=== PATIENT | male | born 1950 | race Caucasian/White ===

== ENCOUNTER 2016-07-29 15:10 | Outpatient (RCR) | payer OTHER ==
[~2016-07-29 15:10] MED LIST: AMITRIPTYLINE H10 MG ORAL; BRIMONIDINE TART5 ML BOTH EYES; COLACE100 MG ORAL; COUMADIN3 MG ORAL; DILANTIN100 MG ORAL; HEPARIN SO5000 UNIT2 SUBQ; LATANOPROST2.5 ML BOTH EYES; NORCO 5-325 TA1 EACH ORAL; PRIMIDONE250 MG ORAL; PRIMIDONE50 MG PO; TAMSULOSIN HCL0.4 MG ORAL; TOLTERODINE TART1 MG PO; TRUSOPT10 ML BOTH EYES
== END 2016-08-26 | disposition home or self-care (01) ==
LOC: PTY 15:10
DX: R26.89 Other abnormalities of gait and mobility (principal); M54.5 Low back pain; Z91.81 History of falling; G40.909 Epilepsy, unspecified, not intractable, without status epilepticus
CPT/HCPCS: 97110; G0283

== ENCOUNTER 2016-08-28 15:11 | Outpatient (RCR) | payer OTHER | END 2016-09-23 | disposition home or self-care (01) | LOC: PTY 15:11 | DX: M54.5 Low back pain (principal) | CPT/HCPCS: 97110; G0283 ==

== ENCOUNTER 2016-10-03 15:07 | Outpatient (RCR) | payer OTHER | END 2016-10-24 | disposition home or self-care (01) | LOC: PTY 15:07 | DX: M54.5 Low back pain (principal) | CPT/HCPCS: 97110; G0283 ==

== ENCOUNTER → 2016-11-03 | Day surgery (SDC) | payer OTHER ==
[~2016-11-03] VITALS: Ht 177.8 cm; Wt 89.8 kg
[2016-11-03] VITALS (9 sets, daily range): BP systolic 134–149; BP diastolic 70–94
[~2016-11-03] MED LIST changes: +Akten 3.5% 1ml Btl ONE; +BSS 15ml BTL ONE; +BSS 500ml btl ONE; +Carbachol 0.01% Op Soln 1.5ml vial ONE; +Ciprofloxacin Opth Soln ONE; +Cyclopentolate 1% Opth Sol ONE; +Dexamethasone 4mg/ml vial ONE; +Diclofenac Sod 0.1% Op Soln ONE; +EPINEPHrine 1mg/1ml Amp ONE; +LR 1000ml ONE; +Lidocaine 1% MPF 10mg/ml 5ml ONE; +Lidocaine 4% Amp ONE; +Midazolam 2mg/2ml Inj ONE; +NS Irrig 1000ml ONE; +Phenylephrine 10% Opth Soln 5ml ONE; +Povidone-Iodine 5% opth solution ONE; +Pred Forte 1% Opth Susp 1ml ONE; +Sodium Hyaluronate 10 mg/ml 0.85ml ONE; +Sodium Hyaluronate 14 mg/ml 0.85ml ONE; +Sterile Water Irrig 1000ml IRRIG ONE; +Tetracaine 0.5% Opth Soln ONE; +Vancomycin Intravitreal Inj RIGHT EYE ONE; +fentaNYL 100 mcg/2 mL IV ONE
[2016-11-03] MEDS: Ciprofloxacin Opth Soln RIGHT EYE SCH ×4 (07:08→07:36)
[2016-11-03] MEDS: Diclofenac Sod 0.1% Op Soln RIGHT EYE SCH ×4 (07:08→07:35)
[2016-11-03] MEDS: Cyclopentolate 1% Opth Sol RIGHT EYE SCH ×4 (07:09→07:36)
[2016-11-03] MEDS: Phenylephrine 10% Opth Soln 5ml RIGHT EYE SCH ×4 (07:09→07:36)
[2016-11-03] MEDS: Akten 3.5% 1ml Btl RIGHT EYE SCH ×4 (07:09→07:36)
--- NOTE | 2016-11-03 08:15 | Anethesia Preoperative Eval ---
Anesthesia Pre-op PMH/ROS General Date of Evaluation: Nov 03, 2016 Time of Evaluation: 07:40 Anesthesiologist: paradise ASA Score: ASA 2 Mallampati Score Class I : Soft palate, uvula, fauces, pillars visible Class II: Soft palate, uvula, fauces visible Class III: Soft palate, base of uvula visible Class IV: Only hard plate visible Mallampati Classification: Class III Surgeon: nolberto Diagnosis: cataract Surgical Procedure: cataract extraction with IOL Anesthesia History: none Family History: no anesthesia problems Allergies: Coded Allergies: SHELLFISH DERIVED (Unverified Allergy, Intermediate, ITCHING/HIVES, ) IODINE (Unverified Allergy, Unknown, 02/17/14) Uncoded Allergies: SPINACH (Allergy, Intermediate, SEVERE ITCHING/HIVES, 02/17/14) Medications: see eMAR Past Medical History Cardiovascular: Reports: HTN Pulmonary: Reports: other - hx PE Gastrointestinal/Genitourinary: Denies: CRI, ESRD, GERD, other Neurologic/Psychiatric: Reports: depression/anxiety Endocrine: Denies: DM, hypothyroidism, other, steroids HEENT: Reports: cataract (R) Hematology/Immune: Reports: other - PE from hip surgery Musculoskeletal/Integumentary: Denies: DDD, DJD, OA, RA, edema, other PSxH Narrative: hip surgery in 2013 Anesthesia Pre-op Phys. Exam Physician Exam Last Vital Signs Date Time Temp Pulse Resp B/P Pulse Ox O2 Delivery O2 Flow Rate FiO2 11/03/16 07:15 97.0 75 18 136/85 95 Room Air Constitutional: NAD Neurologic: CN 2-12 intact Cardiovascular: RRR Respiratory: CTA Gastrointestinal: S/NT/ND Airway Exam Mallampati Classification 3 MO: full Neck: thick ROM: full Dentures: no lower, no upper Anesthesia Pre-op A/P Studies Pre-op Studies: EKG Risk Assessment & Plan Assessment: denies sob, chest, able to lie flat Plan: mac Status Change Before Surgery: No Pre-Antibiotics Drug: none MIGUEL WATST CRNA Nov 03, 2016 08:15
--- NOTE | 2016-11-03 08:43 | Immediate Post-Op Evaluation ---
Immediate Post-Op Evalulation Immediate Post-Op Evalulation Procedure: cataract extraction with IOL Date of Evaluation: Nov 03, 2016 Time of Evaluation: 08:40 IV Fluids: 300 Blood Pressure Systolic: 149 Blood Pressure Diastolic: 94 Pulse Rate: 76 Respiratory Rate: 14 O2 Sat by Pulse Oximetry: 97 Temperature (Fahrenheit): 97.9 Nausea: No Vomiting: No Patient Status: awake Hydration Status: adequate Drug: none DIONICIORILLIONMIGUEL CRNA Nov 03, 2016 08:43
--- NOTE | 2016-11-03 08:43 | Pre-Procedure Note/Attestation ---
Pre-Procedure Note/Attestation Complete Prior to Procedure Planned Procedure: right Procedure Narrative: Cataract with intraocular lens, right eye Indications for Procedure Pre-Operative Diagnosis: Cataract, right eye Attestation I attest that I discussed the nature of the procedure; its benefits; risks and complications; and alternatives (and the risks and benefits of such alternatives ), prior to the procedure, with the patient (or the patient's legal sales representative groceries). I attest that, if there was a reasonable possibility of needing a blood transfusion, the patient (or the patient's legal sales representative groceries) was given the [facility] standardized written summary, pursuant to the [place] Blood Safety Act ([place] Health and Safety Code # 1645, as amended). I attest that I re-evaluated the patient just prior to the surgery and that there has been no change in the patient's H&P, except as documented below: TIMBO COBB Nov 03, 2016 08:43
--- NOTE | 2016-11-03 08:54 | Operative Note - PDOC ---
Opthamology Op Report Surgical Report PREPROCEDURE DIAGNOSIS: Visually significant cataract, right eye POSTPROCEDURE DIAGNOSIS: Visually significant cataract, right eye PROCEDURE: Phacoemulsification with Intra-ocular lens placement, right eye, complex. SURGEON: Timbo Cobb MD ANESTHESIA: MAC, local anesthesia IMPLANT(S): JUSTA IOL: ZCBOO, Power 18 diopters DRAINS: None SPECIMEN: None ESTIMATED BLOOD LOSS: None BLOOD PRODUCTS ADMINISTERED: None COMPLICATIONS: NoneDate of Discussion: 11/03/16 A [id number] discussion with the [] regarding the patient's advanced care planning took place during this hospitalization on the above date. The discussion included the explanation and discussion of advance directives and associated forms/documents, as well as the patient's current code status. We also discussed at length the patient's medical conditions (both acute and chronic), general prognosis, treatment options, and goals of care. The following summarizes the discussion: Advance Care Planning/Goals of Care: - Will attempt to fill out an AD and/or POLST with the patient prior to discharge, if not already completed - Continue current evaluation and management of any acute and chronic medical issues - Will continue to support the patient/family - Will continue to discuss both short- and long-term goals of care DPOA-HC/Surrogate Decision Maker: None currently appointed [] Code Status: Full Code AD Forms/Documents Completed: Deferred A total of 31 minutes was spent on this discussion, including counseling, answering questions, and completing, if any, pertinent advanced care planning forms/documents. FINDINGS: Opacified lens INDICATIONS FOR PROCEDURE: This patient has a Visually significant cataract, who presented with blurred vision and difficulty reading and driving. Risks, benefits and alternatives to cataract surgery were explained to the patient, who agreed to proceed with the procedure. Informed consent was obtained and signed by the patient. DESCRIPTION OF PROCEDURE: The patient was seen by me along with anesthesia team in the pre op area and the surgical site was marked and confirmed. Anesthetic drops along with dilating drops was instilled in surgical eye in the pre op. The patient was then brought back to the operating beka placed in supine position. The eye was prepped with Betadine 5% and draped in sterile manner for the ophthalmic surgery. An eyelid speculum was was placed to keep the eyelid open. Paracentesis wound was made superiorly though clear cornea near the limbus using 1.2mm side-port blade. Preservative free Lidocaine 1% was injected into the anterior chamber through the paracentesis wound. The anterior chamber was inflated with viscoelastic. A keratome blade was used to make a bi-planar, shelved, clear corneal incision, starting at temporal limbus and then tunneling through clear cornea to enter the anterior chamber. Due to Flomax medication, a 7 mm Malyugin ring was positioned to maintain the pupil adequately dilated. A circular curvilinear continue capsulorrhexis was initiated by cystotome and continued with capsulorhexis forceps. The capsular flap then was removed. Hydrodissection and hydrodelineation was performed using BSS until the lens was freely rotatable. The lens nucleus was then removed using the phacoemulsification handpiece. The residual cortex was removed with the irrigation/aspiration handpieces. The posterior capsule was polished. The capsular bag and anterior chamber were inflated with viscoelastic, and the IOL was inserted into the capsular bag. The Malyugin ring was removed. Using irrigation/Aspiration handpiece on the aspiration mode, [place] was removed from the anterior and posterior chamber. The wound was adjusted and made water tight without sutures. The intraocular pressure was adjusted to normal. The speculum was removed. Vigamox and prednisolone acetate drops were placed on the eye. A clear shield were placed over the operative eye. All sponge and needle counts were correct. The patient was transferred to the recovery room in stable condition having tolerated the procedure well. TIMBO COBB Nov 03, 2016 08:54
--- NOTE | 2016-11-03 09:03 | 48 Hour Post Anesthesia Eval ---
Post Anesthesia Evaluation Procedure: cataract extraction with IOL Date of Evaluation: Nov 03, 2016 Time of Evaluation: 09:03 Blood Pressure Systolic: 136 0: 74 Pulse Rate: 75 Respiratory Rate: 14 O2 Sat by Pulse Oximetry: 96 Airway: patent Nausea: No Vomiting: No Hydration Status: adequate Mental Status/LOC: patient returned to baseline Follow-up care needed: N/A MIGUEL WATTS CRNA Nov 03, 2016 09:03
== END | disposition home or self-care (01) ==
LOC: SUR 06:32
DX: H26.9 Unspecified cataract (principal); I10 Essential (primary) hypertension; R32 Unspecified urinary incontinence; G43.909 Migraine, unspecified, not intractable, without status migrainosus; F32.9 Major depressive disorder, single episode, unspecified; F41.9 Anxiety disorder, unspecified; Z86.711 Personal history of pulmonary embolism; Z79.01 Long term (current) use of anticoagulants; Z91.041 Radiographic dye allergy status; Z91.013 Allergy to seafood; Z91.018 Allergy to other foods
CPT/HCPCS: 66982; J0171; J1100; J2250; J3010; J3370; J7120; V2632; 94003; 94150

== ENCOUNTER 2016-12-25 15:58 | Outpatient (RCR) | payer OTHER ==
[~2016-12-25 15:58] MED LIST changes: -Akten 3.5% 1ml Btl ONE; -BSS 15ml BTL ONE; -BSS 500ml btl ONE; -Carbachol 0.01% Op Soln 1.5ml vial ONE; -Ciprofloxacin Opth Soln ONE; -Cyclopentolate 1% Opth Sol ONE; -Dexamethasone 4mg/ml vial ONE; -Diclofenac Sod 0.1% Op Soln ONE; -EPINEPHrine 1mg/1ml Amp ONE; -LR 1000ml ONE; -Lidocaine 1% MPF 10mg/ml 5ml ONE; -Lidocaine 4% Amp ONE; -Midazolam 2mg/2ml Inj ONE; -NS Irrig 1000ml ONE; -Phenylephrine 10% Opth Soln 5ml ONE; -Povidone-Iodine 5% opth solution ONE; -Pred Forte 1% Opth Susp 1ml ONE; -Sodium Hyaluronate 10 mg/ml 0.85ml ONE; -Sodium Hyaluronate 14 mg/ml 0.85ml ONE; -Sterile Water Irrig 1000ml IRRIG ONE; -Tetracaine 0.5% Opth Soln ONE; -Vancomycin Intravitreal Inj RIGHT EYE ONE; -fentaNYL 100 mcg/2 mL IV ONE
== END 2017-01-23 | disposition home or self-care (01) ==
LOC: PTY 15:58
DX: M54.5 Low back pain (principal)
CPT/HCPCS: 97110; 97116; G0283

== ENCOUNTER 2017-02-26 06:05 | Inpatient (IN) | payer OTHER ==
[~2017-02-26] VITALS: Ht 177.8 cm; Wt 92.5 kg
[~2017-02-26 06:05] MED LIST changes: +ACETAMINOPHEN325 M1 ORAL; +LANSOPRAZOLE30 MG ORAL; +WARFARIN SODIU7.5 MG ORAL
[2017-02-26] MEDS ORDERED: DILANTIN100 MG ORAL (06:18)
[2017-02-26] MEDS ORDERED: Tetanus/Diptheria/Pertussis Vaccine 0.5ml Syr IM ONE (06:45)
--- NOTE | 2017-02-26 06:45 | Emergency Room Report ---
History of Present Illness General Chief Complaint: Head, Face, Neck Trauma Source: Patient Present Illness HPI The patient 66-year-old male who presented after a fall. Patient stated that he had increased pain to his head as well as to his right wrist and low back. Patient had unclear loss of consciousness. He had prior history of Coumadin use. Is followed by Dr. Patel. Patient states he has no recent tetanus vaccine last 10 years. The patient stated that he did not recall hitting the floor. Allergies: Coded Allergies: SHELLFISH DERIVED (Unverified Allergy, Intermediate, ITCHING/HIVES, ) IODINE (Unverified Allergy, Unknown, 02/17/14) Uncoded Allergies: SPINACH (Allergy, Intermediate, SEVERE ITCHING/HIVES, 02/17/14) Patient History Reviewed Nursing Documentation: PMH: Agreed, PSxH: Agreed Nursing Documentation-PMH Hx Cardiac Problems: Yes - cardiopulmonary emboli-2013, hepatitis B Hx COPD: Yes Hx Cancer: Yes - BASAL CELL CARCINOMA SKIN Hx Gastrointestinal Problems: Yes Hx Neurological Problems: Yes - cataract surgery right eye October 2016 Hx Seizures: Yes - 30 YEARS AGO Hx Epilepsy: Yes - Well controlled with medications - last seizure 35 yrs ago Hx Syncope: Yes - THIS AM Hx Headaches: Yes - MIGRAINES Hx Numbness: Yes - TIPS OF THE TOES Review of Systems All Other Systems: negative except mentioned in HPI Physical Exam Vital Signs Date Time Temp Pulse Resp B/P Pulse Ox O2 Delivery O2 Flow Rate FiO2 02/26/17 06:08 97.5 96 19 132/80 93 Room Air Sp02 EP Interpretation: reviewed, normal General Appearance: normal inspection, well appearing, no apparent distress, alert, GCS 15 Head: atraumatic ENT: normal ENT inspection, hearing grossly normal, normal voice Neck: normal inspection, full range of motion, supple, no bony tend Respiratory: normal inspection, lungs clear, normal breath sounds, no respiratory distress, no retraction, no wheezing Cardiovascular #1: regular rate, rhythm, no edema Gastrointestinal: normal inspection, normal bowel sounds, non tender, soft, no guarding, no hernia Genitourinary: no CVA tenderness Musculoskeletal: normal inspection, back normal, normal range of motion Neurologic: normal inspection, alert, responsive, speech normal Psychiatric: normal inspection, judgement/insight normal, mood/affect normal Skin: normal inspection, normal color, no rash Medical Decision Making Diagnostic Impression: Primary Impression: Laceration of head Additional Impressions: Lumbar back pain History of Coumadin therapy Syncopal episodes ER Course Patient presented for fall. Differential diagnosis included was not limited to neck fracture, CVA, close head injury, syncopal episode, basilar ischemia. Because of complexity of patient's case laboratory testing and imaging studies were ordered.The patient's history consistent with possible syncopal episode versus seizure. Patient endorsed Dr Rodriguez. Labs Test 02/26/17 07:10 02/26/17 08:00 02/27/17 05:40 Troponin I < 0.30 ng/mL (<=0.30) Phenytoin (Dilantin) Level 9.2 ug/mL (10-20) Urine Color Pale yellow Urine Appearance Clear Urine pH 7 (4.5-8.0) Urine Specific [place] 1.010 (1.005-1.035) Urine Protein Negative (NEGATIVE) Urine Glucose (UA) Negative (NEGATIVE) Urine Ketones Negative (NEGATIVE) Urine Occult Blood Negative (NEGATIVE) Urine Nitrite Negative (NEGATIVE) Urine Bilirubin Negative (NEGATIVE) Urine Urobilinogen Normal MG/DL (0.0-1.0) Urine Leukocyte Esterase Negative (NEGATIVE) Urine RBC 0-2 /HPF (0 - 0) Urine WBC 0-2 /HPF (0 - 0) Urine Squamous Epithelial Cells Occasional /LPF Urine Bacteria Occasional /HPF (NONE) White Blood Count 5.3 K/UL (4.8-10.8) Red Blood Count 4.18 M/UL (4.70-6.10) Hemoglobin 13.6 G/DL (14.2-18.0) Hematocrit 40.4 % (42.0-52.0) Mean Corpuscular Volume 97 FL (80-99) Mean Corpuscular Hemoglobin 32.6 PG (27.0-31.0) Mean Corpuscular Hemoglobin Concent 33.7 G/DL (32.0-36.0) Red Cell Distribution Width 12.5 % (11.6-14.8) Platelet Count 213 K/UL (150-450) Mean Platelet Volume 7.7 FL (6.5-10.1) Neutrophils (%) (Auto) 62.8 % (45.0-75.0) Lymphocytes (%) (Auto) 21.8 % (20.0-45.0) Monocytes (%) (Auto) 13.3 % (1.0-10.0) Eosinophils (%) (Auto) 1.1 % (0.0-3.0) Basophils (%) (Auto) 1.0 % (0.0-2.0) Prothrombin Time 36.8 SEC (9.30-11.50) Prothromb Time International Ratio 3.5 (0.9-1.1) Activated Partial Thromboplast Time 52 SEC (23-33) Sodium Level 141 mEQ/L (135-145) Potassium Level 3.6 mEQ/L (3.4-4.9) Chloride Level 103 mEQ/L (98-107) Carbon Dioxide Level 24 mEQ/L (20-30) Anion Gap 14 (5-15) Blood Urea Nitrogen 14 mg/dL (7-23) Creatinine 0.7 mg/dL (0.7-1.2) Estimat Glomerular Filtration Rate > 60 mL/min (>60) Glucose Level 107 mg/dL (74-106) Calcium Level 9.4 mg/dL (8.6-10.2) Total Bilirubin 0.3 mg/dL (0.0-1.2) Aspartate Amino Transf (AST/SGOT) 21 U/L (5-40) Alanine Aminotransferase (ALT/SGPT) 16 U/L (3-41) Alkaline Phosphatase 143 U/L (40-129) Total Protein 6.9 g/dL (6.6-8.7) Albumin 4.0 g/dL (3.5-5.2) Globulin 2.9 g/dL Albumin/Globulin Ratio 1.3 (1.0-2.7) Triglycerides Level 114 mg/dL (< 150) Cholesterol Level 195 mg/dL (< 200) LDL Cholesterol 58 mg/dL (60-99) HDL Cholesterol 114 mg/dL (> 60) Cholesterol/HDL Ratio 1.7 (3.3-4.4) Thyroid Stimulating Hormone (TSH) 1.010 uIU/mL (0.300-4.500) EKG Diagnostic Results Rate: normal Rhythm: NSR ST Segments: no acute changes Rhythm Strip Diag. Results EP Interpretation: yes Rhythm: NSR, no PVC's, no ectopy Last Vital Signs Date Time Temp Pulse Resp B/P Pulse Ox O2 Delivery O2 Flow Rate FiO2 02/26/17 06:08 97.5 96 19 132/80 93 Room Air Status: unchanged Disposition: ADMITTED INPATIENT Condition: Serious Albaro Trivedi Feb 26, 2017 06:45
[2017-02-26 06:55] VITALS: BP 148/83
[2017-02-26 07:21] LABS: BASOPHILS % (AUTO) 0.9 % (0.0-2.0); EOSINOPHILS % (AUTO) 0.6 % (0.0-3.0); MEAN CORPUSCULAR HEMOGLOBIN 32.6 PG (27.0-31.0); MEAN CORPUSCULAR HGB CONC 33.4 G/DL (32.0-36.0); MEAN CORPUSCULAR VOLUME 98 FL (80-99); MONOCYTES % (AUTO) 8.2 % (1.0-10.0); NEUTROPHILS % (AUTO) 78.3 % (45.0-75.0); PLATELET COUNT 197 K/UL (150-450); RED BLOOD COUNT 4.21 M/UL (4.70-6.10); RED CELL DISTRIBUTION WIDTH 12.6 % (11.6-14.8); WHITE BLOOD COUNT 6.5 K/UL (4.8-10.8)
[2017-02-26 07:33] LABS: TROPONIN I < 0.30 ng/mL (<=0.30)
[2017-02-26 07:34] LABS: ALANINE AMINOTRANSFERASE 18 U/L (3-41); ALBUMIN/GLOBULIN RATIO 1.3 (1.0-2.7); ANION GAP 13 (5-15); ASPARTATE AMINO TRANSFERASE 22 U/L (5-40); CALCIUM 9.4 mg/dL (8.6-10.2); CARBON DIOXIDE 26 mEQ/L (20-30); CHLORIDE 102 mEQ/L (98-107); CREATININE 0.9 mg/dL (0.7-1.2); GLOMERULAR FILTRATION RATE > 60 mL/min (>60); HEMOLYSIS 6; POTASSIUM 3.7 mEQ/L (3.4-4.9); SODIUM 141 mEQ/L (135-145)
[2017-02-26 07:53] LABS: INR 2.9 (0.9-1.1); PROTHROMBIN TIME 30.6 SEC (9.30-11.50)
[2017-02-26 08:36] VITALS: BP 143/87
[2017-02-26 08:45] LABS: APPEARANCE,URINE CLEAR; KETONES,URINE NEGATIVE (NEGATIVE); LEUKOCYTE ESTERASE ,URINE NEGATIVE (NEGATIVE); NITRITE,URINE NEGATIVE (NEGATIVE); PH,URINE 7 (4.5-8.0); PROTEIN,URINE NEGATIVE (NEGATIVE); UROBILINOGEN,URINE NORMAL MG/DL (0.0-1.0)
[2017-02-26 09:00] LABS: BACTERIA,URINE OCCASIONAL /HPF; RBC,URINE 0-2 /HPF (0 - 0); SQUAMOUS EPITHELIAL CELL,UR OCCASIONAL /LPF (NONE/OCC); WBC,URINE 0-2 /HPF (0 - 0)
--- NOTE | 2017-02-26 09:14 | Diagnostic Imaging Report ---
Indication: Back pain Technique: Continuous helical transaxial imaging of the lumbar spine was obtained from the lung bases to the pubic symphysis. No IV contrast was administered. Coronal 2-D reformats were also obtained. Study obtained in a Siemens sensation [address] Total Dose length Product (DLP): [address] Dose Index Volume (CTDIvol): 0.25, 18.53 mGy Comparison: None Findings: There is no evidence of an acute fracture or malalignment. There is generalized osteopenia. Marginal endplate spurs are demonstrated throughout the lumbar and visualized lower thoracic spine mild in degree. There is some narrowing of the L3-4 disc. Hypertrophy of the lumbar facets noted mild in degree. There is no soft tissue swelling. Aorta is moderately calcified. Impression: No acute injury identified. Spondylosis and osteopenia as described above. Atherosclerotic disease Dr. cavazos has communicated the preliminary results to the Emergency Department. There are no significant discrepancies. The CT scanner at [facility] is accredited by the [employer] and the scans are performed using dose optimization techniques as appropriate to a performed exam including Automatic Exposure control.
--- NOTE | 2017-02-26 09:19 | Diagnostic Imaging Report ---
Indication: Headache Technique: Contiguous 5 mm thick transaxial imaging of the head obtained in a Siemens Sensation [address] scanner. Soft tissue and bone windows generated. Total Dose length Product (DLP): [address] Dose Index Volume (CTDIvol): 70.38 mGy Comparison: none Findings: There is mild prominence of the ventricles, basal cisterns, and cerebral sulci consistent with atrophy. Mild, nonspecific, white matter hypoattenuation is noted throughout the brain consistent with chronic small vessel disease. There is no midline shift, edema, acute hemorrhage, mass effect, or abnormal extra-axial fluid collections. Bones and extra osseous soft tissues are unremarkable. Impression: No acute intracranial bleed, mass effect or edema. Mild atrophy of the brain. Nonspecific white matter hypoattenuation probably due to chronic small vessel disease. The CT scanner at is accredited by the [employer] and the scans are performed using dose optimization techniques as appropriate to a performed exam including Automatic Exposure control.
--- NOTE | 2017-02-26 09:56 | Diagnostic Imaging Report ---
Indication: Pain Findings: 3 views of the right wrist were obtained. No acute fractures, malalignment, erosions or periostitis are identified. Small cystic focus noted on the ulnar side of the distal radioulnar joint. Small cystic focus involving the distal pole of the scaphoid also noted. These are probably degenerative in nature. Bone mineralization is within normal limits. Soft tissues are unremarkable. Impression: No acute injury. Some degenerative changes as described above
[2017-02-26 10:08] VITALS: BP 138/94
[2017-02-26] MEDS ORDERED: Morphine Sulfate 2mg/ml Inj IVP PRN (12:15)
[2017-02-26] MEDS ORDERED: DuoNeb 0.5-3(2.5)mg/3ml neb HHN PRN (12:15)
[2017-02-26] MEDS ORDERED: Nitroglycerin Subl 0.4mg tab (Bottle Of 25) SL PRN (12:15)
[2017-02-26] MEDS ORDERED: Mylanta II UD 30ml ORAL PRN (12:15)
[2017-02-26] MEDS ORDERED: LORazepam Inj 2mg/ml 1ml IV PRN (12:15)
[2017-02-26] MEDS ORDERED: Phenytoin 100mg cap ORAL SCH (13:00)
[2017-02-26] MEDS ORDERED: Primidone 250mg tab ORAL SCH ×2 (14:00→16:30)
[2017-02-26 14:34] VITALS: BP 132/72
--- NOTE | 2017-02-26 14:35 | History and Physical ---
History of Present Illness General Date patient seen: Feb 26, 2017 Reason for Hospitalization: Head, Face, Neck Trauma Present Illness HPI 66-year-old male with Hx of PE, seizures who presented after a fall. Patient stated that he had increased pain to his head as well as to his right wrist and low back. The patient stated that he did not recall hitting the floor. He is admitted to telemetry for wok up of his syncopal episode Allergies: Coded Allergies: SHELLFISH DERIVED (Unverified Allergy, Intermediate, ITCHING/HIVES, ) IODINE (Unverified Allergy, Unknown, 02/17/14) Uncoded Allergies: SPINACH (Allergy, Intermediate, SEVERE ITCHING/HIVES, 02/17/14) Medication History Scheduled Acetaminophen* (Acetaminophen 325MG Tablet*), 325 MG ORAL Q4H, (Reported) Amitriptyline Hcl* (Amitriptyline Hcl*), 75 MG ORAL BEDTIME, (Reported) Lansoprazole* (Lansoprazole*), 30 MG ORAL DAILY, (Reported) Latanoprost* (Xalatan*), 1 DROP BOTH EYES BEDTIME, (Reported) Phenytoin Sodium Extended* (Dilantin*), 100 MG ORAL THREE TIMES A DAY, (Reported ) Phenytoin Sodium Extended* (Dilantin*), 100 MG ORAL THREE TIMES A DAY, (Reported ) Primidone* (Mysoline*), 250 MG ORAL THREE TIMES A DAY Tamsulosin Hcl (Tamsulosin Hcl*), 0.4 MG ORAL BEDTIME, (Reported) Tolterodine Tartrate (Tolterodine Tartrate), 4 MG PO DAILY, (Reported) Warfarin Sod* (Warfarin Sod*), 7.5 MG ORAL DAILY, (Reported) Discontinued Medications Brimonidine Tartrate* (Alphagan*), 1 DROP BOTH EYES TID, (Reported) Discontinued Reason: Pt stopped taking med Dorzolamide Hcl* (Trusopt*), 1 DROP BOTH EYES BID, (Reported) Discontinued Reason: Pt stopped taking med Patient History Healthcare decision maker Resuscitation status Advanced Directive on File Yes Past Medical/Surgical History Past Medical/Surgical History: (1) Seizures (2) Pulmonary embolism Review of Systems All Other Systems: negative except mentioned in HPI Physical Exam General Appearance: WD/WN, no apparent distress Lines, tubes and drains: peripheral, central line HEENT: normocephalic, atraumatic Neck: non-tender, normal alignment Respiratory/Chest: chest wall non-tender, lungs clear Breasts: no masses Cardiovascular/Chest: normal rate Abdomen: normal bowel sounds, non tender Genitourinary/Rectal: normal rectal exam Extremities: normal range of motion Last 24 Hour Vital Signs Date Time Temp Pulse Resp B/P Pulse Ox O2 Delivery O2 Flow Rate FiO2 02/26/17 14:34 98.1 87 21 132/72 97 Room Air 02/26/17 10:08 83 15 138/94 94 Room Air 02/26/17 08:36 97.5 81 18 143/87 91 Room Air 02/26/17 08:32 97.5 02/26/17 06:55 97.5 86 18 148/83 93 Room Air 02/26/17 06:08 97.5 96 19 132/80 93 Room Air Laboratory Tests Test 02/26/17 07:10 02/26/17 08:00 White Blood Count 6.5 K/UL (4.8-10.8) Red Blood Count 4.21 M/UL (4.70-6.10) L Hemoglobin 13.7 G/DL (14.2-18.0) L Hematocrit 41.1 % (42.0-52.0) L Mean Corpuscular Volume 98 FL (80-99) Mean Corpuscular Hemoglobin 32.6 PG (27.0-31.0) H Mean Corpuscular Hemoglobin Concent 33.4 G/DL (32.0-36.0) Red Cell Distribution Width 12.6 % (11.6-14.8) Platelet Count 197 K/UL (150-450) Mean Platelet Volume 7.0 FL (6.5-10.1) Neutrophils (%) (Auto) 78.3 % (45.0-75.0) H Lymphocytes (%) (Auto) 12.0 % (20.0-45.0) L Monocytes (%) (Auto) 8.2 % (1.0-10.0) Eosinophils (%) (Auto) 0.6 % (0.0-3.0) Basophils (%) (Auto) 0.9 % (0.0-2.0) Prothrombin Time 30.6 SEC (9.30-11.50) H Prothromb Time International Ratio 2.9 (0.9-1.1) H Activated Partial Thromboplast Time 42 SEC (23-33) H Sodium Level 141 mEQ/L (135-145) Potassium Level 3.7 mEQ/L (3.4-4.9) Chloride Level 102 mEQ/L (98-107) Carbon Dioxide Level 26 mEQ/L (20-30) Anion Gap 13 (5-15) Blood Urea Nitrogen 13 mg/dL (7-23) Creatinine 0.9 mg/dL (0.7-1.2) Estimat Glomerular Filtration Rate > 60 mL/min (>60) Glucose Level 116 mg/dL (74-106) H Calcium Level 9.4 mg/dL (8.6-10.2) Total Bilirubin 0.3 mg/dL (0.0-1.2) Aspartate Amino Transf (AST/SGOT) 22 U/L (5-40) Alanine Aminotransferase (ALT/SGPT) 18 U/L (3-41) Alkaline Phosphatase 146 U/L (40-129) H Troponin I < 0.30 ng/mL (<=0.30) Total Protein 7.0 g/dL (6.6-8.7) Albumin 4.0 g/dL (3.5-5.2) Globulin 3.0 g/dL Albumin/Globulin Ratio 1.3 (1.0-2.7) Phenytoin (Dilantin) Level 9.2 ug/mL (10-20) L Urine Color Pale yellow Urine Appearance Clear Urine pH 7 (4.5-8.0) Urine Specific [place] 1.010 (1.005-1.035) Urine Protein Negative (NEGATIVE) Urine Glucose (UA) Negative (NEGATIVE) Urine Ketones Negative (NEGATIVE) Urine Occult Blood Negative (NEGATIVE) Urine Nitrite Negative (NEGATIVE) Urine Bilirubin Negative (NEGATIVE) Urine Urobilinogen Normal MG/DL (0.0-1.0) Urine Leukocyte Esterase Negative (NEGATIVE) Urine RBC 0-2 /HPF (0 - 0) H Urine WBC 0-2 /HPF (0 - 0) Urine Squamous Epithelial Cells Occasional /LPF Urine Bacteria Occasional /HPF (NONE) Height (Feet): 5 Height (Inches): 10.00 Weight (Pounds): 204 Medications Current Medications Medications (Trade) Dose Ordered Sig/Ashley Route PRN Reason Start Time Stop Time Status Last Admin Dose Admin Acetaminophen (Tylenol) 650 mg Q4H PRN ORAL T>100.5 02/26/17 12:15 03/28/17 12:14 Al Hydroxide/Mg Hydroxide (Mylanta II) 30 ml Q6H PRN ORAL dyspepsia 02/26/17 12:15 03/28/17 12:14 Albuterol/ Ipratropium (DuoNeb 0.5-3(2.5)mg/3ml) 3 ml Q4H PRN HHN Shortness of Breath 02/26/17 12:15 03/03/17 12:14 Amitriptyline HCl (Elavil) 75 mg BEDTIME ORAL 02/26/17 21:00 03/28/17 20:59 Clonidine HCl (Catapres) 0.1 mg Q4H PRN ORAL SBP>160mmHg 02/26/17 12:15 03/28/17 12:14 Dextrose (Dextrose 50%) STAT PRN IV Hypoglycemia 02/26/17 12:15 03/28/17 12:14 Heparin Sodium (Porcine) (Heparin 5000 units/ml) 5,000 units EVERY 12 HOURS SUBQ 02/26/17 21:00 03/28/17 20:59 Latanoprost (Xalatan) 1 drop BEDTIME BOTH EYES 02/26/17 21:00 03/28/17 20:59 Lorazepam (Ativan 2mg/ml 1ml) 0.5 mg Q4H PRN IV For Anxiety 02/26/17 12:15 03/05/17 12:14 Morphine Sulfate (Morphine Sulfate) 1 mg Q4H PRN IVP For Pain 7-10 02/26/17 12:15 03/05/17 12:14 Nitroglycerin (Ntg) 0.4 mg Q5M X 3 DOSES PRN SL Prn Chest Pain 02/26/17 12:15 03/28/17 12:14 Ondansetron HCl (Zofran) 4 mg Q6H PRN IVP Nausea & Vomiting 02/26/17 12:15 03/28/17 12:14 Phenytoin (Dilantin) 100 mg THREE TIMES A DAY ORAL 02/26/17 13:00 03/28/17 12:59 Polyethylene Glycol (Miralax) 17 gm HSPRN PRN ORAL Constipation 02/26/17 21:00 03/28/17 20:59 Primidone (Mysoline) 250 mg THREE TIMES A DAY ORAL 02/26/17 14:00 03/28/17 13:59 Tamsulosin HCl (Flomax) 0.4 mg BEDTIME ORAL 02/26/17 21:00 03/28/17 20:59 Temazepam (Restoril) 15 mg HSPRN PRN ORAL Insomnia 02/26/17 21:00 03/05/17 20:59 Assessment/Plan Problem List: (1) Syncopal episodes ICD Codes: R55 - Syncope and collapse SNOMED: 359642083 (2) Laceration of head ICD Codes: S01.91XA - Laceration without foreign body of unspecified part of head, initial encounter SNOMED: 553176432 (3) History of Coumadin therapy ICD Codes: Z79.01 - skilled nursing (current) use of anticoagulants SNOMED: 465925029 (4) Seizures ICD Codes: R56.9 - Seizures SNOMED: 77430425 Assessment/Plan telemetry 2decho doppler of carotid artery cardio and neuro evaluation CRIS BAEZ Feb 26, 2017 14:35
--- NOTE | 2017-02-26 15:54 | Neurology Progress Note ---
Objective Physical Exam Last Vital Signs Date Time Temp Pulse Resp B/P Pulse Ox O2 Delivery O2 Flow Rate FiO2 02/26/17 14:50 98.1 87 21 132/72 97 Room Air Laboratory Tests Test 02/26/17 07:10 02/26/17 08:00 White Blood Count 6.5 K/UL (4.8-10.8) Red Blood Count 4.21 M/UL (4.70-6.10) L Hemoglobin 13.7 G/DL (14.2-18.0) L Hematocrit 41.1 % (42.0-52.0) L Mean Corpuscular Volume 98 FL (80-99) Mean Corpuscular Hemoglobin 32.6 PG (27.0-31.0) H Mean Corpuscular Hemoglobin Concent 33.4 G/DL (32.0-36.0) Red Cell Distribution Width 12.6 % (11.6-14.8) Platelet Count 197 K/UL (150-450) Mean Platelet Volume 7.0 FL (6.5-10.1) Neutrophils (%) (Auto) 78.3 % (45.0-75.0) H Lymphocytes (%) (Auto) 12.0 % (20.0-45.0) L Monocytes (%) (Auto) 8.2 % (1.0-10.0) Eosinophils (%) (Auto) 0.6 % (0.0-3.0) Basophils (%) (Auto) 0.9 % (0.0-2.0) Prothrombin Time 30.6 SEC (9.30-11.50) H Prothromb Time International Ratio 2.9 (0.9-1.1) H Activated Partial Thromboplast Time 42 SEC (23-33) H Sodium Level 141 mEQ/L (135-145) Potassium Level 3.7 mEQ/L (3.4-4.9) Chloride Level 102 mEQ/L (98-107) Carbon Dioxide Level 26 mEQ/L (20-30) Anion Gap 13 (5-15) Blood Urea Nitrogen 13 mg/dL (7-23) Creatinine 0.9 mg/dL (0.7-1.2) Estimat Glomerular Filtration Rate > 60 mL/min (>60) Glucose Level 116 mg/dL (74-106) H Calcium Level 9.4 mg/dL (8.6-10.2) Total Bilirubin 0.3 mg/dL (0.0-1.2) Aspartate Amino Transf (AST/SGOT) 22 U/L (5-40) Alanine Aminotransferase (ALT/SGPT) 18 U/L (3-41) Alkaline Phosphatase 146 U/L (40-129) H Troponin I < 0.30 ng/mL (<=0.30) Total Protein 7.0 g/dL (6.6-8.7) Albumin 4.0 g/dL (3.5-5.2) Globulin 3.0 g/dL Albumin/Globulin Ratio 1.3 (1.0-2.7) Phenytoin (Dilantin) Level 9.2 ug/mL (10-20) L Urine Color Pale yellow Urine Appearance Clear Urine pH 7 (4.5-8.0) Urine Specific [place] 1.010 (1.005-1.035) Urine Protein Negative (NEGATIVE) Urine Glucose (UA) Negative (NEGATIVE) Urine Ketones Negative (NEGATIVE) Urine Occult Blood Negative (NEGATIVE) Urine Nitrite Negative (NEGATIVE) Urine Bilirubin Negative (NEGATIVE) Urine Urobilinogen Normal MG/DL (0.0-1.0) Urine Leukocyte Esterase Negative (NEGATIVE) Urine RBC 0-2 /HPF (0 - 0) H Urine WBC 0-2 /HPF (0 - 0) Urine Squamous Epithelial Cells Occasional /LPF Urine Bacteria Occasional /HPF (NONE) Impression/Recommendations Problems: (1) Syncope, vasovagal (2) Seizure disorder, complex partial Status: stable Recommendations # [id number] LOU DUNCAN Feb 26, 2017 15:54
[2017-02-26 16:16] VITALS: BP 145/94
[2017-02-26] MEDS: Phenytoin 100mg cap ORAL SCH ×3 (16:53→22:00)
[2017-02-26 20:00] VITALS: BP 153/93
[2017-02-26] MEDS: Tamsulosin 0.4mg cap ORAL SCH (20:39)
[2017-02-26] MEDS: Primidone 250mg tab ORAL SCH (20:40)
[2017-02-26] MEDS ORDERED: Heparin 5000 units/ml inj SUBQ SCH (21:00)
[2017-02-26] MEDS ORDERED: Miralax 17gm pkt ORAL PRN (21:00)
--- NOTE | 2017-02-26 22:15 | Consultation ---
DATE OF CONSULTATION: 02/26/2017 NEUROLOGICAL CONSULTATION CONSULTING PHYSICIAN: Magdiel Shah M.D. REQUESTING PHYSICIAN: Mel Fuentes M.D. HISTORY OF PRESENT ILLNESS: The patient is a 66-year-old man, seen in neurological consultation to evaluate the episodes of unresponsiveness with a fall and head trauma. The patient informed me that he was getting ready for cataract surgery, which was scheduled for this morning. So for the last hours, he was not drinking water and he was unable to sleep more than one hour. He woke up around 4:30 a.m., took his walker and went to the bathroom, there while turning around, he lost consciousness and fell down. Caregiver was present and took him to the emergency room. The patient apparently had injuries to his head, right wrist, and lower back. On arrival, he was complaining of pain in the injured side. His vital signs on admission were stable. Blood pressure 132/80, heart rate of 96, and temperature of 97.5 degrees. EKG, normal sinus rhythm. No premature ventricular contractions. Imaging studies were obtained and this included CAT scan of the brain. This revealed mild diffuse atrophy, nonspecific small vessel disease, and no evidence of acute abnormalities. CT scan of the lumbar spine was obtained revealing osteopenia. No acute injury noted. Atherosclerotic disease was noted. There was evidence of multilevel degenerative joint disease. Wrist x-ray, no fracture, some degenerative changes noted. Laboratory work included mild anemia, hemoglobin 13.7 and hematocrit 31.1. There is evidence of coagulopathy with INR of 2.9 and PT of 30.6. Urinalysis was normal. Toxicology panel, phenytoin level of 9.2 Chemistry panel was unremarkable except alkaline phosphatase 146 and a glucose 116. Since admission to present, there was no further paroxysmal event detected. PAST MEDICAL HISTORY: The patient has a history of hepatitis B. There is a history of pulmonary embolism three years ago during which he had fall, fractured his left hip, and required total hip replacement. He developed abnormality of gait. Noted that, walking more than one block, he develops profound weakness in his legs. Also, he is using now walker. He has a history of migraine, history of glaucoma, and history of chronic seizure disorder, the last seizure 30 years ago. He is maintained on anticonvulsants. He has a history of basal cell carcinoma. He underwent a cataract surgery in the right eye in October of this year. MEDICATIONS: Treatment prior to admission included Tylenol, amitriptyline 75 mg at bedtime, lansoprazole, Dilantin 100 mg t.i.d., primidone 250 mg t.i.d., tamsulosin, and warfarin 7.5 mg daily. ALLERGIES: Iodine, shellfish, , and spinach. SOCIAL HISTORY: Lives at home alone, but has a caregiver, who takes care of him. No alcohol. No drug abuse. FAMILY HISTORY: Noncontributory. REVIEW OF SYMPTOMS: Aches and pains in his low back region and pain on the top of the head from the injuries. Denies chest pain or palpitations. No respiratory difficulties. Denies abdominal pain or discomfort. He has a urinary frequency, but no constipation. PHYSICAL EXAMINATION: GENERAL: A well-developed and well-nourished man, not in acute distress, lying comfortably in bed. HEENT: Head, normocephalic with a bruise. NECK: Supple. No meningeal signs. MUSCULOSKELETAL EXAMINATION: Tenderness to palpation in the lumbar paraspinal region and right wrist. Peripheral pulses 1+ symmetric. Postoperative scarring in the left hip region. MENTAL STATUS: Alert and oriented x3. Speech is fluent. Language intact. There is no aphasia. No apraxia. Cognitive function normal. CRANIAL NERVE II: Pupils both responding to light and accommodation. Extraocular movement, full range. CRANIAL NERVE V: Normal corneal responses. CRANIAL NERVE VII: No facial asymmetry. CRANIAL NERVE VIII: Slight decrease in hearing. CRANIAL NERVES IX THROUGH XII: Tongue is in midline. Symmetric palate elevation. MOTOR EXAMINATION: Revealed a normal muscle tone. Strength 5/5 in all extremities. No involuntary movement. Deep tendon reflexes 1+ symmetric with downgoing toes on both sides. SENSORY EXAM: Normal to pinprick and light touch. GAIT: Not tested, but reported able to ambulate with a walker. IMPRESSION: 1. History of syncopal episode, most likely vasovagal due to sleep deprivation and dehydration. Rule out cardiac arrhythmia. 2. Chronic seizure disorder, fair control. 3. History of pulmonary embolism, now on anticoagulation. 4. History of migraine. 5. Mild anemia. RECOMMENDATIONS: 1. Maintain proper hydration. 2. Continue with the current anticonvulsants. 3. Continue with the current treatment. 4. Cardiac workup pending. 5. The patient to be observed for any paroxysmal events. Meanwhile, continue with primidone and Dilantin. 6. From neuro point of view, the patient is cleared for eye procedure. Thank you for allowing me to see this interesting patient in neurological consultation. Magdiel Emiliano Shah DR: BELLA JOB#: [id number] CC:
[2017-02-27 04:07] VITALS: BP 142/64
[2017-02-27] MEDS: Primidone 250mg tab ORAL SCH ×3 (05:37→21:48)
[2017-02-27 06:41] LABS: EOSINOPHILS % (AUTO) 1.1 % (0.0-3.0); LYMPHOCYTES % (AUTO) 21.8 % (20.0-45.0); MEAN CORPUSCULAR HEMOGLOBIN 32.6 PG (27.0-31.0); MEAN CORPUSCULAR HGB CONC 33.7 G/DL (32.0-36.0); MEAN CORPUSCULAR VOLUME 97 FL (80-99); MEAN PLATELET VOLUME 7.7 FL (6.5-10.1); MONOCYTES % (AUTO) 13.3 % (1.0-10.0); NEUTROPHILS % (AUTO) 62.8 % (45.0-75.0); PLATELET COUNT 213 K/UL (150-450); RED BLOOD COUNT 4.18 M/UL (4.70-6.10); RED CELL DISTRIBUTION WIDTH 12.5 % (11.6-14.8); WHITE BLOOD COUNT 5.3 K/UL (4.8-10.8)
[2017-02-27 06:56] LABS: INR 3.5 (0.9-1.1); PROTHROMBIN TIME 36.8 SEC (9.30-11.50)
[2017-02-27 07:14] LABS: ALANINE AMINOTRANSFERASE 16 U/L (3-41); ALBUMIN/GLOBULIN RATIO 1.3 (1.0-2.7); ANION GAP 14 (5-15); ASPARTATE AMINO TRANSFERASE 21 U/L (5-40); CALCIUM 9.4 mg/dL (8.6-10.2); CARBON DIOXIDE 24 mEQ/L (20-30); CHLORIDE 103 mEQ/L (98-107); CHOLESTEROL 195 mg/dL (< 200); CREATININE 0.7 mg/dL (0.7-1.2); GLOMERULAR FILTRATION RATE > 60 mL/min (>60); HEMOLYSIS 6; POTASSIUM 3.6 mEQ/L (3.4-4.9); SODIUM 141 mEQ/L (135-145); TOTAL PROTEIN 6.9 g/dL (6.6-8.7)
[2017-02-27 07:16] LABS: CHOLESTEROL/HDL RATIO 1.7 (3.3-4.4); LDL CHOLESTEROL (CALC.) 58 mg/dL (60-99)
[2017-02-27 07:46] VITALS: BP 134/81
[2017-02-27] MEDS: DILANTIN 100MG ORAL SCH ×3 (09:13→18:41)
[2017-02-27 11:37] VITALS: BP 140/77
--- NOTE | 2017-02-27 12:05 | Neurology Progress Note ---
Interim History Interim History ROS Limited/Unobtainable: No Complaints: no sz Events: stable Objective Physical Exam Last Vital Signs Date Time Temp Pulse Resp B/P Pulse Ox O2 Delivery O2 Flow Rate FiO2 02/27/17 11:37 97.9 76 20 140/77 91 Room Air Laboratory Tests Test 02/27/17 05:40 White Blood Count 5.3 K/UL (4.8-10.8) Red Blood Count 4.18 M/UL (4.70-6.10) L Hemoglobin 13.6 G/DL (14.2-18.0) L Hematocrit 40.4 % (42.0-52.0) L Mean Corpuscular Volume 97 FL (80-99) Mean Corpuscular Hemoglobin 32.6 PG (27.0-31.0) H Mean Corpuscular Hemoglobin Concent 33.7 G/DL (32.0-36.0) Red Cell Distribution Width 12.5 % (11.6-14.8) Platelet Count 213 K/UL (150-450) Mean Platelet Volume 7.7 FL (6.5-10.1) Neutrophils (%) (Auto) 62.8 % (45.0-75.0) Lymphocytes (%) (Auto) 21.8 % (20.0-45.0) Monocytes (%) (Auto) 13.3 % (1.0-10.0) H Eosinophils (%) (Auto) 1.1 % (0.0-3.0) Basophils (%) (Auto) 1.0 % (0.0-2.0) Prothrombin Time 36.8 SEC (9.30-11.50) H Prothromb Time International Ratio 3.5 (0.9-1.1) H Activated Partial Thromboplast Time 52 SEC (23-33) H Sodium Level 141 mEQ/L (135-145) Potassium Level 3.6 mEQ/L (3.4-4.9) Chloride Level 103 mEQ/L (98-107) Carbon Dioxide Level 24 mEQ/L (20-30) Anion Gap 14 (5-15) Blood Urea Nitrogen 14 mg/dL (7-23) Creatinine 0.7 mg/dL (0.7-1.2) Estimat Glomerular Filtration Rate > 60 mL/min (>60) Glucose Level 107 mg/dL (74-106) H Calcium Level 9.4 mg/dL (8.6-10.2) Total Bilirubin 0.3 mg/dL (0.0-1.2) Aspartate Amino Transf (AST/SGOT) 21 U/L (5-40) Alanine Aminotransferase (ALT/SGPT) 16 U/L (3-41) Alkaline Phosphatase 143 U/L (40-129) H Total Protein 6.9 g/dL (6.6-8.7) Albumin 4.0 g/dL (3.5-5.2) Globulin 2.9 g/dL Albumin/Globulin Ratio 1.3 (1.0-2.7) Triglycerides Level 114 mg/dL (< 150) Cholesterol Level 195 mg/dL (< 200) LDL Cholesterol 58 mg/dL (60-99) L HDL Cholesterol 114 mg/dL (> 60) H Cholesterol/HDL Ratio 1.7 (3.3-4.4) L Thyroid Stimulating Hormone (TSH) 1.010 uIU/mL (0.300-4.500) General: well developed, well nourished, no acute distress Head: normocophalic, other - R frontal bruize Neurologic Exam Mental Status: awake, alert, oriented x4, normal cognition, good mathematical skills, normal recent memory, normal remote memory, preserved visuospatial function Speech: normal speech, no dysarthia Language: normal language, no aphasia Cranial Nerve II: fundus normal, visual vizcarra, no papilledema Cranial Nerves III, IV, : PERRLA, EOMI, pupils Cranial Nerve V: normal facial sensations, temporales function normal, masseters function normal, pterygoids function normal Cranial Nerve VII: no facial asymmetry, normal facial expressions Cranial Nerve VIII: normal hearing, no nystagmus Cranial Nerve IX: normal palate elevation, gag response Cranial Nerve X: no voice hoarseness Cranial Nerve XI: SCM symmetric, trapezii function normal Cranial Nerve XII: tongue midline, no tongue atrophy/fasciculations Motor System: normal muscle tone, strength 5/5, no involuntary movement, no muscle wasting Sensory: normal pinprick, normal light touch, normal position sense, normal graphesthesia Coordination: normal finger to nose bilaterally, normal heel to segundo bilaterally, negative Romberg test Deep Tendon Reflexes: 0 ankle (L), 0 ankle (R), 0 bicep (L), 0 bicep (R), 0 brachioradialis (L), 0 brachioradialis (R), 0 knee (L), 0 knee (R), 0 tricep (L) , 0 tricep (R) Reflexes: mute plantar (L), mute plantar (R) Stance: normal Gait: stable, normal regular, heel + toe gait Impression/Recommendations Problems: (1) Syncope, vasovagal (2) Seizure disorder, complex partial Status: stable Recommendations # [id number] cont with dilantin/mysolin neuro stable LOU DUNCAN Feb 27, 2017 12:05
--- NOTE | 2017-02-27 12:30 | Diagnostic Imaging Report ---
APPROVED REPORT CPT Code: 87549 Vascular Symptoms Syncope Doppler Spectral Velocity Analysis RightLeft BILATERAL: CCA/BULB - Imaging reveals irregular, minimal (5-10%) plaque in both carotid carotid arteries. The Doppler spectral flow analysis is within normal limits throughout the internal and external carotid arteries. VERTEBRALS - Imaging reveals both vertebral arteries to be patent, without evidence of stenosis or steal.
[2017-02-27 15:33] VITALS: BP 144/75
[2017-02-27] MEDS ORDERED: Warfarin Sodium 7.5mg ORAL SCH ×2 (17:00)
--- NOTE | 2017-02-27 17:54 | Pulmonology Progress Note ---
Assessment/Plan Problems: (1) Syncope, vasovagal (2) History of Coumadin therapy Assessment/Plan check echo cardio evaluation neuro appreciated Subjective ROS Limited/Unobtainable: No Constitutional: Reports: no symptoms HEENT: Repors: no symptoms Respiratory: Reports: no symptoms Allergies: Coded Allergies: SHELLFISH DERIVED (Unverified Allergy, Intermediate, ITCHING/HIVES, ) IODINE (Unverified Allergy, Unknown, 02/17/14) Uncoded Allergies: SPINACH (Allergy, Intermediate, SEVERE ITCHING/HIVES, 02/17/14) Objective Last 24 Hour Vital Signs Date Time Temp Pulse Resp B/P Pulse Ox O2 Delivery O2 Flow Rate FiO2 02/27/17 15:33 98.1 103 20 144/75 96 02/27/17 12:00 84 02/27/17 11:37 97.9 76 20 140/77 91 Room Air 02/27/17 08:00 82 02/27/17 07:56 82 18 Room Air 02/27/17 07:46 97.7 84 20 134/81 91 Room Air 02/27/17 04:07 97.1 91 19 142/64 95 Room Air 02/27/17 04:00 86 02/27/17 00:00 94 02/26/17 23:38 97.2 02/26/17 20:00 98 02/26/17 20:00 97.2 94 20 153/93 95 Room Air 02/26/17 19:55 89 20 Room Air 02/26/17 19:12 90 Intake and Output 02/26/17 02/27/17 19:00 07:00 Intake Total 120 ml Output Total 250 ml Balance -130 ml Intake Oral 120 ml Output Urine Total 250 ml # Voids 1 General Appearance: WD/WN HEENT: normocephalic Respiratory/Chest: chest wall non-tender, lungs clear Cardiovascular: normal peripheral pulses, normal rate Abdomen: normal bowel sounds Genitourinary: normal external genitalia Extremities: no cyanosis Laboratory Tests 02/27/17 05:40: White Blood Count 5.3, Red Blood Count 4.18L, Hemoglobin 13.6L, Hematocrit 40.4L , Mean Corpuscular Volume 97, Mean Corpuscular Hemoglobin 32.6H, Mean Corpuscular Hemoglobin Concent 33.7, Red Cell Distribution Width 12.5, Platelet Count 213, Mean Platelet Volume 7.7, Neutrophils (%) (Auto) 62.8, Lymphocytes (% ) (Auto) 21.8, Monocytes (%) (Auto) 13.3H, Eosinophils (%) (Auto) 1.1, Basophils (%) (Auto) 1.0, Prothrombin Time 36.8H, Prothromb Time International Ratio 3.5H, Activated Partial Thromboplast Time 52H, Sodium Level 141, Potassium Level 3.6, Chloride Level 103, Carbon Dioxide Level 24, Anion Gap 14, Blood Urea Nitrogen 14, Creatinine 0.7, Estimat Glomerular Filtration Rate > 60 , Glucose Level 107H, Calcium Level 9.4, Total Bilirubin 0.3, Aspartate Amino Transf (AST/SGOT) 21, Alanine Aminotransferase (ALT/SGPT) 16, Alkaline Phosphatase 143H, Total Protein 6.9, Albumin 4.0, Globulin 2.9, Albumin/ Globulin Ratio 1.3, Triglycerides Level 114, Cholesterol Level 195, LDL Cholesterol 58L, HDL Cholesterol 114H, Cholesterol/HDL Ratio 1.7L, Thyroid Stimulating Hormone (TSH) 1.010 Current Medications Medications (Trade) Dose Ordered Sig/Ashley Route PRN Reason Start Time Stop Time Status Last Admin Dose Admin Acetaminophen (Tylenol) 650 mg Q4H PRN ORAL T>100.5 02/26/17 12:15 03/28/17 12:14 02/27/17 09:14 Al Hydroxide/Mg Hydroxide (Mylanta II) 30 ml Q6H PRN ORAL dyspepsia 02/26/17 12:15 03/28/17 12:14 Albuterol/ Ipratropium (DuoNeb 0.5-3(2.5)mg/3ml) 3 ml Q4H PRN HHN Shortness of Breath 02/26/17 12:15 03/03/17 12:14 Amitriptyline HCl (Elavil) 75 mg BEDTIME ORAL 02/26/17 21:00 03/28/17 20:59 02/26/17 20:39 Clonidine HCl (Catapres) 0.1 mg Q4H PRN ORAL SBP>160mmHg 02/26/17 12:15 03/28/17 12:14 Dextrose (Dextrose 50%) STAT PRN IV Hypoglycemia 02/26/17 12:15 03/28/17 12:14 Latanoprost (Xalatan) 1 drop BEDTIME BOTH EYES 02/26/17 21:00 03/28/17 20:59 02/26/17 21:41 Lorazepam (Ativan 2mg/ml 1ml) 0.5 mg Q4H PRN IV For Anxiety 02/26/17 12:15 03/05/17 12:14 Morphine Sulfate (Morphine Sulfate) 1 mg Q4H PRN IVP For Pain 7-10 02/26/17 12:15 03/05/17 12:14 Nitroglycerin (Ntg) 0.4 mg Q5M X 3 DOSES PRN SL Prn Chest Pain 02/26/17 12:15 03/28/17 12:14 Ondansetron HCl (Zofran) 4 mg Q6H PRN IVP Nausea & Vomiting 02/26/17 12:15 03/28/17 12:14 Patient Own Medication (Patient's Own Med) 1 ea TID ORAL 02/27/17 09:00 03/29/17 08:59 02/27/17 13:56 Polyethylene Glycol (Miralax) 17 gm HSPRN PRN ORAL Constipation 02/26/17 21:00 03/28/17 20:59 Primidone (Mysoline) 250 mg Q8H ORAL 02/26/17 21:00 03/28/17 20:59 02/27/17 13:55 Tamsulosin HCl (Flomax) 0.4 mg BEDTIME ORAL 02/26/17 21:00 03/28/17 20:59 02/26/17 20:39 Temazepam (Restoril) 15 mg HSPRN PRN ORAL Insomnia 02/26/17 21:00 03/05/17 20:59 Warfarin Sodium (Coumadin) 7.5 mg DAILY@17 ORAL 02/27/17 17:00 03/04/17 16:59 CRIS NOVOA Feb 27, 2017 17:54
[2017-02-27 20:00] VITALS: BP 134/82
[2017-02-27] MEDS: Tamsulosin 0.4mg cap ORAL SCH (21:48)
[2017-02-28] VITALS: BP 116/65
[2017-02-28 04:00] VITALS: BP 115/65
[2017-02-28] MEDS: Primidone 250mg tab ORAL SCH ×3 (05:27→20:34)
[2017-02-28 08:00] VITALS: BP 121/75
[2017-02-28 09:13] LABS: INR 2.5 (0.9-1.1); PROTHROMBIN TIME 26.2 SEC (9.30-11.50)
[2017-02-28] MEDS: DILANTIN 100MG ORAL SCH ×3 (09:13→17:49)
[2017-02-28] MEDS: Tolterodine 2mg tab ORAL SCH ×2 (09:13→17:53)
[2017-02-28 12:00] VITALS: BP 129/83
--- NOTE | 2017-02-28 15:30 | Pulmonology Progress Note ---
Assessment/Plan Assessment/Plan ASSESSMENT s/p fall syncopal episode, likely vasovagal 2 to dehydration and sleep deprivation dehydration chronic seizure disorder hx of PE, on a/coagulation therapy Migraines PLAN OF CARE tele CT head no acute IC pathology CT L spine no acute injury R wrist X ray no acute injury Carotid Duplex minimal plaque bilateral carotid neuro follows per neuro syncope likely vasovagal in origin due to dehydration and sleep deprivation IVF Lipid panel stable seizure precautions continue Dilantin cardio eval pending troponin negative SR on tele BP stable ECHO with EF 55% and RVSO of 10 Couamdin resumed O2 HHN prn PT/OT fall precautions still migraines pain management transfer to MS floor dc plan for tomorrow case discussed and evaluated by supervising physician Subjective Allergies: Coded Allergies: SHELLFISH DERIVED (Unverified Allergy, Intermediate, ITCHING/HIVES, ) IODINE (Unverified Allergy, Unknown, 02/17/14) Uncoded Allergies: SPINACH (Allergy, Intermediate, SEVERE ITCHING/HIVES, 02/17/14) Subjective c/o headaches no chest pain, no SOB no dizziness, no blackouts no seizure activity Objective Last 24 Hour Vital Signs Date Time Temp Pulse Resp B/P Pulse Ox O2 Delivery O2 Flow Rate FiO2 02/28/17 12:00 97.5 85 18 129/83 94 Room Air 02/28/17 12:00 56 02/28/17 08:00 82 02/28/17 08:00 97.5 80 18 121/75 93 Room Air 02/28/17 07:44 76 20 Room Air 02/28/17 04:00 97.4 72 20 115/65 94 Room Air 02/28/17 03:48 85 02/28/17 00:00 97.6 76 20 116/65 93 Room Air 02/28/17 00:00 86 02/27/17 20:01 80 18 Room Air 02/27/17 20:00 97.2 84 19 134/82 90 Room Air 02/27/17 19:49 83 02/27/17 19:41 97.2 02/27/17 16:00 88 02/27/17 15:33 98.1 103 20 144/75 96 Intake and Output 02/27/17 02/28/17 19:00 07:00 Intake Total 720 ml 50 ml Output Total 650 ml 285 ml Balance 70 ml -235 ml Intake Oral 720 ml 50 ml Output Urine Total 650 ml 285 ml # Voids 3 # Bowel Movements 1 General Appearance: no acute distress HEENT: normocephalic, atraumatic, anicteric, mucous membranes moist Respiratory/Chest: lungs clear, no respiratory distress, no accessory muscle use Cardiovascular: normal peripheral pulses, normal rate, no JVD Abdomen: normal bowel sounds, soft, non tender Extremities: no edema, pedal pulses normal Neurologic/Psychiatric: abnormal gait - with walker , alert, responsive, normal mood/affect Musculoskeletal: normal muscle bulk Laboratory Tests 02/28/17 08:40: Prothrombin Time 26.2H, Prothromb Time International Ratio 2.5H Current Medications Medications (Trade) Dose Ordered Sig/Ashley Route PRN Reason Start Time Stop Time Status Last Admin Dose Admin Acetaminophen (Tylenol) 650 mg Q4H PRN ORAL Fever/Headache/Mild Pain 02/28/17 00:15 03/30/17 00:14 02/28/17 09:13 Al Hydroxide/Mg Hydroxide (Mylanta II) 30 ml Q6H PRN ORAL dyspepsia 02/26/17 12:15 03/28/17 12:14 Albuterol/ Ipratropium (DuoNeb 0.5-3(2.5)mg/3ml) 3 ml Q4H PRN HHN Shortness of Breath 02/26/17 12:15 03/03/17 12:14 Amitriptyline HCl (Elavil) 75 mg BEDTIME ORAL 02/26/17 21:00 03/28/17 20:59 02/27/17 21:48 Clonidine HCl (Catapres) 0.1 mg Q4H PRN ORAL SBP>160mmHg 02/26/17 12:15 03/28/17 12:14 Dextrose (Dextrose 50%) STAT PRN IV Hypoglycemia 02/26/17 12:15 03/28/17 12:14 Latanoprost (Xalatan) 1 drop BEDTIME BOTH EYES 02/26/17 21:00 03/28/17 20:59 02/27/17 22:33 Lorazepam (Ativan 2mg/ml 1ml) 0.5 mg Q4H PRN IV For Anxiety 02/26/17 12:15 03/05/17 12:14 Morphine Sulfate (Morphine Sulfate) 1 mg Q4H PRN IVP For Pain 7-10 02/26/17 12:15 03/05/17 12:14 Nitroglycerin (Ntg) 0.4 mg Q5M X 3 DOSES PRN SL Prn Chest Pain 02/26/17 12:15 03/28/17 12:14 Ondansetron HCl (Zofran) 4 mg Q6H PRN IVP Nausea & Vomiting 02/26/17 12:15 03/28/17 12:14 Patient Own Medication (Patient's Own Med) 1 ea TID ORAL 02/27/17 09:00 03/29/17 08:59 02/28/17 13:52 Polyethylene Glycol (Miralax) 17 gm HSPRN PRN ORAL Constipation 02/26/17 21:00 03/28/17 20:59 Primidone (Mysoline) 250 mg Q8H ORAL 02/26/17 21:00 03/28/17 20:59 02/28/17 13:52 Tamsulosin HCl (Flomax) 0.4 mg BEDTIME ORAL 02/26/17 21:00 03/28/17 20:59 02/27/17 21:48 Temazepam (Restoril) 15 mg HSPRN PRN ORAL Insomnia 02/26/17 21:00 03/05/17 20:59 Tolterodine Tartrate (Detrol) 2 mg BID ORAL 02/28/17 09:00 03/30/17 08:59 02/28/17 09:13 Warfarin Sodium (Coumadin per pharmacy) 1 ea DAILY PRN MISC Per rx protocol 02/28/17 10:15 03/30/17 10:14 Warfarin Sodium (Coumadin) 6 mg COUMADIN ORAL 02/28/17 17:00 03/05/17 16:59 [facility] ([facility])Trixie NP Feb 28, 2017 15:30
[2017-02-28 16:00] VITALS: BP 135/99
--- NOTE | 2017-02-28 16:37 | Cardiology Progress Note ---
Assessment/Plan Assessment/Plan syncope orthostatitc vital if neg ok to dc [id number] Objective Last 24 Hour Vital Signs Date Time Temp Pulse Resp B/P Pulse Ox O2 Delivery O2 Flow Rate FiO2 02/28/17 12:00 97.5 85 18 129/83 94 Room Air 02/28/17 12:00 56 02/28/17 08:00 82 02/28/17 08:00 97.5 80 18 121/75 93 Room Air 02/28/17 07:44 76 20 Room Air 02/28/17 04:00 97.4 72 20 115/65 94 Room Air 02/28/17 03:48 85 02/28/17 00:00 97.6 76 20 116/65 93 Room Air 02/28/17 00:00 86 02/27/17 20:01 80 18 Room Air 02/27/17 20:00 97.2 84 19 134/82 90 Room Air 02/27/17 19:49 83 02/27/17 19:41 97.2 Intake and Output 02/27/17 02/28/17 19:00 07:00 Intake Total 720 ml 50 ml Output Total 650 ml 285 ml Balance 70 ml -235 ml Intake Oral 720 ml 50 ml Output Urine Total 650 ml 285 ml # Voids 3 # Bowel Movements 1 Laboratory Tests Test 02/28/17 08:40 Prothrombin Time 26.2 SEC (9.30-11.50) H Prothromb Time International Ratio 2.5 (0.9-1.1) H LINDSAY JOAQUIN Feb 28, 2017 16:36
[2017-02-28] MEDS ORDERED: Warfarin Sodium 3mg ORAL SCH (17:00)
[2017-02-28] MEDS ORDERED: NS 250 ML IVPB ONE (17:15)
[2017-02-28] MEDS: Tamsulosin 0.4mg cap ORAL SCH (20:32)
[2017-02-28 20:37] VITALS: BP 125/75
--- NOTE | 2017-02-28 20:45 | Consultation ---
DATE OF CONSULTATION: 02/28/2017 CARDIOLOGY CONSULTATION CONSULTING PHYSICIAN: Justus Garcia M.D. REFERRING PHYSICIAN: Mel Fuentes M.D. REASON FOR REFERRAL: Syncope. HISTORY OF PRESENT ILLNESS: This is a 66-year-old gentleman with a history of multiple medical problems as delineated below. The patient apparently was scheduled to come into the hospital for a cataract extraction with eventual hospitalization, however, got up early in the morning and went to the bathroom and the next thing he noticed he was on the floor. His luggage attendant apparently told him that he was trying to get hold of a towel bar that was loose and he fell. He does not recall the actual fall. He has had not had any episode of syncope before. He does not have any cardiac issues or problem. He does not have any chest pain or pressure. There is no PND. He uses one or two pillows. No heart pounding or palpitations and usually when he sits up or stands, that he gets dizzy or lightheaded. He does have occasional dyspnea on exertion. PAST MEDICAL HISTORY: Negative for diabetes, high blood pressure, heart attack, or high cholesterol. He does have some lymph cancer. He has never had a stroke. He does have a history of hepatitis B. No asthma. No emphysema. No ulcers. No kidney problems. He does have a slight degree of cirrhosis that we had biopsy due to diagnosis of hepatitis C. He does have some enlarged prostate and he is taking medication for. He does have a history of pulmonary embolism on prior occasions as well after hip surgery that he had sometime ago. 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 ALLERGIES: He is allergic to iodine, shellfish, and spinach. SOCIAL HISTORY: He quit smoking three years ago. No alcoholic beverages. No drug use. REVIEW OF SYSTEMS: Gastrointestinal: He denies any nausea, vomiting, diarrhea, or constipation. Genitourinary: Negative. Pulmonary: Negative. Constitutional: Negative. Neurological: Negative. PHYSICAL EXAMINATION: GENERAL: Shows to be elderly gentleman, in no apparent respiratory distress. VITAL SIGNS: His blood pressure is anywhere between 116/65 to 144/75 and his heart rates in the 70s to 80s and oxygen saturation 93% to 94% on room air. NECK: Supple. No jugular venous distention. LUNGS: Clear to auscultation and percussion. CARDIAC: S1 is normal. S2 is normal. Regular rate and rhythm. No heaves, thrills, gallops, or rubs are noted. ABDOMEN: Soft and nontender. Positive bowel sounds. EXTREMITIES: There is no clubbing, cyanosis, or edema. NEUROLOGIC: He is awake, alert, and responsive. Moves all four extremities. LABORATORY AND DIAGNOSTIC DATA: White count of 5.3, hemoglobin 13.6, and platelet count of 213,000. Sodium is 141, potassium 3.6, chloride 103, bicarbonate 24, BUN of 14, creatinine 0.7, and glucose of 107. Alkaline phosphatase was 143. Troponin less than 0.03. Total cholesterol 195, LDL of 58, HDL of 114, and TSH of 1.01. INR was 2.5 today. Urinalysis was fairly unremarkable. Tele is negative. EKG was normal sinus rhythm, normal QRS axis, some delay in R-wave progression, otherwise fairly unremarkable. Imaging modalities, carotid duplex has shown minimal stenosis between 5 to 10% and he had a CT scan of the spine that showed no acute injury identified, spondylosis was noted. Wrist x-rays were no degenerative changes. Head CT was no acute intracranial bleed. ASSESSMENT: 1. Syncope. 2. History of pulmonary embolism previously. 3. History of hepatitis B and questionable history of cirrhosis. Dr. Fuentes, this patient was seen in cardiac consultation. It is possible that he has had a syncopal episode because of being NPO according to himself, although he states he usually drinks more water than he usually drinks when he came into the hospital. His neurological workup appears to be negative and he has had an echocardiogram, preliminary report shows ejection fraction of 55%, IVC of 2.3, PA pressures only 10. His EKG is otherwise unremarkable. He has not had any arrhythmias on telemetry so far here, but he wants his orthostatic vitals checked just to make sure that he is not orthostatic, otherwise no other workup may be necessary in light of the fact that his preliminary workup so far has been unremarkable. Dr. Fuentes, thank you for allowing me to participate in this patient care. Justus Garcia M.D. DR: LIZZIE JOB#: [id number] CC:
[2017-03-01] VITALS: BP 133/78
[2017-03-01] MEDS ORDERED: Mylanta II UD 30ml ORAL PRN (00:15)
[2017-03-01] MEDS ORDERED: Morphine Sulfate 2mg/ml Inj IVP PRN (00:15)
[2017-03-01] MEDS ORDERED: Nitroglycerin Subl 0.4mg tab (Bottle Of 25) SL PRN (00:15)
[2017-03-01] MEDS ORDERED: LORazepam Inj 2mg/ml 1ml IV PRN (00:15)
[2017-03-01] MEDS ORDERED: DuoNeb 0.5-3(2.5)mg/3ml neb HHN PRN (00:15)
[2017-03-01 04:00] VITALS: BP 138/77
[2017-03-01] MEDS: Primidone 250mg tab ORAL SCH ×3 (05:00→21:18)
[2017-03-01 08:00] VITALS: BP 138/87
[2017-03-01 08:17] LABS: INR 1.9 (0.9-1.1); PROTHROMBIN TIME 20.4 SEC (9.30-11.50)
[2017-03-01] MEDS: DILANTIN 100 MG ORAL SCH ×3 (10:25→18:18)
[2017-03-01] MEDS: Tolterodine 2mg tab ORAL SCH ×2 (10:25→18:18)
--- NOTE | 2017-03-01 11:24 | Pulmonology Progress Note ---
Assessment/Plan Assessment/Plan ASSESSMENT s/p fall syncopal episode, likely vasovagal 2 to dehydration and sleep deprivation dehydration chronic seizure disorder hx of PE, on a/coagulation therapy Migraines PLAN OF CARE MS floor CT head no acute IC pathology CT L spine no acute injury R wrist X ray no acute injury Carotid Duplex minimal plaque bilateral carotid neuro follows per neuro syncope likely vasovagal in origin due to dehydration and sleep deprivation neuro workup negative IVF Lipid panel stable seizure precautions continue Dilantin cardio eval appreciated troponin negative SR on tele BP stable ECHO with EF 55% and RVSO of 10 Coumadin resumed O2 HHN prn orthostatic VS x 1 now PT/OT fall precautions pain management dc today to [employer] [facility]escent case discussed and evaluated by supervising physician Subjective Allergies: Coded Allergies: SHELLFISH DERIVED (Unverified Allergy, Intermediate, ITCHING/HIVES, ) IODINE (Unverified Allergy, Unknown, 02/17/14) Uncoded Allergies: SPINACH (Allergy, Intermediate, SEVERE ITCHING/HIVES, 02/17/14) Subjective no chest pain, no SOB no dizziness, no blackouts no seizure activity Objective Last 24 Hour Vital Signs Date Time Temp Pulse Resp B/P Pulse Ox O2 Delivery O2 Flow Rate FiO2 03/01/17 10:00 95 93 96 03/01/17 08:00 98.1 95 18 138/87 91 Room Air 03/01/17 04:00 97.5 92 18 138/77 98 Room Air 03/01/17 00:00 98.2 90 16 133/78 90 Room Air 02/28/17 20:37 97.7 90 22 125/75 94 Room Air 02/28/17 17:05 103 02/28/17 17:00 98 02/28/17 16:55 89 02/28/17 16:00 98 02/28/17 16:00 96.4 99 22 135/99 94 Room Air 02/28/17 12:00 97.5 85 18 129/83 94 Room Air 02/28/17 12:00 89 Intake and Output 02/28/17 03/01/17 19:00 07:00 Intake Total 730 ml 300 ml Output Total 400 ml Balance 330 ml 300 ml Intake Oral 480 ml IV Total 250 ml 300 ml Output Urine Total 400 ml # Voids 2 2 Objective General Appearance: no acute distress HEENT: normocephalic, atraumatic, anicteric, mucous membranes moist Respiratory/Chest: lungs clear, no respiratory distress, no accessory muscle use Cardiovascular: normal peripheral pulses, normal rate, no JVD Abdomen: normal bowel sounds, soft, non tender Extremities: no edema, pedal pulses normal Neurologic/Psychiatric: abnormal gait with walker , alert, responsive, normal mood/affect Musculoskeletal: normal muscle bulk Laboratory Tests 03/01/17 07:29: Prothrombin Time 20.4H, Prothromb Time International Ratio 1.9H Current Medications Medications (Trade) Dose Ordered Sig/Ashley Route PRN Reason Start Time Stop Time Status Last Admin Dose Admin Acetaminophen (Tylenol) 650 mg Q4H PRN ORAL Fever/Headache/Mild Pain 03/01/17 00:15 03/31/17 00:14 03/01/17 10:35 Al Hydroxide/Mg Hydroxide (Mylanta II) 30 ml Q6H PRN ORAL dyspepsia 03/01/17 00:15 03/31/17 00:14 Albuterol/ Ipratropium (DuoNeb 0.5-3(2.5)mg/3ml) 3 ml Q4H PRN HHN Shortness of Breath 03/01/17 00:15 03/06/17 00:14 Amitriptyline HCl (Elavil) 75 mg BEDTIME ORAL 03/01/17 21:00 03/31/17 20:59 Clonidine HCl (Catapres) 0.1 mg Q4H PRN ORAL SBP>160mmHg 03/01/17 00:15 03/31/17 00:14 Dextrose (Dextrose 50%) STAT PRN IV Hypoglycemia 03/01/17 12:15 03/31/17 12:14 Latanoprost (Xalatan) 1 drop BEDTIME BOTH EYES 03/01/17 21:00 03/31/17 20:59 Lorazepam (Ativan 2mg/ml 1ml) 0.5 mg Q4H PRN IV For Anxiety 03/01/17 00:15 03/08/17 00:14 Morphine Sulfate (Morphine Sulfate) 1 mg Q4H PRN IVP For Pain 7-10 03/01/17 00:15 03/08/17 00:14 Nitroglycerin (Ntg) 0.4 mg Q5M X 3 DOSES PRN SL Prn Chest Pain 03/01/17 00:15 03/31/17 00:14 Ondansetron HCl (Zofran) 4 mg Q6H PRN IVP Nausea & Vomiting 03/01/17 00:15 03/31/17 00:14 Patient Own Medication (Patient's Own Med) 1 ea TID ORAL 03/01/17 09:00 03/31/17 08:59 03/01/17 10:25 Polyethylene Glycol (Miralax) 17 gm HSPRN PRN ORAL Constipation 03/01/17 21:00 03/31/17 20:59 Primidone (Mysoline) 250 mg Q8H ORAL 03/01/17 05:00 03/31/17 04:59 03/01/17 05:00 Tamsulosin HCl (Flomax) 0.4 mg BEDTIME ORAL 03/01/17 21:00 03/31/17 20:59 Temazepam (Restoril) 15 mg HSPRN PRN ORAL Insomnia 03/01/17 21:00 03/08/17 20:59 Tolterodine Tartrate (Detrol) 2 mg BID ORAL 03/01/17 09:00 03/31/17 08:59 03/01/17 10:25 Warfarin Sodium (Coumadin per pharmacy) 1 ea DAILY PRN MISC Per rx protocol 03/01/17 09:00 03/31/17 08:59 Warfarin Sodium/ Warfarin Sodium (Coumadin/ Coumadin) 7 mg COUMADIN ONCE ORAL 03/01/17 17:00 03/01/17 17:01 [facility] HospitalTrix[facility] Pittman NP Mar 01, 2017 11:24
[2017-03-01 12:00] VITALS: BP 131/86
[2017-03-01 16:02] VITALS: BP 141/86
--- NOTE | 2017-03-01 16:27 | Cardiology Report ---
APPROVED REPORT EKG Measurement Heart [id number] Normal sinus rhythm Cannot rule out Anterior infarct, age undetermined Abnormal ECG
--- NOTE | 2017-03-01 16:46 | Cardiology Progress Note ---
Assessment/Plan Assessment/Plan 1. Syncope. 2. History of pulmonary embolism previously. 3. History of hepatitis B and questionable history of cirrhosis. 4. orthostatic hypotesnion has become much more debiliated than yest will need toreapt orthostatic if able to stand to amek sure not need fluid after today Subjective Cardiovascular: Denies: chest pain, palpitations Respiratory: Denies: shortness of breath Gastrointestinal/Abdominal: Denies: abdominal pain Genitourinary: Denies: burning Objective Last 24 Hour Vital Signs Date Time Temp Pulse Resp B/P Pulse Ox O2 Delivery O2 Flow Rate FiO2 03/01/17 16:02 97.7 91 21 141/86 95 Room Air 03/01/17 12:00 98.3 90 20 131/86 93 Room Air 03/01/17 10:00 95 93 96 03/01/17 08:25 90 20 Room Air 03/01/17 08:00 98.1 95 18 138/87 91 Room Air 03/01/17 04:00 97.5 92 18 138/77 98 Room Air 03/01/17 00:00 98.2 90 16 133/78 90 Room Air 02/28/17 20:37 97.7 90 22 125/75 94 Room Air 02/28/17 17:05 103 02/28/17 17:00 98 02/28/17 16:55 89 General Appearance: no apparent distress, alert Cardiovascular: normal rate, regular rhythm Respiratory/Chest: lungs clear, normal breath sounds Abdomen: normal bowel sounds, non tender, soft Extremities: no swelling Intake and Output 02/28/17 03/01/17 19:00 07:00 Intake Total 730 ml 300 ml Output Total 400 ml Balance 330 ml 300 ml Intake Oral 480 ml IV Total 250 ml 300 ml Output Urine Total 400 ml # Voids 2 2 Laboratory Tests Test 03/01/17 07:29 Prothrombin Time 20.4 SEC (9.30-11.50) H Prothromb Time International Ratio 1.9 (0.9-1.1) H LINDSAY JOAQUIN Mar 01, 2017 16:46
--- NOTE | 2017-03-01 16:56 | Cardiology Progress Note ---
Assessment/Plan Assessment/Plan 1. Syncope. 2. History of pulmonary embolism previously. 3. History of hepatitis B and questionable history of cirrhosis. 4. orthostatic hypotesnion has become much more debiliated than yest will need toreapt orthostatic if able to stand to amek sure not need fluid after today Objective Last 24 Hour Vital Signs Date Time Temp Pulse Resp B/P Pulse Ox O2 Delivery O2 Flow Rate FiO2 03/01/17 16:02 97.7 91 21 141/86 95 Room Air 03/01/17 12:00 98.3 90 20 131/86 93 Room Air 03/01/17 10:00 95 93 96 03/01/17 08:25 90 20 Room Air 03/01/17 08:00 98.1 95 18 138/87 91 Room Air 03/01/17 04:00 97.5 92 18 138/77 98 Room Air 03/01/17 00:00 98.2 90 16 133/78 90 Room Air 02/28/17 20:37 97.7 90 22 125/75 94 Room Air 02/28/17 17:05 103 02/28/17 17:00 98 Intake and Output 02/28/17 03/01/17 19:00 07:00 Intake Total 730 ml 300 ml Output Total 400 ml Balance 330 ml 300 ml Intake Oral 480 ml IV Total 250 ml 300 ml Output Urine Total 400 ml # Voids 2 2 Laboratory Tests Test 03/01/17 07:29 Prothrombin Time 20.4 SEC (9.30-11.50) H Prothromb Time International Ratio 1.9 (0.9-1.1) H LINDSAY JOAQUIN Mar 01, 2017 16:56
[2017-03-01] MEDS ORDERED: Warfarin Sodium 3mg ORAL SCH (17:00)
[2017-03-01] MEDS ORDERED: Warfarin Sod 3 MG, Warfarin Sod 4 MG ORAL ONE ×2 (17:00)
[2017-03-01 20:00] VITALS: BP 156/80
[2017-03-01] MEDS ORDERED: Tamsulosin 0.4mg cap ORAL SCH (21:00)
[2017-03-01] MEDS ORDERED: Miralax 17gm pkt ORAL PRN (21:00)
[2017-03-02] VITALS: BP 150/82
[2017-03-02 04:00] VITALS: BP 146/94
[2017-03-02] MEDS: Primidone 250mg tab ORAL SCH ×2 (05:11→12:33)
[2017-03-02 07:42] LABS: INR 2.3 (0.9-1.1); PROTHROMBIN TIME 24.5 SEC (9.30-11.50)
[2017-03-02 08:15] VITALS: BP 144/86
[2017-03-02] MEDS: DILANTIN 100 MG ORAL SCH ×3 (09:08→17:47)
[2017-03-02] MEDS: Tolterodine 2mg tab ORAL SCH ×2 (09:08→17:47)
[2017-03-02 12:15] VITALS: BP 117/75
[2017-03-02 16:07] VITALS: BP_SYST 132; BP_SYST 133; BP_SYST 141; BP_DIAS 74; BP_DIAS 82; BP_DIAS 83
[2017-03-02] MEDS ORDERED: Warfarin Sod 3 MG, Warfarin Sod 4 MG ORAL SCH ×2 (17:00)
--- NOTE | 2017-03-02 19:14 | Cardiology Report ---
APPROVED REPORT EXAM: Two-dimensional and M-mode echocardiogram with Doppler and color Doppler. INDICATION Left Ventricular Function M-Mode DIMENSIONS IVSd0.8 (0.7-1.1cm)Left Atrium (MM)3.0 (1.6-4.0cm) LVDd4.8 (3.5-5.6cm)Aortic Root2.7 (2.0-3.7cm) PWd0.8 (0.7-1.1cm)Aortic Cusp Exc.1.9 (1.5-2.0cm) LVDs2.7 (2.5-4.0cm) PWs1.3 cm Normal left ventricular chamber size, systolic function and wall motion. Left ventricular ejection fraction estimated to be 55 %. No evidence of ventricular hypertrophy. Anterior Echo-free space, may be due to pericardial fat or effusion. All other cardiac chamber sizes are within normal limits. Focal aortic valve sclerosis with adequate cusp excursion. Thickened mitral valve leaflets with normal excursion. Mitral annulus and aortic root calcification. Pulmonic valve not well visualized. Normal tricuspid valve structure. IVC dilated at 2.3cm with physiologic collapse. A color flow and spectral Doppler study was performed and revealed: Mild aortic regurgitation. No mitral regurgitation. Mitral diastolic velocities suggest reduced left ventricular relaxation (Grade I). Trace tricuspid regurgitation. Tricuspid systolic velocities suggests peak right ventricular systolic pressure of 10 mmHg. No pulmonic regurgitation present.
--- NOTE | 2017-03-03 12:21 | Discharge Summary ---
Discharge Summary Hospital Course Date of Admission Feb 26, 2017 at 09:30 Date of Discharge Mar 02, 2017 at 18:39 Admitting Diagnosis head injury HPI Emil Pickett is a 66 year old male who was admitted on Feb 26, 2017 at 09:30 for Head Injury Hospital Course dc summary #[id number] Discharge Medications Continued Medications: Amitriptyline Hcl* (Amitriptyline Hcl*) 10 Mg Tablet 75 MG ORAL BEDTIME, TAB Lansoprazole* (Lansoprazole*) 30 Mg Capsule.dr 30 MG ORAL DAILY, CAP Latanoprost* (Xalatan*) 2.5 Ml Drops 1 DROP BOTH EYES BEDTIME, ML 0 Refills Phenytoin Sodium Extended* (Dilantin*) 100 Mg Capsule 100 MG ORAL THREE TIMES A DAY, #90 CAP 0 Refills Primidone* (Mysoline*) 250 Mg Tablet 250 MG ORAL THREE TIMES A DAY, #90 TAB Tamsulosin Hcl (Tamsulosin Hcl*) 0.4 Mg Cap.er.24h 0.4 MG ORAL BEDTIME, CAP Tolterodine Tartrate (Tolterodine Tartrate) 1 Mg Tablet 4 MG PO DAILY, TAB Warfarin Sod* (Warfarin Sod*) 7.5 Mg Tablet 7.5 MG ORAL DAILY, TAB Discharge Discharge Disposition Patient was discharged to Home (01) Discharge Diagnoses: Davon (Alexandre)Trixie NP Mar 03, 2017 12:21
--- NOTE | 2017-03-04 09:01 | Discharge Summary 2 SIG ---
DATE OF ADMISSION: 02/26/2017 DATE OF DISCHARGE: 03/02/2017 REASON FOR ADMISSION: This is a 66-year-old male with a history of recent pulmonary emboli, seizure disorder, COPD, reported recent fall and came to emergency room due to the increased pain in the head, right wrist, and the low back. The patient reported that he did not recall hitting the floor, he is a poor historian. He was admitted for possible syncopal episode. ADMITTING DIAGNOSES: 1. Syncopal episode. 2. Pulmonary emboli, on anticoagulation. 3. Seizure disorder. 4. Status post fall. HOSPITAL STAY: The patient is admitted to telemetry floor. Cardiology and Neurology consult were requested to rule out cardiac or neural causes of syncope. CT of the head revealed no acute intracranial pathology. CT of the lumbar spine revealed no acute injury. X-ray of the right wrist also revealed no acute injury. Carotid duplex revealed minimal plaque bilateral carotid, follows. Per Neurology, syncope likely vasovagal in origin due to dehydration and sleep deprivation as reported by the patient. Neurologic workup was negative. The patient was on seizure precaution. Continue Dilantin and Mysoline and no seizure activity while in the hospital. Lipid panel stable. The patient was on the IV fluids. Neurology cleared the patient for discharge. The patient was working with physical and occupational therapy. Fall precaution maintained. [employer] Farm[employer] seen the patient. Troponin negative. Telemetry strip revealed sinus rhythm. Blood pressure was stable. Echocardiogram revealed preserved ejection fraction of 55%, right ventricular systolic pressure of 10. Coumadin resumed. Supplemental oxygen provided as needed to keep saturation above 92%. Pulmonary toilet provided as needed. Orthostatic vital signs revealed orthostatic hypotension. More fluid given to the patient. Pain management provided. The patient was planned initially to be discharged to [facility] facility for short rehabilitation, however, was unable to arrange due to the insurance constraint. The patient was discharged home. The patient had a caregiver living in. INR therapeutic. Pain controlled. The patient stable for discharge. DISCHARGE DIAGNOSES: 1. Status post fall. 2. Syncopal episode likely vasovagal secondary to dehydration and sleep deprivation. 3. Dehydration. 4. Orthostatic hypotension related to dehydration. 5. Chronic seizure disorder, partial complex. 6. History of pulmonary emboli, on anticoagulation therapy. 7. Migraines. 8. Mild anemia. Of note, hemoglobin and hematocrit remained stable, hemoglobin 13.6 and hematocrit 40.4. Mel Fuentes M.D. I have been assigned to dictate discharge summary on this account and I was not involved in the patient's management. Trixie raymundoBrayan mendieta DR: ALBIN JOB#: [id number] CC:
== END 2017-03-02 18:39 | disposition home or self-care (01) | DRG 641 ==
LOC: EMR 07:32 → EDBEDREQ 09:01 → 2E 09:30 → EDBEDREQ 09:57 → 4E 02-28 23:31
DX: E86.0 Dehydration (principal); J44.9 Chronic obstructive pulmonary disease, unspecified; G40.209 Localization-related (focal) (partial) symptomatic epilepsy and epileptic syndromes with complex partial seizures, not intractable, without status epilepticus; D64.9 Anemia, unspecified; H40.9 Unspecified glaucoma; S01.91XA Laceration without foreign body of unspecified part of head, initial encounter; Z86.711 Personal history of pulmonary embolism; Z79.01 Long term (current) use of anticoagulants; Z85.828 Personal history of other malignant neoplasm of skin; Z72.820 Sleep deprivation; I95.1 Orthostatic hypotension; Z96.642 Presence of left artificial hip joint; H26.9 Unspecified cataract; N40.0 Benign prostatic hyperplasia without lower urinary tract symptoms; Z87.891 Personal history of nicotine dependence; W19.XXXA Unspecified fall, initial encounter; Y92.009 Unspecified place in unspecified non-institutional (private) residence as the place of occurrence of the external cause; M25.531 Pain in right wrist; M54.5 Low back pain
CPT/HCPCS: 36415; 70450; 72131; 80053; 80061; 80185; 81001; 84443; 84484; 85025; 85610; 85730; 90471; 90715; 93005; 93306; 93880; 94664

== ENCOUNTER 2017-04-06 05:34 | Day surgery (SDC) | payer OTHER ==
[~2017-04-06] VITALS: Ht 177.8 cm; Wt 92.5 kg
[2017-04-06] VITALS (9 sets, daily range): BP systolic 119–155; BP diastolic 79–91
[~2017-04-06 05:34] MED LIST changes: +Akten 3.5% 1ml Btl LEFT EYE SCH; +BSS 15ml BTL ONE; +BSS 500ml btl ONE; +Carbachol 0.01% Op Soln 1.5ml vial ONE; +Ciprofloxacin Opth Soln LEFT EYE SCH; +Ciprofloxacin Opth Soln ONE; +Cyclopentolate 1% Opth Sol LEFT EYE SCH; +Dexamethasone 4mg/ml vial ONE; +Diclofenac Sod 0.1% Op Soln LEFT EYE SCH; +Diclofenac Sod 0.1% Op Soln ONE; +DiphenhydrAMINE 50mg/ml Inj ONE; +EPINEPHrine 1mg/1ml Amp ONE; +Lidocaine 1% MPF 10mg/ml 5ml ONE; +Lidocaine 2% 20mg/ml/Epi 0.005mg/ml 20ml vial ONE; +Lidocaine 4% Amp ONE; +Maxitrol Opth Oint 3.5gm ONE; +Phenylephrine 2.5% Op Soln LEFT EYE SCH; +Povidone-Iodine 5% opth solution ONE; +Pred Forte 1% Opth Susp 1ml ONE; +Sodium Hyaluronate 14 mg/ml 0.85ml ONE
[2017-04-06] MEDS ORDERED: Ketorolac Tromethamine Opth Soln ONE (05:36)
[2017-04-06] MEDS ORDERED: Akten 3.5% 1ml Btl ONE (05:36)
[2017-04-06] MEDS ORDERED: Cyclopentolate 1% Opth Sol ONE (05:36)
[2017-04-06] MEDS ORDERED: Phenylephrine 2.5% Op Soln ONE (05:36)
[2017-04-06] MEDS ORDERED: Ciprofloxacin Opth Soln ONE (05:36)
[2017-04-06] MEDS: Phenylephrine 2.5% Op Soln LEFT EYE SCH ×4 (06:11→06:33)
[2017-04-06] MEDS: Ketorolac Tromethamine Opth Soln LEFT EYE SCH ×4 (06:11→06:33)
[2017-04-06] MEDS: Ciprofloxacin Opth Soln LEFT EYE SCH ×4 (06:11→06:34)
[2017-04-06] MEDS: Cyclopentolate 1% Opth Sol LEFT EYE SCH ×4 (06:11→06:34)
[2017-04-06] MEDS: Akten 3.5% 1ml Btl LEFT EYE SCH ×4 (06:11→06:34)
[2017-04-06] MEDS ORDERED: BSS 500ml btl ONE (06:31)
[2017-04-06] MEDS ORDERED: Lidocaine 1% MPF 10mg/ml 5ml ONE (06:32)
[2017-04-06] MEDS ORDERED: Dexamethasone 4mg/ml vial ONE (06:32)
[2017-04-06] MEDS ORDERED: Maxitrol Opth Oint 3.5gm ONE (06:32)
[2017-04-06] MEDS ORDERED: Pred Forte 1% Opth Susp 1ml ONE (06:32)
[2017-04-06] MEDS ORDERED: Bupivacaine 0.75% 30ml vial INJ ONE (06:33)
[2017-04-06] MEDS ORDERED: Sodium Hyaluronate 14 mg/ml 0.85ml ONE (06:33)
[2017-04-06] MEDS ORDERED: BSS 15ml BTL ONE (06:33)
[2017-04-06] MEDS ORDERED: EPINEPHrine 1mg/1ml Amp ONE ×2 (06:33→07:00)
[2017-04-06] MEDS ORDERED: Povidone-Iodine 5% opth solution ONE (06:33)
[2017-04-06] MEDS ORDERED: Lidocaine 2% MPF 5ml Vial INJ ONE (06:33)
[2017-04-06] MEDS ORDERED: Tetracaine 0.5% Opth Soln ONE (06:34)
[2017-04-06] MEDS ORDERED: Carbachol 0.01% Op Soln 1.5ml vial ONE (06:34)
[2017-04-06] MEDS ORDERED: Sterile Water Irrig 1000ml IRRIG ONE (07:00)
[2017-04-06] MEDS ORDERED: fentaNYL 100 mcg/2 mL IV ONE (07:00)
[2017-04-06] MEDS ORDERED: Propofol 200mg/20ml IV ONE (07:00)
[2017-04-06] MEDS ORDERED: Midazolam 2mg/2ml Inj ONE (07:00)
[2017-04-06] MEDS ORDERED: NS Irrig 1000ml ONE (07:00)
[2017-04-06] MEDS ORDERED: Lidocaine 4% Amp ONE (07:00)
[2017-04-06] MEDS ORDERED: LR 1000ml ONE (07:00)
--- NOTE | 2017-04-06 07:11 | Anethesia Preoperative Eval ---
Anesthesia Pre-op PMH/ROS General Date of Evaluation: Apr 06, 2017 Time of Evaluation: 07:08 Anesthesiologist: Demarco ASA Score: ASA 3 Mallampati Score Class I : Soft palate, uvula, fauces, pillars visible Class II: Soft palate, uvula, fauces visible Class III: Soft palate, base of uvula visible Class IV: Only hard plate visible Mallampati Classification: Class III Surgeon: Vane Diagnosis: L eye cataract Surgical Procedure: L eye cataract extraction Anesthesia History: none Family History: no anesthesia problems Allergies: Coded Allergies: SHELLFISH DERIVED (Unverified Allergy, Intermediate, ITCHING/HIVES, ) IODINE (Unverified Allergy, Unknown, 02/17/14) Uncoded Allergies: SPINACH (Allergy, Intermediate, SEVERE ITCHING/HIVES, 02/17/14) Past Medical History Cardiovascular: Reports: HTN, Denies: CAD, CA, valve dz, arrhythmia, other Pulmonary: Denies: asthma, COPD, PANDA, other Gastrointestinal/Genitourinary: Reports: GERD, Denies: CRI, ESRD, other Neurologic/Psychiatric: Reports: depression/anxiety, other - seizers, Denies: dementia, CVA, TIA Endocrine: Denies: DM, hypothyroidism, steroids, other HEENT: Reports: cataract (L), cataract (R), glaucoma, Denies: [place] (L), [place] (R), other Hematology/Immune: Reports: DVT - H/o PE on coumadin, Denies: anemia, bleeding disorder, other Musculoskeletal/Integumentary: Denies: OA, RA, DJD, DDD, edema, other PMH Narrative: as above PSxH Narrative: hip replacement, R eye cataract Anesthesia Pre-op Phys. Exam Physician Exam Last Vital Signs Date Time Temp Pulse Resp B/P (MAP) Pulse Ox O2 Delivery O2 Flow Rate FiO2 04/06/17 06:19 97.4 79 19 119/80 93 Room Air Constitutional: NAD Neurologic: CN 2-12 intact Cardiovascular: RRR, no M/R/G Respiratory: CTA Gastrointestinal: S/NT/ND Airway Exam Mallampati Score: Class III MO: limited Neck: stiff ROM: limited Teeth: missing Dentures: no upper, no lower Anesthesia Pre-op A/P Labs Chemistry Test 9/11/17 06:30 Sodium Level Pending Potassium Level Pending Chloride Level Pending Carbon Dioxide Level Pending Blood Urea Nitrogen Pending Creatinine Pending Estimat Glomerular Filtration Rate Pending Glucose Level Pending Calcium Level Pending Studies Pre-op Studies: EKG - NSR Risk Assessment & Plan Assessment: ASA 3 Plan: MAC Status Change Before Surgery: No Pre-Antibiotics Drug: none ISH ACUNA M.D. Apr 06, 2017 07:11
[2017-04-06 07:20] LABS: ANION GAP 11 (5-15); CALCIUM 9.4 mg/dL (8.6-10.2); CARBON DIOXIDE 26 mEQ/L (20-30); CHLORIDE 104 mEQ/L (98-107); CREATININE 0.8 mg/dL (0.7-1.2); GLOMERULAR FILTRATION RATE > 60 mL/min (>60); HEMOLYSIS 2; POTASSIUM 3.6 mEQ/L (3.4-4.9); SODIUM 141 mEQ/L (135-145)
--- NOTE | 2017-04-06 07:21 | Pre-Procedure Note/Attestation ---
Pre-Procedure Note/Attestation Complete Prior to Procedure Planned Procedure: left Procedure Narrative: Cataract extraction with intraocular lens implant Indications for Procedure Pre-Operative Diagnosis: Cataract Attestation I attest that I discussed the nature of the procedure; its benefits; risks and complications; and alternatives (and the risks and benefits of such alternatives ), prior to the procedure, with the patient (or the patient's legal outside industrial sales representative). I attest that, if there was a reasonable possibility of needing a blood transfusion, the patient (or the patient's legal outside industrial sales representative) was given the [facility] standardized written summary, pursuant to the Nahun Katarzyna Blood Safety Act ([place] Health and Safety Code # 1645, as amended). I attest that I re-evaluated the patient just prior to the surgery and that there has been no change in the patient's H&P, except as documented below: TIMBO COBB Apr 06, 2017 07:21
[2017-04-06] MEDS ORDERED: LR 1000ml 1,000 ML IVLG SCH (07:32)
[2017-04-06] MEDS ORDERED: DiphenhydrAMINE 50mg/ml Inj IVP PRN (07:45)
[2017-04-06] MEDS ORDERED: fentaNYL 100 mcg/2 mL IV PRN (07:45)
[2017-04-06] MEDS ORDERED: Acetylcholine Injection (OR) ONE (08:00)
--- NOTE | 2017-04-06 08:22 | Operative Note - PDOC ---
Operative Note Operative Note Date of Operation/Procedure: Apr 06, 2017 Chief Complaint: Poor vision, left eye Pre-op Diagnosis: Cataract Procedure: Cataract extraction with intraocular lens Post-op Diagnosis: Cataract Post-op Diagnosis: same as pre-op Surgeon: Vane Circulation Assistant: None Additional Surgeons: Hieu Anesthesiologist: Demarco Anesthesia: MAC Specimen: none Complications: none Condition: stable Estimated Blood Loss: none Drains: none Implant(s) used?: Yes Indications for Procedure Poor vision Description of Procedure See dictated report TIMBO COBB Apr 06, 2017 08:22
--- NOTE | 2017-04-06 08:52 | Immediate Post-Op Evaluation ---
Immediate Post-Op Evalulation Immediate Post-Op Evalulation Procedure: L eye cataract extraction wth IOL Date of Evaluation: Apr 06, 2017 Time of Evaluation: 08:22 IV Fluids: 20 Blood Products: none Estimated Blood Loss: none Urinary Output: none Blood Pressure Systolic: 148 Blood Pressure Diastolic: 74 Pulse Rate: 65 Respiratory Rate: 20 O2 Sat by Pulse Oximetry: 99 Temperature (Fahrenheit): 97.6 Pain Score (1-10): 1 Nausea: No Vomiting: No Complications none Patient Status: awake, patent, none Hydration Status: adequate ISH ACUNA M.D. Apr 06, 2017 08:52
--- NOTE | 2017-04-06 09:01 | 48 Hour Post Anesthesia Eval ---
Post Anesthesia Evaluation Procedure: L eye cataract extraction [facility] IOL Date of Evaluation: Apr 06, 2017 Time of Evaluation: 09:00 Blood Pressure Systolic: 132 0: 72 Pulse Rate: 64 Respiratory Rate: 20 Temperature (Fahrenheit): 97.6 O2 Sat by Pulse Oximetry: 98 Airway: patent Nausea: No Vomiting: No Pain Intensity: 1 Hydration Status: adequate Cardiopulmonary Status: stable Mental Status/LOC: patient returned to baseline Follow-up Care/Observations: n/a Post-Anesthesia Complications: none Follow-up care needed: ready to discharge ISH ACUNA M.D. Apr 06, 2017 09:01
--- NOTE | 2017-04-07 08:15 | Operative Note - Dictated ---
DATE OF OPERATION: 04/06/2017 SURGEON: Javier Cifuentes M.D. CHIEF MARKETING OFFICER: None. ANESTHESIA: MAC. ANESTHESIOLOGIST: Ted Pal M.D. PREOPERATIVE DIAGNOSES: 1. Combined mechanism, age-related cataract, left eye. 2. Pseudophakia, right eye. 3. Glaucoma. POSTOPERATIVE DIAGNOSES: 1. Combined mechanism, age-related cataract, left eye. 2. Pseudophakia, right eye. 3. Glaucoma. Principal Procedure: Phacoemulsification with primary implantation of posterior chamber intraocular lens, left eye, complex. Description of Procedure: The patient has been evaluated in my office for few years with history of chronic open-angle glaucoma and bilateral cataracts. His glaucoma has been controlled with topical drops. His visual acuity gradually diminished due to increasing cataract. He underwent successful cataract extraction in his right eye five months ago. He has been complaining of comparatively poor vision in the left eye. I have discussed the risks, benefits, and alternatives, informed consent was obtained to proceed with cataract extraction in the left eye. The patient was therefore brought to the [facility] outpatient surgery unit where the left pupil was dilated and an intravenous line was started. He was brought into the operating room where ocular anesthesia was obtained with topical drops supplemented with intravenous sedation. The left eye was then prepped and draped in the usual fashion per intraocular surgery. A clear corneal temporal incision was made in the anterior chamber filled with nonpreserved lidocaine and viscoelastic. The pupil did not dilate well. A 6.25 mm Malyugin ring was carefully positioned. An anterior capsulotomy was accomplished. Hydrodissection was utilized to facilitate phacoemulsification. A two-handed phacoemulsification technique was used to fracture the lens nucleus into quadrants and the segments removed in sequence. Irrigation/aspiration hand piece was then used to remove all residual lens cortex and angolan the posterior capsule. Viscoelastic was introduced. An intraocular lens from [employer], model ZCB00 with a power of 18 diopters, was folded into the lens insertion cartridge, injected into the posterior chamber of the eye and positioned within the capsular bag. The Malyugin ring was removed. The viscoelastic was removed. Miochol was irrigated to restore the pupil anatomy. Due to iris floppiness, a single 10-0 nylon suture was used to secure the wound. The knot was buried internally. Wound was tested and found to be watertight. The intraocular pressure was adjusted to normal. One drop of 10% Betadine, one drop of prednisolone acetate, and one drop of ciprofloxacin were placed on the eye. The eye was covered in an eye shield. This completed the procedure. All sponge and needle counts were correct. The patient was taken to the PAR in good condition having tolerated the procedure well. Javier Cifuentes M.D. DR: ANDREAS JOB#: [id number] CC: Sharon Patel M.D.; Fax#: [phone]
== END 2017-04-06 09:55 | disposition home or self-care (01) ==
LOC: SUR 05:34
DX: H25.812 Combined forms of age-related cataract, left eye (principal); I10 Essential (primary) hypertension; K21.9 Gastro-esophageal reflux disease without esophagitis; F32.9 Major depressive disorder, single episode, unspecified; F41.9 Anxiety disorder, unspecified; Z96.1 Presence of intraocular lens; H40.1130 Primary open-angle glaucoma, bilateral, stage unspecified; Z96.649 Presence of unspecified artificial hip joint; Z86.711 Personal history of pulmonary embolism; Z86.718 Personal history of other venous thrombosis and embolism; Z79.01 Long term (current) use of anticoagulants; Z91.041 Radiographic dye allergy status; Z91.013 Allergy to seafood; Z91.018 Allergy to other foods
CPT/HCPCS: 36415; 66982; 80048; J0171; J1100; J2250; J2704; J3010; J3370; J7120; V2632; 94003; 94150

== ENCOUNTER 2019-10-24 22:43 | Inpatient (IN) | payer MEDICARE, MEDICAID ==
[~2019-10-24] VITALS: Ht 177.8 cm; Wt 78.0 kg
[~2019-10-24 22:43] MED LIST changes: -Akten 3.5% 1ml Btl LEFT EYE SCH; -BSS 15ml BTL ONE; -BSS 500ml btl ONE; -Carbachol 0.01% Op Soln 1.5ml vial ONE; -Ciprofloxacin Opth Soln LEFT EYE SCH; -Ciprofloxacin Opth Soln ONE; -Cyclopentolate 1% Opth Sol LEFT EYE SCH; -Dexamethasone 4mg/ml vial ONE; -Diclofenac Sod 0.1% Op Soln LEFT EYE SCH; -Diclofenac Sod 0.1% Op Soln ONE; -DiphenhydrAMINE 50mg/ml Inj ONE; -EPINEPHrine 1mg/1ml Amp ONE; -Lidocaine 1% MPF 10mg/ml 5ml ONE; -Lidocaine 2% 20mg/ml/Epi 0.005mg/ml 20ml vial ONE; -Lidocaine 4% Amp ONE; -Maxitrol Opth Oint 3.5gm ONE; -Phenylephrine 2.5% Op Soln LEFT EYE SCH; -Povidone-Iodine 5% opth solution ONE; -Pred Forte 1% Opth Susp 1ml ONE; -Sodium Hyaluronate 14 mg/ml 0.85ml ONE
[2019-10-24 22:50] VITALS: BP 150/83
--- NOTE | 2019-10-24 22:50 | NUR ---
ED Nurse Note: Pt does report 5/10 aching back pain from the fall.
--- NOTE | 2019-10-24 22:50 | NUR ---
ED Nurse Note: Pt brought into ED by [facility] ambulance unit 401 for c/o fall CLINICAL PATHOLOGIST. Pt states he fell once at 2200 tonight where he couldn't get himself up and had a previous fall this afternoon as well. Pt states fall is mechanical in nature and denies losing consciousness or becoming dizzy. Pt states falls have become more frequent over the last few months and has had multiple falls over the past couple of days. Pt reports hitting his head on wood/metal object. Pt denies any n/v, fever or chills. Pt states he has had diarrhea since last night. Pt is aaox4, breathing is normal and unlabored. Pt connected to nursing home director. Safety measures in place. Will continue to monitor pt.
--- NOTE | 2019-10-24 22:54 | Emergency Room Report ---
History of Present Illness General Chief Complaint: Multiple Trauma/Fall Source: Patient Present Illness HPI This is a 69-year-old male with a history of COPD and seizure. His seizure is been well controlled on Dilantin. No seizure activity for over 30 years. He presents with chief complaint of frequent falls. This been ongoing for the last 6 months. But more frequent in the last few days. He said he fell 3 days ago hit his head. He fell twice today. Unable to get up. 1 time a trip today. The other time he got up and sat up off the bed and unable to get up for an hour. Patient denies any pain. Did have a headache couple days ago from the fall but resolved now. No focal deficit. No nausea no vomiting. He does have some diarrhea started last night. Denies any fever chills but denies any cough or shortness of breath. No recent travel. Allergies: Coded Allergies: SHELLFISH DERIVED (Unverified Allergy, Intermediate, ITCHING/HIVES, ) IODINE (Unverified Allergy, Unknown, 02/17/14) Uncoded Allergies: SPINACH (Allergy, Intermediate, SEVERE ITCHING/HIVES, 02/17/14) COVID-19 Screening Contact w/high risk pt: No Recent Travel to affected area: No Experienced COVID-19 symptoms?: No Patient History Past Medical History: COPD, seizures Past Surgical History: other - Hip surgery, left Nursing Documentation-[facility] Past Medical History: No History, Except For Hx Cardiac Problems: Yes - cardiopulmonary emboli-2013, hepatitis B Hx COPD: Yes Hx Cancer: Yes - BASAL CELL CARCINOMA SKIN Hx Gastrointestinal Problems: Yes Hx Neurological Problems: Yes Hx Seizures: Yes - 30 YEARS AGO Hx Epilepsy: Yes - Well controlled with medications - last seizure 35 yrs ago Hx Syncope: Yes - THIS AM Hx Headaches: Yes - MIGRAINES Hx Numbness: Yes - TIPS OF THE TOES Review of Systems Eye: Denies: eye pain, blurred vision ENT: Denies: ear pain, nose congestion, throat swelling Respiratory: Denies: cough, shortness of breath Cardiovascular: Denies: chest pain, palpitations Gastrointestinal: Reports: diarrhea; Denies: abdominal pain, nausea, vomiting Musculoskeletal: Denies: back pain, joint pain Skin: Denies: rash Neurological: Denies: headache, numbness Endocrine: Denies: increased thirst, increased urine Hematologic/Lymphatic: Denies: easy bruising All Other Systems: negative except mentioned in HPI Physical Exam Vital Signs Date Time Temp Pulse Resp B/P (MAP) Pulse Ox O2 Delivery O2 Flow Rate FiO2 10/24/19 22:44 98.8 88 16 150/83 (105) 92 Room Air Vitals with high blood pressure Sp02 EP Interpretation: reviewed, normal General Appearance: well appearing, no apparent distress, alert Head: normocephalic, atraumatic Eyes: bilateral eye PERRL, bilateral eye EOMI ENT: hearing grossly normal, normal pharynx Neck: full range of motion, supple, no meningismus Respiratory: chest non-tender, lungs clear, normal breath sounds Cardiovascular #1: regular rate, rhythm, no murmur Gastrointestinal: normal bowel sounds, non tender, no mass, no organomegaly, no bruit, non-distended Musculoskeletal: back normal, normal range of motion, other - Left leg appear to be shorter than right Psychiatric: mood/affect normal Medical Decision Making Diagnostic Impression: Primary Impression: Multiple injuries due to trauma Additional Impressions: Head injury, acute Qualified Codes: S09.90XA - Unspecified injury of head, initial encounter Failure to thrive in adult ER Course Patient presents with frequent falls and head injury. No evidence of any intracranial bleed or fractures. He is unable to ambulate. He lives by himself. For this reason, will admit for rehab and physical therapy. I discussed the case with Dr. Sosa who will admit. Other X-Ray Diagnostic Results Other X-Ray Diagnostic Results : X-Ray ordered: Left hip x-rays # of Views/Limited Vs Complete: 4 View Indication: Pain EP Interpretation: Yes Interpretation: no dislocation, no soft tissue swelling, no fractures, other - Previous left hip surgery Impression: No acute disease Electronically Signed by: Rah Dudley MD CT/MRI/US Diagnostic Results CT/MRI/US Diagnostic Results : Imaging Test Ordered: CT head Impression No acute process per radiologist Last Vital Signs Date Time Temp Pulse Resp B/P (MAP) Pulse Ox O2 Delivery O2 Flow Rate FiO2 10/24/19 22:44 98.8 88 16 150/83 (105) 92 Room Air Status: improved Disposition: ADMITTED INPATIENT Condition: Serious Rah Dudley MD Oct 24, 2019 22:54
[2019-10-24 23:06] LABS: BASOPHILS % (AUTO) 1.6 % (0.0-2.0); EOSINOPHILS % (AUTO) 0.1 % (0.0-3.0); HEMATOCRIT 41.3 % (42.0-52.0); HEMOGLOBIN 13.9 G/DL (14.2-18.0); LYMPHOCYTES % (AUTO) 7.8 % (20.0-45.0); MEAN CORPUSCULAR VOLUME 96 FL (80-99); MONOCYTES % (AUTO) 9.1 % (1.0-10.0); NEUTROPHILS % (AUTO) 81.4 % (45.0-75.0); PLATELET COUNT 185 K/UL (150-450); RED BLOOD COUNT 4.32 M/UL (4.70-6.10); RED CELL DISTRIBUTION WIDTH 12.9 % (11.6-14.8); WHITE BLOOD COUNT 9.3 K/UL (4.8-10.8)
--- NOTE | 2019-10-24 23:10 | NUR ---
ED Nurse Note: Pt able to stand at bedside with assistance and use urinal. Urine sent to lab.
--- NOTE | 2019-10-24 23:17 | NUR ---
ED Nurse Note: Pt taken to CT.
[2019-10-24 23:24] LABS: ANION GAP 16 mmol/L (5-15); BLOOD UREA NITROGEN 18 mg/dL (7-18); CALCIUM 10.2 MG/DL (8.5-10.1); CARBON DIOXIDE 27 MMOL/L (21-32); CHLORIDE 103 MMOL/L (98-107); CREATININE 0.9 MG/DL (0.55-1.30); POTASSIUM 4.2 MMOL/L (3.5-5.1); SODIUM 146 MMOL/L (136-145)
[2019-10-24 23:29] LABS: ALANINE AMINOTRANSFERASE 60 U/L (12-78); ALBUMIN 4.3 G/DL (3.4-5.0); ALBUMIN/GLOBULIN RATIO 1.1 (1.0-2.7); ALKALINE PHOSPHATASE 220 U/L (46-116); ASPARTATE AMINO TRANSFERASE 64 U/L (15-37); BILIRUBIN,TOTAL 0.5 MG/DL (0.2-1.0)
[2019-10-24 23:30] VITALS: BP 146/72
--- NOTE | 2019-10-24 23:34 | NUR ---
ED Nurse Note: Pt returned from CT. Pt stable, no acute distress.
[2019-10-24 23:36] LABS: APPEARANCE,URINE CLEAR; BILIRUBIN, URINE NEGATIVE (NEGATIVE); GLUCOSE, URINE (UA) NEGATIVE (NEGATIVE); KETONES,URINE NEGATIVE (NEGATIVE); LEUKOCYTE ESTERASE ,URINE NEGATIVE (NEGATIVE); NITRITE,URINE NEGATIVE (NEGATIVE); PH,URINE 6 (4.5-8.0); UROBILINOGEN,URINE NORMAL MG/DL (0.0-1.0)
[2019-10-24 23:37] LABS: CKMB 3.5 NG/ML (0.0-3.6)
[2019-10-24 23:40] LABS: COLOR,URINE YELLOW; PROTEIN,URINE NEGATIVE (NEGATIVE)
--- NOTE | 2019-10-24 23:46 | Diagnostic Imaging Report ---
Indications: History of seizures and frequent falls. Head trauma 3 days ago. Recent headache from fall Technique: Spiral acquisitions obtained through the brain. Angled axial and coronal 5 x 5 mm slices were reconstructed. Total dose length product 1149 mGycm. CTDI vol(s) 53 mGy. Dose reduction achieved using automated exposure control Comparison: 02/26/2017 Findings: There is age-related enlargement of the ventricles and extra axial CSF spaces. There is fairly extensive periventricular deep white matter low-attenuation, consistent with chronic microvascular ischemic change and progressive since the prior study.. There is encephalomalacia of the right temporal tip. This is a new finding. No acute intracranial hemorrhage or edema. No mass effect nor midline shift. 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 The CT scanner at [facility] is accredited by the [employer] and the scans are performed using protocols designed to limit radiation exposure to as low as reasonably achievable to attain images of sufficient resolution adequate for diagnostic evaluation.
--- NOTE | 2019-10-25 00:34 | NUR ---
ED Nurse Note: Report given to ANASTASIA Goode.
--- NOTE | 2019-10-25 00:50 | NUR ---
ED Nurse Note: Pt stabe for transfer to [facility] unit at this time. Pt is aaox4, vss, no acute distress noted. Pt taken to unit via gurney by tech. Pt belongings sent with pt.
[2019-10-25] MEDS ORDERED: SUMAtriptan 100mg tab ORAL PRN (02:30)
[2019-10-25 04:00] VITALS: BP 147/84
[2019-10-25] MEDS: D5 1/2NS 1,000 ML IV SCH ×3 (04:25→23:51)
[2019-10-25] MEDS: Heparin 5000 units/ml inj SUBQ SCH ×3 (05:48→21:20)
--- NOTE | 2019-10-25 06:00 | NUR ---
NURSE NOTES Received patient from ED via [email or web address]. Alert and oriented x4. Saturating 89% on room air. Spoke with Dr. Sosa and obtained admission orders. Put pt on nasal cannula @ 3LPM, saturating 94%. Oriented to room, Instructed to use call light for assistance. Call light in reach. Bed in lowest, lock engaged and alarm on. Pt has some meds in pillbox. Will send to the pharmacy. Called supervisor assembling for pt's valuables to send to lock box. Water Pumping Station Engineer was not available. Will endorse to AM. Belongings checked and listed on the paper chart.
[2019-10-25 06:37] LABS: BASOPHILS % (AUTO) 0.7 % (0.0-2.0); EOSINOPHILS % (AUTO) 0.4 % (0.0-3.0); HEMATOCRIT 39.2 % (42.0-52.0); MEAN CORPUSCULAR VOLUME 92 FL (80-99); MONOCYTES % (AUTO) 10.6 % (1.0-10.0); NEUTROPHILS % (AUTO) 76.3 % (45.0-75.0); PLATELET COUNT 188 K/UL (150-450); RED BLOOD COUNT 4.24 M/UL (4.70-6.10); RED CELL DISTRIBUTION WIDTH 12.3 % (11.6-14.8); WHITE BLOOD COUNT 7.4 K/UL (4.8-10.8)
[2019-10-25 06:40] LABS: ALANINE AMINOTRANSFERASE 49 U/L (12-78); ALBUMIN 3.6 G/DL (3.4-5.0); ALBUMIN/GLOBULIN RATIO 1.1 (1.0-2.7); ALKALINE PHOSPHATASE 185 U/L (46-116); ANION GAP 12 mmol/L (5-15); ASPARTATE AMINO TRANSFERASE 50 U/L (15-37); BILIRUBIN,TOTAL 0.5 MG/DL (0.2-1.0); BLOOD UREA NITROGEN 12 mg/dL (7-18); CALCIUM 9.5 MG/DL (8.5-10.1); CARBON DIOXIDE 28 MMOL/L (21-32); CHLORIDE 104 MMOL/L (98-107); CREATININE 0.7 MG/DL (0.55-1.30); PHOSPHORUS 2.7 MG/DL (2.5-4.9); POTASSIUM 3.6 MMOL/L (3.5-5.1); SODIUM 144 MMOL/L (136-145)
--- NOTE | 2019-10-25 07:35 | NUR ---
HAND-OFF: Report given to ANASTASIA Retana and to follow up to send valuables to safebox.
--- NOTE | 2019-10-25 07:42 | NUR ---
NURSE NOTES: Endorsed that patient is high fall risk.
--- NOTE | 2019-10-25 07:43 | NUR ---
NURSE NOTES: Received pt in bed, AAO x 4. On NC 3L/min. No c/o pain/distress. IV on RAC 20g noted, running D5 1/2 NS @ 75 ml/hr. Patient is high risk for fall due to hx of fall. Educated pt to press call light for assistance. Call light within reach. Bed in the lowest, locked, and alarm on. Side rails padded for seizure precaution. Will continue to monitor
[2019-10-25 08:00] VITALS: BP 161/92
[2019-10-25] MEDS: Phenytoin 100mg cap ORAL SCH ×2 (09:02→21:19)
--- NOTE | 2019-10-25 09:10 | NUR ---
P.T Note: P.T evaluation completed and tx initiated. Please refer to P.T evaluation for current functional status. Pt is alert, O x4, pleasant and cooperative. Pt presented pain on R lower flank and generalized weakness affecting his balance and overall mobility independence and safety. Pt currently requires MIN A X 1 for bed mobility and transfers activity especially for gait/ambulation activities due to unsteady gait. Pt is high fall risk category where require SNF for further rehab intervention VS going home with P.T follow up at [place]. Pt however is cleared for OOB activities with nursing assist and using FWW. Thank you for this referral.
--- NOTE | 2019-10-25 09:11 | NUR ---
RADIOLOGY: PCXR COMPLETED 0730 HRS. NF
--- NOTE | 2019-10-25 10:40 | NUR ---
*-* INSURANCE *-* ALL AVAILABLE CLINICALS HAVE BEEN FAXED TO: RD P: [phone] F: [phone] (FAX ALL CLINICALS)
--- NOTE | 2019-10-25 10:49 | Diagnostic Imaging Report ---
Indication: Trauma, frequent falls, unable to get up Technique: One view the pelvis, 2 views of the left hip Comparison: none Findings: Compression screw and long medullary jony are seen reducing old healed left intertrochanteric fracture. The hardware appears intact. There is no evidence of acute fracture. No dislocations. The joint spaces are preserved. Impression: Postsurgical and posttraumatic changes, as described No acute bony trauma
--- NOTE | 2019-10-25 11:32 | Diagnostic Imaging Report ---
Indication: Shortness of breath Technique: One view of the chest Comparison: 03/15/2014 Findings: Subsegmental atelectasis is seen at both lung bases. The lungs are somewhat hyperinflated, particularly the upper lobes. The lungs and pleural spaces are otherwise clear. The heart size is normal. Impression: Bilateral basilar atelectasis COPD changes No acute process otherwise
[2019-10-25 12:00] VITALS: BP 116/70
--- NOTE | 2019-10-25 12:58 | Consultation ---
History of Present Illness General Date patient seen: Oct 25, 2019 Chief Complaint: Multiple Trauma/Fall Present Illness HPI 69-year-old male with a history of COPD and seizure presented to ER with chief complaint of frequent falls for the last 6 months. He fell twice yesterday and was Unable to get up. Patient denies any pain. No focal deficit. No nausea no vomiting. He does have some diarrhea started last night. He is admitted to med/surg for further management and possible long-term placement. Allergies: Coded Allergies: SHELLFISH DERIVED (Unverified Allergy, Intermediate, ITCHING/HIVES, ) IODINE (Unverified Allergy, Unknown, 02/17/14) Uncoded Allergies: SPINACH (Allergy, Intermediate, SEVERE ITCHING/HIVES, 02/17/14) Medication History Scheduled Acetaminophen* (Acetaminophen 325MG Tablet*), 325 MG ORAL Q4H, (Reported) Amitriptyline Hcl* (Amitriptyline Hcl*), 75 MG ORAL BEDTIME, (Reported) Lansoprazole* (Lansoprazole*), 30 MG ORAL DAILY, (Reported) Latanoprost* (Xalatan*), 1 DROP BOTH EYES BEDTIME, (Reported) Phenytoin Sodium Extended* (Dilantin*), 100 MG ORAL THREE TIMES A DAY, (Reported ) Phenytoin Sodium Extended* (Dilantin*), 100 MG ORAL THREE TIMES A DAY, (Reported ) Primidone* (Mysoline*), 250 MG ORAL THREE TIMES A DAY Tamsulosin Hcl (Tamsulosin Hcl*), 0.4 MG ORAL BEDTIME, (Reported) Tolterodine Tartrate (Tolterodine Tartrate), 4 MG PO DAILY, (Reported) Warfarin Sod* (Warfarin Sod*), 7.5 MG ORAL DAILY, (Reported) Patient History Healthcare decision maker Resuscitation status Full Code Advanced Directive on File Past Medical/Surgical History Past Medical/Surgical History: (1) Seizure disorder, complex partial Review of Systems All Other Systems: negative except mentioned in HPI Physical Exam General Appearance: WD/WN, no apparent distress Lines, tubes and drains: peripheral HEENT: normocephalic, atraumatic Neck: non-tender, normal alignment Respiratory/Chest: chest wall non-tender, lungs clear, no respiratory distress Cardiovascular/Chest: normal peripheral pulses, normal rate Abdomen: normal bowel sounds, non tender Genitourinary/Rectal: normal genital exam Extremities: normal range of motion Neurologic: frit burner II-XII grossly normal Last 24 Hour Vital Signs Date Time Temp Pulse Resp B/P (MAP) Pulse Ox O2 Delivery O2 Flow Rate FiO2 10/25/19 12:00 98.5 94 17 116/70 (85) 98 10/25/19 09:02 161/92 10/25/19 08:17 Nasal Cannula 3.0 10/25/19 08:00 98.4 90 18 161/92 (115) 97 10/25/19 04:00 98.1 90 17 147/84 (105) 94 10/25/19 02:41 Nasal Cannula 3.0 10/25/19 00:50 98.8 86 23 135/73 96 Room Air 10/24/19 23:30 98.8 89 16 146/72 95 Room Air 10/24/19 22:50 88 16 Room Air 10/24/19 22:50 98.8 88 16 150/83 92 Room Air 10/24/19 22:44 98.8 88 16 150/83 (105) 92 Room Air Intake and Output 10/24/19 10/25/19 19:00 07:00 Intake Total 150 ml Balance 150 ml Intake IV Total 150 ml # Voids 3 Laboratory Tests Test 10/24/19 22:55 10/24/19 23:14 10/25/19 05:30 White Blood Count 9.3 K/UL (4.8-10.8) 7.4 K/UL (4.8-10.8) Red Blood Count 4.32 M/UL (4.70-6.10) L 4.24 M/UL (4.70-6.10) L Hemoglobin 13.9 G/DL (14.2-18.0) L 14.0 G/DL (14.2-18.0) L Hematocrit 41.3 % (42.0-52.0) L 39.2 % (42.0-52.0) L Mean Corpuscular Volume 96 FL (80-99) 92 FL (80-99) Mean Corpuscular Hemoglobin 32.3 PG (27.0-31.0) H 33.0 PG (27.0-31.0) H Mean Corpuscular Hemoglobin Concent 33.8 G/DL (32.0-36.0) 35.8 G/DL (32.0-36.0) Red Cell Distribution Width 12.9 % (11.6-14.8) 12.3 % (11.6-14.8) Platelet Count 185 K/UL (150-450) 188 K/UL (150-450) Mean Platelet Volume 7.5 FL (6.5-10.1) 6.3 FL (6.5-10.1) L Neutrophils (%) (Auto) 81.4 % (45.0-75.0) H 76.3 % (45.0-75.0) H Lymphocytes (%) (Auto) 7.8 % (20.0-45.0) L 12.0 % (20.0-45.0) L Monocytes (%) (Auto) 9.1 % (1.0-10.0) 10.6 % (1.0-10.0) H Eosinophils (%) (Auto) 0.1 % (0.0-3.0) 0.4 % (0.0-3.0) Basophils (%) (Auto) 1.6 % (0.0-2.0) 0.7 % (0.0-2.0) Sodium Level 146 MMOL/L (136-145) H 144 MMOL/L (136-145) Potassium Level 4.2 MMOL/L (3.5-5.1) 3.6 MMOL/L (3.5-5.1) Chloride Level 103 MMOL/L (98-107) 104 MMOL/L (98-107) Carbon Dioxide Level 27 MMOL/L (21-32) 28 MMOL/L (21-32) Anion Gap 16 mmol/L (5-15) H 12 mmol/L (5-15) Blood Urea Nitrogen 18 mg/dL (7-18) 12 mg/dL (7-18) Creatinine 0.9 MG/DL (0.55-1.30) 0.7 MG/DL (0.55-1.30) Estimat Glomerular Filtration Rate > 60 mL/min (>60) > 60 mL/min (>60) Glucose Level 130 MG/DL (74-106) H 123 MG/DL (74-106) H Calcium Level 10.2 MG/DL (8.5-10.1) H 9.5 MG/DL (8.5-10.1) Total Bilirubin 0.5 MG/DL (0.2-1.0) 0.5 MG/DL (0.2-1.0) Aspartate Amino Transf (AST/SGOT) 64 U/L (15-37) H 50 U/L (15-37) H Alanine Aminotransferase (ALT/SGPT) 60 U/L (12-78) 49 U/L (12-78) Alkaline Phosphatase 220 U/L (46-116) H 185 U/L (46-116) H Total Creatine Kinase 434 U/L (26-308) H Creatine Kinase MB 3.5 NG/ML (0.0-3.6) Creatine Kinase MB Relative Index 0.8 Total Protein 8.1 G/DL (6.4-8.2) 7.0 G/DL (6.4-8.2) Albumin 4.3 G/DL (3.4-5.0) 3.6 G/DL (3.4-5.0) Globulin 3.8 g/dL 3.4 g/dL Albumin/Globulin Ratio 1.1 (1.0-2.7) 1.1 (1.0-2.7) Phenytoin (Dilantin) Level 17.8 ug/mL (10-20) Urine Color Yellow Urine Appearance Clear Urine pH 6 (4.5-8.0) Urine Specific [place] 1.020 (1.005-1.035) Urine Protein Negative (NEGATIVE) Urine Glucose (UA) Negative (NEGATIVE) Urine Ketones Negative (NEGATIVE) Urine Blood Negative (NEGATIVE) Urine Nitrite Negative (NEGATIVE) Urine Bilirubin Negative (NEGATIVE) Urine Urobilinogen Normal MG/DL (0.0-1.0) Urine Leukocyte Esterase Negative (NEGATIVE) Urine RBC 0-2 /HPF (0 - 0) H Urine WBC 0 /HPF (0 - 0) Urine Squamous Epithelial Cells None /LPF (NONE/OCC) Urine Bacteria None /HPF (NONE) Phosphorus Level 2.7 MG/DL (2.5-4.9) Magnesium Level 1.9 MG/DL (1.8-2.4) Height (Feet): 5 Height (Inches): 10.00 Weight (Pounds): 160 Medications Current Medications Medications (Trade) Dose Ordered Sig/Ashley Route PRN Reason Start Time Stop Time Status Last Admin Dose Admin Acetaminophen (Tylenol) 650 mg Q4HR PRN ORAL TEMP>100.5 10/25/19 00:15 Acetaminophen (Tylenol) 650 mg Q6H PRN ORAL Mild Pain/Temp > 100.5 10/25/19 02:15 11/24/19 02:14 Amitriptyline HCl (Elavil) 25 mg BEDTIME ORAL 10/25/19 21:00 11/24/19 20:59 Clonidine HCl (Catapres Tab) 0.1 mg Q4H PRN ORAL sbp greater than 160 10/25/19 08:30 01/23/20 08:29 10/25/19 09:02 Dextrose/Sodium Chloride 1,000 ml @ 75 mls/hr [id number] IV 10/25/19 02:15 11/24/19 02:14 10/25/19 04:25 Heparin Sodium (Porcine) (Heparin 5000 units/ml) 5,000 units EVERY 8 HOURS SUBQ 10/25/19 06:00 12/09/19 05:59 10/25/19 05:48 Latanoprost (Xalatan) 1 drop BEDTIME BOTH EYES 10/25/19 21:00 11/24/19 20:59 Non-Formulary Medication (Non-Formulary Med) 1 ea BEDTIME ORAL 10/25/19 21:00 11/24/19 20:59 UNV Ondansetron HCl (Zofran) 4 mg PRN PRN IVP Nausea & Vomiting 10/25/19 00:15 Pantoprazole (Protonix) 40 mg DAILY ORAL 10/25/19 09:00 11/24/19 08:59 10/25/19 09:02 Phenytoin (Dilantin) 100 mg BEDTIME ORAL 10/25/19 21:00 11/24/19 20:59 Phenytoin (Dilantin) 200 mg DAILY ORAL 10/25/19 09:00 11/24/19 08:59 10/25/19 09:02 Primidone (Mysoline) 250 mg DAILY ORAL 10/25/19 09:00 11/24/19 08:59 10/25/19 09:02 Primidone (Mysoline) 500 mg BEDTIME ORAL 10/25/19 21:00 11/24/19 20:59 Sumatriptan Succinate (Imitrex) 100 mg DAILY PRN ORAL For Pain 10/25/19 02:30 11/24/19 02:29 Tamsulosin HCl (Flomax) 0.8 mg BEDTIME ORAL 10/25/19 21:00 11/24/19 20:59 Assessment/Plan Problem List: (1) Falls frequently ICD Codes: R29.6 - Repeated falls SNOMED: 150158483 (2) Failure to thrive in adult ICD Codes: R62.7 - Adult failure to thrive SNOMED: 394326365, 7950320 (3) Seizure disorder, complex partial ICD Codes: G40.209 - Localization-related (focal) (partial) symptomatic epilepsy and epileptic syndromes with complex partial seizures, not intractable , without status epilepticus SNOMED: 914717646 (4) ACS (acute coronary syndrome) ICD Codes: I20.0 - Unstable angina SNOMED: 693878904 Assessment/Plan: pt/ot neuro evaluation MRI of brain calorie count symptomatic treatment Mel Fuentes MD Oct 25, 2019 12:58
--- NOTE | 2019-10-25 13:05 | NUR ---
CASE MANAGEMENT: INITIAL REVIEW 69YR OLD MALE GERMAIN FROM HOME CC: MULTIPLE TRAMA/FALL; DIARRHEA; HIT HEAD 3DAYS AGO HX: COPD AND SEIZURE SI:MULTIPLE INJURIES DUE TO TRAMA . ACUTE HEAD INJURY . 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 ACUTE HEAD INJURY . FAILURE TO THRIVE 98.4 90 18 161/92 97% ON 3L NC H/H 14/39.2 BGLU 123 AST 50 ALKP 185 IS:IV D5@75ML/HR DILANTIN PO QD MYSOLINE PO QD HEPARIN SQ TID PROTONIX PO QD CLONIDINE Q4HR/PRN \: 4E MED SURG UNIT DCP:HOME WHEN STABLE PLAN: PT EVAL REHAB CONSULT CALORIE COUNT OXYGEN THERAPY - DECREASE SAT Addendum: 10/25/19 at 1331 by AGUILA ELAINE LVN INTERQUAL MET OBSERVATION
[2019-10-25 16:00] VITALS: BP_SYST 114; BP_SYST 130; BP_DIAS 72; BP_DIAS 76
--- NOTE | 2019-10-25 16:57 | History & Physical ---
History and Physical History & Physicial Dictated for Int Med-DR Sosa no. [id number]. Hayes Rothman MD Oct 25, 2019 16:57
--- NOTE | 2019-10-25 17:45 | History and Physical Report ---
DATE OF ADMISSION: 10/24/2019 CHIEF COMPLAINT: The patient is a 69-year-old male, who presents with chief complaint of fall injury. HISTORY OF PRESENT ILLNESS: The patient states that he has a history of seizure disorder. The patient states his last seizure was 30 years ago. The patient states his seizure disorder is controlled on Dilantin. The patient states he has been having increasing falls over the past week. The patient states he fell twice yesterday, October 24, 2019. The patient was reaching for something and fell over. The patient usually walks with a walker. The patient states he feels unsteady on his feet. The patient presented to [facility] emergency room. The patient is admitted with multiple falls to rule out acute cerebrovascular accident. REVIEW OF SYSTEMS: CONSTITUTIONAL: The patient denies weight loss or weight gain. The patient denies fevers or chills. HEENT: The patient denies ear or throat pain. The patient denies headache. CARDIOVASCULAR: The patient denies palpitations or chest pain. CHEST: The patient denies wheeze or shortness of breath. ABDOMEN: The patient denies nausea, vomiting, diarrhea, or constipation. GENITOURINARY: The patient denies dysuria or increased frequency of urination. NEUROMUSCULAR: The patient complains of ataxia as above. The patient denies generalized weakness. PAST MEDICAL HISTORY: Significant for: 1. Deep venous thrombosis in 2013. 2. History of pulmonary embolism in 2013. 3. Seizure disorder. 4. Benign prostatic hypertrophy. 5. Chronic obstructive pulmonary disease. PAST SURGICAL HISTORY: Significant for: 1. Cataract surgery bilaterally. 2. Left femur intertrochanteric open reduction and internal fixation in 2013. CURRENT MEDICATIONS: 1. Amitriptyline 75 mg p.o. nightly. 2. Lansoprazole 30 mg p.o. daily. 3. Xalatan one drop to both eyes nightly. 4. Dilantin 100 mg p.o. three times daily. 5. Mysoline 250 mg p.o. three times daily. 6. Tamsulosin 0.4 mg p.o. daily. 7. Tolterodine 4 mg p.o. daily. 8. Coumadin 7.5 mg p.o. daily. ALLERGIES: To contrast iodine. SOCIAL HISTORY: The patient is single and lives alone. The patient denies alcohol use. The patient admits to previous tobacco use of one pack per day, however, he quit in 2013. PHYSICAL EXAMINATION: VITAL SIGNS: Temperature 98.8, respirations 16, pulse 88, and blood pressure 150/83. GENERAL: The patient is a well-developed and well-nourished male, in no apparent distress. HEENT: Eyes, pupils are equal and responsive to light and accommodation. Extraocular movements are intact. NECK: Supple without lymphadenopathy. CHEST: Lungs are clear to auscultation bilaterally without wheeze or rales. CARDIOVASCULAR: Regular rate. S1, S2 are normal without murmurs, rubs, or gallops. ABDOMEN: Soft, nontender, and nondistended. Positive bowel sounds. No evidence of hepatosplenomegaly. Currently, no rebound or guarding noted. EXTREMITIES: Negative for clubbing, cyanosis, or edema. RECTAL/GENITAL: Refused. NEUROLOGIC: Cranial nerves II through XII are grossly intact without focal deficits. Motor strength is 5/5 bilaterally. Deep tendon reflexes are 2+ plantar. LABORATORY STUDIES: WBC 9.3, hemoglobin 13.9, hematocrit 41.3, and platelets 185,000. Sodium 146, potassium 4.2, chloride 103, CO2 27, BUN 18, and creatinine 0.9. Glucose 130. CT scan of the brain revealed probable old cerebrovascular accident in the right temporal region, otherwise no acute disease. An x-ray of the left hip failed to demonstrate acute fracture. ASSESSMENT: This is a 69-year-old male with: 1. Frequent falls. 2. Seizure disorder. 3. Benign prostatic hypertrophy. 4. Chronic obstructive pulmonary disease. TREATMENT: 1. Fall injury. This may be secondary to orthostatic hypotension versus acute cerebrovascular accident. Carotid duplex Dopplers of the brain are pending. 2. Seizure disorder. Continue Dilantin as above. 3. History of deep venous thrombosis/pulmonary embolism. Continue Coumadin as above. 4. Cerebrovascular disease. The patient denies history of stroke. Continue aspirin as above. 5. Benign prostatic hypertrophy. Continue Flomax as above. 6. Chronic obstructive pulmonary disease. A Pulmonary consultation has been obtained with Dr. Mel Fuentes. Hayes Rothman M.D. DR: MARCELO JOB#: [id number] CC:
--- NOTE | 2019-10-25 19:05 | NUR ---
HAND-OFF: Report given to ANASTASIA Youssef.
--- NOTE | 2019-10-25 19:30 | NUR ---
NURSE NOTES: Patient awake in bed, no complaints of pain at this time. Will attend to needs. Instructed to use call light for assistance. Call light in reach. Bed in lowest, lock engaged and alarm on. Will continue plan of care.
[2019-10-25 20:00] VITALS: BP 130/83
[2019-10-25] MEDS: Latanoprost 0.005% Opth 2.5ml Soln BOTH EYES SCH (21:18)
[2019-10-25] MEDS: Tamsulosin 0.4mg cap ORAL SCH (21:19)
[2019-10-26] VITALS: BP_SYST 110; BP_SYST 147; BP_DIAS 67; BP_DIAS 70
[2019-10-26 04:00] VITALS: BP 140/75
[2019-10-26] MEDS: Heparin 5000 units/ml inj SUBQ SCH ×3 (05:03→21:41)
[2019-10-26 06:56] LABS: BASOPHILS % (AUTO) 1.1 % (0.0-2.0); EOSINOPHILS % (AUTO) 0.7 % (0.0-3.0); HEMATOCRIT 41.2 % (42.0-52.0); HEMOGLOBIN 14.6 G/DL (14.2-18.0); LYMPHOCYTES % (AUTO) 16.6 % (20.0-45.0); MEAN CORPUSCULAR VOLUME 92 FL (80-99); MONOCYTES % (AUTO) 9.9 % (1.0-10.0); NEUTROPHILS % (AUTO) 71.7 % (45.0-75.0); PLATELET COUNT 198 K/UL (150-450); RED BLOOD COUNT 4.47 M/UL (4.70-6.10); RED CELL DISTRIBUTION WIDTH 12.2 % (11.6-14.8); WHITE BLOOD COUNT 6.9 K/UL (4.8-10.8)
[2019-10-26 07:29] LABS: ALANINE AMINOTRANSFERASE 44 U/L (12-78); ALBUMIN 3.3 G/DL (3.4-5.0); ALBUMIN/GLOBULIN RATIO 0.9 (1.0-2.7); ALKALINE PHOSPHATASE 186 U/L (46-116); ANION GAP 13 mmol/L (5-15); ASPARTATE AMINO TRANSFERASE 41 U/L (15-37); BILIRUBIN,TOTAL 0.5 MG/DL (0.2-1.0); BLOOD UREA NITROGEN 8 mg/dL (7-18); CALCIUM 9.3 MG/DL (8.5-10.1); CARBON DIOXIDE 27 MMOL/L (21-32); CHLORIDE 101 MMOL/L (98-107); CREATININE 0.6 MG/DL (0.55-1.30); PHOSPHORUS 2.2 MG/DL (2.5-4.9); SODIUM 141 MMOL/L (136-145)
--- NOTE | 2019-10-26 07:48 | NUR ---
HAND-OFF: Report given to ANASTASIA Dubon.
--- NOTE | 2019-10-26 07:50 | NUR ---
NURSE NOTES: Received patient in bed, awake,not in acute respiratory/cardiac distress @ this time. Patient is alert and oriented x3 but forgetful.Patient denies pain or discomfort. Patient is high risk of fall. Bed is in lowest position and locked. Call light within reach, bed alarm is on zone 2.Patient refused to wear gown @ this time. Yellow gown @ the bedside. Yellow socks on. Reminded patient to call nurses if needed. Patient know how to use call light and demonstration done. Will continue plan of care.
[2019-10-26 08:00] VITALS: BP 146/89
[2019-10-26] MEDS: Phenytoin 100mg cap ORAL SCH ×2 (08:39→21:35)
--- NOTE | 2019-10-26 10:11 | NUR ---
RD ASSESSMENT & RECOMMENDATIONS SEE CARE ACTIVITY FOR COMPLETE ASSESSMENT DAILY ESTIMATED NEEDS: Needs based on Pulmonary 79kg 25-30 kcals/kg [id number] total kcals 1-1.5 g protein/kg 79-119 g total protein 25-30 mL/kg total fluid mLs NUTRITION DIAGNOSIS: Altered nutrition related lab values r/t clinical status as evidenced by low K (3.0), low phos (2.2), elev LFT's and Creat kinase. CURRENT DIET: Regular PO DIET RECOMMENDATIONS: With consistent po intake >75%, rec Low Na diet ADDITIONAL RECOMMENDATIONS: 1) Monitor po intake, need for soft easy chew 2) F/up w/ Kcal count 3) Check lytes daily, replete as needed (low K, phos) 4) Obtain a calibrated bed scale wt
[2019-10-26 11:54] VITALS: BP 133/89
--- NOTE | 2019-10-26 12:03 | Internal Med Progress Note ---
Subjective Date of Service: Oct 26, 2019 Physician Name LornaHayes Attending Physician Jose Sosa MD Current Medications Medications (Trade) Dose Ordered Sig/Ashley Route PRN Reason Start Time Stop Time Status Last Admin Dose Admin Acetaminophen (Tylenol) 650 mg Q6H PRN ORAL Mild Pain/Temp > 100.5 10/25/19 02:15 11/24/19 02:14 10/26/19 10:31 Amitriptyline HCl (Elavil) 25 mg BEDTIME ORAL 10/25/19 21:00 11/24/19 20:59 10/25/19 21:19 Clonidine HCl (Catapres Tab) 0.1 mg Q4H PRN ORAL sbp greater than 160 10/25/19 08:30 01/23/20 08:29 10/25/19 09:02 Dextrose/Sodium Chloride 1,000 ml @ 75 mls/hr [id number] IV 10/25/19 02:15 11/24/19 02:14 10/25/19 23:51 Heparin Sodium (Porcine) (Heparin 5000 units/ml) 5,000 units EVERY 8 HOURS SUBQ 10/25/19 06:00 12/09/19 05:59 10/26/19 05:03 Latanoprost (Xalatan) 1 drop BEDTIME BOTH EYES 10/25/19 21:00 11/24/19 20:59 10/25/19 21:18 Non-Formulary Medication (Non-Formulary Med) 1 ea BEDTIME ORAL 10/25/19 21:00 11/24/19 20:59 UNV Ondansetron HCl (Zofran) 4 mg PRN PRN IVP Nausea & Vomiting 10/25/19 00:15 Pantoprazole (Protonix) 40 mg DAILY ORAL 10/25/19 09:00 11/24/19 08:59 10/26/19 08:39 Phenytoin (Dilantin) 100 mg BEDTIME ORAL 10/25/19 21:00 11/24/19 20:59 10/25/19 21:19 Phenytoin (Dilantin) 200 mg DAILY ORAL 10/25/19 09:00 11/24/19 08:59 10/26/19 08:39 Primidone (Mysoline) 250 mg DAILY ORAL 10/25/19 09:00 11/24/19 08:59 10/26/19 08:40 Primidone (Mysoline) 500 mg BEDTIME ORAL 10/25/19 21:00 11/24/19 20:59 10/25/19 21:18 Sumatriptan Succinate (Imitrex) 100 mg DAILY PRN ORAL For Pain 10/25/19 02:30 11/24/19 02:29 Tamsulosin HCl (Flomax) 0.8 mg BEDTIME ORAL 10/25/19 21:00 11/24/19 20:59 10/25/19 21:19 Allergies: Coded Allergies: SHELLFISH DERIVED (Unverified Allergy, Intermediate, ITCHING/HIVES, ) IODINE (Unverified Allergy, Unknown, 02/17/14) Uncoded Allergies: SPINACH (Allergy, Intermediate, SEVERE ITCHING/HIVES, 02/17/14) ROS Limited/Unobtainable: No Constitutional: Reports: no symptoms HEENT: Reports: no symptoms Cardiovascular: Reports: no symptoms Respiratory: Reports: no symptoms Gastrointestinal/Abdominal: Reports: no symptoms Genitourinary: Reports: no symptoms Neurologic/Psychiatric: Reports: no symptoms Subjective 69YO M with H/O seizure D/O admitted with frequent falls. Cover for Int Med-Dr Sosa Objective Last Vital Signs Date Time Temp Pulse Resp B/P (MAP) Pulse Ox O2 Delivery O2 Flow Rate FiO2 10/26/19 11:54 99.0 94 19 133/89 (104) 95 10/26/19 09:00 Nasal Cannula 3.0 Laboratory Tests Test 10/26/19 05:45 White Blood Count 6.9 K/UL (4.8-10.8) Red Blood Count 4.47 M/UL (4.70-6.10) L Hemoglobin 14.6 G/DL (14.2-18.0) Hematocrit 41.2 % (42.0-52.0) L Mean Corpuscular Volume 92 FL (80-99) Mean Corpuscular Hemoglobin 32.7 PG (27.0-31.0) H Mean Corpuscular Hemoglobin Concent 35.4 G/DL (32.0-36.0) Red Cell Distribution Width 12.2 % (11.6-14.8) Platelet Count 198 K/UL (150-450) Mean Platelet Volume 7.0 FL (6.5-10.1) Neutrophils (%) (Auto) 71.7 % (45.0-75.0) Lymphocytes (%) (Auto) 16.6 % (20.0-45.0) L Monocytes (%) (Auto) 9.9 % (1.0-10.0) Eosinophils (%) (Auto) 0.7 % (0.0-3.0) Basophils (%) (Auto) 1.1 % (0.0-2.0) Erythrocyte Sedimentation Rate 16 MM/HR (0-20) Sodium Level 141 MMOL/L (136-145) Potassium Level 3.0 MMOL/L (3.5-5.1) L Chloride Level 101 MMOL/L (98-107) Carbon Dioxide Level 27 MMOL/L (21-32) Anion Gap 13 mmol/L (5-15) Blood Urea Nitrogen 8 mg/dL (7-18) Creatinine 0.6 MG/DL (0.55-1.30) Estimat Glomerular Filtration Rate > 60 mL/min (>60) Glucose Level 113 MG/DL (74-106) H Calcium Level 9.3 MG/DL (8.5-10.1) Phosphorus Level 2.2 MG/DL (2.5-4.9) L Magnesium Level 1.9 MG/DL (1.8-2.4) Total Bilirubin 0.5 MG/DL (0.2-1.0) Aspartate Amino Transf (AST/SGOT) 41 U/L (15-37) H Alanine Aminotransferase (ALT/SGPT) 44 U/L (12-78) Alkaline Phosphatase 186 U/L (46-116) H C-Reactive Protein, Quantitative 15.9 mg/dL (0.00-0.90) H Total Protein 7.0 G/DL (6.4-8.2) Albumin 3.3 G/DL (3.4-5.0) L Globulin 3.7 g/dL Albumin/Globulin Ratio 0.9 (1.0-2.7) L Vitamin B12 Level 654 PG/ML (193-986) Intake and Output 10/25/19 10/26/19 19:00 07:00 Intake Total 600 ml 800 ml Output Total 500 ml Balance 600 ml 300 ml Intake IV Total 600 ml 800 ml Output Urine Total 500 ml # Voids 1 # Bowel Movements 3 Objective PHYSICAL EXAMINATION: GENERAL: The patient is a well-developed and well-nourished male, in no apparent distress. HEENT: Eyes, pupils are equal and responsive to light and accommodation. Extraocular movements are intact. NECK: Supple without lymphadenopathy. CHEST: Lungs are clear to auscultation bilaterally without wheeze or rales. CARDIOVASCULAR: Regular rate. S1, S2 are normal without murmurs, rubs, or gallops. ABDOMEN: Soft, nontender, and nondistended. Positive bowel sounds. No evidence of hepatosplenomegaly. Currently, no rebound or guarding noted. EXTREMITIES: Negative for clubbing, cyanosis, or edema. RECTAL/GENITAL: Refused. NEUROLOGIC: Cranial nerves II through XII are grossly intact without focal deficits. Motor strength is 5/5 bilaterally. Deep tendon reflexes are 2+ plantar. Assessment/Plan Assessment/Plan ASSESSMENT: This is a 69-year-old male with: 1. Frequent falls. 2. Seizure disorder. 3. Benign prostatic hypertrophy. 4. Chronic obstructive pulmonary disease. 5. Hypokalemia TREATMENT: 1. Fall injury. This may be secondary to orthostatic hypotension versus acute cerebrovascular accident. Carotid duplex Dopplers of the brain are pending. 2. Seizure disorder. Continue Dilantin as above. 3. History of deep venous thrombosis/pulmonary embolism. Continue Coumadin as above. 4. Cerebrovascular disease. The patient denies history of stroke. Continue aspirin as above. 5. Benign prostatic hypertrophy. Continue Flomax as above. 6. Chronic obstructive pulmonary disease. A Pulmonary consultation has been obtained with Dr. Mel Fuentes. 7. Oral potassium replacement Hayes Rothman MD Oct 26, 2019 12:03
--- NOTE | 2019-10-26 13:20 | NUR ---
CASE MANAGEMENT: REVIEW 10/26/19 HX: COPD AND SEIZURE SI:MULTIPLE INJURIES DUE TO TRAMA . ACUTE HEAD INJURY . FAILURE TO THRIVE . COPD 98.6 99 19 146/89 95% ON 3L NC K+ 2.2 PHOS 2.2 ALKP 186 CRPRO 15.9 IS:IV D5@75ML/HR DILANTIN PO QD MYSOLINE PO QD HEPARIN SQ TID PROTONIX PO QD CLONIDINE Q4HR/PRN DILANTIN PO QD FLOMAX PO QHS \: 4E MED SURG UNIT DCP:HOME WHEN STABLE PLAN: PT EVAL REHAB CONSULT CALORIE COUNT OXYGEN THERAPY - DECREASE SAT METHYLMALONIC ACID- PENDING CXR-Bilateral basilar atelectasis PULMONARY CONSULT PO K+ REPLACEMENT
--- NOTE | 2019-10-26 13:38 | Pulmonology Progress Note ---
Assessment/Plan Problems: (1) Falls frequently (2) Failure to thrive in adult (3) Seizure disorder, complex partial (4) ACS (acute coronary syndrome) Assessment/Plan no new comlaind neuro evaluation pending pt/ot neuro evaluation MRI of brain calorie count symptomatic treatment CT of head: Right temporal tip encephalomalacia, presumably an old infarct, new since prior study of 03/25/2017 Subjective ROS Limited/Unobtainable: No Interval Events: looks comfortable Allergies: Coded Allergies: SHELLFISH DERIVED (Unverified Allergy, Intermediate, ITCHING/HIVES, ) IODINE (Unverified Allergy, Unknown, 02/17/14) Uncoded Allergies: SPINACH (Allergy, Intermediate, SEVERE ITCHING/HIVES, 02/17/14) Objective Last 24 Hour Vital Signs Date Time Temp Pulse Resp B/P (MAP) Pulse Ox O2 Delivery O2 Flow Rate FiO2 10/26/19 11:54 99.0 94 19 133/89 (104) 95 10/26/19 09:00 Nasal Cannula 3.0 10/26/19 08:00 98.6 99 19 146/89 (108) 95 10/26/19 04:00 97.6 79 20 140/75 (96) 95 10/26/19 00:00 97.9 68 20 147/67 (93) 96 10/25/19 21:00 Nasal Cannula 3.0 10/25/19 20:00 97.8 82 18 130/83 (99) 97 10/25/19 16:00 98.6 90 17 114/76 (89) 98 Intake and Output 10/25/19 10/26/19 19:00 07:00 Intake Total 600 ml 800 ml Output Total 500 ml Balance 600 ml 300 ml Intake IV Total 600 ml 800 ml Output Urine Total 500 ml # Voids 1 # Bowel Movements 3 General Appearance: WD/WN HEENT: normocephalic, mucous membranes moist Respiratory/Chest: chest wall non-tender, lungs clear Cardiovascular: normal peripheral pulses, normal rate Abdomen: soft, non tender, non distended Extremities: no cyanosis Skin: no lesions Laboratory Tests 10/26/19 05:45: White Blood Count 6.9, Red Blood Count 4.47L, Hemoglobin 14.6, Hematocrit 41.2L , Mean Corpuscular Volume 92, Mean Corpuscular Hemoglobin 32.7H, Mean Corpuscular Hemoglobin Concent 35.4, Red Cell Distribution Width 12.2, Platelet Count 198, Mean Platelet Volume 7.0, Neutrophils (%) (Auto) 71.7, Lymphocytes (% ) (Auto) 16.6L, Monocytes (%) (Auto) 9.9, Eosinophils (%) (Auto) 0.7, Basophils (%) (Auto) 1.1, Erythrocyte Sedimentation Rate 16, Sodium Level 141, Potassium Level 3.0L, Chloride Level 101, Carbon Dioxide Level 27, Anion Gap 13, Blood Urea Nitrogen 8, Creatinine 0.6, Estimat Glomerular Filtration Rate > 60, Glucose Level 113H, Calcium Level 9.3, Phosphorus Level 2.2L, Magnesium Level 1.9, Total Bilirubin 0.5, Aspartate Amino Transf (AST/SGOT) 41H, Alanine Aminotransferase (ALT/SGPT) 44, Alkaline Phosphatase 186H, C-Reactive Protein, Quantitative 15.9H, Total Protein 7.0, Albumin 3.3L, Globulin 3.7, Albumin/ Globulin Ratio 0.9L, Vitamin B12 Level 654 10/26/19 12:10: Methylmalonic Acid [Pending] Current Medications Medications (Trade) Dose Ordered Sig/Ashley Route PRN Reason Start Time Stop Time Status Last Admin Dose Admin Acetaminophen (Tylenol) 650 mg Q6H PRN ORAL Mild Pain/Temp > 100.5 10/25/19 02:15 11/24/19 02:14 10/26/19 10:31 Amitriptyline HCl (Elavil) 25 mg BEDTIME ORAL 10/25/19 21:00 11/24/19 20:59 10/25/19 21:19 Clonidine HCl (Catapres Tab) 0.1 mg Q4H PRN ORAL sbp greater than 160 10/25/19 08:30 01/23/20 08:29 10/25/19 09:02 Dextrose/Sodium Chloride 1,000 ml @ 75 mls/hr [id number] IV 10/25/19 02:15 11/24/19 02:14 10/25/19 23:51 Heparin Sodium (Porcine) (Heparin 5000 units/ml) 5,000 units EVERY 8 HOURS SUBQ 10/25/19 06:00 12/09/19 05:59 10/26/19 13:31 Latanoprost (Xalatan) 1 drop BEDTIME BOTH EYES 10/25/19 21:00 11/24/19 20:59 10/25/19 21:18 Lorazepam (Ativan 2mg/ml 1ml) 0.5 mg Q4H PRN IV For Anxiety 10/26/19 13:45 11/02/19 13:44 Non-Formulary Medication (Non-Formulary Med) 1 ea BEDTIME ORAL 10/25/19 21:00 11/24/19 20:59 UNV Ondansetron HCl (Zofran) 4 mg PRN PRN IVP Nausea & Vomiting 10/25/19 00:15 Pantoprazole (Protonix) 40 mg DAILY ORAL 10/25/19 09:00 11/24/19 08:59 10/26/19 08:39 Phenytoin (Dilantin) 100 mg BEDTIME ORAL 10/25/19 21:00 11/24/19 20:59 10/25/19 21:19 Phenytoin (Dilantin) 200 mg DAILY ORAL 10/25/19 09:00 11/24/19 08:59 10/26/19 08:39 Primidone (Mysoline) 250 mg DAILY ORAL 10/25/19 09:00 11/24/19 08:59 10/26/19 08:40 Primidone (Mysoline) 500 mg BEDTIME ORAL 10/25/19 21:00 11/24/19 20:59 10/25/19 21:18 Sumatriptan Succinate (Imitrex) 100 mg DAILY PRN ORAL For Pain 10/25/19 02:30 11/24/19 02:29 Tamsulosin HCl (Flomax) 0.8 mg BEDTIME ORAL 10/25/19 21:00 11/24/19 20:59 10/25/19 21:19 Mel Fuentes MD Oct 26, 2019 13:38
[2019-10-26] MEDS ORDERED: LORazepam Inj 2mg/ml 1ml IV PRN (13:45)
[2019-10-26] MEDS: D5 1/2NS 1,000 ML IV SCH (14:06)
--- NOTE | 2019-10-26 14:30 | NUR ---
NURSE NOTES: Patient left the unit for MRI in stable condition. Patient's upper and lower dentures are @ the bedside.
--- NOTE | 2019-10-26 15:15 | NUR ---
NURSE NOTES: Patient came back from MRI dept in stable condition.
--- NOTE | 2019-10-26 15:58 | NUR ---
*-* INSURANCE *-* ALL AVAILABLE CLINICALS HAVE BEEN FAXED TO: RD P: [phone] F: [phone] (FAX ALL CLINICALS)
[2019-10-26 16:00] VITALS: BP 127/77
--- NOTE | 2019-10-26 16:00 | NUR ---
NURSE NOTES: Patient had soft bowel movementx2 and patient stated that he has been having loose bowel movement frequently @ home. RN collected stool specimen and sent it to lab for c-diff per protocol. Proper incontinent and skin care done. And patient complains of back pain with episodes of multiple falls @ home, [facility]. RN received order from Dr. Fuentes to do x-ray of L-spine.
--- NOTE | 2019-10-26 16:36 | NUR ---
NURSE NOTES: Per patient,there is no family to bring Detril la medicine, no alternative per pharmacy. RN relayed to Dr. Sosa. Dr. Sosa said to d/c. Patient is urinating well.
--- NOTE | 2019-10-26 16:49 | Diagnostic Imaging Report ---
Indication: Bilateral arm weakness, history of trauma Technique: Sagittal T1 FLAIR PROPELLER, sagittal T2 PROPELLOR, sagittal STIR, axial T2 PROPELLER, axial 3D COSMIC ASPIR images were obtained through the cervical spine Comparison: none Findings: There is a 5 mm focus of low T1, intermediate T2, and mildly bright STIR signal within the C6 vertebral body anteriorly, best appreciated on the sagittal images right equivocally evident as a bright focus with a low signal rim on the COSMIC ASPIR images. Bony alignment is normal. The intrinsic cord signal is normal. There is a very slight wedge deformity of the C7 vertebral body. The remaining vertebral body heights are preserved. There is equivocal mild narrowing of the C3-4, C4-5, C5-6 discs. The discs appear desiccated, as expected for age. At C3-4, there is mild to moderate right and moderate to severe left neural foraminal stenosis predominantly due to facet hypertrophy.. No significant disc bulge or protrusion or spinal stenosis. At C4-5, there is minimal broad-based posterior central disc protrusion, which does not significantly narrow the spinal canal. The neural foramina are preserved. At C5-6, there is moderate right, moderate to severe left neural foraminal stenosis. No significant disc bulge or protrusion or spinal stenosis At the remaining levels, no significant disc bulge or protrusion, spinal stenosis, or neural foraminal stenosis. The included extraspinal soft tissues are unremarkable. Impression: No acute bony trauma Mild multilevel degenerative changes, as detailed above. Focal signal abnormality within the C6 vertebral body, could represent a process such as a degenerative subchondral cyst or geode, but other etiologies including neoplasm possible. Consider CT to better characterize Slight anterior wedge deformity of the C7 vertebral body. Suspect developmental or on the basis of degenerative remodeling, but old mild compression fracture deformity also possible
--- NOTE | 2019-10-26 17:45 | Consultation ---
DATE OF CONSULTATION: 10/26/2019 NEUROLOGIC CONSULTATION CONSULTING PHYSICIAN: Lennox Wisdom M.D. CHIEF COMPLAINT: This is the third [facility] admission for this 69-year-old right-handed white male who is admitted for falling. Falls increased about a year ago. Last fell on 10/23/2019 where he is unsteady on his feet and fell over. I was asked to see the patient because of his falls. HISTORY OF PRESENT ILLNESS: The patient has history of polio beginning at 11-1/2 years of age, which left him with weakness of his abdominal muscles and involved his right leg. He has had a seizure disorder beginning in childhood, but his last seizure was 30 years ago. He is on Dilantin 100 mg b.i.d. and primidone 250 mg t.i.d. The patient apparently had a pulmonary embolus, fell and fractured his left hip and had surgery in 2013 and since that time, he has used a walker. The patient generally has no symptoms prior to his fall, except for perhaps unsteadiness. He has no dizzy spells. He did have diplopia in the past, but that was corrected with prisms, but he does not have it now. There are no dizzy spells. He may have muscle weakness, it is little unclear. There is occasional numbness in his feet, but generally not with the falls. He denies any lightheadedness and there is no fainting episodes at least at this visit. He has probably some mild hearing loss bilaterally. He wears bifocals for distance and near. There is no tinnitus. He denies a history of stroke. He was admitted to this hospital on 03/08/2017 for fainting episode above where he fell and hit his head and had episodes of "unresponsiveness." The patient's EKG at that time was fairly unremarkable. He had diffuse atrophy of his brain and a CT scan with some small vessel disease. He had some osteopenia of the lumbar spine on CT scan with arteriosclerosis noted. The patient was anemic on that admission. The patient saw Dr. Shah. His toes were downgoing at that time. His motor exam was normal. His pinprick and light touch were normal. His gait was not tested. He had slight decrease in hearing. This patient had a diagnoses of head injuries. The patient has a history of migraine headaches and is on amitriptyline recently. His dosage has been decreased. Now, he is on 75 mg of that. The patient has a history of glaucoma and is on Xalatan 1 drop both eyes nightly. He also takes tamsulosin 0.4 mg p.o. daily and is on Coumadin 7.5 mg p.o. daily and tolterodine 4 mg daily. The patient on admission was mildly anemic with normal platelet count, normal white counts. His Dilantin level was 17.8. His urinalysis was basically normal. The chemistries revealed mildly elevated glucose, mildly elevated AST, and elevated alkaline phosphatase of 185. The C-reactive protein was 15.9. The electrolytes were normal except for a slightly low potassium today. The patient had a left hip x-ray revealing postsurgical posttraumatic changes. He also had a CT scan of the brain revealing cerebral atrophy. Evidence of NPH and the right temporal tip encephalomalacia presumably an old infarct, which was different from his previous study of 03/25/2017. He had chronic microvascular ischemic changes, which have been progressive. I located and I felt he had a lot of cerebellar atrophy as well. He had a chest x-ray revealed bilateral basilar atelectasis and somewhat hyperinflated lungs, especially in the upper lobes. His mother did have a history of epilepsy. PAST MEDICAL HISTORY/PAST MEDICAL ILLNESSES: 1. Possible polio in the past. 2. Seizure disorder. 3. COPD and a 42-pack year history of tobacco abuse. 4. Benign prosodic hypertrophy. 5. History of pulmonary embolism. 6. Cataract surgery. 7. Migraine headaches. 8. Left hip fracture. See above. MEDICATIONS: See above. ALLERGIES: He is allegedly allergic to iodine. SURGICAL HISTORY: He had cataract surgeries bilaterally, see above and left hip surgery, see above. FAMILY HISTORY: His father of a myocardial infarction. His mother during surgery. SOCIAL HISTORY: He is and has no children. He is disabled. REVIEW OF SYSTEMS: His appetite has been decreased, especially in the past couple of days. The rest of the review of systems except for the above is noncontributory. PHYSICAL EXAMINATION: GENERAL: He is a well developed, disheveled appearing man, lying in bed, in no acute distress. VITAL SIGNS: The blood pressure is 146/89, temperature is 98.6 degrees, pulse is 99 and regular, respiration rate is 19. HEENT: Examination of his head reveals poor dentition. NECK: There is no tenderness in his neck. Carotids are +2. No bruits appreciated. LUNGS: The breath sounds are decreased bilaterally. CARDIOVASCULAR: Heart tones were hardly audible. There is no obvious murmurs, rubs, clicks, S3, or S4. ABDOMEN: Distended. Bowel sounds are decreased. There is no tenderness, masses, or organomegaly. BACK: Not tested. EXTREMITIES: There is evidence of degenerative joint disease in his fingers. NEUROLOGIC EXAMINATION: MENTAL STATUS: Judgment not tested. Affect, affect is appropriate. Memory, past memory is intact to his birthday, 1950. Immediate recall is 3/3 objects. Recent recall was 1/3 objects at 5 minutes, 2/3 with clues. Orientation, time, he knew it was 10/26/2019, thought it was Thursday. Place, he knew he was at [facility]. Person, he was oriented to person. Language function, spoken speech was fluent without paraphasias. Comprehension and repetition were intact. He could spell world backwards and forwards. CRANIAL NERVE EXAMINATION: CRANIAL NERVE II: Visual vizcarra are intact to confrontation. Fundi were not visualized. CRANIAL NERVES III, IV, AND : Extraocular motility was full with saccadic smooth pursuit. Pupils were 3 mm, round, sluggishly light reactive. CRANIAL NERVE V: Facial and corneal sensations were intact. CRANIAL NERVE VII: Facial strength was 5/5 bilaterally. CRANIAL NERVE VIII: Auditory acuity is probably slightly decreased. CRANIAL NERVES IX AND X: Not tested. CRANIAL NERVE XI: Sternocleidomastoid strength 5/5. CRANIAL NERVE XII: Tongue protrudes in the midline without fasciculations or atrophy. MUSCLE EXAMINATION: Muscle bulk is mildly decreased in the upper extremities. Bulk appears to be symmetrical in the lower extremities. Tone is normal. Strength is 5/5 in the upper extremities. Questionable left pronation. The lower extremities muscle strength is 5/5. REFLEXES: +2 biceps, brachioradialis, +1 right triceps, +2 left triceps, 0 right knee, +2-1/2 to 3 left knee with a crossed adductor response. Ankles are 0 bilaterally. Toes were upgoing bilaterally and testing for Babinski response. COORDINATION: [id number] reveals slight endpoint tremor without much dysmetria although slow on the left. [id number] testing, may have been some slight dysmetria in the lower extremities with minimal tremor. SENSORY EXAMINATION: Sensation is probably intact to perception in the toes. Pinprick was decreased in both legs up to nearly the knees, probably normal in the upper extremities though it was difficult to tell. Fine touch was normal. IMPRESSION: This patient has multiple reasons for falls. The first reason is obviously left hip, which started problems with his gait where he would need a walker. Second problem would be medications, which were tend to depress the central nervous system. The Dilantin could also cause cerebellar atrophy in some patients and he appears to have some worsened cerebral atrophy. He also has upgoing toes bilaterally and I wonder if he does not have any cervical spondylosis with cord compression. He has a decreased right triceps reflex. He also had a history of polio, although the strength in the right lower extremity is normal. The only thing he has is a depressed right knee reflex. Therefore, the patient will need an MRI scan of the cervical spine and also needs B12, methylmalonic acid level, serum copper levels if we can get them here. Cerebellar atrophy can also be caused by paraneoplastic syndrome since he has elevated smoking history. I do to want to get a CT scan of the chest. The patient does not have any changes in his mental status with his falls. Therefore, I do not think these are seizures or syncopal episodes. In fact, the patient has a new stroke, which is old in the right temporal tip, which may be embolic although he never had any symptoms. PLAN: 1. I will speak to you about this case. 2. MRI scan of the cervical spine when available. 3. B12, methylmalonic acid level. 4. CT scan of the chest. 5. Physical therapy. 6. Evaluate C-reactive protein. Lennox Wisdom MD DR: ELMER JOB#: [id number] CC: MALACHI
--- NOTE | 2019-10-26 19:41 | NUR ---
HAND-OFF: Report given to Teresa and endorsed plan of care.
--- NOTE | 2019-10-26 19:42 | NUR ---
NURSE NOTES: Patient is in bed, awake and alert x3, forgetful. No signs of distress or SOB. IV intact and patent. Bed locked and in lowest position. Bed alarm activated. Fall precautions in place. Walker at bedside. Call light within reach. Reminded patient to call for assistance if needed. Will continue plan of care.
[2019-10-26 20:00] VITALS: BP 144/82
[2019-10-26] MEDS: Latanoprost 0.005% Opth 2.5ml Soln BOTH EYES SCH (21:35)
[2019-10-26] MEDS: Tamsulosin 0.4mg cap ORAL SCH (21:35)
--- NOTE | 2019-10-26 23:45 | NUR ---
NURSE NOTES: Patient attempted to get out of bed, causing bed alarm to sound. Assisted patient to bathroom with his bedside walker. While returning patient to bed, patient started to loose his balance. RN maintained hold of the patient and guided him to the floor. Patient then insisted he lie completely down on the floor, stating he wants to "take a 10 minute nap on the floor". Reassured patient that he will be able to rest in bed and provided reorientation. COMPUTER SYSTEMS ARCHITECT arrived to assist with returning patient to his bed. Patient denies any pain. Vital signs stable. compliance attorney notified. Transferred patient to room closer to the nursing station. Bed locked and in lowest position. Call light in reach and reminded patient to use call light if he needs assistance. Bed alarm activated zone 2. Fall precautions remain in place. Will continue to monitor the patient.
[2019-10-27] VITALS: BP 146/83
[2019-10-27 04:00] VITALS: BP 143/88
[2019-10-27] MEDS: Heparin 5000 units/ml inj SUBQ SCH ×3 (05:19→21:45)
[2019-10-27 06:13] LABS: BASOPHILS % (AUTO) 1.1 % (0.0-2.0); EOSINOPHILS % (AUTO) 0.2 % (0.0-3.0); HEMATOCRIT 39.4 % (42.0-52.0); LYMPHOCYTES % (AUTO) 13.1 % (20.0-45.0); MEAN CORPUSCULAR VOLUME 92 FL (80-99); MONOCYTES % (AUTO) 12.2 % (1.0-10.0); NEUTROPHILS % (AUTO) 73.5 % (45.0-75.0); PLATELET COUNT 198 K/UL (150-450); RED BLOOD COUNT 4.29 M/UL (4.70-6.10); RED CELL DISTRIBUTION WIDTH 12.1 % (11.6-14.8); WHITE BLOOD COUNT 7.1 K/UL (4.8-10.8)
[2019-10-27 06:28] LABS: ANION GAP 9 mmol/L (5-15); BLOOD UREA NITROGEN 12 mg/dL (7-18); CALCIUM 9.5 MG/DL (8.5-10.1); CARBON DIOXIDE 29 MMOL/L (21-32); CHLORIDE 101 MMOL/L (98-107); CREATININE 0.6 MG/DL (0.55-1.30); POTASSIUM 3.1 MMOL/L (3.5-5.1); SODIUM 139 MMOL/L (136-145)
[2019-10-27] MEDS: D5 1/2NS 1,000 ML IV SCH ×2 (07:35→21:45)
--- NOTE | 2019-10-27 07:43 | NUR ---
NURSE NOTES: Patient's potassium noted to be 3.1. Dr. Fuentes notified. New orders received.
--- NOTE | 2019-10-27 07:54 | NUR ---
HAND-OFF: Report given to ANASTASIA Morales.
[2019-10-27 08:00] VITALS: BP 132/74
--- NOTE | 2019-10-27 08:05 | NUR ---
NURSE NOTES: pt is in the bed alert and awake. respiration is even and unlabored. denies any pain and discomfort. HOB elevated. no acute distress noted at this time. call light is within reach, will continue to follow plan of care.
[2019-10-27] MEDS: Phenytoin 100mg cap ORAL SCH ×2 (10:02→21:45)
--- NOTE | 2019-10-27 10:57 | NUR ---
*-* INSURANCE *-* ALL AVAILABLE CLINICALS HAVE BEEN FAXED TO: RD P: [phone] F: [phone] (FAX ALL CLINICALS)
[2019-10-27 12:00] VITALS: BP 128/76
--- NOTE | 2019-10-27 12:10 | Diagnostic Imaging Report ---
Indication: Back pain Comparison: None Findings: 3 views of the lumbar spine were obtained. The study is limited due to rotation and generalized osteopenia as well as moderate degree of bowel gas and stool obscuring lumbar anatomy. The bones are osteopenic. No obvious acute fracture is appreciated although there is mild loss of height of the lumbar vertebra. There is no obvious malalignment that may be achievable with trauma. There is a scoliosis convex to the right. IMPRESSION: No obvious acute injury. Scoliosis and generalized osteopenia noted.
--- NOTE | 2019-10-27 12:55 | NUR ---
CASE MANAGEMENT: REVIEW 10/27/19 HX: COPD AND SEIZURE SI:MULTIPLE INJURIES DUE TO TRAMA . ACUTE HEAD INJURY . FAILURE TO THRIVE . COPD 99.0 94 20 132/74 93% ON 3L NC K+ 3.1 IS:PO K-DUR X1 IV D5@75ML/HR DILANTIN PO QD MYSOLINE PO QD HEPARIN SQ TID PROTONIX PO QD CLONIDINE Q4HR/PRN DILANTIN PO QD FLOMAX PO QHS \: 4E MED SURG UNIT DCP:HOME WHEN STABLE PLAN: PT EVAL AND THERAPY LAB PENDING: PRIMIDONE PHENOBARBITAL
--- NOTE | 2019-10-27 12:57 | Pulmonology Progress Note ---
Assessment/Plan Problems: (1) Falls frequently (2) Cerebellar atrophy (3) Failure to thrive in adult (4) Seizure disorder, complex partial (5) ACS (acute coronary syndrome) Assessment/Plan no new comlaind pt/ot neuro evaluation appreciated and reviewed MRI of brain calorie count symptomatic treatment MRI of Cspine pending CT of head: Right temporal tip encephalomalacia, presumably an old infarct, new since prior study of 03/25/2017 Subjective ROS Limited/Unobtainable: No Constitutional: Reports: no symptoms HEENT: Repors: no symptoms Allergies: Coded Allergies: SHELLFISH DERIVED (Unverified Allergy, Intermediate, ITCHING/HIVES, ) IODINE (Unverified Allergy, Unknown, 02/17/14) Uncoded Allergies: SPINACH (Allergy, Intermediate, SEVERE ITCHING/HIVES, 02/17/14) Objective Last 24 Hour Vital Signs Date Time Temp Pulse Resp B/P (MAP) Pulse Ox O2 Delivery O2 Flow Rate FiO2 10/27/19 09:00 Nasal Cannula 3.0 10/27/19 08:00 99.0 94 20 132/74 (93) 93 10/27/19 04:00 98.1 95 20 143/88 (106) 94 10/27/19 00:00 98.1 99 20 146/83 (104) 94 10/26/19 21:00 Nasal Cannula 3.0 10/26/19 20:00 98.4 92 20 144/82 (102) 96 10/26/19 16:00 98.7 90 18 127/77 (94) 94 Intake and Output 10/26/19 10/27/19 19:00 07:00 Intake Total 1520 ml 240 ml Output Total 600 ml Balance 1520 ml -360 ml Intake Oral 720 ml 240 ml IV Total 800 ml Output Urine Total 600 ml # Bowel Movements 2 1 General Appearance: WD/WN Respiratory/Chest: chest wall non-tender, normal breath sounds Cardiovascular: normal peripheral pulses, regular rhythm Abdomen: normal bowel sounds, soft, non tender Genitourinary: normal external genitalia Extremities: no clubbing Skin: no rash Microbiology Date/Time Source Procedure Growth Status 10/26/19 15:30 Stool Clostridium difficile Toxin Assay - Final Complete Laboratory Tests 10/27/19 04:45: Primidone (Mysoline) Level [Pending], Phenobarbital Level [Pending] 10/27/19 04:53: White Blood Count 7.1, Red Blood Count 4.29L, Hemoglobin 14.0L, Hematocrit 39.4L , Mean Corpuscular Volume 92, Mean Corpuscular Hemoglobin 32.7H, Mean Corpuscular Hemoglobin Concent 35.6, Red Cell Distribution Width 12.1, Platelet Count 198, Mean Platelet Volume 6.9, Neutrophils (%) (Auto) 73.5, Lymphocytes (% ) (Auto) 13.1L, Monocytes (%) (Auto) 12.2H, Eosinophils (%) (Auto) 0.2, Basophils (%) (Auto) 1.1, Sodium Level 139, Potassium Level 3.1L, Chloride Level 101, Carbon Dioxide Level 29, Anion Gap 9, Blood Urea Nitrogen 12, Creatinine 0.6, Estimat Glomerular Filtration Rate > 60, Glucose Level 107H, Calcium Level 9.5 Current Medications Medications (Trade) Dose Ordered Sig/Ashley Route PRN Reason Start Time Stop Time Status Last Admin Dose Admin Acetaminophen (Tylenol) 650 mg Q6H PRN ORAL Mild Pain/Temp > 100.5 10/25/19 02:15 11/24/19 02:14 10/27/19 10:01 Amitriptyline HCl (Elavil) 25 mg BEDTIME ORAL 10/25/19 21:00 11/24/19 20:59 10/26/19 21:34 Clonidine HCl (Catapres Tab) 0.1 mg Q4H PRN ORAL sbp greater than 160 10/25/19 08:30 01/23/20 08:29 10/25/19 09:02 Dextrose/Sodium Chloride 1,000 ml @ 75 mls/hr [id number] IV 10/25/19 02:15 11/24/19 02:14 10/26/19 14:06 Heparin Sodium (Porcine) (Heparin 5000 units/ml) 5,000 units EVERY 8 HOURS SUBQ 10/25/19 06:00 12/09/19 05:59 10/27/19 05:19 Latanoprost (Xalatan) 1 drop BEDTIME BOTH EYES 10/25/19 21:00 11/24/19 20:59 10/26/19 21:35 Lorazepam (Ativan 2mg/ml 1ml) 0.5 mg Q4H PRN IV For Anxiety 10/26/19 13:45 11/02/19 13:44 Pantoprazole (Protonix) 40 mg DAILY ORAL 10/25/19 09:00 11/24/19 08:59 10/27/19 10:05 Phenytoin (Dilantin) 100 mg BEDTIME ORAL 10/25/19 21:00 11/24/19 20:59 10/26/19 21:35 Phenytoin (Dilantin) 200 mg DAILY ORAL 10/25/19 09:00 11/24/19 08:59 10/27/19 10:02 Primidone (Mysoline) 250 mg DAILY ORAL 10/25/19 09:00 11/24/19 08:59 10/27/19 10:02 Primidone (Mysoline) 500 mg BEDTIME ORAL 10/25/19 21:00 11/24/19 20:59 10/26/19 21:33 Sumatriptan Succinate (Imitrex) 100 mg DAILY PRN ORAL For Pain 10/25/19 02:30 11/24/19 02:29 Tamsulosin HCl (Flomax) 0.8 mg BEDTIME ORAL 10/25/19 21:00 11/24/19 20:59 10/26/19 21:35 Mel Fuentes MD Oct 27, 2019 12:57
[2019-10-27 16:00] VITALS: BP 135/77
--- NOTE | 2019-10-27 17:30 | Progress Note ---
DATE: 10/27/2019 SUBJECTIVE: The patient is about the same. He is a little lethargic this morning. He had his MRI of the cervical spine, which was abnormal revealing degenerative joint disease with narrowing of C3 through C6 disks. There is no significant spinal stenosis or foraminal stenosis. There is a focal signal abnormality within the C6 vertebral body, could be degenerative subchondral cyst or geode. A neoplasm was possible. Consider CT scan. There is an anterior wedge deformity at C7. The Dilantin level is 17.8 on 10/24/2019. No primidone level was obtained. The vitamin B12 level yesterday was 654. The rest of the studies are pending. PHYSICAL EXAMINATION: VITAL SIGNS: Temperature is 99 degrees, pulse is 94 and regular, blood pressure 132/74, pulse oximetry of 93 with a nasal cannula at 3 liters/minute. NEUROLOGIC EXAMINATION: MENTAL STATUS: The patient is awake. Basically alert. He knows it is 10/27/2019. Place, he knows he is at [facility]. Person, he is oriented to person. Language function, spoken speech is minimally dysarthric without paraphasias. Comprehension, repetition is intact. He can spell world backwards and forwards without difficulty. There is no right left confusion or finger agnosia. CRANIAL NERVE EXAMINATION: CRANIAL NERVES III, IV, AND : Extraocular motility is full. MUSCLE EXAMINATION: There is slight pronation of the left upper extremity. Muscle strength in the both lower extremities is normal 5/5. REFLEXES: +1.5 at the left knee, 0 at the right knee, 0 at the ankles. Toes, there is a lot of withdrawal. SENSORY EXAM: Pinprick may be normal in the lower extremities. IMPRESSION: The patient's possible Babinski responses may just be withdrawal. He does not have B12 deficiency. There is no cord compression. I am going to obtain a primidone level, which is broken down into phenobarbital. PLAN: 1. As above. 2. Physical therapy with gait training. Lennox Wisdom MD DR: ELMER JOB#: [id number] CC:
--- NOTE | 2019-10-27 17:30 | NUR ---
NURSE NOTES:WOUND CARE NOTES:Pt presented on admission with Incontinence Associated dermatitis scrotum R buttocks and dolly cleft of buttocks. Affected areas are erythematous with satellite lesions noted to R Gluteal cheek. Pt observed to be wearing personal incontinence briefs and was educated of risks for further skin breakdown laying in soiled briefs. Pt insisted on wearing briefs. R and L heels are pink and easily blanchable. No other areas of skin breakdown noted. Tx.Plan: Apply Moisture Barrier Paste with each incontinence care. Cover Sacrum with Optifoam drsg. Change every 3 days and prn. Apply Cavilon Skin Barrier to both heels. Cover each Heel with Optifoam drsg. Change every 7 days and prn. Reposition at least every 2hours or as tolerated. Off-load heels with pillow.
--- NOTE | 2019-10-27 18:09 | Internal Med Progress Note ---
Subjective Date of Service: Oct 27, 2019 Physician Name Hayes Rothman Attending Physician Jose Sosa MD Current Medications Medications (Trade) Dose Ordered Sig/Ashley Route PRN Reason Start Time Stop Time Status Last Admin Dose Admin Acetaminophen (Tylenol) 650 mg Q6H PRN ORAL Mild Pain/Temp > 100.5 10/25/19 02:15 11/24/19 02:14 10/27/19 10:01 Amitriptyline HCl (Elavil) 25 mg BEDTIME ORAL 10/25/19 21:00 11/24/19 20:59 10/26/19 21:34 Clonidine HCl (Catapres Tab) 0.1 mg Q4H PRN ORAL sbp greater than 160 10/25/19 08:30 01/23/20 08:29 10/25/19 09:02 Dextrose/Sodium Chloride 1,000 ml @ 75 mls/hr [id number] IV 10/25/19 02:15 11/24/19 02:14 10/26/19 14:06 Heparin Sodium (Porcine) (Heparin 5000 units/ml) 5,000 units EVERY 8 HOURS SUBQ 10/25/19 06:00 12/09/19 05:59 10/27/19 15:13 Latanoprost (Xalatan) 1 drop BEDTIME BOTH EYES 10/25/19 21:00 11/24/19 20:59 10/26/19 21:35 Lorazepam (Ativan 2mg/ml 1ml) 0.5 mg Q4H PRN IV For Anxiety 10/26/19 13:45 11/02/19 13:44 Pantoprazole (Protonix) 40 mg DAILY ORAL 10/25/19 09:00 11/24/19 08:59 10/27/19 10:05 Phenytoin (Dilantin) 100 mg BEDTIME ORAL 10/25/19 21:00 11/24/19 20:59 10/26/19 21:35 Phenytoin (Dilantin) 200 mg DAILY ORAL 10/25/19 09:00 11/24/19 08:59 10/27/19 10:02 Primidone (Mysoline) 250 mg DAILY ORAL 10/25/19 09:00 11/24/19 08:59 10/27/19 10:02 Primidone (Mysoline) 500 mg BEDTIME ORAL 10/25/19 21:00 11/24/19 20:59 10/26/19 21:33 Sumatriptan Succinate (Imitrex) 100 mg DAILY PRN ORAL For Pain 10/25/19 02:30 11/24/19 02:29 Tamsulosin HCl (Flomax) 0.8 mg BEDTIME ORAL 10/25/19 21:00 11/24/19 20:59 10/26/19 21:35 Allergies: Coded Allergies: SHELLFISH DERIVED (Unverified Allergy, Intermediate, ITCHING/HIVES, ) IODINE (Unverified Allergy, Unknown, 02/17/14) Uncoded Allergies: SPINACH (Allergy, Intermediate, SEVERE ITCHING/HIVES, 02/17/14) ROS Limited/Unobtainable: No Constitutional: Reports: no symptoms HEENT: Reports: no symptoms Cardiovascular: Reports: no symptoms Respiratory: Reports: no symptoms Gastrointestinal/Abdominal: Reports: no symptoms Genitourinary: Reports: no symptoms Neurologic/Psychiatric: Reports: no symptoms Subjective 69YO M with H/O seizure D/O admitted with frequent falls. Cover for Int Med-Dr Sosa Objective Last Vital Signs Date Time Temp Pulse Resp B/P (MAP) Pulse Ox O2 Delivery O2 Flow Rate FiO2 10/27/19 16:00 98.7 87 20 135/77 (96) 95 10/27/19 09:00 Nasal Cannula 3.0 Laboratory Tests Test 10/27/19 04:45 10/27/19 04:53 Primidone (Mysoline) Level Pending Phenobarbital Level Pending White Blood Count 7.1 K/UL (4.8-10.8) Red Blood Count 4.29 M/UL (4.70-6.10) L Hemoglobin 14.0 G/DL (14.2-18.0) L Hematocrit 39.4 % (42.0-52.0) L Mean Corpuscular Volume 92 FL (80-99) Mean Corpuscular Hemoglobin 32.7 PG (27.0-31.0) H Mean Corpuscular Hemoglobin Concent 35.6 G/DL (32.0-36.0) Red Cell Distribution Width 12.1 % (11.6-14.8) Platelet Count 198 K/UL (150-450) Mean Platelet Volume 6.9 FL (6.5-10.1) Neutrophils (%) (Auto) 73.5 % (45.0-75.0) Lymphocytes (%) (Auto) 13.1 % (20.0-45.0) L Monocytes (%) (Auto) 12.2 % (1.0-10.0) H Eosinophils (%) (Auto) 0.2 % (0.0-3.0) Basophils (%) (Auto) 1.1 % (0.0-2.0) Sodium Level 139 MMOL/L (136-145) Potassium Level 3.1 MMOL/L (3.5-5.1) L Chloride Level 101 MMOL/L (98-107) Carbon Dioxide Level 29 MMOL/L (21-32) Anion Gap 9 mmol/L (5-15) Blood Urea Nitrogen 12 mg/dL (7-18) Creatinine 0.6 MG/DL (0.55-1.30) Estimat Glomerular Filtration Rate > 60 mL/min (>60) Glucose Level 107 MG/DL (74-106) H Calcium Level 9.5 MG/DL (8.5-10.1) Microbiology Date/Time Source Procedure Growth Status 10/26/19 15:30 Stool Clostridium difficile Toxin Assay - Final Complete Intake and Output 10/26/19 10/27/19 19:00 07:00 Intake Total 1520 ml 240 ml Output Total 600 ml Balance 1520 ml -360 ml Intake Oral 720 ml 240 ml IV Total 800 ml Output Urine Total 600 ml # Bowel Movements 2 1 Objective PHYSICAL EXAMINATION: GENERAL: The patient is a well-developed and well-nourished male, in no apparent distress. HEENT: Eyes, pupils are equal and responsive to light and accommodation. Extraocular movements are intact. NECK: Supple without lymphadenopathy. CHEST: Lungs are clear to auscultation bilaterally without wheeze or rales. CARDIOVASCULAR: Regular rate. S1, S2 are normal without murmurs, rubs, or gallops. ABDOMEN: Soft, nontender, and nondistended. Positive bowel sounds. No evidence of hepatosplenomegaly. Currently, no rebound or guarding noted. EXTREMITIES: Negative for clubbing, cyanosis, or edema. RECTAL/GENITAL: Refused. NEUROLOGIC: Cranial nerves II through XII are grossly intact without focal deficits. Motor strength is 5/5 bilaterally. Deep tendon reflexes are 2+ plantar. Assessment/Plan Assessment/Plan ASSESSMENT: This is a 69-year-old male with: 1. Frequent falls. 2. Seizure disorder. 3. Benign prostatic hypertrophy. 4. Chronic obstructive pulmonary disease. 5. Hypokalemia TREATMENT: 1. Fall injury. This may be secondary to orthostatic hypotension versus acute cerebrovascular accident. Carotid duplex Dopplers of the brain are pending. 2. Seizure disorder. Continue Dilantin as above. 3. History of deep venous thrombosis/pulmonary embolism. Continue Coumadin as above. 4. Cerebrovascular disease. The patient denies history of stroke. Continue aspirin as above. 5. Benign prostatic hypertrophy. Continue Flomax as above. 6. Chronic obstructive pulmonary disease. A Pulmonary consultation has been obtained with Dr. Mel Fuentes. 7. Oral potassium replacement Hayes Rothman MD Oct 27, 2019 18:09
--- NOTE | 2019-10-27 19:02 | NUR ---
HAND-OFF: Report given to Larry.
--- NOTE | 2019-10-27 19:20 | NUR ---
NURSE NOTES: Patient is in bed, awake and alert x2, forgetful; unaware of his location and why he is here. Provided reorientation. On nasal cannula 3L. IV intact and running IVF as ordered. Bed locked and in lowest position. Bed alarm activated. Fall precautions in place. Walker at bedside. Call light within easy reach. Reminded patient to call for assistance if needed. Will continue plan of care.
[2019-10-27 20:00] VITALS: BP 120/75
[2019-10-27] MEDS: Tamsulosin 0.4mg cap ORAL SCH (21:45)
[2019-10-27] MEDS: Latanoprost 0.005% Opth 2.5ml Soln BOTH EYES SCH (21:45)
[2019-10-28] VITALS: BP 119/52
[2019-10-28 04:00] VITALS: BP 100/61
[2019-10-28] MEDS: Heparin 5000 units/ml inj SUBQ SCH ×3 (05:55→21:51)
--- NOTE | 2019-10-28 07:21 | NUR ---
HAND-OFF: Report given to ANASTASIA Morales.
[2019-10-28 07:22] LABS: ANION GAP 6 mmol/L (5-15); BLOOD UREA NITROGEN 11 mg/dL (7-18); CALCIUM 9.4 MG/DL (8.5-10.1); CARBON DIOXIDE 31 MMOL/L (21-32); CHLORIDE 99 MMOL/L (98-107); CREATININE 0.6 MG/DL (0.55-1.30); POTASSIUM 3.8 MMOL/L (3.5-5.1); SODIUM 136 MMOL/L (136-145)
[2019-10-28 07:27] LABS: BASOPHILS % (AUTO) 1.7 % (0.0-2.0); EOSINOPHILS % (AUTO) 0.3 % (0.0-3.0); HEMATOCRIT 39.4 % (42.0-52.0); HEMOGLOBIN 14.3 G/DL (14.2-18.0); LYMPHOCYTES % (AUTO) 7.3 % (20.0-45.0); MEAN CORPUSCULAR VOLUME 91 FL (80-99); MONOCYTES % (AUTO) 11.4 % (1.0-10.0); NEUTROPHILS % (AUTO) 79.3 % (45.0-75.0); PLATELET COUNT 195 K/UL (150-450); RED BLOOD COUNT 4.33 M/UL (4.70-6.10); RED CELL DISTRIBUTION WIDTH 11.9 % (11.6-14.8); WHITE BLOOD COUNT 8.4 K/UL (4.8-10.8)
--- NOTE | 2019-10-28 07:59 | NUR ---
NURSE NOTES: pt is in the bed asleep. no SOB noted, o2 inplace. IV site on right hand intact, no acute distress noted at this time, placed call light within reach. side rails padded for seizure precaution.
[2019-10-28 08:00] VITALS: BP 134/83
[2019-10-28] MEDS: Phenytoin 100mg cap ORAL SCH ×2 (09:12→21:52)
[2019-10-28] MEDS: D5 1/2NS 1,000 ML IV SCH (09:28)
--- NOTE | 2019-10-28 09:55 | NUR ---
RD ASSESSMENT & RECOMMENDATIONS SEE CARE ACTIVITY FOR COMPLETE ASSESSMENT DAILY ESTIMATED NEEDS: Needs based on Pulmonary 79kg 25-30 kcals/kg 9192-3947 total kcals 1-1.5 g protein/kg 79-119 g total protein 25-30 mL/kg 8681-9534 total fluid mLs NUTRITION DIAGNOSIS: Altered nutrition related lab values r/t clinical status as evidenced by low K (3.0), low phos (2.2), elev LFT's and Creat kinase. CURRENT DIET: Regular PO DIET RECOMMENDATIONS: With consistent po intake >75%, rec Low Na diet ADDITIONAL RECOMMENDATIONS: 1) Monitor po intake, need for soft easy chew 2) F/up w/ Kcal count 3) Check lytes daily, replete as needed (low K, phos) 4) Obtain a calibrated bed scale wt 48 HOUR KCAL COUNT: (4/3) Kcal count incomplete, inaccurate data. PO intake appears fair to good per EMR: 75 50 75 50 50 75%. Will maintain snacks in b/w meals, pt does not want Ensure.
--- NOTE | 2019-10-28 11:52 | NUR ---
DISCHARGE PLANNING SPOKE WITH DR SAUCEDA, GAVE TELEPHONE ORDER TO DISCHARGE PATIENT HOME. NOTED AND CARRIED OUT. ANASTASIA COYLE INFORMED.
[2019-10-28 12:00] VITALS: BP 148/78
--- NOTE | 2019-10-28 13:19 | NUR ---
*-* INSURANCE *-* ALL AVAILABLE CLINICALS HAVE BEEN FAXED TO: RD P: [phone] F: [phone] (FAX ALL CLINICALS)
--- NOTE | 2019-10-28 13:45 | Pulmonology Progress Note ---
Assessment/Plan Problems: (1) Falls frequently (2) Cerebellar atrophy (3) Failure to thrive in adult (4) Seizure disorder, complex partial (5) ACS (acute coronary syndrome) Assessment/Plan no new comlaind pt/ot note reviewed neuro evaluation appreciated and reviewed MRI of brain calorie count symptomatic treatment MRI of Cspine pending CT of head: Right temporal tip encephalomalacia, presumably an old infarct, new since prior study of 03/25/2017 pt will benefit from skilled PT Subjective ROS Limited/Unobtainable: No Constitutional: Reports: no symptoms HEENT: Repors: no symptoms Allergies: Coded Allergies: SHELLFISH DERIVED (Unverified Allergy, Intermediate, ITCHING/HIVES, ) IODINE (Unverified Allergy, Unknown, 02/17/14) Uncoded Allergies: SPINACH (Allergy, Intermediate, SEVERE ITCHING/HIVES, 02/17/14) Objective Last 24 Hour Vital Signs Date Time Temp Pulse Resp B/P (MAP) Pulse Ox O2 Delivery O2 Flow Rate FiO2 10/28/19 12:00 98.0 103 19 148/78 (101) 95 10/28/19 09:00 Nasal Cannula 3.0 10/28/19 08:00 98.8 105 18 134/83 (100) 93 10/28/19 04:00 98.6 96 18 100/61 (74) 94 10/28/19 00:00 98.4 91 18 119/52 (74) 94 10/27/19 20:19 Nasal Cannula 3.0 10/27/19 20:00 98.1 100 18 120/75 (90) 94 10/27/19 16:00 98.7 87 20 135/77 (96) 95 Intake and Output 10/27/19 10/28/19 19:00 07:00 Intake Total 1520 ml Output Total 900 ml 1150 ml Balance 620 ml -1150 ml Intake Oral 1520 ml Output Urine Total 900 ml 1150 ml # Voids 2 # Bowel Movements 4 3 General Appearance: WD/WN HEENT: normocephalic, atraumatic Respiratory/Chest: lungs clear, no respiratory distress Cardiovascular: normal peripheral pulses, regular rhythm Abdomen: normal bowel sounds, soft, non tender Genitourinary: normal external genitalia Extremities: no clubbing Skin: no lesions Microbiology Date/Time Source Procedure Growth Status 10/26/19 15:30 Stool Clostridium difficile Toxin Assay - Final Complete Laboratory Tests 10/28/19 06:30: White Blood Count 8.4, Red Blood Count 4.33L, Hemoglobin 14.3, Hematocrit 39.4L , Mean Corpuscular Volume 91, Mean Corpuscular Hemoglobin 33.0H, Mean Corpuscular Hemoglobin Concent 36.3H, Red Cell Distribution Width 11.9, Platelet Count 195, Mean Platelet Volume 6.9, Neutrophils (%) (Auto) 79.3H, Lymphocytes (%) (Auto) 7.3L, Monocytes (%) (Auto) 11.4H, Eosinophils (%) (Auto) 0.3, Basophils (%) (Auto) 1.7, Sodium Level 136, Potassium Level 3.8, Chloride Level 99, Carbon Dioxide Level 31, Anion Gap 6, Blood Urea Nitrogen 11, Creatinine 0.6, Estimat Glomerular Filtration Rate > 60, Glucose Level 117H, Calcium Level 9.4 Current Medications Medications (Trade) Dose Ordered Sig/Ashley Route PRN Reason Start Time Stop Time Status Last Admin Dose Admin Acetaminophen (Tylenol) 650 mg Q6H PRN ORAL Mild Pain/Temp > 100.5 10/25/19 02:15 11/24/19 02:14 10/27/19 10:01 Amitriptyline HCl (Elavil) 25 mg BEDTIME ORAL 10/25/19 21:00 11/24/19 20:59 10/27/19 21:45 Clonidine HCl (Catapres Tab) 0.1 mg Q4H PRN ORAL sbp greater than 160 10/25/19 08:30 01/23/20 08:29 10/25/19 09:02 Dextrose/Sodium Chloride 1,000 ml @ 75 mls/hr [id number] IV 10/25/19 02:15 11/24/19 02:14 10/28/19 09:28 Heparin Sodium (Porcine) (Heparin 5000 units/ml) 5,000 units EVERY 8 HOURS SUBQ 10/25/19 06:00 12/09/19 05:59 10/28/19 05:55 Latanoprost (Xalatan) 1 drop BEDTIME BOTH EYES 10/25/19 21:00 11/24/19 20:59 10/27/19 21:45 Lorazepam (Ativan 2mg/ml 1ml) 0.5 mg Q4H PRN IV For Anxiety 10/26/19 13:45 11/02/19 13:44 Pantoprazole (Protonix) 40 mg DAILY ORAL 10/25/19 09:00 11/24/19 08:59 10/28/19 09:12 Phenytoin (Dilantin) 100 mg BEDTIME ORAL 10/25/19 21:00 11/24/19 20:59 10/27/19 21:45 Phenytoin (Dilantin) 200 mg DAILY ORAL 10/25/19 09:00 11/24/19 08:59 10/28/19 09:12 Primidone (Mysoline) 250 mg DAILY ORAL 10/25/19 09:00 11/24/19 08:59 10/28/19 09:14 Primidone (Mysoline) 500 mg BEDTIME ORAL 10/25/19 21:00 11/24/19 20:59 10/27/19 21:45 Sumatriptan Succinate (Imitrex) 100 mg DAILY PRN ORAL For Pain 10/25/19 02:30 11/24/19 02:29 Tamsulosin HCl (Flomax) 0.8 mg BEDTIME ORAL 10/25/19 21:00 11/24/19 20:59 10/27/19 21:45 Mel Fuentes MD Oct 28, 2019 13:45
[2019-10-28 16:00] VITALS: BP 137/83
--- NOTE | 2019-10-28 16:07 | NUR ---
MATERIALS ANALYST NOTE CALL MADE TO [facility] [place] . S/W NCM MICHAEL. INFORMED CM MICHAEL OF PATIENTS NEED FOR SNF PLACEMENT FOR PT/OT. STATES HE WILL FAX LIST OF CONTRACTED SNF'S TO THIS CM @ [phone]. ALSO STATES THAT HE WILL ALSO ASSIST IN SEEKING PLACEMENT.
--- NOTE | 2019-10-28 19:46 | NUR ---
HAND-OFF: Report given to freddy.
--- NOTE | 2019-10-28 19:47 | NUR ---
NURSE NOTES: Received report from ANASTASIA Doan. Pt is sleeping but easily arousable, lying semi-ball's; comfortably resting. No signs of acute distress noted. Pt denies any pain at this time. AOx3; able to make needs known. Checked IV site, line, and rate; patent and running. No bleeding or infiltration noted. Perianal redness noted. Bed at lowest position. Brakes on. Siderails up x2 and padded. Call light within reach. Will continue to monitor.
[2019-10-28 20:00] VITALS: BP 132/72
[2019-10-28] MEDS: Tamsulosin 0.4mg cap ORAL SCH (21:53)
[2019-10-28] MEDS: Latanoprost 0.005% Opth 2.5ml Soln BOTH EYES SCH (22:32)
--- NOTE | 2019-10-28 23:38 | Internal Med Progress Note ---
Subjective Physician Name Jose Sosa Attending Physician Jose Sosa MD Current Medications Medications (Trade) Dose Ordered Sig/Ashley Route PRN Reason Start Time Stop Time Status Last Admin Dose Admin Acetaminophen (Tylenol) 650 mg Q6H PRN ORAL Mild Pain/Temp > 100.5 10/25/19 02:15 11/24/19 02:14 10/27/19 10:01 Amitriptyline HCl (Elavil) 25 mg BEDTIME ORAL 10/25/19 21:00 11/24/19 20:59 10/28/19 21:53 Clonidine HCl (Catapres Tab) 0.1 mg Q4H PRN ORAL sbp greater than 160 10/25/19 08:30 01/23/20 08:29 10/25/19 09:02 Dextrose/Sodium Chloride 1,000 ml @ 75 mls/hr [id number] IV 10/25/19 02:15 11/24/19 02:14 10/28/19 09:28 Heparin Sodium (Porcine) (Heparin 5000 units/ml) 5,000 units EVERY 8 HOURS SUBQ 10/25/19 06:00 12/09/19 05:59 10/28/19 21:51 Latanoprost (Xalatan) 1 drop BEDTIME BOTH EYES 10/25/19 21:00 11/24/19 20:59 10/28/19 22:32 Lorazepam (Ativan 2mg/ml 1ml) 0.5 mg Q4H PRN IV For Anxiety 10/26/19 13:45 11/02/19 13:44 Pantoprazole (Protonix) 40 mg DAILY ORAL 10/25/19 09:00 11/24/19 08:59 10/28/19 09:12 Phenytoin (Dilantin) 100 mg BEDTIME ORAL 10/25/19 21:00 11/24/19 20:59 10/28/19 21:52 Phenytoin (Dilantin) 200 mg DAILY ORAL 10/25/19 09:00 11/24/19 08:59 10/28/19 09:12 Primidone (Mysoline) 250 mg DAILY ORAL 10/25/19 09:00 11/24/19 08:59 10/28/19 09:14 Primidone (Mysoline) 500 mg BEDTIME ORAL 10/25/19 21:00 11/24/19 20:59 10/28/19 21:53 Sumatriptan Succinate (Imitrex) 100 mg DAILY PRN ORAL For Pain 10/25/19 02:30 11/24/19 02:29 Tamsulosin HCl (Flomax) 0.8 mg BEDTIME ORAL 10/25/19 21:00 11/24/19 20:59 10/28/19 21:53 Allergies: Coded Allergies: SHELLFISH DERIVED (Unverified Allergy, Intermediate, ITCHING/HIVES, ) IODINE (Unverified Allergy, Unknown, 02/17/14) Uncoded Allergies: SPINACH (Allergy, Intermediate, SEVERE ITCHING/HIVES, 02/17/14) Subjective awake, alert, responsive, NAD, K: 3.8. Objective Last Vital Signs Date Time Temp Pulse Resp B/P (MAP) Pulse Ox O2 Delivery O2 Flow Rate FiO2 10/28/19 16:00 97.9 100 19 137/83 (101) 96 10/28/19 09:00 Nasal Cannula 3.0 Laboratory Tests Test 10/28/19 06:30 White Blood Count 8.4 K/UL (4.8-10.8) Red Blood Count 4.33 M/UL (4.70-6.10) L Hemoglobin 14.3 G/DL (14.2-18.0) Hematocrit 39.4 % (42.0-52.0) L Mean Corpuscular Volume 91 FL (80-99) Mean Corpuscular Hemoglobin 33.0 PG (27.0-31.0) H Mean Corpuscular Hemoglobin Concent 36.3 G/DL (32.0-36.0) H Red Cell Distribution Width 11.9 % (11.6-14.8) Platelet Count 195 K/UL (150-450) Mean Platelet Volume 6.9 FL (6.5-10.1) Neutrophils (%) (Auto) 79.3 % (45.0-75.0) H Lymphocytes (%) (Auto) 7.3 % (20.0-45.0) L Monocytes (%) (Auto) 11.4 % (1.0-10.0) H Eosinophils (%) (Auto) 0.3 % (0.0-3.0) Basophils (%) (Auto) 1.7 % (0.0-2.0) Sodium Level 136 MMOL/L (136-145) Potassium Level 3.8 MMOL/L (3.5-5.1) Chloride Level 99 MMOL/L (98-107) Carbon Dioxide Level 31 MMOL/L (21-32) Anion Gap 6 mmol/L (5-15) Blood Urea Nitrogen 11 mg/dL (7-18) Creatinine 0.6 MG/DL (0.55-1.30) Estimat Glomerular Filtration Rate > 60 mL/min (>60) Glucose Level 117 MG/DL (74-106) H Calcium Level 9.4 MG/DL (8.5-10.1) Microbiology Date/Time Source Procedure Growth Status 10/26/19 15:30 Stool Clostridium difficile Toxin Assay - Final Complete Intake and Output 10/27/19 10/28/19 19:00 07:00 Intake Total 1520 ml Output Total 900 ml 1150 ml Balance 620 ml -1150 ml Intake Oral 1520 ml Output Urine Total 900 ml 1150 ml # Voids 2 # Bowel Movements 4 3 Objective General: No acute distress, awake and alert HEENT: NCAT, sclera anicteric, PERRL, EOMI. Neck: Supple, no significant jugular venous distention, Lungs: Fair inspiratory effort, clear to auscultation bilaterally, no Wheeze or Rales. Heart: Regular rate and rhythm, normal S1/S2, no murmurs/gallops Abdomen: soft, nontender, nondistended. Normoactive bowel sounds. / Rectal: Refused and deferred. Extremities: No Cyanosis , clubbing or edema. Neuro: A&O x 3, Able to move all extremities Skin: warm, + Facial rash. Psych: Normal mood and affect Assessment/Plan Assessment/Plan ASSESSMENT: This is a 69-year-old male with: 1. Unsteady gait with Frequent falls. 2. Seizure disorder. 3. Benign prostatic hypertrophy. 4. Chronic obstructive pulmonary disease. 5. Hypokalemia TREATMENT: 1. Fall injury. This may be secondary to orthostatic hypotension versus acute cerebrovascular accident. 2. Seizure disorder. Continue Dilantin as above. 3. History of deep venous thrombosis/pulmonary embolism. Hold Coumadin. 4. Cerebrovascular disease. The patient denies history of stroke. Continue aspirin as above. 5. Benign prostatic hypertrophy. Continue Flomax as above. 6. Chronic obstructive pulmonary disease. A Pulmonary consultation has been obtained with Dr. Mel Fuentes. 7. Oral potassium replacement Physical therapy with gait training. Code status: Full code DVT Prophylaxis: Heparin SQ Jose Sosa MD Oct 28, 2019 23:37
[2019-10-29] VITALS (7 sets, daily range): BP systolic 130–154; BP diastolic 52–84
[2019-10-29] MEDS: D5 1/2NS 1,000 ML IV SCH ×2 (00:25→12:36)
[2019-10-29] MEDS: Heparin 5000 units/ml inj SUBQ SCH ×3 (06:09→20:54)
--- NOTE | 2019-10-29 07:45 | NUR ---
HAND-OFF: Report given to ANASTASIA Fields. Pt is awake and in stable condition. Plan of care endorsed.
--- NOTE | 2019-10-29 07:45 | NUR ---
NURSE NOTES: Report received from Carmen OCONNOR. Patient is awake and alert x 3. Patient noted to be on oxygen via nasal canula. Patient denies shortness of breath. Patient denies chest pain. Patient noted to have 20 teresa IV in right hand with fluids running per MD orders. Patient recognized as a high fall risk due to weakness and fall prior to admission. Educated patient to call when needs assistance. Patient verbalized understanding. cement tester assistant made aware. Bed locked, alarmed, in lowest position. Call light in reach. Will preform frequent checks. Will continue to follow plan of care.
--- NOTE | 2019-10-29 07:52 | Pulmonology Progress Note ---
Assessment/Plan Problems: (1) Falls frequently (2) Cerebellar atrophy (3) Failure to thrive in adult (4) Seizure disorder, complex partial (5) ACS (acute coronary syndrome) Assessment/Plan no new comlaind pt/ot note reviewed neuro evaluation appreciated and reviewed MRI of brain calorie count symptomatic treatment MRI of Cspine pending CT of head: Right temporal tip encephalomalacia, presumably an old infarct, new since prior study of 03/25/2017 pt will benefit from skilled PT awaiting for the [facility] to fax the case management the contracted facilities Subjective Interval Events: no new complains Allergies: Coded Allergies: SHELLFISH DERIVED (Unverified Allergy, Intermediate, ITCHING/HIVES, ) IODINE (Unverified Allergy, Unknown, 02/17/14) Uncoded Allergies: SPINACH (Allergy, Intermediate, SEVERE ITCHING/HIVES, 02/17/14) Objective Last 24 Hour Vital Signs Date Time Temp Pulse Resp B/P (MAP) Pulse Ox O2 Delivery O2 Flow Rate FiO2 10/29/19 04:00 97.8 95 19 142/75 (97) 96 10/29/19 00:00 97.9 84 19 130/76 (94) 96 10/28/19 21:00 Room Air 10/28/19 20:00 98.2 88 20 132/72 (92) 97 10/28/19 16:00 97.9 100 19 137/83 (101) 96 10/28/19 12:00 98.0 103 19 148/78 (101) 95 10/28/19 09:00 Nasal Cannula 3.0 10/28/19 08:00 98.8 105 18 134/83 (100) 93 Intake and Output 10/28/19 10/29/19 19:00 07:00 Intake Total 500 ml Output Total 500 ml Balance 500 ml -500 ml Intake Oral 500 ml Output Urine Total 500 ml # Voids 1 # Bowel Movements 1 Objective General Appearance: WD/WN HEENT: normocephalic Respiratory/Chest: chest wall non-tender, lungs clear Cardiovascular: normal peripheral pulses, normal rate, Abdomen: soft, non tender, non distended Extremities: no clubbing Skin: no rash, no lesions Microbiology Date/Time Source Procedure Growth Status 10/26/19 15:30 Stool Clostridium difficile Toxin Assay - Final Complete Current Medications Medications (Trade) Dose Ordered Sig/Ashley Route PRN Reason Start Time Stop Time Status Last Admin Dose Admin Acetaminophen (Tylenol) 650 mg Q6H PRN ORAL Mild Pain/Temp > 100.5 10/25/19 02:15 11/24/19 02:14 10/27/19 10:01 Amitriptyline HCl (Elavil) 25 mg BEDTIME ORAL 10/25/19 21:00 11/24/19 20:59 10/28/19 21:53 Clonidine HCl (Catapres Tab) 0.1 mg Q4H PRN ORAL sbp greater than 160 10/25/19 08:30 01/23/20 08:29 10/25/19 09:02 Dextrose/Sodium Chloride 1,000 ml @ 75 mls/hr [id number] IV 10/25/19 02:15 11/24/19 02:14 10/29/19 00:25 Heparin Sodium (Porcine) (Heparin 5000 units/ml) 5,000 units EVERY 8 HOURS SUBQ 10/25/19 06:00 12/09/19 05:59 10/29/19 06:09 Latanoprost (Xalatan) 1 drop BEDTIME BOTH EYES 10/25/19 21:00 11/24/19 20:59 10/28/19 22:32 Lorazepam (Ativan 2mg/ml 1ml) 0.5 mg Q4H PRN IV For Anxiety 10/26/19 13:45 11/02/19 13:44 Pantoprazole (Protonix) 40 mg DAILY ORAL 10/25/19 09:00 11/24/19 08:59 10/28/19 09:12 Phenytoin (Dilantin) 100 mg BEDTIME ORAL 10/25/19 21:00 11/24/19 20:59 10/28/19 21:52 Phenytoin (Dilantin) 200 mg DAILY ORAL 10/25/19 09:00 11/24/19 08:59 10/28/19 09:12 Primidone (Mysoline) 250 mg DAILY ORAL 10/25/19 09:00 11/24/19 08:59 10/28/19 09:14 Primidone (Mysoline) 500 mg BEDTIME ORAL 10/25/19 21:00 11/24/19 20:59 10/28/19 21:53 Sumatriptan Succinate (Imitrex) 100 mg DAILY PRN ORAL For Pain 10/25/19 02:30 11/24/19 02:29 Tamsulosin HCl (Flomax) 0.8 mg BEDTIME ORAL 10/25/19 21:00 11/24/19 20:59 10/28/19 21:53 Mel Fuentes MD Oct 29, 2019 07:51
[2019-10-29] MEDS: Phenytoin 100mg cap ORAL SCH ×2 (08:30→20:51)
--- NOTE | 2019-10-29 15:05 | Internal Med Progress Note ---
Subjective Date of Service: Oct 29, 2019 Physician Name LornaHayes Attending Physician Jose Sosa MD Current Medications Medications (Trade) Dose Ordered Sig/Ashley Route PRN Reason Start Time Stop Time Status Last Admin Dose Admin Acetaminophen (Tylenol) 650 mg Q6H PRN ORAL Mild Pain/Temp > 100.5 10/25/19 02:15 11/24/19 02:14 10/29/19 08:29 Amitriptyline HCl (Elavil) 25 mg BEDTIME ORAL 10/25/19 21:00 11/24/19 20:59 10/28/19 21:53 Clonidine HCl (Catapres Tab) 0.1 mg Q4H PRN ORAL sbp greater than 160 10/25/19 08:30 01/23/20 08:29 10/25/19 09:02 Dextrose/Sodium Chloride 1,000 ml @ 75 mls/hr [id number] IV 10/25/19 02:15 11/24/19 02:14 10/29/19 12:36 Heparin Sodium (Porcine) (Heparin 5000 units/ml) 5,000 units EVERY 8 HOURS SUBQ 10/25/19 06:00 12/09/19 05:59 10/29/19 14:58 Latanoprost (Xalatan) 1 drop BEDTIME BOTH EYES 10/25/19 21:00 11/24/19 20:59 10/28/19 22:32 Lorazepam (Ativan 2mg/ml 1ml) 0.5 mg Q4H PRN IV For Anxiety 10/26/19 13:45 11/02/19 13:44 Pantoprazole (Protonix) 40 mg DAILY ORAL 10/25/19 09:00 11/24/19 08:59 10/29/19 08:28 Phenytoin (Dilantin) 100 mg BEDTIME ORAL 10/25/19 21:00 11/24/19 20:59 10/28/19 21:52 Phenytoin (Dilantin) 200 mg DAILY ORAL 10/25/19 09:00 11/24/19 08:59 10/29/19 08:30 Primidone (Mysoline) 250 mg DAILY ORAL 10/25/19 09:00 11/24/19 08:59 10/29/19 08:29 Primidone (Mysoline) 500 mg BEDTIME ORAL 10/25/19 21:00 11/24/19 20:59 10/28/19 21:53 Sumatriptan Succinate (Imitrex) 100 mg DAILY PRN ORAL For Pain 10/25/19 02:30 11/24/19 02:29 Tamsulosin HCl (Flomax) 0.8 mg BEDTIME ORAL 10/25/19 21:00 11/24/19 20:59 10/28/19 21:53 Allergies: Coded Allergies: SHELLFISH DERIVED (Unverified Allergy, Intermediate, ITCHING/HIVES, ) IODINE (Unverified Allergy, Unknown, 02/17/14) Uncoded Allergies: SPINACH (Allergy, Intermediate, SEVERE ITCHING/HIVES, 02/17/14) ROS Limited/Unobtainable: No Constitutional: Reports: no symptoms HEENT: Reports: no symptoms Cardiovascular: Reports: no symptoms Respiratory: Reports: no symptoms Gastrointestinal/Abdominal: Reports: no symptoms Genitourinary: Reports: no symptoms Neurologic/Psychiatric: Reports: no symptoms Subjective 69YO M with H/O seizure D/O admitted with frequent falls. Cover for [facility] Med-Dr Sosa Objective Last Vital Signs Date Time Temp Pulse Resp B/P (MAP) Pulse Ox O2 Delivery O2 Flow Rate FiO2 10/29/19 12:52 Room Air 10/29/19 12:00 99.5 91 18 140/84 (102) 96 10/28/19 09:00 3.0 Microbiology Date/Time Source Procedure Growth Status 10/26/19 15:30 Stool Clostridium difficile Toxin Assay - Final Complete Intake and Output 10/28/19 10/29/19 19:00 07:00 Intake Total 500 ml 75 ml Output Total 500 ml Balance 500 ml -425 ml Intake Oral 500 ml IV Total 75 ml Output Urine Total 500 ml # Voids 1 # Bowel Movements 1 Objective PHYSICAL EXAMINATION: GENERAL: The patient is a well-developed and well-nourished male, in no apparent distress. HEENT: Eyes, pupils are equal and responsive to light and accommodation. Extraocular movements are intact. NECK: Supple without lymphadenopathy. CHEST: Lungs are clear to auscultation bilaterally without wheeze or rales. CARDIOVASCULAR: Regular rate. S1, S2 are normal without murmurs, rubs, or gallops. ABDOMEN: Soft, nontender, and nondistended. Positive bowel sounds. No evidence of hepatosplenomegaly. Currently, no rebound or guarding noted. EXTREMITIES: Negative for clubbing, cyanosis, or edema. RECTAL/GENITAL: Refused. NEUROLOGIC: Cranial nerves II through XII are grossly intact without focal deficits. Motor strength is 5/5 bilaterally. Deep tendon reflexes are 2+ plantar. Assessment/Plan Assessment/Plan ASSESSMENT: This is a 69-year-old male with: 1. Frequent falls. 2. Seizure disorder. 3. Benign prostatic hypertrophy. 4. Chronic obstructive pulmonary disease. 5. Hypokalemia TREATMENT: 1. Fall injury. This may be secondary to orthostatic hypotension versus acute cerebrovascular accident. Carotid duplex Dopplers of the brain are pending. 2. Seizure disorder. Continue Dilantin as above. 3. History of deep venous thrombosis/pulmonary embolism. Continue Coumadin as above. 4. Cerebrovascular disease. The patient denies history of stroke. Continue aspirin as above. 5. Benign prostatic hypertrophy. Continue Flomax as above. 6. Chronic obstructive pulmonary disease. A Pulmonary consultation has been obtained with Dr. Mel Fuentes. 7. Oral potassium replacement 8. Discharge planning: [facility] Hayes Rothman MD Oct 29, 2019 15:05
--- NOTE | 2019-10-29 19:25 | NUR ---
NURSE NOTES: Received report from ANASTASIA Fields. AAO x 3, on NC 3L. IV site intact and running IVF. Condom cath intact. Denture and walker at bedside. No acute distress noted. Educated pt to use call light and verbalized understanding. Bed locked, lowest position, alarm on, side rails up, call light within reach. Will continue to monitor.
--- NOTE | 2019-10-29 19:30 | NUR ---
HAND-OFF: Report given to Kiana OCONNOR .
[2019-10-29] MEDS: Tamsulosin 0.4mg cap ORAL SCH (20:51)
[2019-10-29] MEDS: Latanoprost 0.005% Opth 2.5ml Soln BOTH EYES SCH (20:53)
[2019-10-30] VITALS (10 sets, daily range): BP systolic 138–155; BP diastolic 73–87
[2019-10-30] MEDS: D5 1/2NS 1,000 ML IV SCH ×2 (02:30→16:09)
[2019-10-30] MEDS: Heparin 5000 units/ml inj SUBQ SCH ×3 (05:09→22:16)
--- NOTE | 2019-10-30 07:36 | NUR ---
HAND-OFF: Report given to ANASTASIA Collier
--- NOTE | 2019-10-30 07:41 | Pulmonology Progress Note ---
Assessment/Plan Problems: (1) Falls frequently (2) Cerebellar atrophy (3) Failure to thrive in adult (4) Seizure disorder, complex partial (5) ACS (acute coronary syndrome) Assessment/Plan no new comlaind pt/ot note reviewed neuro evaluation appreciated and reviewed MRI of C-spine Impression: No acute bony trauma Mild multilevel degenerative changes, as detailed above. 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, new since prior study of 03/25/2017 pt will benefit from skilled PT awaiting for the [facility] to fax the case management the contracted facilities Subjective ROS Limited/Unobtainable: No Constitutional: Reports: no symptoms HEENT: Repors: no symptoms Respiratory: Reports: no symptoms Allergies: Coded Allergies: SHELLFISH DERIVED (Unverified Allergy, Intermediate, ITCHING/HIVES, ) IODINE (Unverified Allergy, Unknown, 02/17/14) Uncoded Allergies: SPINACH (Allergy, Intermediate, SEVERE ITCHING/HIVES, 02/17/14) Objective Last 24 Hour Vital Signs Date Time Temp Pulse Resp B/P (MAP) Pulse Ox O2 Delivery O2 Flow Rate FiO2 10/30/19 03:51 97.2 90 20 138/73 (94) 94 10/29/19 23:57 98.5 91 20 143/75 (97) 88 10/29/19 21:00 Room Air 10/29/19 20:00 98.0 98 19 154/79 (104) 94 10/29/19 16:00 98.1 87 19 133/52 (79) 97 10/29/19 12:52 Room Air 10/29/19 12:00 99.5 91 18 140/84 (102) 96 10/29/19 09:00 Room Air 10/29/19 08:00 99.0 91 18 150/76 (100) 96 Intake and Output 10/29/19 10/30/19 19:00 07:00 Intake Total 750 ml 675 ml Output Total 1600 ml Balance 750 ml -925 ml IV Total 750 ml 675 ml Output Urine Total 1600 ml # Bowel Movements 2 1 Objective General Appearance: WD/WN HEENT: normocephalic Respiratory/Chest: chest wall non-tender, lungs clear Cardiovascular: normal peripheral pulses, normal rate, Abdomen: soft, non tender, non distended Extremities: no clubbing Skin: no rash, no lesions Current Medications Medications (Trade) Dose Ordered Sig/Ashley Route PRN Reason Start Time Stop Time Status Last Admin Dose Admin Acetaminophen (Tylenol) 650 mg Q6H PRN ORAL Mild Pain/Temp > 100.5 10/25/19 02:15 11/24/19 02:14 10/29/19 08:29 Amitriptyline HCl (Elavil) 25 mg BEDTIME ORAL 10/25/19 21:00 11/24/19 20:59 10/29/19 20:51 Clonidine HCl (Catapres Tab) 0.1 mg Q4H PRN ORAL sbp greater than 160 10/25/19 08:30 01/23/20 08:29 10/25/19 09:02 Dextrose/Sodium Chloride 1,000 ml @ 75 mls/hr [id number] IV 10/25/19 02:15 11/24/19 02:14 10/30/19 02:30 Heparin Sodium (Porcine) (Heparin 5000 units/ml) 5,000 units EVERY 8 HOURS SUBQ 10/25/19 06:00 12/09/19 05:59 10/30/19 05:09 Latanoprost (Xalatan) 1 drop BEDTIME BOTH EYES 10/25/19 21:00 11/24/19 20:59 10/29/19 20:53 Lorazepam (Ativan 2mg/ml 1ml) 0.5 mg Q4H PRN IV For Anxiety 10/26/19 13:45 11/02/19 13:44 Pantoprazole (Protonix) 40 mg DAILY ORAL 10/25/19 09:00 11/24/19 08:59 10/29/19 08:28 Phenytoin (Dilantin) 100 mg BEDTIME ORAL 10/25/19 21:00 11/24/19 20:59 10/29/19 20:51 Phenytoin (Dilantin) 200 mg DAILY ORAL 10/25/19 09:00 11/24/19 08:59 10/29/19 08:30 Primidone (Mysoline) 250 mg DAILY ORAL 10/25/19 09:00 11/24/19 08:59 10/29/19 08:29 Primidone (Mysoline) 500 mg BEDTIME ORAL 10/25/19 21:00 11/24/19 20:59 10/29/19 20:52 Sumatriptan Succinate (Imitrex) 100 mg DAILY PRN ORAL For Pain 10/25/19 02:30 11/24/19 02:29 Tamsulosin HCl (Flomax) 0.8 mg BEDTIME ORAL 10/25/19 21:00 11/24/19 20:59 10/29/19 20:51 Mel Fuentes MD Oct 30, 2019 07:41
--- NOTE | 2019-10-30 08:00 | NUR ---
NURSE NOTES: received patient in bed, awake, alert, no complaint of pain or discomfort. On 2L O2/min, no sign of respiratory distress. Receives IVF through right hand access, no sign of leakage or infiltration noted. noted external urinary catheter draining to gravity straw color urine. Bed locked at the lowest position possible, call light within easy reach, siderails up x2, padded for seizure prevention. Patient is Fall risk. Will continue to monitor patient and follow up with the plan of care.
[2019-10-30] MEDS: Phenytoin 100mg cap ORAL SCH ×2 (08:31→20:41)
--- NOTE | 2019-10-30 12:00 | NUR ---
CHARGE NURSE NOTE: Pt was having a physical therapy cession with Miss Javier PT. CN was at the nursing station. Miss Javier came to the nursing station saying that pt is coughing so she needs a mask. ( Miss Javier was wearing a surg.mask already). PT and CN were rushing to pt's room due to noise. CN and PT saw a witnessed fall. Sugey Feliciano CNA and Carly Ríos RN were trying to prevent fall, they were in the room, but it happened so fast, they were not able to do it. Pt did not get any injury. During s/p fall investigation- Concepcion PT placed risk fall pt on the edge of the bed, left him to get a mask, pt stood up and fell, but do not hit the floor, was in the sitting position. Pt neurocheck was done- WNL, no pain. and Nursing [employer] Andrea notified. Dr. Sosa did not order CT. Continue monitor patient, following a fall protocol.
--- NOTE | 2019-10-30 12:49 | NUR ---
CHARGE NURSE NOTE: S/p witnessed fall 1200 10/30/19. Pt is in stable condition. notified, no CT head order given. Next of kin- Jaren Mott was called, unable to leave a message.
--- NOTE | 2019-10-30 18:15 | Internal Med Progress Note ---
Subjective Date of Service: Oct 30, 2019 Physician Name LornaHayes Attending Physician Jose Sosa MD Current Medications Medications (Trade) Dose Ordered Sig/Ashley Route PRN Reason Start Time Stop Time Status Last Admin Dose Admin Acetaminophen (Tylenol) 650 mg Q6H PRN ORAL Mild Pain/Temp > 100.5 10/25/19 02:15 11/24/19 02:14 10/29/19 08:29 Amitriptyline HCl (Elavil) 25 mg BEDTIME ORAL 10/25/19 21:00 11/24/19 20:59 10/29/19 20:51 Clonidine HCl (Catapres Tab) 0.1 mg Q4H PRN ORAL sbp greater than 160 10/25/19 08:30 01/23/20 08:29 10/25/19 09:02 Dextrose/Sodium Chloride 1,000 ml @ 75 mls/hr [id number] IV 10/25/19 02:15 11/24/19 02:14 10/30/19 16:09 Heparin Sodium (Porcine) (Heparin 5000 units/ml) 5,000 units EVERY 8 HOURS SUBQ 10/25/19 06:00 12/09/19 05:59 10/30/19 16:07 Latanoprost (Xalatan) 1 drop BEDTIME BOTH EYES 10/25/19 21:00 11/24/19 20:59 10/29/19 20:53 Lorazepam (Ativan 2mg/ml 1ml) 0.5 mg Q4H PRN IV For Anxiety 10/26/19 13:45 11/02/19 13:44 Pantoprazole (Protonix) 40 mg DAILY ORAL 10/25/19 09:00 11/24/19 08:59 10/30/19 08:31 Phenytoin (Dilantin) 100 mg BEDTIME ORAL 10/25/19 21:00 11/24/19 20:59 10/29/19 20:51 Phenytoin (Dilantin) 200 mg DAILY ORAL 10/25/19 09:00 11/24/19 08:59 10/30/19 08:31 Primidone (Mysoline) 250 mg DAILY ORAL 10/25/19 09:00 11/24/19 08:59 10/30/19 08:30 Primidone (Mysoline) 500 mg BEDTIME ORAL 10/25/19 21:00 11/24/19 20:59 10/29/19 20:52 Sumatriptan Succinate (Imitrex) 100 mg DAILY PRN ORAL For Pain 10/25/19 02:30 11/24/19 02:29 Tamsulosin HCl (Flomax) 0.8 mg BEDTIME ORAL 10/25/19 21:00 11/24/19 20:59 10/29/19 20:51 Allergies: Coded Allergies: SHELLFISH DERIVED (Unverified Allergy, Intermediate, ITCHING/HIVES, ) IODINE (Unverified Allergy, Unknown, 02/17/14) Uncoded Allergies: SPINACH (Allergy, Intermediate, SEVERE ITCHING/HIVES, 02/17/14) ROS Limited/Unobtainable: No Constitutional: Reports: no symptoms HEENT: Reports: no symptoms Cardiovascular: Reports: no symptoms Respiratory: Reports: no symptoms Gastrointestinal/Abdominal: Reports: no symptoms Genitourinary: Reports: no symptoms Subjective 69YO M with H/O seizure D/O admitted with frequent falls. Cover for [facility] Med-Dr Sosa Objective Last Vital Signs Date Time Temp Pulse Resp B/P (MAP) Pulse Ox O2 Delivery O2 Flow Rate FiO2 10/30/19 17:00 98.4 84 18 148/84 (105) 97 10/30/19 09:00 Room Air 10/28/19 09:00 3.0 Intake and Output 10/29/19 10/30/19 19:00 07:00 Intake Total 750 ml 675 ml Output Total 1600 ml Balance 750 ml -925 ml IV Total 750 ml 675 ml Output Urine Total 1600 ml # Bowel Movements 2 1 Objective PHYSICAL EXAMINATION: GENERAL: The patient is a well-developed and well-nourished male, in no apparent distress. HEENT: Eyes, pupils are equal and responsive to light and accommodation. Extraocular movements are intact. NECK: Supple without lymphadenopathy. CHEST: Lungs are clear to auscultation bilaterally without wheeze or rales. CARDIOVASCULAR: Regular rate. S1, S2 are normal without murmurs, rubs, or gallops. ABDOMEN: Soft, nontender, and nondistended. Positive bowel sounds. No evidence of hepatosplenomegaly. Currently, no rebound or guarding noted. EXTREMITIES: Negative for clubbing, cyanosis, or edema. RECTAL/GENITAL: Refused. NEUROLOGIC: Cranial nerves II through XII are grossly intact without focal deficits. Motor strength is 5/5 bilaterally. Deep tendon reflexes are 2+ plantar. Assessment/Plan Assessment/Plan ASSESSMENT: This is a 69-year-old male with: 1. Frequent falls. 2. Seizure disorder. 3. Benign prostatic hypertrophy. 4. Chronic obstructive pulmonary disease. 5. Hypokalemia TREATMENT: 1. Fall injury. This may be secondary to orthostatic hypotension versus acute cerebrovascular accident. Carotid duplex Dopplers of the brain are pending. 2. Seizure disorder. Continue Dilantin as above. 3. History of deep venous thrombosis/pulmonary embolism. Continue Coumadin as above. 4. Cerebrovascular disease. The patient denies history of stroke. Continue aspirin as above. 5. Benign prostatic hypertrophy. Continue Flomax as above. 6. Chronic obstructive pulmonary disease. A Pulmonary consultation has been obtained with Dr. Mel Fuentes. 7. Oral potassium replacement 8. Discharge planning: [facility] Hayes Rothman MD Oct 30, 2019 18:15
--- NOTE | 2019-10-30 19:11 | NUR ---
HAND-OFF: Report given to ANASTASIA Krishnan.
--- NOTE | 2019-10-30 19:38 | NUR ---
NURSE NOTES: Received patient in bed, report is given by Amira OCONNOR. Patient is awake, alert, oriented x3, bedbound, bu has a walker at the bedside, patient is a high fall risk, was educated to use call light for any needs or concerns, staff on the floor are aware of his fall risk and frequent rounds will be made. IV site is clean dry and intact. Call light is within reach, bed is lowered, locked, alarm is on, will continue to monitor for comfort and safety.
[2019-10-30] MEDS: Tamsulosin 0.4mg cap ORAL SCH (20:41)
[2019-10-30] MEDS: Latanoprost 0.005% Opth 2.5ml Soln BOTH EYES SCH (20:45)
--- NOTE | 2019-10-30 21:50 | NUR ---
NURSE NOTES: Patient stated that he has medications brought from home in the pocket of his pants, inspected pants for any sign of medications, there were none, made patient aware. Patient stated that he wants his valuables to be in his possessions at all times, CN was made aware. Patient has refused to send valuables to the safety lock box at this time.
[2019-10-31] VITALS: BP 116/70
[2019-10-31 04:00] VITALS: BP 140/74
[2019-10-31] MEDS: D5 1/2NS 1,000 ML IV SCH ×2 (05:37→18:15)
[2019-10-31] MEDS: Heparin 5000 units/ml inj SUBQ SCH ×3 (06:03→21:08)
--- NOTE | 2019-10-31 07:27 | NUR ---
HAND-OFF: Report given to Amira OCONNOR.
[2019-10-31 08:00] VITALS: BP 146/78
--- NOTE | 2019-10-31 08:16 | NUR ---
NURSE NOTES: received patient in bed, asleep, on 2L O2/min, no sign of pain or respiratory distress. Receives IVF through right hand access, no sign of leakage or infiltration noted. Patient has external urinary catheter. Bed locked at the lowest position possible, call light within easy reach, side rails up x3, padded for seizure prevention. Patient is Fall risk. On bed alarm. Patient wears yellow gown and sock, sign at the door. Will continue to monitor patient and follow up with the plan of care.
[2019-10-31 08:49] LABS: BASOPHILS % (AUTO) 2.7 % (0.0-2.0); EOSINOPHILS % (AUTO) 1.3 % (0.0-3.0); HEMATOCRIT 39.6 % (42.0-52.0); HEMOGLOBIN 14.2 G/DL (14.2-18.0); LYMPHOCYTES % (AUTO) 15.3 % (20.0-45.0); MEAN CORPUSCULAR VOLUME 92 FL (80-99); MONOCYTES % (AUTO) 11.6 % (1.0-10.0); NEUTROPHILS % (AUTO) 69.2 % (45.0-75.0); PLATELET COUNT 267 K/UL (150-450); RED CELL DISTRIBUTION WIDTH 11.8 % (11.6-14.8); WHITE BLOOD COUNT 5.9 K/UL (4.8-10.8)
[2019-10-31 09:07] LABS: ALANINE AMINOTRANSFERASE 123 U/L (12-78); ALBUMIN 2.7 G/DL (3.4-5.0); ALBUMIN/GLOBULIN RATIO 0.6 (1.0-2.7); ALKALINE PHOSPHATASE 317 U/L (46-116); ANION GAP 13 mmol/L (5-15); ASPARTATE AMINO TRANSFERASE 115 U/L (15-37); BILIRUBIN,TOTAL 0.7 MG/DL (0.2-1.0); BLOOD UREA NITROGEN 8 mg/dL (7-18); CALCIUM 9.6 MG/DL (8.5-10.1); CARBON DIOXIDE 26 MMOL/L (21-32); CHLORIDE 99 MMOL/L (98-107); CREATININE 0.6 MG/DL (0.55-1.30); PHOSPHORUS 2.3 MG/DL (2.5-4.9); SODIUM 138 MMOL/L (136-145)
[2019-10-31] MEDS: Phenytoin 100mg cap ORAL SCH ×2 (09:53→20:58)
--- NOTE | 2019-10-31 11:27 | Pulmonology Progress Note ---
Assessment/Plan Problems: (1) Falls frequently (2) Cerebellar atrophy (3) Failure to thrive in adult (4) Seizure disorder, complex partial (5) ACS (acute coronary syndrome) Assessment/Plan no new comlaind pt/ot note reviewed neuro evaluation appreciated and reviewed MRI of C-spine Impression: No acute bony trauma Mild multilevel degenerative changes, as detailed above. 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, new since prior study of 03/25/2017 pt will benefit from skilled PT awaiting for the [facility] to fax the case management the contracted facilities Subjective ROS Limited/Unobtainable: No Constitutional: Reports: no symptoms HEENT: Repors: no symptoms Allergies: Coded Allergies: SHELLFISH DERIVED (Unverified Allergy, Intermediate, ITCHING/HIVES, ) IODINE (Unverified Allergy, Unknown, 02/17/14) Uncoded Allergies: SPINACH (Allergy, Intermediate, SEVERE ITCHING/HIVES, 02/17/14) Objective Last 24 Hour Vital Signs Date Time Temp Pulse Resp B/P (MAP) Pulse Ox O2 Delivery O2 Flow Rate FiO2 10/31/19 08:00 98.1 93 17 146/78 (100) 98 10/31/19 04:00 98.0 90 19 140/74 (96) 95 10/31/19 00:00 97.9 90 20 116/70 (85) 98 10/30/19 21:09 Room Air 10/30/19 20:00 98.2 93 20 150/87 (108) 94 10/30/19 18:56 98.2 79 18 146/78 (100) 96 10/30/19 18:00 98.4 82 16 148/82 (104) 97 10/30/19 17:00 98.4 84 18 148/84 (105) 97 10/30/19 16:00 98.2 78 16 138/78 (98) 96 10/30/19 13:35 98.6 84 18 153/84 (107) 96 10/30/19 13:05 98.4 76 18 144/84 (104) 93 10/30/19 12:35 98.3 78 16 140/84 (102) 93 Intake and Output 10/30/19 10/31/19 19:00 07:00 Intake Total 1185 ml Output Total 600 ml Balance 585 ml Intake Oral 360 ml IV Total 825 ml Output Urine Total 600 ml # Bowel Movements 1 Objective General Appearance: WD/WN HEENT: normocephalic Respiratory/Chest: chest wall non-tender, lungs clear Cardiovascular: normal peripheral pulses, normal rate, Abdomen: soft, non tender, non distended Extremities: no clubbing Skin: no rash, no lesions Laboratory Tests 10/31/19 08:10: White Blood Count 5.9, Red Blood Count 4.30L, Hemoglobin 14.2, Hematocrit 39.6L , Mean Corpuscular Volume 92, Mean Corpuscular Hemoglobin 32.9H, Mean Corpuscular Hemoglobin Concent 35.8, Red Cell Distribution Width 11.8, Platelet Count 267, Mean Platelet Volume 6.3L, Neutrophils (%) (Auto) 69.2, Lymphocytes ( %) (Auto) 15.3L, Monocytes (%) (Auto) 11.6H, Eosinophils (%) (Auto) 1.3, Basophils (%) (Auto) 2.7H, Erythrocyte Sedimentation Rate 79H, Sodium Level 138 , Potassium Level 3.0L, Chloride Level 99, Carbon Dioxide Level 26, Anion Gap 13 , Blood Urea Nitrogen 8, Creatinine 0.6, Estimat Glomerular Filtration Rate > 60 , Glucose Level 108H, Calcium Level 9.6, Phosphorus Level 2.3L, Magnesium Level 1.8, Total Bilirubin 0.7, Aspartate Amino Transf (AST/SGOT) 115H, Alanine Aminotransferase (ALT/SGPT) 123H, Alkaline Phosphatase 317H, C-Reactive Protein , Quantitative 28.3H, Total Protein 7.1, Albumin 2.7L, Globulin 4.4, Albumin/ Globulin Ratio 0.6L Current Medications Medications (Trade) Dose Ordered Sig/Ashley Route PRN Reason Start Time Stop Time Status Last Admin Dose Admin Acetaminophen (Tylenol) 650 mg Q6H PRN ORAL Mild Pain/Temp > 100.5 10/25/19 02:15 11/24/19 02:14 10/29/19 08:29 Amitriptyline HCl (Elavil) 25 mg BEDTIME ORAL 10/25/19 21:00 11/24/19 20:59 10/30/19 20:42 Clonidine HCl (Catapres Tab) 0.1 mg Q4H PRN ORAL sbp greater than 160 10/25/19 08:30 01/23/20 08:29 10/25/19 09:02 Dextrose/Sodium Chloride 1,000 ml @ 75 mls/hr [id number] IV 10/25/19 02:15 11/24/19 02:14 10/31/19 05:37 Heparin Sodium (Porcine) (Heparin 5000 units/ml) 5,000 units EVERY 8 HOURS SUBQ 10/25/19 06:00 12/09/19 05:59 10/31/19 06:03 Latanoprost (Xalatan) 1 drop BEDTIME BOTH EYES 10/25/19 21:00 11/24/19 20:59 10/30/19 20:45 Lorazepam (Ativan 2mg/ml 1ml) 0.5 mg Q4H PRN IV For Anxiety 10/26/19 13:45 11/02/19 13:44 10/31/19 00:14 Pantoprazole (Protonix) 40 mg DAILY ORAL 10/25/19 09:00 11/24/19 08:59 10/31/19 09:53 Phenytoin (Dilantin) 100 mg BEDTIME ORAL 10/25/19 21:00 11/24/19 20:59 10/30/19 20:41 Phenytoin (Dilantin) 200 mg DAILY ORAL 10/25/19 09:00 11/24/19 08:59 10/31/19 09:53 Primidone (Mysoline) 250 mg DAILY ORAL 10/25/19 09:00 11/24/19 08:59 10/31/19 09:52 Primidone (Mysoline) 500 mg BEDTIME ORAL 10/25/19 21:00 11/24/19 20:59 10/30/19 20:41 Sumatriptan Succinate (Imitrex) 100 mg DAILY PRN ORAL For Pain 10/25/19 02:30 11/24/19 02:29 Tamsulosin HCl (Flomax) 0.8 mg BEDTIME ORAL 10/25/19 21:00 11/24/19 20:59 10/30/19 20:41 Mel Fuentes MD Oct 31, 2019 11:27
[2019-10-31 12:00] VITALS: BP 148/85
--- NOTE | 2019-10-31 13:02 | Internal Med Progress Note ---
Subjective Date of Service: Oct 31, 2019 Physician Name aHyes Rothman Attending Physician Jose Sosa MD Current Medications Medications (Trade) Dose Ordered Sig/Ashley Route PRN Reason Start Time Stop Time Status Last Admin Dose Admin Acetaminophen (Tylenol) 650 mg Q6H PRN ORAL Mild Pain/Temp > 100.5 10/25/19 02:15 11/24/19 02:14 10/29/19 08:29 Amitriptyline HCl (Elavil) 25 mg BEDTIME ORAL 10/25/19 21:00 11/24/19 20:59 10/30/19 20:42 Clonidine HCl (Catapres Tab) 0.1 mg Q4H PRN ORAL sbp greater than 160 10/25/19 08:30 01/23/20 08:29 10/25/19 09:02 Dextrose/Sodium Chloride 1,000 ml @ 75 mls/hr [id number] IV 10/25/19 02:15 11/24/19 02:14 10/31/19 05:37 Heparin Sodium (Porcine) (Heparin 5000 units/ml) 5,000 units EVERY 8 HOURS SUBQ 10/25/19 06:00 12/09/19 05:59 10/31/19 06:03 Latanoprost (Xalatan) 1 drop BEDTIME BOTH EYES 10/25/19 21:00 11/24/19 20:59 10/30/19 20:45 Lorazepam (Ativan 2mg/ml 1ml) 0.5 mg Q4H PRN IV For Anxiety 10/26/19 13:45 11/02/19 13:44 10/31/19 00:14 Pantoprazole (Protonix) 40 mg DAILY ORAL 10/25/19 09:00 11/24/19 08:59 10/31/19 09:53 Phenytoin (Dilantin) 100 mg BEDTIME ORAL 10/25/19 21:00 11/24/19 20:59 10/30/19 20:41 Phenytoin (Dilantin) 200 mg DAILY ORAL 10/25/19 09:00 11/24/19 08:59 10/31/19 09:53 Primidone (Mysoline) 250 mg DAILY ORAL 10/25/19 09:00 11/24/19 08:59 10/31/19 09:52 Primidone (Mysoline) 500 mg BEDTIME ORAL 10/25/19 21:00 11/24/19 20:59 10/30/19 20:41 Sumatriptan Succinate (Imitrex) 100 mg DAILY PRN ORAL For Pain 10/25/19 02:30 11/24/19 02:29 Tamsulosin HCl (Flomax) 0.8 mg BEDTIME ORAL 10/25/19 21:00 11/24/19 20:59 10/30/19 20:41 Allergies: Coded Allergies: SHELLFISH DERIVED (Unverified Allergy, Intermediate, ITCHING/HIVES, ) IODINE (Unverified Allergy, Unknown, 02/17/14) Uncoded Allergies: SPINACH (Allergy, Intermediate, SEVERE ITCHING/HIVES, 02/17/14) ROS Limited/Unobtainable: No Constitutional: Reports: no symptoms HEENT: Reports: no symptoms Cardiovascular: Reports: no symptoms Respiratory: Reports: no symptoms Gastrointestinal/Abdominal: Reports: no symptoms Genitourinary: Reports: no symptoms Neurologic/Psychiatric: Reports: no symptoms Subjective 69YO M with H/O seizure D/O admitted with frequent falls. Cover for Int Med-Dr Sosa. Fell yesterday 10/30/19 Objective Last Vital Signs Date Time Temp Pulse Resp B/P (MAP) Pulse Ox O2 Delivery O2 Flow Rate FiO2 10/31/19 09:00 Room Air 10/31/19 08:00 98.1 93 17 146/78 (100) 98 10/28/19 09:00 3.0 Laboratory Tests Test 10/31/19 08:10 White Blood Count 5.9 K/UL (4.8-10.8) Red Blood Count 4.30 M/UL (4.70-6.10) L Hemoglobin 14.2 G/DL (14.2-18.0) Hematocrit 39.6 % (42.0-52.0) L Mean Corpuscular Volume 92 FL (80-99) Mean Corpuscular Hemoglobin 32.9 PG (27.0-31.0) H Mean Corpuscular Hemoglobin Concent 35.8 G/DL (32.0-36.0) Red Cell Distribution Width 11.8 % (11.6-14.8) Platelet Count 267 K/UL (150-450) Mean Platelet Volume 6.3 FL (6.5-10.1) L Neutrophils (%) (Auto) 69.2 % (45.0-75.0) Lymphocytes (%) (Auto) 15.3 % (20.0-45.0) L Monocytes (%) (Auto) 11.6 % (1.0-10.0) H Eosinophils (%) (Auto) 1.3 % (0.0-3.0) Basophils (%) (Auto) 2.7 % (0.0-2.0) H Erythrocyte Sedimentation Rate 79 MM/HR (0-20) H Sodium Level 138 MMOL/L (136-145) Potassium Level 3.0 MMOL/L (3.5-5.1) L Chloride Level 99 MMOL/L (98-107) Carbon Dioxide Level 26 MMOL/L (21-32) Anion Gap 13 mmol/L (5-15) Blood Urea Nitrogen 8 mg/dL (7-18) Creatinine 0.6 MG/DL (0.55-1.30) Estimat Glomerular Filtration Rate > 60 mL/min (>60) Glucose Level 108 MG/DL (74-106) H Calcium Level 9.6 MG/DL (8.5-10.1) Phosphorus Level 2.3 MG/DL (2.5-4.9) L Magnesium Level 1.8 MG/DL (1.8-2.4) Total Bilirubin 0.7 MG/DL (0.2-1.0) Aspartate Amino Transf (AST/SGOT) 115 U/L (15-37) H Alanine Aminotransferase (ALT/SGPT) 123 U/L (12-78) H Alkaline Phosphatase 317 U/L (46-116) H C-Reactive Protein, Quantitative 28.3 mg/dL (0.00-0.90) H Total Protein 7.1 G/DL (6.4-8.2) Albumin 2.7 G/DL (3.4-5.0) L Globulin 4.4 g/dL Albumin/Globulin Ratio 0.6 (1.0-2.7) L Intake and Output 10/30/19 10/31/19 19:00 07:00 Intake Total 1185 ml Output Total 600 ml Balance 585 ml Intake Oral 360 ml IV Total 825 ml Output Urine Total 600 ml # Bowel Movements 1 Objective PHYSICAL EXAMINATION: GENERAL: The patient is a well-developed and well-nourished male, in no apparent distress. HEENT: Eyes, pupils are equal and responsive to light and accommodation. Extraocular movements are intact. NECK: Supple without lymphadenopathy. CHEST: Lungs are clear to auscultation bilaterally without wheeze or rales. CARDIOVASCULAR: Regular rate. S1, S2 are normal without murmurs, rubs, or gallops. ABDOMEN: Soft, nontender, and nondistended. Positive bowel sounds. No evidence of hepatosplenomegaly. Currently, no rebound or guarding noted. EXTREMITIES: Negative for clubbing, cyanosis, or edema. RECTAL/GENITAL: Refused. NEUROLOGIC: Cranial nerves II through XII are grossly intact without focal deficits. Motor strength is 5/5 bilaterally. Deep tendon reflexes are 2+ plantar. Assessment/Plan Assessment/Plan ASSESSMENT: This is a 69-year-old male with: 1. Frequent falls. 2. Seizure disorder. 3. Benign prostatic hypertrophy. 4. Chronic obstructive pulmonary disease. 5. Hypokalemia TREATMENT: 1. Fall injury. This may be secondary to orthostatic hypotension versus acute cerebrovascular accident. Carotid duplex Dopplers of the brain are pending. 2. Seizure disorder. Continue Dilantin as above. 3. History of deep venous thrombosis/pulmonary embolism. Continue Coumadin as above. 4. Cerebrovascular disease. The patient denies history of stroke. Continue aspirin as above. 5. Benign prostatic hypertrophy. Continue Flomax as above. 6. Chronic obstructive pulmonary disease. A Pulmonary consultation has been obtained with Dr. Mel Fuentes. 7. Oral potassium replacement 8. Discharge planning: [facility] Hayes Rothman MD Oct 31, 2019 13:02
--- NOTE | 2019-10-31 14:17 | NUR ---
*-* INSURANCE *-* ALL AVAILABLE CLINICALS HAVE BEEN FAXED TO: RD P: [phone] F: [phone] (FAX ALL CLINICALS)
[2019-10-31 15:49] VITALS: BP 141/81
--- NOTE | 2019-10-31 16:01 | NUR ---
DISCHARGE PLANNING: PATIENT REFERRED TO: 1. [facility] T: [phone] 2. [facility] T:[phone] 3. [facility] T: [phone] INSURANCE HAS PROVIDED 1. [facility] T:[phone] 2. [facility] [phone] WILL FOLLOW UP
--- NOTE | 2019-10-31 16:45 | NUR ---
CASE MANAGEMENT: REVIEW 10/28/19 HX: COPD AND SEIZURE SI:MULTIPLE INJURIES DUE TO TRAMA . ACUTE HEAD INJURY . FAILURE TO THRIVE . COPD 98.8 105 18 134/83 93% ON 3L NC BG 117 IS:IV D5@75ML/HR DILANTIN PO QD K-DUR PO QD MYSOLINE PO QD HEPARIN SQ TID PROTONIX PO QD CLONIDINE Q4HR/PRN DILANTIN PO QD FLOMAX PO QHS \: 4E MED SURG UNIT DCP:HOME WHEN STABLE CASE MANAGEMENT: REVIEW 10/29/19 HX: COPD AND SEIZURE SI:MULTIPLE INJURIES DUE TO TRAMA . ACUTE HEAD INJURY . FAILURE TO THRIVE . COPD 99.0 91 18 150/76 96% ON RA IS:IV D5@75ML/HR DILANTIN PO QD K-DUR PO QD MYSOLINE PO QD HEPARIN SQ TID PROTONIX PO QD CLONIDINE Q4HR/PRN DILANTIN PO QD FLOMAX PO QHS \: 4E MED SURG UNIT DCP:HOME WHEN STABLE CASE MANAGEMENT: REVIEW 10/30/19 HX: COPD AND SEIZURE SI:MULTIPLE INJURIES DUE TO TRAMA . ACUTE HEAD INJURY . FAILURE TO THRIVE . COPD 97.9 81 18 155/78 93% ON RA IS:IV D5@75ML/HR DILANTIN PO QD K-DUR PO QD MYSOLINE PO QD HEPARIN SQ TID PROTONIX PO QD CLONIDINE Q4HR/PRN DILANTIN PO QD FLOMAX PO QHS \: 4E MED SURG UNIT DCP:HOME WHEN STABLE CASE MANAGEMENT: REVIEW 10/31/19 HX: COPD AND SEIZURE SI:MULTIPLE INJURIES DUE TO TRAMA . ACUTE HEAD INJURY . FAILURE TO THRIVE . COPD 98.1 93 17 146/78 98% ON RA K+3.0 PHOS 2.3 AST/ASL208/123 ALKP 317 CREC PRO 28.3 IS:IV D5@75ML/HR DILANTIN PO QD K-DUR PO QD MYSOLINE PO QD HEPARIN SQ TID PROTONIX PO QD CLONIDINE Q4HR/PRN DILANTIN PO QD FLOMAX PO QHS \: 4E MED SURG UNIT DCP:SNF PLAN: MONITOR GAIT FELL 10/30/19 ANTICIPATED DC IN AM
--- NOTE | 2019-10-31 18:00 | NUR ---
NURSE NOTES: GENNY Bray called, told nurse the previous day patient texted him 20 times with strange and hallucinatory messages, some saying he felt like being a giant spider, some saying he didn't know where he was. Nurse informed neurologist dr Wisdom, who ordered stat CT head.
--- NOTE | 2019-10-31 18:17 | NUR ---
NURSE NOTES: patient is being transported to the CT service, for a STAT head CT no contrast.
--- NOTE | 2019-10-31 18:38 | Diagnostic Imaging Report ---
Indications: Seizures, head injury, status post fall Technique: Spiral acquisitions obtained through the brain. Angled axial and coronal 5 x 5 mm slices were reconstructed. Total dose length product 1098 mGycm. CTDI vol(s) 53 mGy. Dose reduction achieved using automated exposure control Comparison: 10/24/2019 Findings: There is some image degradation due to motion artifact. There is age-related enlargement of the ventricles and extra axial CSF spaces. There is periventricular deep white matter low-attenuation, consistent with chronic microvascular ischemic change. There is encephalomalacia of the right temporal tip. No acute intracranial hemorrhage or edema. No mass effect nor midline shift. The calvarium is intact. The mastoids are clear. The visualized orbits and sinuses are unremarkable. Impression: Chronic and age-related changes. Old right temporal infarct. Negative for acute intracranial bleed or mass effect. This agrees with the preliminary interpretation provided overnight by [facility] teleradiology service. The CT scanner at [facility] is accredited by the [employer] and the scans are performed using protocols designed to limit radiation exposure to as low as reasonably achievable to attain images of sufficient resolution adequate for diagnostic evaluation.
--- NOTE | 2019-10-31 19:30 | NUR ---
NURSE NOTES: per POA request nurse endorsed to NOC RN to have the day nurse call DEANA Pantera Bray at the time of discharge.
--- NOTE | 2019-10-31 19:44 | NUR ---
NURSE NOTES: Received patient in bed, awake, periods of confusion and disorientation noted, IV site is clean dry and intact, no acute distress noted at this time. Call light is within reach, fall precautions are implemented, frequent rounds are done to ensure safety and comfort, bed alarm is on.
--- NOTE | 2019-10-31 19:54 | NUR ---
HAND-OFF: Report given to ANASTASIA Krishnan.
[2019-10-31 20:00] VITALS: BP 139/78
[2019-10-31] MEDS: Tamsulosin 0.4mg cap ORAL SCH (20:58)
[2019-10-31] MEDS: Latanoprost 0.005% Opth 2.5ml Soln BOTH EYES SCH (20:58)
--- NOTE | 2019-10-31 22:00 | Progress Note ---
DATE: 10/31/2019 SUBJECTIVE: The patient seems to be more confused today, although he has been "obeying commands" and oriented according to the nursing notes. PHYSICAL EXAMINATION: VITAL SIGNS: Temperature is 98.1 degrees, blood pressure 146/78, respiratory rate 17, SpO2 18. MENTAL STATUS: The patient thinks it is July. He is lethargic. He has slightly slurred speech. MUSCLE EXAMINATION: He moves all 4 extremities. There is no asterixis. IMPRESSION: This patient appears to have metabolic encephalopathy noted that he is on 500 mg of Mysoline at night. This should be discontinued. His primidone level is still not back yet. Also, his liver function seems to be going up. I would obtain a serum ammonia only, he does not have any asterixis, and a TSH and an EEG and discontinue the Mysoline at night. PLAN: 1. Stop Mysoline 500 mg at bedtime. 2. EEG, TSH, and serum ammonia. Lennox Wisdom MD DR: Kevin JOB#: [id number] CC:
[2019-11-01] VITALS: BP 140/79
[2019-11-01 04:09] VITALS: BP 145/82
[2019-11-01] MEDS: Heparin 5000 units/ml inj SUBQ SCH ×2 (06:15→13:31)
[2019-11-01] MEDS: D5 1/2NS 1,000 ML IV SCH (06:15)
--- NOTE | 2019-11-01 07:30 | NUR ---
NURSE NOTES: Received patient in bed, awake,alert x2 -3, with periods of confusion and disorientation noted, IV site is leaking, no acute distress noted at this time. Call light is within reach, fall and aspiration precautions are implemented, will continue to ensure safety and comfort, elisha marie
--- NOTE | 2019-11-01 07:40 | NUR ---
HAND-OFF: Report given to Sabina OCONNOR.
[2019-11-01 08:00] VITALS: BP 133/74
[2019-11-01] MEDS: Phenytoin 100mg cap ORAL SCH (08:28)
[2019-11-01 08:54] LABS: BASOPHILS % (AUTO) 1.4 % (0.0-2.0); EOSINOPHILS % (AUTO) 0.4 % (0.0-3.0); HEMATOCRIT 36.4 % (42.0-52.0); HEMOGLOBIN 13.2 G/DL (14.2-18.0); MEAN CORPUSCULAR VOLUME 90 FL (80-99); MONOCYTES % (AUTO) 11.8 % (1.0-10.0); NEUTROPHILS % (AUTO) 75.3 % (45.0-75.0); PLATELET COUNT 287 K/UL (150-450); RED BLOOD COUNT 4.02 M/UL (4.70-6.10); RED CELL DISTRIBUTION WIDTH 11.7 % (11.6-14.8); WHITE BLOOD COUNT 7.8 K/UL (4.8-10.8)
[2019-11-01 09:11] LABS: ANION GAP 7 mmol/L (5-15); CALCIUM 9.8 MG/DL (8.5-10.1); CARBON DIOXIDE 30 MMOL/L (21-32); CHLORIDE 100 MMOL/L (98-107); CREATININE 0.5 MG/DL (0.55-1.30); POTASSIUM 3.6 MMOL/L (3.5-5.1); SODIUM 136 MMOL/L (136-145)
[2019-11-01 09:19] LABS: BLOOD UREA NITROGEN 10 mg/dL (7-18)
--- NOTE | 2019-11-01 11:01 | NUR ---
RD ASSESSMENT & RECOMMENDATIONS SEE CARE ACTIVITY FOR COMPLETE ASSESSMENT DAILY ESTIMATED NEEDS: Needs based on Pulmonary 79kg 25-30 kcals/kg [id number] total kcals 1-1.5 g protein/kg 79-119 g total protein 25-30 mL/kg total fluid mLs NUTRITION DIAGNOSIS: Altered nutrition related lab values r/t clinical status as evidenced by low K (3.0- wnl), low phos (2.3), elev LFT's and Creat kinase. CURRENT DIET: Regular PO DIET RECOMMENDATIONS: With consistent po intake >75%, rec Low Na diet ADDITIONAL RECOMMENDATIONS: 1) Monitor po intake, need for soft easy chew 2) F/up w/ Kcal count-> not complete. 3) Check lytes daily, replete as needed (low K, phos) 4) Obtain a calibrated bed scale wt 5) Add snack in b/w all meals 6) Consider ASSISTED LIVING ASSOCIATE eval for appropriate texture, better food acceptance
[2019-11-01 12:00] VITALS: BP 149/82
--- NOTE | 2019-11-01 12:59 | NUR ---
DISCHARGE PLANNING: SPOKE TO PATIENT AT BEDSIDE PATIENT AGREEABLE TO TRANSFER PATIENT ACCEPTED TO: [facility] T: [phone] ROOM# 15C [facility] PICKUP TIME @2-2:30PM UNABLE TO LEAVE VM FOR NIXON TOSCANO (T:[phone]) Addendum: 11/01/19 at 1528 by AGUILA ELAINE LVN AUTHORIZATION FOR AMBULANCE TRANSFER #[id number]
--- NOTE | 2019-11-01 13:20 | NUR ---
*-* INSURANCE *-* ALL AVAILABLE CLINICALS HAVE BEEN FAXED TO: RD P: [phone] F: [phone] (FAX ALL CLINICALS)
--- NOTE | 2019-11-01 13:55 | Pulmonology Progress Note ---
Assessment/Plan Problems: (1) Falls frequently (2) Cerebellar atrophy (3) Failure to thrive in adult (4) Seizure disorder, complex partial (5) ACS (acute coronary syndrome) Assessment/Plan no new comlaind symptomatic treatment pt/ot note reviewed neuro evaluation appreciated and reviewed MRI of C-spine Impression: No acute bony trauma Mild multilevel degenerative changes, as detailed above. MRI of Cspine reviewed CT of head: Right temporal tip encephalomalacia, presumably an old infarct, new since prior study of 03/25/2017 pt will benefit from skilled PT awaiting for the [facility] to fax the case management the contracted facilities Subjective ROS Limited/Unobtainable: Yes HEENT: Repors: no symptoms Allergies: Coded Allergies: SHELLFISH DERIVED (Unverified Allergy, Intermediate, ITCHING/HIVES, ) IODINE (Unverified Allergy, Unknown, 02/17/14) Uncoded Allergies: SPINACH (Allergy, Intermediate, SEVERE ITCHING/HIVES, 02/17/14) Objective Last 24 Hour Vital Signs Date Time Temp Pulse Resp B/P (MAP) Pulse Ox O2 Delivery O2 Flow Rate FiO2 11/01/19 12:00 98.0 94 20 149/82 (104) 99 11/01/19 09:10 Room Air 11/01/19 08:00 97.7 85 18 133/74 (93) 99 11/01/19 04:15 99.8 11/01/19 04:09 100.4 96 20 145/82 (103) 96 11/01/19 00:00 97.4 91 22 140/79 (99) 97 10/31/19 21:46 Room Air 10/31/19 20:00 98.4 88 24 139/78 (98) 98 10/31/19 15:49 98.1 86 18 141/81 (101) 96 Intake and Output 10/31/19 11/01/19 19:00 07:00 Intake Total 750 ml Output Total 10 ml Balance 740 ml IV Total 750 ml Stool Total 10 ml # Voids 3 # Bowel Movements 2 Objective General Appearance: WD/WN HEENT: normocephalic Respiratory/Chest: chest wall non-tender, lungs clear Cardiovascular: normal peripheral pulses, normal rate, Abdomen: soft, non tender, non distended Extremities: no clubbing Skin: no rash, no lesions Laboratory Tests 10/31/19 16:15: Ammonia 34H, Thyroid Stimulating Hormone (TSH) 0.725 11/01/19 07:45: White Blood Count 7.8, Red Blood Count 4.02L, Hemoglobin 13.2L, Hematocrit 36.4L , Mean Corpuscular Volume 90, Mean Corpuscular Hemoglobin 32.7H, Mean Corpuscular Hemoglobin Concent 36.2H, Red Cell Distribution Width 11.7, Platelet Count 287, Mean Platelet Volume 5.9L, Neutrophils (%) (Auto) 75.3H, Lymphocytes (%) (Auto) 11.0L, Monocytes (%) (Auto) 11.8H, Eosinophils (%) (Auto ) 0.4, Basophils (%) (Auto) 1.4, Sodium Level 136, Potassium Level 3.6, Chloride Level 100, Carbon Dioxide Level 30, Anion Gap 7, Blood Urea Nitrogen 10 , Creatinine 0.5L, Estimat Glomerular Filtration Rate > 60, Glucose Level 110H, Calcium Level 9.8 Current Medications Medications (Trade) Dose Ordered Sig/Ashley Route PRN Reason Start Time Stop Time Status Last Admin Dose Admin Acetaminophen (Tylenol) 650 mg Q6H PRN ORAL Mild Pain/Temp > 100.5 10/25/19 02:15 11/24/19 02:14 11/01/19 13:33 Amitriptyline HCl (Elavil) 25 mg BEDTIME ORAL 10/25/19 21:00 11/24/19 20:59 10/31/19 20:58 Clonidine HCl (Catapres Tab) 0.1 mg Q4H PRN ORAL sbp greater than 160 10/25/19 08:30 01/23/20 08:29 10/25/19 09:02 Dextrose/Sodium Chloride 1,000 ml @ 75 mls/hr [id number] IV 10/25/19 02:15 11/24/19 02:14 11/01/19 06:15 Heparin Sodium (Porcine) (Heparin 5000 units/ml) 5,000 units EVERY 8 HOURS SUBQ 10/25/19 06:00 12/09/19 05:59 11/01/19 13:31 Latanoprost (Xalatan) 1 drop BEDTIME BOTH EYES 10/25/19 21:00 11/24/19 20:59 10/30/19 20:45 Lorazepam (Ativan 2mg/ml 1ml) 0.5 mg Q4H PRN IV For Anxiety 10/26/19 13:45 11/02/19 13:44 10/31/19 00:14 Pantoprazole (Protonix) 40 mg DAILY ORAL 10/25/19 09:00 11/24/19 08:59 11/01/19 08:29 Phenytoin (Dilantin) 100 mg BEDTIME ORAL 10/25/19 21:00 11/24/19 20:59 10/31/19 20:58 Phenytoin (Dilantin) 200 mg DAILY ORAL 10/25/19 09:00 11/24/19 08:59 11/01/19 08:28 Potassium Chloride (K-Dur) 40 meq DAILY ORAL 10/31/19 13:30 11/04/19 13:29 11/01/19 08:27 Primidone (Mysoline) 250 mg DAILY ORAL 10/25/19 09:00 11/24/19 08:59 11/01/19 08:28 Sumatriptan Succinate (Imitrex) 100 mg DAILY PRN ORAL For Pain 10/25/19 02:30 11/24/19 02:29 Tamsulosin HCl (Flomax) 0.8 mg BEDTIME ORAL 10/25/19 21:00 11/24/19 20:59 10/31/19 20:58 Mel Fuentes MD Nov 01, 2019 13:55
--- NOTE | 2019-11-01 14:16 | NUR ---
nurse notes With order discharge to [facility] , patient agreed with the plan of care, discharge instruction instructed to patient report given to Columba jerome nurse accordingly, patient will be discharged via ambulance elisha marie
--- NOTE | 2019-11-01 14:40 | NUR ---
nurse notes discharged to [facility] in stable condition, with all belongings taken accompanied by ambulance , dreport given to ambulance personnel, discharged via ambulance elisha marie
--- NOTE | 2019-11-01 16:45 | Electroencephalogram ---
DATE OF PROCEDURE: 10/31/2019 REQUESTING PHYSICIAN: Lennox Wisdom M.D. READING PHYSICIAN: Zarie Valenzuela M.D. PROCEDURE PERFORMED: EEG. HISTORY: This EEG was performed on 69-year-old gentleman with a history of multiple medical problems including a seizure disorder associated with right temporal encephalomalacia. The purpose of this EEG was to evaluate the patient for ongoing ictal or interictal phenomena. TECHNICAL NOTE: This EEG was performed on [employer] with electrodes placed on the scalp according to the International 10-20 system. [id number] and [id number] montages were used. The EEG was technically satisfactory and was performed in the awake and drowsy states. OBSERVATIONS: In the best-awake state, the background activity consisted of 6-7 Hz posterior rhythmic theta activity. Drowsiness was characterized by slowing of the background in the 4-5 Hz theta range with some intermixed delta frequencies. During drowsiness bilateral but right greater than left frontotemporal polymorphic delta activity was noted. No definite epileptiform discharges were seen. IMPRESSION: This is an abnormal EEG characterized by: 1. Slowing of the background in the 6-7 Hz theta range in the best-awake state. 2. The presence of right greater than left frontotemporal polymorphic delta activity seen during drowsiness. COMMENT: This study is consistent with: 1. An encephalopathy of a moderate degree. 2. Right greater than left frontotemporal dysfunction. Clinical correlation is recommended. Zaire Valenzuela M.D., M.S.P.H. Clinical Neurophysiologist DR: NANCY/juana JOB#: [id number] [facility] NYACK HOSPITALLashonda
--- NOTE | 2019-11-02 11:15 | Discharge Summary ---
Discharge Summary Discharge Summary _ DATE OF ADMISSION: 10/24/2019 DATE OF DISCHARGE: 11/01/2019 DISCHARGED BY: Dr. Sosa REASON FOR ADMISSION: 69 years old male with past medical history of COPD, seizure disorder, on Dilantin, presented with chief complaint of frequent falls. Falls reported to be ongoing for the last 6 months and became more frequent in the last few days. Patient reported that he fell 3 days ago and hit his head. Patient fell twice the day prior to presentation and was unable to get up . Patient denied any chest pain. He had a headache for few hours couple days ago , but it resolved. No focal deficit. No nausea no vomiting. No chest pain or shortness of breath. Upon evaluation vital signs were stable. Laboratory work-up revealed no leukocytosis, stable hemoglobin .hematocrit and platelet count. Stable electrolytes. AST 64 , ALT 60 . urinalysis revealed no evidence of urinary tract infection. CT of the head revealed chronic and age-related changes , but was negative for acute intracranial bleeding or mass-effect. Right temporal tip encephalomalacia presumably old infarct noted, which was a new finding since prior study in 2017. Left hip x-ray revealed postsurgical changes , but no acute bony trauma. Patient was unable to ambulate. Patient lives by himself. Patient was admitted for further evaluation, rehabilitation , physical therapy and placement. CONSULTANTS: neurologist Dr. Wisdom pulmonary Dr. Fuentes HOSPITAL COURSE: Patient admitted. Neurologist followed. Patient undergone repeated CT of the head which showed old right temporal infarct but was negative for acute intracranial bleeding or mass-effect. MRI of the cervical spine demonstrated no acute bony trauma. Mild multilevel degenerative changes. Lumbar spine x-ray revealed no obvious acute fracture. Scoliosis and generalized osteopenia noted. Ammonia level stable. 34. Patient undergone EEG which revealed findings, consistent with encephalopathy of moderate degree, right greater than left frontotemporal dysfunction. Per neurologist patient had metabolic encephalopathy . Patient was on 500 mg of Mysoline at nighttime , which was stopped. Liver enzymes are getting up. Serum ammonia stable, 34. Patient had no asterixis. TSH was within normal limits Stable B12 . Seizure precautions maintained. Dilantin continued. No evidence of seizure activity while in the hospital. Full precaution maintained. Patient was working with physical therapist. DVT=and GI prophylaxis provided. Flomax continued. Potassium was replaced. Placement was arranged to retirement facility [facility]. Patient was stable for transfer FINAL DIAGNOSES: Frequent falls Failure to thrive Seizure disorder complex partial Metabolic encephalopathy COPD BPH Cerebellar atrophy History of old right temporal infarct Hypokalemia DISCHARGE MEDICATIONS: See Medication Reconciliation list. DISCHARGE INSTRUCTIONS: Patient was discharged to the retirement facility. Follow up with medical doctor at the facility. I have been assigned to dictate discharge summary for this account. I was not involved in the patient's management. Trixie Mays NP Nov 02, 2019 11:15
--- NOTE | 2019-11-02 16:15 | NUR ---
*-* INSURANCE *-* DISCHARGE SUMMARY HAS BEEN FAXED TO: RD P: [phone] F: [phone] (FAX ALL CLINICALS)
== END 2019-11-01 14:28 | DRG 57 ==
LOC: EDBD 22:43 → EMR 22:52 → 4E 23:48 → EDBEDREQ 10-25 00:17 → 4E 10-26 20:57
DX: G31.9 Degenerative disease of nervous system, unspecified (principal); I24.9 Acute ischemic heart disease, unspecified; G40.209 Localization-related (focal) (partial) symptomatic epilepsy and epileptic syndromes with complex partial seizures, not intractable, without status epilepticus; G31.89 Other specified degenerative diseases of nervous system; S09.90XA Unspecified injury of head, initial encounter; R62.7 Adult failure to thrive; J44.9 Chronic obstructive pulmonary disease, unspecified; Z86.718 Personal history of other venous thrombosis and embolism; Z86.711 Personal history of pulmonary embolism; N40.0 Benign prostatic hyperplasia without lower urinary tract symptoms; Z79.02 Long term (current) use of antithrombotics/antiplatelets; Z87.891 Personal history of nicotine dependence; R29.6 Repeated falls; Z88.8 Allergy status to other drugs, medicaments and biological substances; R26.81 Unsteadiness on feet; E87.6 Hypokalemia
CPT/HCPCS: 36415; 70450; 71045; 72020; 72141; 73502; 80048; 80053; 80185; 80188; 81001; 82140; 82550; 82553; 82607; 83735; 83921; 84100; 84443; 85025; 85651; 86140; 87324; 95819; 96360; 99285; J7030; J8499

== ENCOUNTER 2020-03-02 14:44 | Emergency (ER) | payer MEDICAID, MEDICARE ==
[~2020-03-02] VITALS: Ht 177.8 cm; Wt 72.6 kg
[2020-03-02] MEDS ORDERED: Tetanus/Diptheria/Pertussis IM ONE ×2 (14:45→15:30)
[2020-03-02] MEDS ORDERED: Acetaminophen 500mg (ES) tab ORAL ONE ×2 (14:45→15:30)
--- NOTE | 2020-03-02 15:04 | Emergency Room Report ---
History of Present Illness General Chief Complaint: Generalized Weakness Source: Patient Present Illness HPI 69-year-old male with past medical history of seizure disorder on Dilantin, previous PE x2 previously on Coumadin (unsure of last use), frequent falls brought in by ambulance status post syncopal episode prior to arrival. Patient has frequent falls and apparently fell 2 weeks ago injuring the right side of his face. He is unable to recall the events prior to passing out. He was unable to get up on his own. Denies chest pain, shortness of breath, nausea, vomiting, diarrhea, fever, chills, cough, hemoptysis, melena, or hematochezia. The patient's symptoms were gradual onset, severity was moderate, duration since 1 day. History is limited secondary to patient's altered mental status. Quality: Aching Past medical history: Seizure disorder on Dilantin, previous PE x2, frequent falls Past surgical history: Intertrochanteric fracture Smoking: Denies Alcohol use: Denies Drug use: Denies Review of systems: CONST: No fevers or chills, No night sweats PULMONARY: No productive cough, No shortness of breath CARDIAC: No chest pain, No palpitations GI: No vomiting, No diarrhea , No melena_or_BRBPR : No dysuria, No hematuria, No discharge NEURO: No new_focal_weakness_or_numbness, No confusion, No vision changes 14 point Review of Systems is otherwise negative except per HPI Physical Exam: GENERAL: Awake_alert_ nontoxic, no acute distress Spo2 98% on RA -normal EYES: Extraocular muscles are intact. Conjunctivae clear. Lids without swelling No cycloplegia, hyphema, or proptosis. No midface instability. R periorbital ecchymosis ENT: External nose and ear normal_in_appearance. Oropharynx clear. Head_ atraumatic, Moist_oral_mucosa NECK: No JVD. No meningismus. No thyromegaly. Supple. Trachea midline. No midline cervical, thoracic, or lumbar tenderness palpation. RESP: Normal respiratory effort. Symmetric rise. No stridor. Clear_to_ auscultation_No_rales_No_wheezes CARDIAC: Regular rate and regular rhythm on_auscultation No_significant pedal edema. ABDOMEN: Soft. Nondistended. Nontender_No_rebound_or_guarding. MSK: Normal muscle tone, without rigidity. Extremities without asymmetric deformity or swelling. SKIN: Warm and dry. No visible cyanosis or pallor NEUROLOGIC: Alert, oriented x2. Motor_and_sensation_grossly_intact. No truncal ataxia. Gait_normal GCS 14 Psych: Normal mood and affect, normal judgment and insight - COORDINATION OF CARE Case was discussed with: Patient , Patient's Physician Any labs and imaging that were ordered were interpreted as part of the medical decision making: Medical Decision Making/Plan: Differential diagnosis for the patients symptoms include , malignant arrhythmias, obstructive heart disease (critical aortic stenosis, hypertrophic cardiomyopathy), acute anemia, severe dehydration, electrolyte abnormalities, seizure disorder, Dilantin toxicity, intracranial hemorrhage among others. Patient's exam is neurologically intact but he is noted to have trauma to the R face. No midface instability. GCS 14, patient is confused. EKG shows no signs of malignant arrhythmia such as Brugada syndrome, delta wave , epsilon wave, significant heart block, or QTc >500. CXR shows hyperinflated lungs. No acute disease. CT of the head shows 2 foci of acute intracranial hemorrhage. Right frontal and right medial ICH. No midline shift. I was informed of this by Radiologist Dr. Goldstein at 1630. Troponin is negativex1. Labs also show subtherapeutic Dilantin level. INR is 1.1. NO indication for coumadin reversal at this time. COVID Swab negative Blood pressure is stable less than 140 mmHg. No indication for cardene at this time Keppra given for sz prophylaxis. 1640: Patient will need to be transferred for neurosurgical continuation of care for fall on blood thinners. Transfer initiated by charge nurse Simran 1720: I spoke with NSx Dr. Marin at [facility] who accepts transfer for higher level of care. The patient has been stabilized to the best of this emergency department's capabilities. Given the patient's medical needs, appropriate facilities for transfer were discussed and the decision has been made to transfer this patient to [facility]. The receiving facility has the capacity and capabilities to provide care for the patient. I spoke with Dr Marin who accepted the patient in transfer. The patient has been informed and updated of their current clinical status. The patient has given verbal consent for the transfer. The risks and benefits were explained and the patient verbalizes their understanding. The patient will be transported by ALS. Pt is protecting airway. No indication for intubation at this time. Allergies: Coded Allergies: SHELLFISH DERIVED (Unverified Allergy, Intermediate, ITCHING/HIVES, ) IODINE (Unverified Allergy, Unknown, 02/17/14) Uncoded Allergies: SPINACH (Allergy, Intermediate, SEVERE ITCHING/HIVES, 02/17/14) COVID-19 Screening Contact w/high risk pt: No Recent Travel to affected area: No Experienced COVID-19 symptoms?: No COVID-19 Testing performed GARDEN CONSULTANT: No Nursing Documentation-PMH Hx COPD: Yes Hx Cancer: Yes - BASAL CELL CARCINOMA SKIN Hx Gastrointestinal Problems: Yes Hx Neurological Problems: Yes Hx Seizures: Yes Hx Epilepsy: Yes - Well controlled with medications - last seizure 35 yrs ago Hx Syncope: Yes - THIS AM Hx Headaches: Yes - MIGRAINES Hx Numbness: Yes - TIPS OF THE TOES Physical Exam Vital Signs Date Time Temp Pulse Resp B/P (MAP) Pulse Ox O2 Delivery O2 Flow Rate FiO2 03/02/20 14:38 98.2 85 19 120/77 (91) 94 Room Air Sp02 EP Interpretation: reviewed, normal Procedures Critical Care Time Critical Care Time Critical Care Statement Organ systems at risk include: Cardiac, circulatory, neuro Critical care performed for 55 minutes. Time is exclusive of separately billable procedures. Time includes: direct patient care, continuous monitoring and multiple patient reassessment, coordination of patient care, review of patient's medical records , medical consultation, family consultation regarding treatment decisions and documentation of patient care. Medical Decision Making Diagnostic Impression: Primary Impression: Episode of generalized weakness Additional Impressions: Syncope Facial bruising Intracranial hemorrhage Seizure disorder Subtherapeutic serum dilantin level History of Coumadin therapy History of pulmonary embolus (PE) Multiple injuries due to trauma EKG Diagnostic Results PA Scribe Text 12-lead EKG (interpreted by me) Time: 1622 Indication: Rhythm analysis Tracing visualized and Interpreted by me. Rhythm: Normal sinus rhythm Rate: 75 bpm QTc: 457 Morphology: No_significant_ST_elevations_or_depressions, No STEMI Impression: Normal sinus rhythm, Q waves anterior and inferiorly. No acute STEMI 12-lead EKG (interpreted by me) Time: 1621 Indication: Normal sinus rhythm Tracing visualized and Interpreted by me. Rhythm: Normal sinus rhythm Rate: 77 bpm QTc: 468 Morphology: No_significant_ST_elevations_or_depressions, No STEMI Impression: Normal_sinus_rhythm_without_significant_abnormality; Q waves anterior leads. Q waves inferior leads Rhythm Strip Diag. Results Rhythm Strip Time: 16:44 EP Interpretation: yes Rate: 77 Rhythm: NSR, no PVC's, no ectopy Chest X-Ray Diagnostic Results Chest X-Ray Diagnostic Results : PA Scribe Text Chest X-Ray: Views: 1 view(s) Indication: Syncope Findings: Normal heart size. Mediastinum normal. No infiltrate. Impression: Hyperinflated lungs. Atelectasis. No pleural effusions. No pneumothorax or rib fracture The X-ray(s) were independently viewed and interpreted contemporaneously Electronically signed by Lexus yusuf DO Reevaluation Time: 17:24 Last Vital Signs Date Time Temp Pulse Resp B/P (MAP) Pulse Ox O2 Delivery O2 Flow Rate FiO2 8//20 14:38 98.2 85 19 120/77 (91) 94 Room Air Status: improved Disposition: ADMITTED INPATIENT - Transfer to [facility] Admit Decision Time: 15:04 Condition: Serious Lexus Benjamin D.O. Mar 02, 2020 15:04
[2020-03-02 15:35] LABS: ANION GAP 10 mmol/L (5-15); BLOOD UREA NITROGEN 19 mg/dL (7-18); CALCIUM 9.9 MG/DL (8.5-10.1); CARBON DIOXIDE 28 MMOL/L (21-32); CHLORIDE 102 MMOL/L (98-107); POTASSIUM 3.6 MMOL/L (3.5-5.1); SODIUM 140 MMOL/L (136-145)
[2020-03-02 15:45] LABS: ALANINE AMINOTRANSFERASE 65 U/L (12-78); ALBUMIN 3.6 G/DL (3.4-5.0); ALBUMIN/GLOBULIN RATIO 0.9 (1.0-2.7); ALKALINE PHOSPHATASE 199 U/L (46-116); ASPARTATE AMINO TRANSFERASE 157 U/L (15-37); BILIRUBIN,TOTAL 0.5 MG/DL (0.2-1.0)
[2020-03-02] MEDS ORDERED: levETIRAcetam 1,000mg/NS100ml 100 ML IVPB ONE (15:45)
--- NOTE | 2020-03-02 15:45 | NUR ---
ED Nurse Note:pt. was BIBA from home with general weakness and s/p fall, pt. has bruising and abrasion on right eye brow and perianal redness from incontinance, pt. is A/ox2, non ambulatory, no c/o pain at this time, blood was sent to labs, pt. placed on air sampling and monitoring
[2020-03-02 15:50] LABS: CREATINE KINASE 5352 U/L (26-308)
[2020-03-02 16:06] LABS: BASOPHILS % (AUTO) 0.9 % (0.0-2.0); EOSINOPHILS % (AUTO) 0.1 % (0.0-3.0); HEMATOCRIT 43.8 % (42.0-52.0); HEMOGLOBIN 14.7 G/DL (14.2-18.0); LYMPHOCYTES % (AUTO) 10.2 % (20.0-45.0); MEAN CORPUSCULAR VOLUME 96 FL (80-99); MONOCYTES % (AUTO) 7.8 % (1.0-10.0); PLATELET COUNT 226 K/UL (150-450); RED BLOOD COUNT 4.58 M/UL (4.70-6.10); RED CELL DISTRIBUTION WIDTH 12.8 % (11.6-14.8)
[2020-03-02 16:16] VITALS: BP 145/68
--- NOTE | 2020-03-02 16:21 | NUR ---
ED Nurse Note:covid swab is negative
--- NOTE | 2020-03-02 16:23 | Diagnostic Imaging Report ---
Indication: Neck pain Technique: CT cervical spine was performed utilizing automated exposure control without intravenous contrast material. Axial and coronal images were generated. CT dose including concurrently performed CT head: Total DLP 439.7 mGycm; CTDI vol 19.4 mGy Comparison: None Findings: There is anatomic alignment. Cervical lordosis is maintained. No spondylolisthesis. Vertebral bodies are intact without compression deformity. There is no fracture, bony lesions or erosions. Atlantodental intervals are maintained. Dens is intact. There are multilevel discogenic degenerative changes characterized by disc space narrowing, endplate osteophyte formation, and multilevel uncovertebral hypertrophy. There is no paraspinal soft tissue abnormality Emphysematous changes are noted in the lung apices. There is debris/mucus layering in the dependent portion of the hypopharynx. Impression: No acute fracture or malalignment. The CT scanner at [facility] is accredited by the [employer] and the scans are performed using protocols designed to limit radiation exposure to as low as reasonably achievable to attain images of sufficient resolution adequate for diagnostic evaluation.
--- NOTE | 2020-03-02 16:28 | Diagnostic Imaging Report ---
Indication: Reason For Exam: WEAK Technique: Single AP view of the chest. Comparison: Chest radiograph dated 10/25/2019 Findings: The cardiomediastinal silhouette is unchanged in appearance. No new airspace consolidation. Redemonstration of left basilar subsegmental atelectasis/scarring. Again noted is suggestion of emphysematous changes. No acute osseous abnormality. Persistent moderate scoliosis. IMPRESSION: No radiographic evidence of acute cardiopulmonary process.
--- NOTE | 2020-03-02 16:41 | NUR ---
ED Nurse Note:urine sent to labs
--- NOTE | 2020-03-02 16:46 | Diagnostic Imaging Report ---
CT HEAD WITHOUT CONTRAST INDICATION: Reason For Exam: SYNCOPE Technique: Continuous helical CT scanning of the head was performed without intravenous contrast material. Axial and coronal 5 mm sections were generated. Radiation dose was minimized using automated exposure control DOSE including concurrently performed CT cervical spine: Total Dose Length Product - DLP 1098.[address] Dose Index - CTDIvol(s) 53.4 mGy. COMPARISON: CT head dated 10/24/2019 and 10/31/2019 FINDINGS: There are 2 small foci of acute intraparenchymal hemorrhage with surrounding edema in the right frontal lobe subjacent to the cortex. There is an additional larger focus of acute intraparenchymal hemorrhage in the right medial temporal lobe. No extra-axial collections identified. No evidence of mass effect including midline shift or cisternal effacement. Stable mild dilatation of the ventricular system commensurate with degree of cerebral atrophy. There are scattered patchy subcortical and periventricular hypodensities Visualized mastoid air cells and paranasal sinuses are unremarkable. No focal lesions of the bony calvarium or soft tissues of the scalp are seen. IMPRESSION: Acute intraparenchymal hemorrhage in the right frontal and medial temporal lobes. Findings discussed in person with Dr. Benjamin at [facility] on 03/02/2020. The CT scanner at [facility] is accredited by the [employer] and the scans are performed using protocols designed to limit radiation exposure to as low as reasonably achievable to attain images of sufficient resolution adequate for diagnostic evaluation.
[2020-03-02 16:53] LABS: INR 1.1 (0.9-1.1)
[2020-03-02 17:19] LABS: APPEARANCE,URINE TURBID; BILIRUBIN, URINE NEGATIVE (NEGATIVE); GLUCOSE, URINE (UA) NEGATIVE (NEGATIVE); KETONES,URINE 4+ (NEGATIVE); LEUKOCYTE ESTERASE ,URINE 3+ (NEGATIVE); NITRITE,URINE POSITIVE (NEGATIVE); PH,URINE 5 (4.5-8.0); PROTEIN,URINE 3+ (NEGATIVE); UROBILINOGEN,URINE NORMAL MG/DL (0.0-1.0)
[2020-03-02 17:29] LABS: COLOR,URINE YELLOW
[2020-03-02] MEDS ORDERED: cefTRIAXone 1 GM in NS 55 ML IVPB ONE ×2 (17:45→18:00)
--- NOTE | 2020-03-02 17:47 | NUR ---
ED Nurse Note:given report to Guille Mackenzie RN
[2020-03-02 18:44] VITALS: BP 126/65
--- NOTE | 2020-03-02 18:45 | NUR ---
ED Nurse Note:pt. is sleeping no signs of distress noted
--- NOTE | 2020-03-02 19:57 | NUR ---
ED Nurse Note: Patient is awake and alert x1. Will continue to monitor for safety. Vital signs stable and documented.
[2020-03-02 19:58] VITALS: BP 138/65
--- NOTE | 2020-03-02 20:15 | NUR ---
ED Nurse Note: Patient continues to take off all of his clothes. Patient also DC's IV. Will continue to monitor patient closely.
[2020-03-02 21:30] VITALS: BP 129/69
--- NOTE | 2020-03-02 21:46 | NUR ---
ED Nurse Note: Patient IV restarted at left hand, 20G, patent. Will continue to monitor for transfer.
--- NOTE | 2020-03-02 22:04 | NUR ---
ED Nurse Note: [facility] is here for picker / packer report rendered to Benny OCONNOR with transport, unit [id number].
[2020-03-02 22:09] VITALS: BP 130/65
== END 2020-03-02 22:09 | disposition short-term general hospital (02) ==
LOC: EDBD 14:44 → EMR 15:49
DX: R53.1 Weakness (principal); R55 Syncope and collapse; S00.83XA Contusion of other part of head, initial encounter; G40.909 Epilepsy, unspecified, not intractable, without status epilepticus; I62.9 Nontraumatic intracranial hemorrhage, unspecified; Z86.711 Personal history of pulmonary embolism; Z79.01 Long term (current) use of anticoagulants; Z91.81 History of falling; Z79.899 Other long term (current) drug therapy; J44.9 Chronic obstructive pulmonary disease, unspecified; Z85.828 Personal history of other malignant neoplasm of skin; R84.2 Abnormal level of other drugs, medicaments and biological substances in specimens from respiratory organs and thorax; Z23 Encounter for immunization
CPT/HCPCS: 36415; 70450; 71045; 72125; 80053; 80185; 81003; 82550; 83690; 83880; 84484; 85025; 85610; 86850; 86900; 86901; 87086; 87181; 90471; 90715; 93005; 96361; 96365; 96367; 99284; J0696; J1953; J7030; U0002

== ENCOUNTER 2020-08-23 14:21 | Inpatient (IN) | payer MEDICARE, MEDICAID ==
[~2020-08-23] VITALS: Ht 177.8 cm; Wt 58.1 kg
--- NOTE | 2020-08-23 14:56 | Emergency Room Report ---
History of Present Illness General Chief Complaint: Generalized Weakness Source: Patient, EMS Present Illness HPI Patient is a 69-year-old male past medical history of COPD, CVA and seizure disorder on Dilantin at home who was brought in by EMS from home for generalized weakness. EMS was called by the patient's physical therapist who has been helping rehab him after an injury last spring. The physical therapist noted that she felt like he was more confused than usual and had increasing generalized weakness. Patient states that his only complaint is mild right upper quadrant and flank pain. He states that is been present for the last couple days. He states that he has a history of hepatitis B and liver cirrhosis. He denies any fever or chills. He denies any chest pain, shortness of breath or cough. He denies any focal weakness. He denies any slurred speech. He denies any recent falls. Allergies: Coded Allergies: SHELLFISH DERIVED (Unverified Allergy, Intermediate, ITCHING/HIVES, 02/17/14) IODINE (Unverified Allergy, Unknown, 02/17/14) Uncoded Allergies: SPINACH (Allergy, Intermediate, SEVERE ITCHING/HIVES, 02/17/14) COVID-19 Screening Contact w/high risk pt: No Recent Travel to affected area: No Experienced COVID-19 symptoms?: No COVID-19 Testing performed MANAGER DEVELOPMENT: No Patient History Reviewed Nursing Documentation: PMH: Agreed; PSxH: Agreed Nursing Documentation-PMH Past Medical History: No History, Except For Hx COPD: Yes Hx Cancer: Yes - BASAL CELL CARCINOMA SKIN Hx Gastrointestinal Problems: Yes Hx Neurological Problems: Yes Hx Seizures: Yes Hx Epilepsy: Yes - Well controlled with medications - last seizure 35 yrs ago Hx Syncope: Yes - THIS AM Hx Headaches: Yes - MIGRAINES Hx Numbness: Yes - TIPS OF THE TOES Review of Systems All Other Systems: negative except mentioned in HPI Physical Exam Vital Signs Date Time Temp Pulse Resp B/P (MAP) Pulse Ox O2 Delivery O2 Flow Rate FiO2 08/23/20 14:30 98.1 88 20 125/66 (85) 96 Room Air Sp02 EP Interpretation: reviewed, normal General Appearance: no apparent distress, alert, GCS 15, non-toxic Head: normocephalic, atraumatic Eyes: bilateral eye normal inspection, bilateral eye PERRL ENT: hearing grossly normal, normal pharynx, no angioedema, normal voice Neck: full range of motion, supple/symm/no masses Respiratory: chest non-tender, lungs clear, normal breath sounds, speaking full sentences Cardiovascular #1: regular rate, rhythm Gastrointestinal: other - Right upper quadrant palpable liver no tenderness to palpation no guarding or rebound Rectal: deferred Musculoskeletal: other - Symmetric mild bilateral lower extremity weakness no focal weakness sensation intact Neurologic: school age program associate III-XII nml as tested, oriented x3 Psychiatric: no suicidal/homicidal ideation Skin: no rash Lymphatic: no adenopathy Medical Decision Making Diagnostic Impression: Primary Impression: Encephalopathy Additional Impressions: UTI (urinary tract infection) Weakness ER Course Patient here for increasing confusion and weakness. CT brain demonstrates no acute intracranial pathology. Patient's labs demonstrate UTI. Patient has been started on Rocephin. Lactate is normal. Patient will be admitted for further treatment and evaluation. Laboratory Tests Test 08/23/20 15:20 08/23/20 16:30 08/23/20 17:20 White Blood Count 5.1 K/UL (4.8-10.8) Red Blood Count 4.18 M/UL (4.70-6.10) L Hemoglobin 14.2 G/DL (14.2-18.0) Hematocrit 40.3 % (42.0-52.0) L Mean Corpuscular Volume 96 FL (80-99) Mean Corpuscular Hemoglobin 34.0 PG (27.0-31.0) H Mean Corpuscular Hemoglobin Concent 35.3 G/DL (32.0-36.0) Red Cell Distribution Width 16.8 % (11.6-14.8) H Platelet Count 216 K/UL (150-450) Mean Platelet Volume 6.9 FL (6.5-10.1) Neutrophils (%) (Auto) 63.4 % (45.0-75.0) Lymphocytes (%) (Auto) 25.7 % (20.0-45.0) Monocytes (%) (Auto) 9.9 % (1.0-10.0) Eosinophils (%) (Auto) 0.4 % (0.0-3.0) Basophils (%) (Auto) 0.6 % (0.0-2.0) Prothrombin Time 11.8 SEC (9.30-11.50) H Prothrombin Time INR 1.1 (0.9-1.1) Activated Partial Thromboplast Time 28 SEC (23-33) Lactic Acid Level 1.80 mmol/L (0.4-2.0) Ammonia < 10 umol/L (11-32) L Troponin I 0.000 ng/mL (0.000-0.056) Sodium Level 146 MMOL/L (136-145) H Potassium Level 3.8 MMOL/L (3.5-5.1) Chloride Level 109 MMOL/L (98-107) H Carbon Dioxide Level 32 MMOL/L (21-32) Anion Gap 5 mmol/L (5-15) Blood Urea Nitrogen 20 mg/dL (7-18) H Creatinine 0.9 MG/DL (0.55-1.30) Estimated Glomerular Filtration Rate > 60 mL/min (>60) Glucose Level 95 MG/DL (74-106) Calcium Level 9.8 MG/DL (8.5-10.1) Magnesium Level 2.2 MG/DL (1.8-2.4) Total Bilirubin 0.3 MG/DL (0.2-1.0) Aspartate Amino Transferase (AST) 25 U/L (15-37) Alanine Aminotransferase (ALT) 24 U/L (12-78) Alkaline Phosphatase 206 U/L (46-116) H Total Creatine Kinase 207 U/L (26-308) Pro-B-Type Natriuretic Peptide 95 pg/mL (0-125) Total Protein 7.0 G/DL (6.4-8.2) Albumin 3.0 G/DL (3.4-5.0) L Globulin 4.0 g/dL Albumin/Globulin Ratio 0.8 (1.0-2.7) L Urine Color Yellow Urine Appearance Very cloudy Urine pH 5 (4.5-8.0) Urine Specific [place] 1.020 (1.005-1.035) Urine Protein 4+ (NEGATIVE) H Urine Glucose (UA) Negative (NEGATIVE) Urine Ketones 2+ (NEGATIVE) H Urine Blood 3+ (NEGATIVE) H Urine Nitrite Negative (NEGATIVE) Urine Bilirubin Negative (NEGATIVE) Urine Urobilinogen 1 MG/DL (0.0-1.0) H Urine Leukocyte Esterase 3+ (NEGATIVE) H Urine RBC 0-2 /HPF (0 - 0) H Urine WBC Tntc /HPF (0 - 0) H Urine Squamous Epithelial Cells None /LPF (NONE/OCC) Urine Bacteria Many /HPF (NONE) H EKG Diagnostic Results Troponin ordered: Yes When was troponin ordered?: Aug 23, 2020 EKG Time: 16:12 EP Interpretation: Nia Yuen MD Rate: normal - 78 bpm Rhythm: NSR ST Segments: no acute changes ASA given to the pt in ED: No Rhythm Strip Diag. Results Rhythm Strip Time: 16:23 EP Interpretation: yes Rate: 82 bpm Rhythm: NSR, no PVC's, no ectopy Chest X-Ray Diagnostic Results Chest X-Ray Diagnostic Results : Chest X-Ray Ordered: Yes # of Views/Limited/Complete: 1 View Indication: Other - Weakness EP Interpretation: Yes Interpretation: no consolidation, no effusion, no pneumothorax, no acute cardiopulmonary disease Impression: No acute disease Last Vital Signs Date Time Temp Pulse Resp B/P (MAP) Pulse Ox O2 Delivery O2 Flow Rate FiO2 08/23/20 14:30 98.1 88 20 125/66 (85) 96 Room Air Disposition: ADMITTED INPATIENT - MS Condition: Critical Physician Consult: Dr. Shantelle MD at 845pm Additional Instructions: Please note that this report is being documented using Tinych[employer] technology. This can lead to erroneous entry secondary to incorrect interpretation by the dictating instrument. Nia Yuen M.D. Aug 23, 2020 14:56
[2020-08-23 15:27] VITALS: BP 121/72
--- NOTE | 2020-08-23 15:27 | NUR ---
ED Nurse Note: iv started labs sent, us at bedside.
[2020-08-23] MEDS ORDERED: Phenytoin 100mg cap ORAL ONE (15:45)
[2020-08-23 15:49] LABS: INR 1.1 (0.9-1.1)
--- NOTE | 2020-08-23 16:12 | Diagnostic Imaging Report ---
Procedure: XRAY Chest 1v Reason for study: Altered mental status Comparison films: 03/02/2020. FINDINGS: A single one view chest is obtained. Vascularity is normal. The lung vizcarra are clear bilaterally. Cardiac and mediastinal silhouette are within normal limits. CP angles are sharp. The bony thorax appear unremarkable. IMPRESSION: NO ACUTE CARDIOPULMONARY DISEASE.
--- NOTE | 2020-08-23 16:20 | Diagnostic Imaging Report ---
EXAM: CT CT Head no Contrast INDICATION: Altered mental status. TECHNIQUE: Axial images of the brain were obtained with subsequent sagittal and coronal reformats. All CT scans at this facility are performed using dose modulation techniques as appropriate to a performed exam including the following: automated exposure control with adjustment of the mA and/or kV according to patient size. COMPARISON STUDY: None. RADIATION DOSE: CTDIvol: 53.4 mGy DLP: 1125.7 mGy-cm Dose information generated by the CT scanner is available in PACS. FINDINGS: There is age related senescent changes with ventricular and sulcal prominence. White matter micro-ischemic changes noted. There is an area of asymmetric volume loss in the right temporal lobe likely from an old infarct. There is no acute large territory cortical infarct, hemorrhage, mass effect or shift. Ventricles and cisterns as well as brainstem and posterior fossa appear unremarkable. The sellar region is normal. Sinuses, mastoid air cells and bony calvarium appear intact. IMPRESSION: AGE RELATED SENESCENT CHANGES. SMALL AREA OF ASYMMETRIC VOLUME LOSS IN THE RIGHT TEMPORAL LOBE LIKELY AN OLD INFARCT. NO ACUTE INTRACRANIAL ABNORMALITY.
[2020-08-23 16:29] LABS: BASOPHILS % (AUTO) 0.6 % (0.0-2.0); EOSINOPHILS % (AUTO) 0.4 % (0.0-3.0); HEMATOCRIT 40.3 % (42.0-52.0); HEMOGLOBIN 14.2 G/DL (14.2-18.0); LYMPHOCYTES % (AUTO) 25.7 % (20.0-45.0); MEAN CORPUSCULAR VOLUME 96 FL (80-99); MONOCYTES % (AUTO) 9.9 % (1.0-10.0); NEUTROPHILS % (AUTO) 63.4 % (45.0-75.0); PLATELET COUNT 216 K/UL (150-450); RED BLOOD COUNT 4.18 M/UL (4.70-6.10); RED CELL DISTRIBUTION WIDTH 16.8 % (11.6-14.8); WHITE BLOOD COUNT 5.1 K/UL (4.8-10.8)
--- NOTE | 2020-08-23 16:34 | Diagnostic Imaging Report ---
EXAM: ULTRASOUND US ABD Complete CLINICAL HISTORY: Abdominal pain. COMPARISON: None TECHNIQUE: Ultrasound examination of the abdomen includes grayscale images, and color and spectral doppler analysis. FINDINGS: Study is technically difficult. The liver demonstrates diffuse coarse hepatic echotexture. No ductal dilatation noted. Spleen is unremarkable. The gallbladder is without sludge or stone. Common bile duct measures 2 mm. The pancreas, aorta and cava are grossly unremarkable to the extent visualized appear The kidneys are normal in size, shape and axis. No ascites noted. IMPRESSION: COARSE HEPATIC ECHOTEXTURE WHICH MAY BE RELATED THE PATIENT'S HISTORY OF HEPATITIS B. NO IZZY CIRRHOSIS OR SPACE-OCCUPYING LESION SEEN PRESENTLY.
[2020-08-23 16:36] VITALS: BP 122/71
[2020-08-23 17:29] LABS: ALANINE AMINOTRANSFERASE 24 U/L (12-78); ALBUMIN/GLOBULIN RATIO 0.8 (1.0-2.7); ALKALINE PHOSPHATASE 206 U/L (46-116); ANION GAP 5 mmol/L (5-15); ASPARTATE AMINO TRANSFERASE 25 U/L (15-37); BILIRUBIN,TOTAL 0.3 MG/DL (0.2-1.0); BLOOD UREA NITROGEN 20 mg/dL (7-18); CALCIUM 9.8 MG/DL (8.5-10.1); CARBON DIOXIDE 32 MMOL/L (21-32); CHLORIDE 109 MMOL/L (98-107); CREATINE KINASE 207 U/L (26-308); CREATININE 0.9 MG/DL (0.55-1.30); POTASSIUM 3.8 MMOL/L (3.5-5.1); SODIUM 146 MMOL/L (136-145)
[2020-08-23 17:58] LABS: APPEARANCE,URINE VERY CLOUDY; BILIRUBIN, URINE NEGATIVE (NEGATIVE); GLUCOSE, URINE (UA) NEGATIVE (NEGATIVE); KETONES,URINE 2+ (NEGATIVE); LEUKOCYTE ESTERASE ,URINE 3+ (NEGATIVE); NITRITE,URINE NEGATIVE (NEGATIVE); PH,URINE 5 (4.5-8.0); PROTEIN,URINE 4+ (NEGATIVE); UROBILINOGEN,URINE 1 MG/DL (0.0-1.0)
[2020-08-23 18:00] LABS: COLOR,URINE YELLOW
[2020-08-23] MEDS ORDERED: cefTRIAXone 1 GM in NS 55 ML IVPB ONE (18:15)
--- NOTE | 2020-08-23 19:30 | NUR ---
ED Nurse Note: Fs and clinicals faxed to [phone] per ASHLEY
--- NOTE | 2020-08-23 19:51 | NUR ---
ED Nurse Note: rcv'd pt from initial RN. Pt is A&Ox3, unsteady on his feet- pt states he uses his wheelchair at home. Has an aide that helps him usually. Pt states his is in no pain at this time. Using urinal at bedside. IV in left AC is patent- no redness, swelling or pain. Pts belongings: blue shirt, alvarez robe, phone program writer and smart phone.
[2020-08-23] MEDS ORDERED: SUMATRIPTAN SU100 MG PO ×2 (21:31→23:42)
--- NOTE | 2020-08-23 21:47 | NUR ---
ED Nurse Note: Report given to Jackie Campbell RN.
--- NOTE | 2020-08-23 21:47 | NUR ---
TRANSFER TO FLOOR: Patient transferred to Med Surg [phone] via java technical manager on [facility]. Report given to ANASTASIA Mejia. Belongings given to ED RN and transferred to performing arts technicians in pts presence. Family and or S/O informed of transfer.
--- NOTE | 2020-08-23 22:10 | NUR ---
NURSE NOTES: ADMITTED 69 YEAR OLD MALE FROM EMERGENCY DEPARTMENT TO ROOM 415 BED 2 WITH DIAGNOSIS ALTERED MENTAL STATUS/URINARY TRACT INFECTION, UNDER THE CARE OF DR. MUIR. PATIENT ALERT/ORIENTED TO PERSON/PLACE/YEAR/PURPOSE, DENIES PAIN, NO SIGNS AND SYMPTOMS OF ACUTE CARDIO RESPIRATORY DISTRESS/SHORTNESS OF BREATH, DENIES CHEST PAIN, NO PERIPHERAL EDEMA NOTED. NOTED WITH MULTIPLE SCABS TO LOWER EXTREMITIES SECONDARY TO RECENT FALL, LOOSE TOE NAIL TO SECOND DIGIT ON LEFT FOOT. ABDOMEN SOFT/NON DISTENDED/NON TENDER/AUDIBLE BOWEL SOUNDS, DENIES N/V/D. WEAKNESS NOTED TO LOWER EXTREMITIES, MORE PRONOUNCED ON RIGHT LOWER EXTREMITY, WEARING DEPEND, SOILED, CARE PROVIDED, OFFERED URINAL. ORIENTATED PATIENT TO ROOM/ENVIRONMENT. SIDE RAILS UP X3/BED IN LOWEST POSITION FOR SAFETY, ENCOURAGED PATIENT TO UTILIZE CALL LIGHT FOR ASSISTANCE, VERBALIZED UNDERSTANDING. VITALS STABLE, AFEBRILE. NAD.
[2020-08-23 22:15] VITALS: BP 124/70
[2020-08-23] MEDS ORDERED: AMITRIPTYLINE100 MG ORAL (23:53)
[2020-08-24] VITALS: BP 120/74
--- NOTE | 2020-08-24 00:05 | History & Physical ---
History and Physical History & Physicial Jose Sosa MD Aug 24, 2020 00:05
[2020-08-24] MEDS ORDERED: Phenytoin 100mg cap ORAL SCH (01:00)
[2020-08-24] MEDS: Tamsulosin 0.4mg cap ORAL SCH ×2 (01:59→20:17)
[2020-08-24] MEDS: D5 1/2NS w/KCl 20mEq 1,000 ML IV SCH ×2 (02:00→15:49)
[2020-08-24 04:00] VITALS: BP 129/69
[2020-08-24 05:26] LABS: BASOPHILS % (AUTO) 1.2 % (0.0-2.0); EOSINOPHILS % (AUTO) 0.7 % (0.0-3.0); HEMATOCRIT 40.6 % (42.0-52.0); HEMOGLOBIN 14.2 G/DL (14.2-18.0); LYMPHOCYTES % (AUTO) 21.9 % (20.0-45.0); MEAN CORPUSCULAR VOLUME 98 FL (80-99); MONOCYTES % (AUTO) 8.2 % (1.0-10.0); NEUTROPHILS % (AUTO) 68.1 % (45.0-75.0); PLATELET COUNT 228 K/UL (150-450); RED BLOOD COUNT 4.12 M/UL (4.70-6.10); RED CELL DISTRIBUTION WIDTH 16.6 % (11.6-14.8)
[2020-08-24 05:27] LABS: ALANINE AMINOTRANSFERASE 20 U/L (12-78); ALBUMIN 3.3 G/DL (3.4-5.0); ALBUMIN/GLOBULIN RATIO 0.8 (1.0-2.7); ALKALINE PHOSPHATASE 229 U/L (46-116); ANION GAP 9 mmol/L (5-15); ASPARTATE AMINO TRANSFERASE 27 U/L (15-37); BILIRUBIN,TOTAL 0.3 MG/DL (0.2-1.0); BLOOD UREA NITROGEN 17 mg/dL (7-18); CARBON DIOXIDE 29 MMOL/L (21-32); CHLORIDE 107 MMOL/L (98-107); SODIUM 145 MMOL/L (136-145)
--- NOTE | 2020-08-24 07:20 | NUR ---
NURSE HAND-OFF: Important Events on Shift:[ADMISSION, AMS DIAGNOSIS/PATIENT RESPONDED ADEQUATELY TO SIMPLE QUESTIONS, ORIENTED TO PERSON/PLACE/YEAR/PURPOSE ] Patient Status: [RESTING COMFORTABLY, NO COMPLAINTS OF PAIN THROUGHOUT THE NIGHT. NAD.] Diet: [REGULAR, MECHANICAL SOFT CHOPPED] Pending Orders: [[facility]] Pending Results/Labs:[] Pending MD notification:[] Latest Vital Signs: Temperature 97.9 , Pulse 81 , B/P 129 /69 , Respiratory Rate 18 , O2 SAT 99 , Room Air, O2 Flow Rate . Vital Sign Comment: [STABLE, AFEBRILE] Latest Roche Fall Score: 60 Fall Risk: High Risk Safety Measures: Call light Within Reach, Bed Alarm Zone 2, Side Rails Side Rails x3, Bed position Low and Locked. Fall Precautions: Yellow Socks Yellow Gown Door Sign Patient Fall Education Report given to [ANASTASIA KIRBY].
--- NOTE | 2020-08-24 07:40 | NUR ---
NURSE NOTES: received report from LEE ANN elias. patient in bed. alert to person and place. disoriented to time and purpose. verbally responsive. forgetful and confused. no respiratory distress on room air. mild discomfort on RUQ and lateral. IV on LAC 20g running D5 1/2ns 20kcl@ 75/hr. using urinal and occasionally incontinent. tolerated regular food. consumed 90% of breakfast. high risk fall d/t multiple hs of fall at home. bed in the lowest position and locked. call light within reach. alarm on. side rails are up and padded for seizure precaution.
[2020-08-24 08:00] VITALS: BP 146/81
--- NOTE | 2020-08-24 09:43 | NUR ---
RD ASSESSMENT & RECOMMENDATIONS SEE CARE ACTIVITY FOR COMPLETE ASSESSMENT DAILY ESTIMATED NEEDS: Needs based on Pulmonary 58kg 25-35 kcals/kg 1740-3282 total kcals 1-1.5 g protein/kg 58-87 g total protein 25-30 mL/kg 0327-5154 total fluid mLs NUTRITION DIAGNOSIS: Increased kcal needs r/t Low BMI as evidenced by BMI 18.4, underweight per guidelines 77% of [place] Body Weight. CURRENT DIET: Regular ms chopped PO DIET RECOMMENDATIONS: With good po intake >75%, rec Low Na diet/ texture as tolerated ADDITIONAL RECOMMENDATIONS: 1) Monitor po intake, rec FACULTY HEAD eval 2) Obtain a standing weight as able or calibrated bed scale 3) Check lytes daily, replete as needed 4) Add Ensure Enlive BID . .
--- NOTE | 2020-08-24 09:51 | Consultation ---
History of Present Illness General Date patient seen: Aug 24, 2020 Time patient seen: 12:10 Chief Complaint: Generalized Weakness Referring physician: Dr. Sosa Reason for Consultation: R/o infection Present Illness HPI 69yo M w/ PMH of COPD, CVA, seizure d/o, who p/w generalized weakness. Was working w/ home PT and noted to be more confused than usual w/ increasing weakness, so EMS was called. ID c/s given c/f possible infection. In house, pt has been AF, HDS on RA. Normal WBC. UA+ but UCx NTD. Pt c/o mild RUQ pain and flank pain x few days In speaking with pt, he reports he was told to come in but has felt fine at home. Currently feels fine too. Denies any fevers/chills, NVD, abd pain, CP, SOB, cough. No dysuria. Lives alone with his cat, did have a research agricultural engineer recently at home. Says he used to have hepatitis B, but not anymore. Denies being on any meds for HepB PMH: COPD CVA Seizure d/o HBV c/b cirrhosis Allergies: Coded Allergies: SHELLFISH DERIVED (Unverified Allergy, Intermediate, ITCHING/HIVES, 02/17/14) IODINE (Unverified Allergy, Unknown, 02/17/14) Uncoded Allergies: SPINACH (Allergy, Intermediate, SEVERE ITCHING/HIVES, 02/17/14) Medication History Scheduled Acetaminophen* (Acetaminophen 325MG Tablet*), 325 MG ORAL Q4H, (Reported) Amitriptyline Hcl* (Amitriptyline Hcl*), 75 MG ORAL BEDTIME, (Reported) Lansoprazole* (Lansoprazole*), 30 MG ORAL DAILY, (Reported) Latanoprost* (Xalatan*), 1 DROP BOTH EYES BEDTIME, (Reported) Phenytoin Sodium Extended* (Dilantin*), 100 MG ORAL THREE TIMES A DAY, (Reported) Phenytoin Sodium Extended* (Dilantin*), 100 MG ORAL THREE TIMES A DAY, (Reported) Primidone* (Mysoline*), 250 MG ORAL THREE TIMES A DAY Tamsulosin Hcl (Tamsulosin Hcl*), 0.4 MG ORAL BEDTIME, (Reported) Tolterodine Tartrate (Tolterodine Tartrate), 4 MG PO DAILY, (Reported) Warfarin Sod* (Warfarin Sod*), 7.5 MG ORAL DAILY, (Reported) Scheduled PRN Amitriptyline HCl (Amitriptyline HCl), 10 MG ORAL BEDTIME PRN for For Headache, (Reported) Sumatriptan Succinate (Sumatriptan Succinate), 100 MG PO for For Headache, (Reported) Sumatriptan Succinate (Sumatriptan Succinate), 100 MG PO TWICE A DAY PRN for For Headache, (Reported) Patient History Healthcare decision maker Resuscitation status Advanced Directive on File Review of Systems ROS Narrative 10-point neg except as noted in HPI Physical Exam Physical Exam Narrative Gen: NAD HEENT: NCAT Pulm: BL chest rise on RA, non-labored Abd: Thin, soft, NTND Ext: No c/c/e Skin: No visible rashes Neuro: Awake, A&O to place, location and year, moving all extremities spontaneously Last 24 Hour Vital Signs Date Time Temp Pulse Resp B/P (MAP) Pulse Ox O2 Delivery O2 Flow Rate FiO2 08/24/20 08:00 98.4 88 17 146/81 (102) 96 08/24/20 04:00 97.9 81 18 129/69 (89) 99 08/24/20 00:00 98.7 72 20 120/74 (89) 97 08/23/20 22:31 Room Air 08/23/20 22:15 97.6 77 20 124/70 (88) 99 08/23/20 21:56 98.1 79 20 122/71 25 Room Air 100 08/23/20 16:36 79 20 122/71 25 Room Air 08/23/20 15:28 75 20 Room Air 100 08/23/20 15:27 75 20 121/72 97 Room Air 08/23/20 14:30 98.1 88 20 125/66 (85) 96 Room Air Intake and Output 08/23/20 08/24/20 19:00 07:00 Intake Total 720 ml Output Total 30 ml 500 ml Balance -30 ml 220 ml Intake Oral 420 ml IV Total 300 ml Output Urine Total 30 ml 500 ml # Voids 1 Laboratory Tests Test 08/23/20 15:20 08/23/20 16:30 08/23/20 17:20 08/24/20 04:45 White Blood Count 5.1 K/UL (4.8-10.8) 6.0 K/UL (4.8-10.8) Red Blood Count 4.18 M/UL (4.70-6.10) L 4.12 M/UL (4.70-6.10) L Hemoglobin 14.2 G/DL (14.2-18.0) 14.2 G/DL (14.2-18.0) Hematocrit 40.3 % (42.0-52.0) L 40.6 % (42.0-52.0) L Mean Corpuscular Volume 96 FL (80-99) 98 FL (80-99) Mean Corpuscular Hemoglobin 34.0 PG (27.0-31.0) H 34.5 PG (27.0-31.0) H Mean Corpuscular Hemoglobin Concent 35.3 G/DL (32.0-36.0) 35.0 G/DL (32.0-36.0) Red Cell Distribution Width 16.8 % (11.6-14.8) H 16.6 % (11.6-14.8) H Platelet Count 216 K/UL (150-450) 228 K/UL (150-450) Mean Platelet Volume 6.9 FL (6.5-10.1) 6.9 FL (6.5-10.1) Neutrophils (%) (Auto) 63.4 % (45.0-75.0) 68.1 % (45.0-75.0) Lymphocytes (%) (Auto) 25.7 % (20.0-45.0) 21.9 % (20.0-45.0) Monocytes (%) (Auto) 9.9 % (1.0-10.0) 8.2 % (1.0-10.0) Eosinophils (%) (Auto) 0.4 % (0.0-3.0) 0.7 % (0.0-3.0) Basophils (%) (Auto) 0.6 % (0.0-2.0) 1.2 % (0.0-2.0) Prothrombin Time 11.8 SEC (9.30-11.50) H Prothromb Time International Ratio 1.1 (0.9-1.1) Activated Partial Thromboplast Time 28 SEC (23-33) Lactic Acid Level 1.80 mmol/L (0.4-2.0) Ammonia < 10 umol/L (11-32) L Troponin I 0.000 ng/mL (0.000-0.056) Sodium Level 146 MMOL/L (136-145) H 145 MMOL/L (136-145) Potassium Level 3.8 MMOL/L (3.5-5.1) 4.0 MMOL/L (3.5-5.1) Chloride Level 109 MMOL/L (98-107) H 107 MMOL/L (98-107) Carbon Dioxide Level 32 MMOL/L (21-32) 29 MMOL/L (21-32) Anion Gap 5 mmol/L (5-15) 9 mmol/L (5-15) Blood Urea Nitrogen 20 mg/dL (7-18) H 17 mg/dL (7-18) Creatinine 0.9 MG/DL (0.55-1.30) 1.0 MG/DL (0.55-1.30) Estimat Glomerular Filtration Rate > 60 mL/min (>60) > 60 mL/min (>60) Glucose Level 95 MG/DL (74-106) 106 MG/DL (74-106) Calcium Level 9.8 MG/DL (8.5-10.1) 10.0 MG/DL (8.5-10.1) Magnesium Level 2.2 MG/DL (1.8-2.4) 2.1 MG/DL (1.8-2.4) Total Bilirubin 0.3 MG/DL (0.2-1.0) 0.3 MG/DL (0.2-1.0) Aspartate Amino Transf (AST/SGOT) 25 U/L (15-37) 27 U/L (15-37) Alanine Aminotransferase (ALT/SGPT) 24 U/L (12-78) 20 U/L (12-78) Alkaline Phosphatase 206 U/L (46-116) H 229 U/L (46-116) H Total Creatine Kinase 207 U/L (26-308) Pro-B-Type Natriuretic Peptide 95 pg/mL (0-125) Total Protein 7.0 G/DL (6.4-8.2) 7.7 G/DL (6.4-8.2) Albumin 3.0 G/DL (3.4-5.0) L 3.3 G/DL (3.4-5.0) L Globulin 4.0 g/dL 4.4 g/dL Albumin/Globulin Ratio 0.8 (1.0-2.7) L 0.8 (1.0-2.7) L Urine Color Yellow Urine Appearance Very cloudy Urine pH 5 (4.5-8.0) Urine Specific Bradley 1.020 (1.005-1.035) Urine Protein 4+ (NEGATIVE) H Urine Glucose (UA) Negative (NEGATIVE) Urine Ketones 2+ (NEGATIVE) H Urine Blood 3+ (NEGATIVE) H Urine Nitrite Negative (NEGATIVE) Urine Bilirubin Negative (NEGATIVE) Urine Urobilinogen 1 MG/DL (0.0-1.0) H Urine Leukocyte Esterase 3+ (NEGATIVE) H Urine RBC 0-2 /HPF (0 - 0) H Urine WBC Tntc /HPF (0 - 0) H Urine Squamous Epithelial Cells None /LPF (NONE/OCC) Urine Bacteria Many /HPF (NONE) H Phosphorus Level 3.0 MG/DL (2.5-4.9) Microbiology Date/Time Source Procedure Growth Status 08/23/20 17:20 Urine,Clean Catch Urine Culture - Preliminary NO GROWTH Resulted Height (Feet): 5 Height (Inches): 10.00 Weight (Pounds): 128 Medications Current Medications Medications (Trade) Dose Ordered Sig/Ashley Route PRN Reason Start Time Stop Time Status Last Admin Dose Admin Acetaminophen (Tylenol) 325 mg Q4H PRN ORAL For Pain 08/24/20 00:30 09/23/20 00:29 Ceftriaxone Sodium 1 gm/ Dextrose 55 ml @ 110 mls/hr Q24H IVPB 08/24/20 18:00 08/31/20 17:59 Dextrose/ Electrolytes 1,000 ml @ 75 mls/hr [id number] IV 08/24/20 02:00 09/23/20 01:59 08/24/20 02:00 Latanoprost (Xalatan) 1 drop BEDTIME BOTH EYES 08/24/20 21:00 09/23/20 20:59 Pantoprazole (Protonix) 40 mg DAILY ORAL 08/24/20 09:00 09/23/20 08:59 08/24/20 08:26 Phenytoin (Dilantin) 300 mg BEDTIME ORAL 08/24/20 21:00 09/23/20 20:59 Primidone (Mysoline) 250 mg TID ORAL 08/24/20 09:00 09/23/20 08:59 08/24/20 08:26 Sumatriptan Succinate (Imitrex) 100 mg TWICE A DAY PRN ORAL For Headache 08/24/20 00:15 09/23/20 00:14 Tamsulosin HCl (Flomax) 0.4 mg BEDTIME ORAL 08/24/20 01:00 09/23/20 00:59 08/24/20 01:59 Assessment/Plan Assessment/Plan: 69yo M with: Afebrile Normal WBC Satting well on RA R/o UTI R/o infection Weakness, failure to thrive 08/23 BCx p COVID PCR p UA+, UCx NTD CXR: No acute process CTH: Neg for acute process H/o HBV - per pt doesn't have it anymore Cirrhosis Elevated alk phos to 200s Abd US: COARSE HEPATIC ECHOTEXTURE WHICH MAY BE RELATED THE PATIENT'S HISTORY OF HEPATITIS B. NO IZZY CIRRHOSIS OR SPACE-OCCUPYING LESION SEEN PRESENTLY. PMH: COPD CVA Seizure d/o HBV c/b cirrhosis Plan: Cont CTX 1g IV daily #2 for possible UTI HIV screen HBV Viral load, HBV serologies HCV Ab screen F/u COVID PCR F/u BCx, UCx Monitor CBC/CMP Monitor temp curve, hemodynamics Monitor resp status D/w RN and Pulm TRAVIS Rapp Thank you for this consult. [facility] will continue to follow. Della Child M.D. Aug 24, 2020 09:51
--- NOTE | 2020-08-24 11:49 | NUR ---
NURSE NOTES: patient admitted under Dr. Pepper but per TRAVIS Skelton Dr is not primary anymore, only Pulmonary consult. Notified and received order change primary to Ian Aguilar from Dr. Pepper. order noted and carried out.
[2020-08-24 12:00] VITALS: BP 104/71
--- NOTE | 2020-08-24 12:10 | NUR ---
NURSE NOTES: given doctor's order of switch primary physician to Dr.Shadi Garcia to [facility], Admitting Office. He will change the system.
--- NOTE | 2020-08-24 14:21 | NUR ---
CASE MANAGEMENT:REVIEW 69 YR OLD MALE PRESENTED TO ER CC: WORSENING WEAKNESS SI: WEAKNESS. UTI 98.1 88 20 125/66 96% ON RA BUN+20 IS: PRIMIDONE PO DILANTIN PO IV ROCEPHIN IVF@75/HR URINE CX ABD US : TO MED/SURG 4 DCP: RETURN TO PRIOR LIVING ARRANGEMENTS
--- NOTE | 2020-08-24 14:36 | Consultation ---
Consult Note Consult Note DATE OF CONSULTATION: 08/24/2020 CONSULTING PHYSICIAN: Can Pepper MD. ATTENDING PHYSICIAN: Dr. Sosa REASON FOR CONSULTATION: History of COPD HISTORY OF PRESENT ILLNESS: This is a 69-year-old male with past medical history of COPD, CVA, and seizure disorder on Dilantin, who was brought in by EMS from home for generalized weakness. EMS was called by the patient's physical therapist who has been helping rehab after an injury last spring. According to EMS, patient was more confused than usual. Patient initially complained of right upper quadrant and flank pain with history of hepatitis B and liver cirrhosis. Patient denied taking any medication at home for his hepatitis B. He denies any chest pain, shortness of breath, or cough. Patient reports feeling fine. Chest x-ray was unremarkable. Patient tested negative for COVID-[address] of the brain demonstrated no acute intracranial pathology. Patient's UA demonstrated UTI and he was started on Rocephin. Patient was admitted to the hospital for further treatment and evaluation. We will follow up urine culture showed no growth. PAST MEDICAL HISTORY: COPD, CVA, seizure MEDICATIONS: Acetaminophen, amitriptyline, lansoprazole, latanoprost, phenytoin, primidone, sumatriptan, tamsulosin, tolterodine, warfarin ALLERGIES: Iodine, shellfish derived, spinach FAMILY HISTORY: Unknown PERSONAL/SOCIAL HISTORY: Patient reports living alone with a cat REVIEW OF SYSTEMS: Negative except mentioned in HPI PHYSICAL EXAMINATION: VITAL SIGNS: Blood pressure 104/71, heart rate 89, respiratory rate 19, weight 58 kg, height 177 cm.. General: Patient laying in bed, appears NAD with normal work of breathing on room air HEENT: Head exam reveals that the head is normocephalic, atraumatic without deformity or unusual swelling. Pupils are PERRLA. CHEST AND LUNGS: Reveals clear, normal, symmetrical breath sounds with no adventitious sounds. CARDIOVASCULAR: Reveals normal S1, S2 without murmurs, rubs, or clicks. ABDOMEN: Soft with no tenderness or organomegaly. RECTAL: Deferred. MUSCULOSKELETAL: There is no tenderness to palpation. Range of motion is normal. NEUROLOGICAL: Alert and oriented x3 , nonfocal LABORATORY DATA: Laboratory testing WBC 6, RBC 4.12, hemoglobin 14.2, hematocrit 40.6 Chemistries show alk phos 229, albumin 3.3, otherwise unremarkable Assessment/Plan 1. History of COPD -Patient denies using home oxygen -Currently saturating well on room air -Monitor for hypoxia and provide supplemental oxygen as needed 2. COVID-19 PCR negative 3. History of hepatitis B -Per patient, he does not have it anymore -Abdominal US shows coarse hepatic echotexture. No cirrhosis or space- occupying lesion seen. - ID following 4. UTI -Preliminary urine culture did not show growth -On Rocephin for possible UTI per ID - ID following The care for this patient was discussed with my supervising physician. Time spent for this case was approximately 31 minutes. Alfredo Rapp Aug 24, 2020 14:36
--- NOTE | 2020-08-24 14:47 | Consultation ---
History of Present Illness General Date patient seen: Aug 24, 2020 Reason for Hospitalization: Generalized Weakness Present Illness HPI This is a 69-year-old male with past medical history of COPD, CVA and seizure disorder on Dilantin at home who was brought in by EMS from home for generalized weakness. EMS was called by the patient's physical therapist who has been helping rehab him after an injury last spring. The physical therapist noted that she felt like he was more confused than usual and had increasing generalized weakness. Patient states that his only complaint is mild right upper quadrant and flank pain. He states that is been present for the last couple days. He states that he has a history of hepatitis B and liver cirrhosis. He denies any fever or chills. He denies any chest pain, shortness of breath or cough. He denies any focal weakness. He denies any slurred speech. He denies any recent falls. abnormal labs, lft's surgery called to evaluate and assist with care. Allergies: Coded Allergies: SHELLFISH DERIVED (Unverified Allergy, Intermediate, ITCHING/HIVES, 02/17/14) IODINE (Unverified Allergy, Unknown, 02/17/14) Uncoded Allergies: SPINACH (Allergy, Intermediate, SEVERE ITCHING/HIVES, 02/17/14) COVID-19 Screening Contact w/high risk pt: No Recent Travel to affected area: No Experienced COVID-19 symptoms?: No Medication History Scheduled Acetaminophen* (Acetaminophen 325MG Tablet*), 325 MG ORAL Q4H, (Reported) Amitriptyline Hcl* (Amitriptyline Hcl*), 75 MG ORAL BEDTIME, (Reported) Lansoprazole* (Lansoprazole*), 30 MG ORAL DAILY, (Reported) Latanoprost* (Xalatan*), 1 DROP BOTH EYES BEDTIME, (Reported) Phenytoin Sodium Extended* (Dilantin*), 100 MG ORAL THREE TIMES A DAY, (Reported) Phenytoin Sodium Extended* (Dilantin*), 100 MG ORAL THREE TIMES A DAY, (Reported) Primidone* (Mysoline*), 250 MG ORAL THREE TIMES A DAY Tamsulosin Hcl (Tamsulosin Hcl*), 0.4 MG ORAL BEDTIME, (Reported) Tolterodine Tartrate (Tolterodine Tartrate), 4 MG PO DAILY, (Reported) Warfarin Sod* (Warfarin Sod*), 7.5 MG ORAL DAILY, (Reported) Scheduled PRN Amitriptyline HCl (Amitriptyline HCl), 10 MG ORAL BEDTIME PRN for For Headache, (Reported) Sumatriptan Succinate (Sumatriptan Succinate), 100 MG PO for For Headache, (Reported) Sumatriptan Succinate (Sumatriptan Succinate), 100 MG PO TWICE A DAY PRN for For Headache, (Reported) Patient History History Provided By: Patient, Medical Record, PMD Healthcare decision maker Resuscitation status Advanced Directive on File Past Medical/Surgical History Past Medical/Surgical History: (1) Falls frequently (2) Cerebellar atrophy (3) Encephalopathy (4) Weakness (5) UTI (urinary tract infection) (6) Altered mental status (7) Hip fracture, intertrochanteric (8) Seizure disorder, complex partial (9) Pulmonary embolism (10) ACS (acute coronary syndrome) (11) Multiple injuries due to trauma Review of Systems Review of Symptoms General ROS: no weight loss or fever Psychological ROS: no depression or mood changes, no memory loss Ophthalmic ROS: no visual changes or eye irritation ENT ROS: no nasal congestion, hearing loss, dizziness Allergy and Immunology ROS: no allergic symptoms or urticaria Hematological and Lymphatic ROS: no swollen glands, unusual bleeding or bruising Endocrine ROS: no polyuria, polydipsia, weight changes, temperature intolerance Respiratory ROS: no cough, shortness of breath, or wheezing Cardiovascular ROS: no chest pain or dyspnea on exertion Gastrointestinal ROS: denies abdominal pain, bright red blood in stool. Musculoskeletal ROS: no myalgias or arthralgias Neurological ROS: no TIA or stroke symptoms Dermatological ROS: no new or changing skin lesions, rashes or pruritis Physical Exam Physical Exam General appearance: alert, cooperative, no distress, appears stated age Head: Normocephalic, without obvious abnormality, atraumatic Eyes: conjunctivae/corneas clear. PERRL, EOM's intact. Fundi benign Throat: Lips, mucosa, and tongue normal. Teeth and gums normal Neck: supple, symmetrical, trachea midline, no adenopathy, thyroid: not enlarg ed, symmetric, no tenderness/mass/nodules, no carotid bruit and no JVD Lungs: clear to auscultation bilaterally Heart: regular rate and rhythm, S1, S2 normal, no murmur, click, rub or gallop Abdomen: soft, non-tender. Bowel sounds normal. No masses, no organomegaly Extremities: extremities normal, atraumatic, no cyanosis or edema Pulses: 2+ and symmetric Skin: Skin color, texture, turgor normal. No rashes or lesions Neurologic: Grossly normal Last 24 Hour Vital Signs Date Time Temp Pulse Resp B/P (MAP) Pulse Ox O2 Delivery O2 Flow Rate FiO2 08/24/20 12:00 98.7 89 19 104/71 (82) 96 08/24/20 09:00 Room Air 08/24/20 08:00 98.4 88 17 146/81 (102) 96 08/24/20 04:00 97.9 81 18 129/69 (89) 99 08/24/20 00:00 98.7 72 20 120/74 (89) 97 08/23/20 22:31 Room Air 08/23/20 22:15 97.6 77 20 124/70 (88) 99 08/23/20 21:56 98.1 79 20 122/71 25 Room Air 100 08/23/20 16:36 79 20 122/71 25 Room Air 08/23/20 15:28 75 20 Room Air 100 08/23/20 15:27 75 20 121/72 97 Room Air Intake and Output 08/23/20 08/24/20 19:00 07:00 Intake Total 795 ml Output Total 30 ml 500 ml Balance -30 ml 295 ml Intake Oral 420 ml IV Total 375 ml Output Urine Total 30 ml 500 ml # Voids 1 Laboratory Tests Test 08/23/20 15:20 08/23/20 16:30 08/23/20 17:20 08/24/20 04:45 White Blood Count 5.1 K/UL (4.8-10.8) 6.0 K/UL (4.8-10.8) Red Blood Count 4.18 M/UL (4.70-6.10) L 4.12 M/UL (4.70-6.10) L Hemoglobin 14.2 G/DL (14.2-18.0) 14.2 G/DL (14.2-18.0) Hematocrit 40.3 % (42.0-52.0) L 40.6 % (42.0-52.0) L Mean Corpuscular Volume 96 FL (80-99) 98 FL (80-99) Mean Corpuscular Hemoglobin 34.0 PG (27.0-31.0) H 34.5 PG (27.0-31.0) H Mean Corpuscular Hemoglobin Concent 35.3 G/DL (32.0-36.0) 35.0 G/DL (32.0-36.0) Red Cell Distribution Width 16.8 % (11.6-14.8) H 16.6 % (11.6-14.8) H Platelet Count 216 K/UL (150-450) 228 K/UL (150-450) Mean Platelet Volume 6.9 FL (6.5-10.1) 6.9 FL (6.5-10.1) Neutrophils (%) (Auto) 63.4 % (45.0-75.0) 68.1 % (45.0-75.0) Lymphocytes (%) (Auto) 25.7 % (20.0-45.0) 21.9 % (20.0-45.0) Monocytes (%) (Auto) 9.9 % (1.0-10.0) 8.2 % (1.0-10.0) Eosinophils (%) (Auto) 0.4 % (0.0-3.0) 0.7 % (0.0-3.0) Basophils (%) (Auto) 0.6 % (0.0-2.0) 1.2 % (0.0-2.0) Prothrombin Time 11.8 SEC (9.30-11.50) H Prothromb Time International Ratio 1.1 (0.9-1.1) Activated Partial Thromboplast Time 28 SEC (23-33) Lactic Acid Level 1.80 mmol/L (0.4-2.0) Ammonia < 10 umol/L (11-32) L Troponin I 0.000 ng/mL (0.000-0.056) Sodium Level 146 MMOL/L (136-145) H 145 MMOL/L (136-145) Potassium Level 3.8 MMOL/L (3.5-5.1) 4.0 MMOL/L (3.5-5.1) Chloride Level 109 MMOL/L (98-107) H 107 MMOL/L (98-107) Carbon Dioxide Level 32 MMOL/L (21-32) 29 MMOL/L (21-32) Anion Gap 5 mmol/L (5-15) 9 mmol/L (5-15) Blood Urea Nitrogen 20 mg/dL (7-18) H 17 mg/dL (7-18) Creatinine 0.9 MG/DL (0.55-1.30) 1.0 MG/DL (0.55-1.30) Estimat Glomerular Filtration Rate > 60 mL/min (>60) > 60 mL/min (>60) Glucose Level 95 MG/DL (74-106) 106 MG/DL (74-106) Calcium Level 9.8 MG/DL (8.5-10.1) 10.0 MG/DL (8.5-10.1) Magnesium Level 2.2 MG/DL (1.8-2.4) 2.1 MG/DL (1.8-2.4) Total Bilirubin 0.3 MG/DL (0.2-1.0) 0.3 MG/DL (0.2-1.0) Aspartate Amino Transf (AST/SGOT) 25 U/L (15-37) 27 U/L (15-37) Alanine Aminotransferase (ALT/SGPT) 24 U/L (12-78) 20 U/L (12-78) Alkaline Phosphatase 206 U/L (46-116) H 229 U/L (46-116) H Total Creatine Kinase 207 U/L (26-308) Pro-B-Type Natriuretic Peptide 95 pg/mL (0-125) Total Protein 7.0 G/DL (6.4-8.2) 7.7 G/DL (6.4-8.2) Albumin 3.0 G/DL (3.4-5.0) L 3.3 G/DL (3.4-5.0) L Globulin 4.0 g/dL 4.4 g/dL Albumin/Globulin Ratio 0.8 (1.0-2.7) L 0.8 (1.0-2.7) L Urine Color Yellow Urine Appearance Very cloudy Urine pH 5 (4.5-8.0) Urine Specific Snyder 1.020 (1.005-1.035) Urine Protein 4+ (NEGATIVE) H Urine Glucose (UA) Negative (NEGATIVE) Urine Ketones 2+ (NEGATIVE) H Urine Blood 3+ (NEGATIVE) H Urine Nitrite Negative (NEGATIVE) Urine Bilirubin Negative (NEGATIVE) Urine Urobilinogen 1 MG/DL (0.0-1.0) H Urine Leukocyte Esterase 3+ (NEGATIVE) H Urine RBC 0-2 /HPF (0 - 0) H Urine WBC Tntc /HPF (0 - 0) H Urine Squamous Epithelial Cells None /LPF (NONE/OCC) Urine Bacteria Many /HPF (NONE) H Phosphorus Level 3.0 MG/DL (2.5-4.9) Test 08/24/20 11:10 Hepatitis B Surface Antigen Pending Hepatitis B Surface Antibody, Quant Pending Hepatitis B Core Total Antibody Pending Hepatitis B DNA (IU/mL) Pending Hepatitis C Antibody Pending HIV (1&2) Antibody Rapid Pending Microbiology Date/Time Source Procedure Growth Status 08/23/20 17:20 Urine,Clean Catch Urine Culture - Preliminary NO GROWTH Resulted 08/23/20 16:35 Nasopharynx Coronavirus COVID-19 PCR ([facility]) - Final Complete Height (Feet): 5 Height (Inches): 10.00 Weight (Pounds): 128 Medications Current Medications Medications (Trade) Dose Ordered Sig/Ashley Route PRN Reason Start Time Stop Time Status Last Admin Dose Admin Acetaminophen (Tylenol) 325 mg Q4H PRN ORAL For Pain 08/24/20 00:30 09/23/20 00:29 Ceftriaxone Sodium 1 gm/ Dextrose 55 ml @ 110 mls/hr Q24H IVPB 08/24/20 18:00 08/31/20 17:59 Dextrose/ Electrolytes 1,000 ml @ 75 mls/hr [id number] IV 08/24/20 02:00 09/23/20 01:59 08/24/20 02:00 Latanoprost (Xalatan) 1 drop BEDTIME BOTH EYES 08/24/20 21:00 09/23/20 20:59 Pantoprazole (Protonix) 40 mg DAILY ORAL 08/24/20 09:00 09/23/20 08:59 08/24/20 08:26 Phenytoin (Dilantin) 300 mg BEDTIME ORAL 08/24/20 21:00 09/23/20 20:59 Primidone (Mysoline) 250 mg TID ORAL 08/24/20 09:00 09/23/20 08:59 08/24/20 12:57 Sumatriptan Succinate (Imitrex) 100 mg TWICE A DAY PRN ORAL For Headache 08/24/20 00:15 09/23/20 00:14 Tamsulosin HCl (Flomax) 0.4 mg BEDTIME ORAL 08/24/20 01:00 09/23/20 00:59 08/24/20 01:59 Assessment/Plan Problem List: (1) Abnormal LFTs Assessment & Plan: 69 year old male with history of hepatitis comes in for weakness noted to have abnormal lft's. hx hepatitis alk phos elevated US noted The liver demonstrates diffuse coarse hepatic echotexture. No ductal dilatation noted. Spleen is unremarkable. The gallbladder is without sludge or stone. Common bile duct measures 2 mm. The pancreas, aorta and cava are grossly unremarkable to the extent visualized appear The kidneys are normal in size, shape and axis. No ascites noted. okayf or diet will monitor with exam trend labs thank you DAILY ESTIMATED NEEDS: Needs based on Pulmonary 58kg 25-35 kcals/kg 8813-0329 total kcals 1-1.5 g protein/kg 58-87 g total protein 25-30 mL/kg 2851-9292 total fluid mLs NUTRITION DIAGNOSIS: Increased kcal needs r/t Low BMI as evidenced by BMI 18.4, underweight per guidelines 77% of [place] Body Weight. CURRENT DIET: Regular ms chopped PO DIET RECOMMENDATIONS: With good po intake >75%, rec Low Na diet/ texture as tolerated ADDITIONAL RECOMMENDATIONS: 1) Monitor po intake, rec [employer] A[employer]LY[employer] eval 2) Obtain a standing weight as able or calibrated bed scale 3) Check lytes daily, replete as needed 4) Add Ensure Enlive BID ICD Codes: R94.5 - Abnormal results of liver function studies SNOMED: 673861311 (2) Encephalopathy ICD Codes: G93.40 - Encephalopathy, unspecified SNOMED: 86989906 (3) Weakness ICD Codes: R53.1 - Weakness SNOMED: 75339105 (4) UTI (urinary tract infection) ICD Codes: N39.0 - Urinary tract infection, site not specified SNOMED: 09475978 (5) Altered mental status ICD Codes: R41.82 - Altered mental status, unspecified SNOMED: 650907739 (6) Falls frequently ICD Codes: R29.6 - Repeated falls SNOMED: 451387963 (7) Cerebellar atrophy ICD Codes: G31.9 - Degenerative disease of nervous system, unspecified SNOMED: 22297092 (8) Hip fracture, intertrochanteric ICD Codes: S72.143A - Displaced intertrochanteric fracture of unsp femur, init SNOMED: 010152882 (9) Seizure disorder, complex partial ICD Codes: G40.209 - Localization-related (focal) (partial) symptomatic epilepsy and epileptic syndromes with complex partial seizures, not intractable, without status epilepticus SNOMED: 557170439 (10) Pulmonary embolism ICD Codes: I26.99 - Pulmonary embolism SNOMED: 55771756 (11) ACS (acute coronary syndrome) ICD Codes: I20.0 - Unstable angina SNOMED: 695326231 (12) Multiple injuries due to trauma ICD Codes: T07 - Unspecified multiple injuries SNOMED: 343301987 Rom Tan Aug 24, 2020 14:47
[2020-08-24 16:00] VITALS: BP 121/73
--- NOTE | 2020-08-24 16:17 | NUR ---
INSURANCE CLINICALS/REVIEW FAXED TO [facility] FAX [phone] TELE [phone] [facility] FAX [phone] and [phone] TELE [phone]
[2020-08-24] MEDS: cefTRIAXone 1 GM in D5W 55 ML IVPB SCH (18:11)
--- NOTE | 2020-08-24 18:55 | Internal Med Progress Note ---
Subjective Physician Name Jose Sosa Attending Physician Jose Sosa MD Current Medications Medications (Trade) Dose Ordered Sig/Ashley Route PRN Reason Start Time Stop Time Status Last Admin Dose Admin Acetaminophen (Tylenol) 325 mg Q4H PRN ORAL For Pain 08/24/20 00:30 09/23/20 00:29 Ceftriaxone Sodium 1 gm/ Dextrose 55 ml @ 110 mls/hr Q24H IVPB 08/24/20 18:00 08/31/20 17:59 08/24/20 18:11 Dextrose/ Electrolytes 1,000 ml @ 75 mls/hr [id number] IV 08/24/20 02:00 09/23/20 01:59 08/24/20 15:49 Latanoprost (Xalatan) 1 drop BEDTIME BOTH EYES 08/24/20 21:00 09/23/20 20:59 Pantoprazole (Protonix) 40 mg DAILY ORAL 08/24/20 09:00 09/23/20 08:59 08/24/20 08:26 Phenytoin (Dilantin) 300 mg BEDTIME ORAL 08/24/20 21:00 09/23/20 20:59 Primidone (Mysoline) 250 mg TID ORAL 08/24/20 09:00 09/23/20 08:59 08/24/20 18:11 Sumatriptan Succinate (Imitrex) 100 mg TWICE A DAY PRN ORAL For Headache 08/24/20 00:15 09/23/20 00:14 Tamsulosin HCl (Flomax) 0.4 mg BEDTIME ORAL 08/24/20 01:00 09/23/20 00:59 08/24/20 01:59 Allergies: Coded Allergies: SHELLFISH DERIVED (Unverified Allergy, Intermediate, ITCHING/HIVES, 02/17/14) IODINE (Unverified Allergy, Unknown, 02/17/14) Uncoded Allergies: SPINACH (Allergy, Intermediate, SEVERE ITCHING/HIVES, 02/17/14) Subjective Awake, more alert, responsive, denies any chest pain or shortness of breath, complement lower extremity weakness. Objective Last Vital Signs Date Time Temp Pulse Resp B/P (MAP) Pulse Ox O2 Delivery O2 Flow Rate FiO2 08/24/20 16:00 98.5 82 18 121/73 (89) 94 08/24/20 09:00 Room Air 08/23/20 21:56 100 Laboratory Tests Test 08/24/20 04:45 08/24/20 11:10 White Blood Count 6.0 K/UL (4.8-10.8) Red Blood Count 4.12 M/UL (4.70-6.10) L Hemoglobin 14.2 G/DL (14.2-18.0) Hematocrit 40.6 % (42.0-52.0) L Mean Corpuscular Volume 98 FL (80-99) Mean Corpuscular Hemoglobin 34.5 PG (27.0-31.0) H Mean Corpuscular Hemoglobin Concent 35.0 G/DL (32.0-36.0) Red Cell Distribution Width 16.6 % (11.6-14.8) H Platelet Count 228 K/UL (150-450) Mean Platelet Volume 6.9 FL (6.5-10.1) Neutrophils (%) (Auto) 68.1 % (45.0-75.0) Lymphocytes (%) (Auto) 21.9 % (20.0-45.0) Monocytes (%) (Auto) 8.2 % (1.0-10.0) Eosinophils (%) (Auto) 0.7 % (0.0-3.0) Basophils (%) (Auto) 1.2 % (0.0-2.0) Sodium Level 145 MMOL/L (136-145) Potassium Level 4.0 MMOL/L (3.5-5.1) Chloride Level 107 MMOL/L (98-107) Carbon Dioxide Level 29 MMOL/L (21-32) Anion Gap 9 mmol/L (5-15) Blood Urea Nitrogen 17 mg/dL (7-18) Creatinine 1.0 MG/DL (0.55-1.30) Estimat Glomerular Filtration Rate > 60 mL/min (>60) Glucose Level 106 MG/DL (74-106) Calcium Level 10.0 MG/DL (8.5-10.1) Phosphorus Level 3.0 MG/DL (2.5-4.9) Magnesium Level 2.1 MG/DL (1.8-2.4) Total Bilirubin 0.3 MG/DL (0.2-1.0) Aspartate Amino Transf (AST/SGOT) 27 U/L (15-37) Alanine Aminotransferase (ALT/SGPT) 20 U/L (12-78) Alkaline Phosphatase 229 U/L (46-116) H Total Protein 7.7 G/DL (6.4-8.2) Albumin 3.3 G/DL (3.4-5.0) L Globulin 4.4 g/dL Albumin/Globulin Ratio 0.8 (1.0-2.7) L Hepatitis B Surface Antigen Pending Hepatitis B Surface Antibody, Quant Pending Hepatitis B Core Total Antibody Pending Hepatitis B DNA (IU/mL) Pending Hepatitis C Antibody Pending HIV (1&2) Antibody Rapid Pending Microbiology Date/Time Source Procedure Growth Status 08/23/20 17:20 Urine,Clean Catch Urine Culture - Preliminary NO GROWTH Resulted 08/23/20 16:35 Nasopharynx Coronavirus COVID-19 PCR ([facility]) - Final Complete Intake and Output 08/23/20 08/24/20 19:00 07:00 Intake Total 795 ml Output Total 30 ml 500 ml Balance -30 ml 295 ml Intake Oral 420 ml IV Total 375 ml Output Urine Total 30 ml 500 ml # Voids 1 Objective General: No acute distress, awake and alert HEENT: NCAT, sclera anicteric, PERRL, EOMI. Neck: Supple, no significant jugular venous distention, Lungs: fair inspiratory effort, decreased air in the bases, no Wheeze or Rales. Heart: Regular rate and rhythm, normal S1/S2, no murmurs. Abdomen: soft, nontender, nondistended. Normoactive bowel sounds. / Rectal: Refused and deferred. Extremities: No Cyanosis , clubbing or edema. Neuro: A&O x 3, Able to move all extremities, bilateral lower extremity weakness Skin: warm, no rash. Psych: Normal mood and affect Assessment/Plan Assessment/Plan altered mental status most likely secondary to toxic metabolic encephalopathy as a result of urine tract infection and dehydration. Sepsis secondary to urinary tract infection. Dehydration. Acute kidney injury. Seizure disorder. COPD. History of hepatitis B+ BPH Plan: Follow-up with laboratory as well as culture in the morning Antibiotics: Rocephin IV CODE STATUS full code. DVT prophylaxis heparin subcu. Follow-up with infection disease recommendation. PT mobility consultation. Jose Sosa MD Aug 24, 2020 18:55
--- NOTE | 2020-08-24 19:12 | NUR ---
NURSE HAND-OFF: Important Events on Shift: IV hydration. IV ATB. Patient Status: stable. confused and forgetful Diet: regular. mechsoft chopped Pending Orders: n/a Pending Results/Labs:n/a Pending MD notification:n/a Latest Vital Signs: Temperature 98.5 , Pulse 82 , B/P 121 /73 , Respiratory Rate 18 , O2 SAT 94 , Room Air, O2 Flow Rate . Vital Sign Comment: stable Latest Roche Fall Score: 95 Fall Risk: High Risk Safety Measures: Call light Within Reach, Bed Alarm Zone 1, Side Rails Side Rails x3, Bed position Low and Locked. Fall Precautions: Yellow Socks Yellow Gown Door Sign Report given to ANASTASIA Hernandez.
--- NOTE | 2020-08-24 19:45 | NUR ---
NURSE NOTES: Received report from Inga OCONNOR. Patient is awake, alert and oriented to self and location. On room air, breathing is even and unlabored. No complains of pain or distress noted. IV left AC intact and patent with no bleeding noted. IVF running as ordered. Bed low and locked. Call light within reach.
[2020-08-24 20:00] VITALS: BP 121/70
[2020-08-24] MEDS: Phenytoin 100mg cap ORAL SCH (20:17)
[2020-08-24] MEDS: Latanoprost 0.005% Opth 2.5ml Soln BOTH EYES SCH (20:18)
--- NOTE | 2020-08-24 21:25 | NUR ---
NURSE NOTES: Patient's PCR result is negative. Called to inform and put him off the isolation. Left a message. Will wait for call back.
--- NOTE | 2020-08-24 21:30 | NUR ---
NURSE NOTES: called back about the result. Doctor Mateusz is aware and she will assess him tomorrow morning. No new orders.
[2020-08-25] VITALS (7 sets, daily range): BP systolic 117–138; BP diastolic 67–85
[2020-08-25] MEDS: D5 1/2NS w/KCl 20mEq 1,000 ML IV SCH ×2 (05:36→17:14)
[2020-08-25 06:35] LABS: BASOPHILS % (AUTO) 0.6 % (0.0-2.0); EOSINOPHILS % (AUTO) 0.9 % (0.0-3.0); HEMATOCRIT 39.5 % (42.0-52.0); LYMPHOCYTES % (AUTO) 31.1 % (20.0-45.0); MEAN CORPUSCULAR VOLUME 96 FL (80-99); MONOCYTES % (AUTO) 10.1 % (1.0-10.0); NEUTROPHILS % (AUTO) 57.2 % (45.0-75.0); PLATELET COUNT 221 K/UL (150-450); RED CELL DISTRIBUTION WIDTH 15.4 % (11.6-14.8); WHITE BLOOD COUNT 5.9 K/UL (4.8-10.8)
[2020-08-25 06:59] LABS: ALANINE AMINOTRANSFERASE 29 U/L (12-78); ALBUMIN 3.1 G/DL (3.4-5.0); ALBUMIN/GLOBULIN RATIO 0.7 (1.0-2.7); ALKALINE PHOSPHATASE 229 U/L (46-116); AMYLASE 33 U/L (25-115); ANION GAP 8 mmol/L (5-15); ASPARTATE AMINO TRANSFERASE 37 U/L (15-37); BILIRUBIN,TOTAL 0.6 MG/DL (0.2-1.0); BLOOD UREA NITROGEN 9 mg/dL (7-18); CALCIUM 9.4 MG/DL (8.5-10.1); CARBON DIOXIDE 29 MMOL/L (21-32); CHLORIDE 103 MMOL/L (98-107); CREATININE 0.8 MG/DL (0.55-1.30); POTASSIUM 3.8 MMOL/L (3.5-5.1); SODIUM 140 MMOL/L (136-145)
--- NOTE | 2020-08-25 07:30 | NUR ---
NURSE HAND-OFF: Important Events on Shift: Fall precaution, seizure precaution, covid negative Patient Status: Stable Diet: Regular mechanical chopped Pending Orders: [] Pending Results/Labs:[] Pending MD notification:[] Latest Vital Signs: Temperature 97.7 , Pulse 81 , B/P 124 /68 , Respiratory Rate 16 , O2 SAT 93 , Room Air, O2 Flow Rate . Vital Sign Comment: VS stable Latest Roche Fall Score: 95 Fall Risk: High Risk Safety Measures: Call light Within Reach, Bed Alarm Zone 1, Side Rails Side Rails x3, Bed position Low and Locked. Fall Precautions: Yellow Socks Yellow Gown Door Sign Report given to Rachelle OCONNOR.
--- NOTE | 2020-08-25 07:48 | NUR ---
NURSE NOTES: Patient awake, alert x2, confused; on room air, no sing of distress and shortness of breath; no sing of chest pain; IV LAC 20G D51/2NS 20mEq 75cc running; side rails up x2 and padded for seizure percussion, bed at lowest position, bed alarm on, breaks engaged; call light within reach; per PM shift RickRN, MD Child is aware that patients COVID result is negative: MD Child didn't give to removed isolation status; MD Child said will come today to assess this patient; call light within reach; will keep monitoring.
--- NOTE | 2020-08-25 09:31 | Infectious Diseases Prog Note ---
Assessment/Plan 69yo M with: Afebrile Normal WBC Satting well on RA UTI, although asymptomatic R/o infection Weakness, failure to thrive 08/23 BCx NTD COVID PCR neg UA+, UCx +GPCs CXR: No acute process CTH: Neg for acute process H/o HBV - per pt doesn't have it anymore Cirrhosis Elevated alk phos to 200s Abd US: COARSE HEPATIC ECHOTEXTURE WHICH MAY BE RELATED THE PATIENT'S HISTORY OF HEPATITIS B. NO IZZY CIRRHOSIS OR SPACE-OCCUPYING LESION SEEN PRESENTLY. PMH: COPD CVA Seizure d/o HBV c/b cirrhosis Plan: Cont CTX 1g IV daily #3 for UTI F/u HIV screen F/u HBV Viral load, HBV serologies F/u HCV Ab screen F/u BCx, UCx +GPCs Monitor CBC/CMP Monitor temp curve, hemodynamics Monitor resp status D/w RN Thank you for this consult. [facility] will continue to follow. Subjective Allergies: Coded Allergies: SHELLFISH DERIVED (Unverified Allergy, Intermediate, ITCHING/HIVES, 02/17/14) IODINE (Unverified Allergy, Unknown, 02/17/14) Uncoded Allergies: SPINACH (Allergy, Intermediate, SEVERE ITCHING/HIVES, 02/17/14) AF NAD on RA UCx +GPCs WBC 5.9 Feeling fine, no dysuria Objective Last 24 Hour Vital Signs Date Time Temp Pulse Resp B/P (MAP) Pulse Ox O2 Delivery O2 Flow Rate FiO2 08/25/20 04:00 97.7 81 16 124/68 (86) 93 08/25/20 00:00 97.9 79 16 117/73 (88) 94 08/24/20 21:00 Room Air 08/24/20 20:00 97.7 85 18 121/70 (87) 94 08/24/20 16:00 98.5 82 18 121/73 (89) 94 08/24/20 12:00 98.7 89 19 104/71 (82) 96 Height (Feet): 5 Height (Inches): 10.00 Weight (Pounds): 128 Respiratory/Chest: crackles/rales Gen: NAD HEENT: NCAT Pulm: BL chest rise Abd: Non-distended Ext: No c/c/e Skin: No visible rashes Neuro: Awake Microbiology Date/Time Source Procedure Growth Status 08/23/20 17:20 Urine,Clean Catch Urine Culture - Preliminary Gram Positive Cocci Resulted 08/23/20 16:35 Nasopharynx Coronavirus COVID-19 PCR ([facility]) - Final Complete 08/23/20 15:20 Blood Blood Culture - Preliminary NO GROWTH AFTER 24 HOURS Resulted Laboratory Tests Test 08/24/20 11:10 08/25/20 05:35 Hepatitis B Surface Antigen Pending Hepatitis B Surface Antibody, Quant Pending Hepatitis B Core Total Antibody Pending Hepatitis B DNA (IU/mL) Pending Hepatitis C Antibody Pending HIV (1&2) Antibody Rapid Pending White Blood Count 5.9 K/UL (4.8-10.8) Red Blood Count 4.10 M/UL (4.70-6.10) L Hemoglobin 14.0 G/DL (14.2-18.0) L Hematocrit 39.5 % (42.0-52.0) L Mean Corpuscular Volume 96 FL (80-99) Mean Corpuscular Hemoglobin 34.0 PG (27.0-31.0) H Mean Corpuscular Hemoglobin Concent 35.3 G/DL (32.0-36.0) Red Cell Distribution Width 15.4 % (11.6-14.8) H Platelet Count 221 K/UL (150-450) Mean Platelet Volume 7.2 FL (6.5-10.1) Neutrophils (%) (Auto) 57.2 % (45.0-75.0) Lymphocytes (%) (Auto) 31.1 % (20.0-45.0) Monocytes (%) (Auto) 10.1 % (1.0-10.0) H Eosinophils (%) (Auto) 0.9 % (0.0-3.0) Basophils (%) (Auto) 0.6 % (0.0-2.0) Erythrocyte Sedimentation Rate 26 MM/HR (0-20) H Prothrombin Time 11.5 SEC (9.30-11.50) Prothromb Time International Ratio 1.0 (0.9-1.1) Activated Partial Thromboplast Time 30 SEC (23-33) Sodium Level 140 MMOL/L (136-145) Potassium Level 3.8 MMOL/L (3.5-5.1) Chloride Level 103 MMOL/L (98-107) Carbon Dioxide Level 29 MMOL/L (21-32) Anion Gap 8 mmol/L (5-15) Blood Urea Nitrogen 9 mg/dL (7-18) Creatinine 0.8 MG/DL (0.55-1.30) Estimat Glomerular Filtration Rate > 60 mL/min (>60) Glucose Level 90 MG/DL (74-106) Calcium Level 9.4 MG/DL (8.5-10.1) Total Bilirubin 0.6 MG/DL (0.2-1.0) Aspartate Amino Transf (AST/SGOT) 37 U/L (15-37) Alanine Aminotransferase (ALT/SGPT) 29 U/L (12-78) Alkaline Phosphatase 229 U/L (46-116) H C-Reactive Protein, Quantitative 9.2 mg/dL (0.00-0.90) H Total Protein 7.5 G/DL (6.4-8.2) Albumin 3.1 G/DL (3.4-5.0) L Globulin 4.4 g/dL Albumin/Globulin Ratio 0.7 (1.0-2.7) L Prealbumin Pending Amylase Level 33 U/L (25-115) Lipase 128 U/L (73-393) Current Medications Medications (Trade) Dose Ordered Sig/Ashley Route PRN Reason Start Time Stop Time Status Last Admin Dose Admin Acetaminophen (Tylenol) 325 mg Q4H PRN ORAL For Pain 08/24/20 00:30 09/23/20 00:29 Ceftriaxone Sodium 1 gm/ Dextrose 55 ml @ 110 mls/hr Q24H IVPB 08/24/20 18:00 08/31/20 17:59 08/24/20 18:11 Dextrose/ Electrolytes 1,000 ml @ 75 mls/hr [id number] IV 08/24/20 02:00 09/23/20 01:59 08/25/20 05:36 Latanoprost (Xalatan) 1 drop BEDTIME BOTH EYES 08/24/20 21:00 09/23/20 20:59 08/24/20 20:18 Pantoprazole (Protonix) 40 mg DAILY ORAL 08/24/20 09:00 09/23/20 08:59 08/24/20 08:26 Phenytoin (Dilantin) 300 mg BEDTIME ORAL 08/24/20 21:00 09/23/20 20:59 08/24/20 20:17 Primidone (Mysoline) 250 mg TID ORAL 08/24/20 09:00 09/23/20 08:59 08/24/20 18:11 Sumatriptan Succinate (Imitrex) 100 mg TWICE A DAY PRN ORAL For Headache 08/24/20 00:15 09/23/20 00:14 Tamsulosin HCl (Flomax) 0.4 mg BEDTIME ORAL 08/24/20 01:00 09/23/20 00:59 08/24/20 20:17 Della Child M.D. Aug 25, 2020 09:31
--- NOTE | 2020-08-25 10:37 | Pulmonology Progress Note ---
Subjective ROS Limited/Unobtainable: No Interval Events: none major reported per nursing Constitutional: Reports: no symptoms HEENT: Repors: no symptoms Respiratory: Reports: no symptoms Cardiovascular: Reports: no symptoms Gastrointestinal/Abdominal: Reports: no symptoms Allergies: Coded Allergies: SHELLFISH DERIVED (Unverified Allergy, Intermediate, ITCHING/HIVES, 02/17/14) IODINE (Unverified Allergy, Unknown, 02/17/14) Uncoded Allergies: SPINACH (Allergy, Intermediate, SEVERE ITCHING/HIVES, 02/17/14) Objective Last 24 Hour Vital Signs Date Time Temp Pulse Resp B/P (MAP) Pulse Ox O2 Delivery O2 Flow Rate FiO2 08/25/20 09:00 Room Air 08/25/20 08:00 97.2 80 18 138/77 (97) 95 08/25/20 04:00 97.7 81 16 124/68 (86) 93 08/25/20 00:00 97.9 79 16 117/73 (88) 94 08/24/20 21:00 Room Air 08/24/20 20:00 97.7 85 18 121/70 (87) 94 08/24/20 16:00 98.5 82 18 121/73 (89) 94 08/24/20 12:00 98.7 89 19 104/71 (82) 96 Intake and Output 08/24/20 08/25/20 19:00 07:00 Intake Total 1660 ml 990 ml Balance 1660 ml 990 ml Intake Oral 800 ml 240 ml IV Total 860 ml 750 ml # Voids 13 4 General Appearance: no acute distress HEENT: atraumatic Respiratory: lungs clear Abdomen: soft, non tender Microbiology Date/Time Source Procedure Growth Status 08/23/20 17:20 Urine,Clean Catch Urine Culture - Preliminary Gram Positive Cocci Resulted 08/23/20 16:35 Nasopharynx Coronavirus COVID-19 PCR ([facility]) - Final Complete 08/23/20 15:20 Blood Blood Culture - Preliminary NO GROWTH AFTER 24 HOURS Resulted Laboratory Tests 08/24/20 11:10: Hepatitis B Surface Antigen [Pending], Hepatitis B Surface Antibody, Quant [Pending], Hepatitis B Core Total Antibody [Pending], Hepatitis B DNA (IU/mL) [Pending], Hepatitis C Antibody [Pending], HIV (1&2) Antibody Rapid [Pending] 08/25/20 05:35: White Blood Count 5.9, Red Blood Count 4.10L, Hemoglobin 14.0L, Hematocrit 39.5L , Mean Corpuscular Volume 96, Mean Corpuscular Hemoglobin 34.0H, Mean Corpuscular Hemoglobin Concent 35.3, Red Cell Distribution Width 15.4H, Platelet Count 221, Mean Platelet Volume 7.2, Neutrophils (%) (Auto) 57.2, Lymphocytes (%) (Auto) 31.1, Monocytes (%) (Auto) 10.1H, Eosinophils (%) (Auto) 0.9, Basophils (%) (Auto) 0.6, Erythrocyte Sedimentation Rate 26H, Prothrombin Time 11.5, Prothromb Time International Ratio 1.0, Activated Partial Thromboplast Time 30, Sodium Level 140, Potassium Level 3.8, Chloride Level 103, Carbon Dioxide Level 29, Anion Gap 8, Blood Urea Nitrogen 9, Creatinine 0.8, Estimat Glomerular Filtration Rate > 60, Glucose Level 90, Calcium Level 9.4, Total Bilirubin 0.6, Aspartate Amino Transf (AST/SGOT) 37, Alanine Aminotransferase (ALT/SGPT) 29, Alkaline Phosphatase 229H, C-Reactive Protein, Quantitative 9.2H, Total Protein 7.5, Albumin 3.1L, Globulin 4.4, Albumin/Globulin Ratio 0.7L, Prealbumin [Pending], Amylase Level 33, Lipase 128 Current Medications Medications (Trade) Dose Ordered Sig/Ashley Route PRN Reason Start Time Stop Time Status Last Admin Dose Admin Acetaminophen (Tylenol) 325 mg Q4H PRN ORAL For Pain 08/24/20 00:30 09/23/20 00:29 Ceftriaxone Sodium 1 gm/ Dextrose 55 ml @ 110 mls/hr Q24H IVPB 08/24/20 18:00 08/31/20 17:59 08/24/20 18:11 Dextrose/ Electrolytes 1,000 ml @ 75 mls/hr [id number] IV 08/24/20 02:00 09/23/20 01:59 08/25/20 05:36 Latanoprost (Xalatan) 1 drop BEDTIME BOTH EYES 08/24/20 21:00 09/23/20 20:59 08/24/20 20:18 Pantoprazole (Protonix) 40 mg DAILY ORAL 08/24/20 09:00 09/23/20 08:59 08/25/20 09:43 Phenytoin (Dilantin) 300 mg BEDTIME ORAL 08/24/20 21:00 09/23/20 20:59 08/24/20 20:17 Primidone (Mysoline) 250 mg TID ORAL 08/24/20 09:00 09/23/20 08:59 08/25/20 09:43 Sumatriptan Succinate (Imitrex) 100 mg TWICE A DAY PRN ORAL For Headache 08/24/20 00:15 09/23/20 00:14 Tamsulosin HCl (Flomax) 0.4 mg BEDTIME ORAL 08/24/20 01:00 09/23/20 00:59 08/24/20 20:17 Assessment/Plan Assessment/Plan 1. History of COPD -Patient denies using home oxygen -Currently saturating well on room air -Monitor for hypoxia and provide supplemental oxygen as needed 2. COVID-19 PCR negative 3. History of hepatitis B -Per patient, he does not have it anymore -Abdominal US shows coarse hepatic echotexture. No cirrhosis or space- occupying lesion seen. - ID following - hep panel pending 4. UTI -Preliminary urine culture did not show growth -On Rocephin for possible UTI per ID - ID following 5. DVT ppx - on Heparin subcu The care for this patient was discussed with my supervising physician. Time spent for this case was approximately 31 minutes. Alfredo Rapp Aug 25, 2020 10:37
--- NOTE | 2020-08-25 11:48 | Surgery Progress Note ---
Surgery Progress Note Subjective Symptoms: pain same, tolerating diet, voiding well, passing flatus, BM Objective Last 24 Hour Vital Signs Date Time Temp Pulse Resp B/P (MAP) Pulse Ox O2 Delivery O2 Flow Rate FiO2 08/25/20 09:00 Room Air 08/25/20 08:00 97.2 80 18 138/77 (97) 95 08/25/20 04:00 97.7 81 16 124/68 (86) 93 08/25/20 00:00 97.9 79 16 117/73 (88) 94 08/24/20 21:00 Room Air 08/24/20 20:00 97.7 85 18 121/70 (87) 94 08/24/20 16:00 98.5 82 18 121/73 (89) 94 08/24/20 12:00 98.7 89 19 104/71 (82) 96 I&O Intake and Output 08/24/20 08/25/20 19:00 07:00 Intake Total 1660 ml 1065 ml Balance 1660 ml 1065 ml Intake Oral 800 ml 240 ml IV Total 860 ml 825 ml # Voids 13 4 Cardiovascular: RSR Respiratory: clear Abdomen: soft, non-tender, present bowel sounds, non-distended Extremities: no edema, no tenderness, no cyanosis Laboratory Tests Test 08/25/20 05:35 White Blood Count 5.9 K/UL (4.8-10.8) Red Blood Count 4.10 M/UL (4.70-6.10) L Hemoglobin 14.0 G/DL (14.2-18.0) L Hematocrit 39.5 % (42.0-52.0) L Mean Corpuscular Volume 96 FL (80-99) Mean Corpuscular Hemoglobin 34.0 PG (27.0-31.0) H Mean Corpuscular Hemoglobin Concent 35.3 G/DL (32.0-36.0) Red Cell Distribution Width 15.4 % (11.6-14.8) H Platelet Count 221 K/UL (150-450) Mean Platelet Volume 7.2 FL (6.5-10.1) Neutrophils (%) (Auto) 57.2 % (45.0-75.0) Lymphocytes (%) (Auto) 31.1 % (20.0-45.0) Monocytes (%) (Auto) 10.1 % (1.0-10.0) H Eosinophils (%) (Auto) 0.9 % (0.0-3.0) Basophils (%) (Auto) 0.6 % (0.0-2.0) Erythrocyte Sedimentation Rate 26 MM/HR (0-20) H Prothrombin Time 11.5 SEC (9.30-11.50) Prothromb Time International Ratio 1.0 (0.9-1.1) Activated Partial Thromboplast Time 30 SEC (23-33) Sodium Level 140 MMOL/L (136-145) Potassium Level 3.8 MMOL/L (3.5-5.1) Chloride Level 103 MMOL/L (98-107) Carbon Dioxide Level 29 MMOL/L (21-32) Anion Gap 8 mmol/L (5-15) Blood Urea Nitrogen 9 mg/dL (7-18) Creatinine 0.8 MG/DL (0.55-1.30) Estimat Glomerular Filtration Rate > 60 mL/min (>60) Glucose Level 90 MG/DL (74-106) Calcium Level 9.4 MG/DL (8.5-10.1) Total Bilirubin 0.6 MG/DL (0.2-1.0) Aspartate Amino Transf (AST/SGOT) 37 U/L (15-37) Alanine Aminotransferase (ALT/SGPT) 29 U/L (12-78) Alkaline Phosphatase 229 U/L (46-116) H C-Reactive Protein, Quantitative 9.2 mg/dL (0.00-0.90) H Total Protein 7.5 G/DL (6.4-8.2) Albumin 3.1 G/DL (3.4-5.0) L Globulin 4.4 g/dL Albumin/Globulin Ratio 0.7 (1.0-2.7) L Prealbumin Pending Amylase Level 33 U/L (25-115) Lipase 128 U/L (73-393) Plan Problems: (1) Abnormal LFTs Assessment & Plan: 69 year old male with history of hepatitis comes in for weakness noted to have abnormal lft's. hx hepatitis alk phos elevated US noted The liver demonstrates diffuse coarse hepatic echotexture. No ductal dilatation noted. Spleen is unremarkable. The gallbladder is without sludge or stone. Common bile duct measures 2 mm. The pancreas, aorta and cava are grossly unremarkable to the extent visualized appear The kidneys are normal in size, shape and axis. No ascites noted. okayf or diet will monitor with exam trend labs thank you DAILY ESTIMATED NEEDS: Needs based on Pulmonary 58kg 25-35 kcals/kg 9820-5879 total kcals 1-1.5 g protein/kg 58-87 g total protein 25-30 mL/kg 9265-9623 total fluid mLs NUTRITION DIAGNOSIS: Increased kcal needs r/t Low BMI as evidenced by BMI 18.4, underweight per guidelines 77% of [place] Body Weight. CURRENT DIET: Regular ms chopped PO DIET RECOMMENDATIONS: With good po intake >75%, rec Low Na diet/ texture as tolerated ADDITIONAL RECOMMENDATIONS: 1) Monitor po intake, rec TRAVELING ACCOUNTANT eval 2) Obtain a standing weight as able or calibrated bed scale 3) Check lytes daily, replete as needed 4) Add Ensure Enlive BID (2) Encephalopathy (3) Weakness (4) UTI (urinary tract infection) (5) Altered mental status (6) Falls frequently (7) Cerebellar atrophy (8) Hip fracture, intertrochanteric (9) Seizure disorder, complex partial (10) Pulmonary embolism (11) ACS (acute coronary syndrome) (12) Multiple injuries due to trauma Rom Tan Aug 25, 2020 11:48
--- NOTE | 2020-08-25 13:41 | NUR ---
INSURANCE [employer]INICALS FAXED TO [facility] FAX [phone] TELE [phone] [facility] FAX [phone] and [phone] TELE [phone]
--- NOTE | 2020-08-25 16:35 | Internal Med Progress Note ---
Subjective Date of Service: Aug 25, 2020 Physician Name LornaHayes Attending Physician Jose Sosa MD Current Medications Medications (Trade) Dose Ordered Sig/Ashley Route PRN Reason Start Time Stop Time Status Last Admin Dose Admin Acetaminophen (Tylenol) 325 mg Q4H PRN ORAL For Pain 08/24/20 00:30 09/23/20 00:29 Ceftriaxone Sodium 1 gm/ Dextrose 55 ml @ 110 mls/hr Q24H IVPB 08/24/20 18:00 08/31/20 17:59 08/24/20 18:11 Dextrose/ Electrolytes 1,000 ml @ 75 mls/hr [id number] IV 08/24/20 02:00 09/23/20 01:59 08/25/20 05:36 Latanoprost (Xalatan) 1 drop BEDTIME BOTH EYES 08/24/20 21:00 09/23/20 20:59 08/24/20 20:18 Pantoprazole (Protonix) 40 mg DAILY ORAL 08/24/20 09:00 09/23/20 08:59 08/25/20 09:43 Phenytoin (Dilantin) 300 mg BEDTIME ORAL 08/24/20 21:00 09/23/20 20:59 08/24/20 20:17 Primidone (Mysoline) 250 mg TID ORAL 08/24/20 09:00 09/23/20 08:59 08/25/20 12:18 Sumatriptan Succinate (Imitrex) 100 mg TWICE A DAY PRN ORAL For Headache 08/24/20 00:15 09/23/20 00:14 Tamsulosin HCl (Flomax) 0.4 mg BEDTIME ORAL 08/24/20 01:00 09/23/20 00:59 08/24/20 20:17 Allergies: Coded Allergies: SHELLFISH DERIVED (Unverified Allergy, Intermediate, ITCHING/HIVES, 02/17/14) IODINE (Unverified Allergy, Unknown, 02/17/14) Uncoded Allergies: SPINACH (Allergy, Intermediate, SEVERE ITCHING/HIVES, 02/17/14) ROS Limited/Unobtainable: Yes Subjective 69 YO M admitted with altered mental status. Cover for Int [facility] - Dr Sosa Objective Last Vital Signs Date Time Temp Pulse Resp B/P (MAP) Pulse Ox O2 Delivery O2 Flow Rate FiO2 08/25/20 16:00 97.8 75 20 127/85 (99) 95 08/25/20 09:00 Room Air 08/23/20 21:56 100 Laboratory Tests Test 08/25/20 05:35 White Blood Count 5.9 K/UL (4.8-10.8) Red Blood Count 4.10 M/UL (4.70-6.10) L Hemoglobin 14.0 G/DL (14.2-18.0) L Hematocrit 39.5 % (42.0-52.0) L Mean Corpuscular Volume 96 FL (80-99) Mean Corpuscular Hemoglobin 34.0 PG (27.0-31.0) H Mean Corpuscular Hemoglobin Concent 35.3 G/DL (32.0-36.0) Red Cell Distribution Width 15.4 % (11.6-14.8) H Platelet Count 221 K/UL (150-450) Mean Platelet Volume 7.2 FL (6.5-10.1) Neutrophils (%) (Auto) 57.2 % (45.0-75.0) Lymphocytes (%) (Auto) 31.1 % (20.0-45.0) Monocytes (%) (Auto) 10.1 % (1.0-10.0) H Eosinophils (%) (Auto) 0.9 % (0.0-3.0) Basophils (%) (Auto) 0.6 % (0.0-2.0) Erythrocyte Sedimentation Rate 26 MM/HR (0-20) H Prothrombin Time 11.5 SEC (9.30-11.50) Prothromb Time International Ratio 1.0 (0.9-1.1) Activated Partial Thromboplast Time 30 SEC (23-33) Sodium Level 140 MMOL/L (136-145) Potassium Level 3.8 MMOL/L (3.5-5.1) Chloride Level 103 MMOL/L (98-107) Carbon Dioxide Level 29 MMOL/L (21-32) Anion Gap 8 mmol/L (5-15) Blood Urea Nitrogen 9 mg/dL (7-18) Creatinine 0.8 MG/DL (0.55-1.30) Estimat Glomerular Filtration Rate > 60 mL/min (>60) Glucose Level 90 MG/DL (74-106) Calcium Level 9.4 MG/DL (8.5-10.1) Total Bilirubin 0.6 MG/DL (0.2-1.0) Aspartate Amino Transf (AST/SGOT) 37 U/L (15-37) Alanine Aminotransferase (ALT/SGPT) 29 U/L (12-78) Alkaline Phosphatase 229 U/L (46-116) H C-Reactive Protein, Quantitative 9.2 mg/dL (0.00-0.90) H Total Protein 7.5 G/DL (6.4-8.2) Albumin 3.1 G/DL (3.4-5.0) L Globulin 4.4 g/dL Albumin/Globulin Ratio 0.7 (1.0-2.7) L Prealbumin Pending Amylase Level 33 U/L (25-115) Lipase 128 U/L (73-393) Microbiology Date/Time Source Procedure Growth Status 08/23/20 17:20 Urine,Clean Catch Urine Culture - Preliminary Gram Positive Cocci Resulted 08/23/20 16:35 Nasopharynx Coronavirus COVID-19 PCR ([facility]) - Final Complete 08/23/20 15:20 Blood Blood Culture - Preliminary NO GROWTH AFTER 24 HOURS Resulted Intake and Output 08/24/20 08/25/20 19:00 07:00 Intake Total 1660 ml 1065 ml Balance 1660 ml 1065 ml Intake Oral 800 ml 240 ml IV Total 860 ml 825 ml # Voids 13 4 Objective Objective General: No acute distress, awake and alert HEENT: NCAT, sclera anicteric, PERRL, EOMI. Neck: Supple, no significant jugular venous distention, Lungs: fair inspiratory effort, decreased air in the bases, no Wheeze or Rales. Heart: Regular rate and rhythm, normal S1/S2, no murmurs. Abdomen: soft, nontender, nondistended. Normoactive bowel sounds. / Rectal: Refused and deferred. Extremities: No Cyanosis , clubbing or edema. Neuro: A&O x 3, Able to move all extremities, bilateral lower extremity weakness Skin: warm, no rash. Psych: Normal mood and affect Assessment/Plan Assessment/Plan Assessment/Plan Assessment/Plan altered mental status most likely secondary to toxic metabolic encephalopathy as a result of urine tract infection and dehydration. Sepsis secondary to urinary tract infection. Dehydration. Acute kidney injury. Seizure disorder. COPD. History of hepatitis B+ BPH Plan: Follow-up with laboratory as well as culture in the morning Antibiotics: Rocephin IV CODE STATUS full code. DVT prophylaxis heparin subcu. Follow-up with infection disease recommendation. PT mobility consultation. Hayes Rothman MD Aug 25, 2020 16:35
[2020-08-25] MEDS: cefTRIAXone 1 GM in D5W 55 ML IVPB SCH (17:13)
--- NOTE | 2020-08-25 19:23 | NUR ---
NURSE HAND-OFF: Important Events on Shift:Fall percusion, IV fluid hydration and atibiotics Patient Status: Diet: Pending Orders: Pending Results/Labs: Pending MD notification: Latest Vital Signs: Temperature 97.8 , Pulse 75 , B/P 127 /85 , Respiratory Rate 20 , O2 SAT 95 , Room Air, O2 Flow Rate . Vital Sign Comment: Latest Roche Fall Score: 95 Fall Risk: High Risk Safety Measures: Call light Within Reach, Bed Alarm Zone 1, Side Rails Side Rails x3, Bed position Low and Locked. Fall Precautions: Yellow Socks Yellow Gown Door Sign Report given to .
--- NOTE | 2020-08-25 19:55 | NUR ---
NURSE NOTES: Patient in bed, awake and able to make needs known. On room air with no signs of distress or SOB. Denies any pain at this time. IV intact and patent. Bed locked and in lowest position. Call light in reach. Will continue plan of care.
[2020-08-25] MEDS: Latanoprost 0.005% Opth 2.5ml Soln BOTH EYES SCH (21:14)
[2020-08-25] MEDS: Tamsulosin 0.4mg cap ORAL SCH (21:14)
[2020-08-25] MEDS: Phenytoin 100mg cap ORAL SCH (21:14)
[2020-08-26 04:00] VITALS: BP 112/65
[2020-08-26] MEDS: SUMAtriptan 100mg tab ORAL PRN ×2 (05:54→20:11)
[2020-08-26] MEDS: D5 1/2NS w/KCl 20mEq 1,000 ML IV SCH ×2 (06:30→19:56)
--- NOTE | 2020-08-26 06:42 | NUR ---
NURSE HAND-OFF: Important Events on Shift: No acute events Patient Status: Stable Diet: Reg mech soft chopped Pending Orders: N/A Pending Results/Labs: No labs Pending MD notification: N/A Latest Vital Signs: Temperature 97.4 , Pulse 83 , B/P 112 /65 , Respiratory Rate 18 , O2 SAT 96 , Room Air, O2 Flow Rate . Vital Sign Comment: N/A Latest Roche Fall Score: 95 Fall Risk: High Risk Safety Measures: Call light Within Reach, Bed Alarm Zone 1, Side Rails Side Rails x3, Bed position Low and Locked. Fall Precautions: Yellow Socks Yellow Gown Door Sign Addendum: 08/26/20 at 0724 by DANILO ANAYA RN Report given to ANASTASIA Collier
[2020-08-26 08:00] VITALS: BP 134/80
--- NOTE | 2020-08-26 08:00 | NUR ---
NURSE NOTES: Received patient in bed, awake and able to make needs known. On room air with no signs of respiratory distress or SOB. No complaint of pain or discomfort. Left AC IV intact and patent. Bed locked and in lowest position. Call light in reach. Will continue monitoring patient and follow up with the plan of care.
--- NOTE | 2020-08-26 09:40 | NUR ---
PT EVALUATION NOTE Patient seen for initial evaluation and treatment initiated. Patient presents with generalized weakness and decreased balance which impairs patient's ability to perform mobility skills safely. Patient requires mod/max assist for bed mobility. Patient with P+ sitting balance, attempts to use his UEs to maintain sitting however loses his balance due to UE weakness. Patient unable to stand or ambulate at this time due to weakness. Patient will benefit from skilled inpatient PT intervention to increase strength and postural stability for improved level of functional mobility and safety. Recommend discharge to SNF for continued rehab once medically cleared by MD. Addendum: 08/26/20 at 1027 by MARIZA BLANTON PT Amended: Links added.
--- NOTE | 2020-08-26 11:43 | Pulmonology Progress Note ---
Subjective ROS Limited/Unobtainable: Yes Interval Events: none major reported per nursing Constitutional: Reports: no symptoms HEENT: Repors: no symptoms Respiratory: Reports: no symptoms Cardiovascular: Reports: no symptoms Gastrointestinal/Abdominal: Reports: no symptoms Allergies: Coded Allergies: SHELLFISH DERIVED (Unverified Allergy, Intermediate, ITCHING/HIVES, 02/17/14) IODINE (Unverified Allergy, Unknown, 02/17/14) Uncoded Allergies: SPINACH (Allergy, Intermediate, SEVERE ITCHING/HIVES, 02/17/14) Objective Last 24 Hour Vital Signs Date Time Temp Pulse Resp B/P (MAP) Pulse Ox O2 Delivery O2 Flow Rate FiO2 08/26/20 09:00 Room Air 08/26/20 08:00 96.2 81 18 134/80 (98) 95 08/26/20 04:00 97.4 83 18 112/65 (81) 96 08/25/20 23:26 97.5 69 17 117/67 (84) 96 08/25/20 20:35 Room Air 08/25/20 20:00 97.2 78 18 121/73 (89) 96 08/25/20 16:00 97.8 75 20 127/85 (99) 95 08/25/20 12:00 98.0 78 18 136/72 (93) 95 Intake and Output 08/25/20 08/26/20 19:00 07:00 Intake Total 1295 ml 200 ml Output Total 400 ml Balance 1295 ml -200 ml Intake Oral 360 ml 200 ml IV Total 935 ml Output Urine Total 400 ml # Voids 4 General Appearance: no acute distress HEENT: atraumatic Respiratory: lungs clear Abdomen: soft, non tender Microbiology Date/Time Source Procedure Growth Status 08/23/20 17:20 Urine,Clean Catch Urine Culture - Final Aerococcus Urinae Complete 08/23/20 16:35 Nasopharynx Coronavirus COVID-19 PCR ([facility]) - Final Complete 08/23/20 15:20 Blood Blood Culture - Preliminary NO GROWTH AFTER 48 HOURS Resulted Current Medications Medications (Trade) Dose Ordered Sig/Ashley Route PRN Reason Start Time Stop Time Status Last Admin Dose Admin Acetaminophen (Tylenol) 325 mg Q4H PRN ORAL For Pain 08/24/20 00:30 09/23/20 00:29 08/26/20 10:19 Ceftriaxone Sodium 1 gm/ Dextrose 55 ml @ 110 mls/hr Q24H IVPB 08/24/20 18:00 08/31/20 17:59 08/25/20 17:13 Dextrose/ Electrolytes 1,000 ml @ 75 mls/hr [id number] IV 08/24/20 02:00 09/23/20 01:59 08/26/20 06:30 Latanoprost (Xalatan) 1 drop BEDTIME BOTH EYES 08/24/20 21:00 09/23/20 20:59 08/25/20 21:14 Pantoprazole (Protonix) 40 mg DAILY ORAL 08/24/20 09:00 09/23/20 08:59 08/26/20 08:20 Phenytoin (Dilantin) 300 mg BEDTIME ORAL 08/24/20 21:00 09/23/20 20:59 08/25/20 21:14 Primidone (Mysoline) 250 mg TID ORAL 08/24/20 09:00 09/23/20 08:59 08/26/20 08:19 Sumatriptan Succinate (Imitrex) 100 mg TWICE A DAY PRN ORAL For Headache 08/24/20 00:15 09/23/20 00:14 08/26/20 05:54 Tamsulosin HCl (Flomax) 0.4 mg BEDTIME ORAL 08/24/20 01:00 09/23/20 00:59 08/25/20 21:14 Assessment/Plan Assessment/Plan 1. History of COPD -Patient denies using home oxygen -Currently saturating well on room air -Monitor for hypoxia and provide supplemental oxygen as needed 2. COVID-19 PCR negative - off isolation 3. History of hepatitis B -Per patient, he does not have it anymore -Abdominal US shows coarse hepatic echotexture. No cirrhosis or space- occupying lesion seen. - ID following - hep panel pending 4. UTI -Preliminary urine culture did not show growth -On Rocephin for possible UTI per ID - ID following 5. DVT ppx - on Heparin subcu PT recommends placement to SNF due to weakness The care for this patient was discussed with my supervising physician. Time spent for this case was approximately 31 minutes. Alfredo Rapp Aug 26, 2020 11:43
[2020-08-26 12:00] VITALS: BP 130/81
--- NOTE | 2020-08-26 12:23 | Surgery Progress Note ---
Surgery Progress Note Subjective Symptoms: improved, pain absent, tolerating diet, passing flatus, BM Objective Last 24 Hour Vital Signs Date Time Temp Pulse Resp B/P (MAP) Pulse Ox O2 Delivery O2 Flow Rate FiO2 08/26/20 09:00 Room Air 08/26/20 08:00 96.2 81 18 134/80 (98) 95 08/26/20 04:00 97.4 83 18 112/65 (81) 96 08/25/20 23:26 97.5 69 17 117/67 (84) 96 08/25/20 20:35 Room Air 08/25/20 20:00 97.2 78 18 121/73 (89) 96 08/25/20 16:00 97.8 75 20 127/85 (99) 95 I&O Intake and Output 08/25/20 08/26/20 19:00 07:00 Intake Total 1295 ml 200 ml Output Total 400 ml Balance 1295 ml -200 ml Intake Oral 360 ml 200 ml IV Total 935 ml Output Urine Total 400 ml # Voids 4 Cardiovascular: RSR Respiratory: clear Abdomen: soft, flat, non-tender, present bowel sounds, non-distended Extremities: no edema, no tenderness, no cyanosis Plan Problems: (1) Abnormal LFTs Assessment & Plan: 69 year old male with history of hepatitis comes in for weakness noted to have abnormal lft's. hx hepatitis alk phos elevated US noted The liver demonstrates diffuse coarse hepatic echotexture. No ductal dilatation noted. Spleen is unremarkable. The gallbladder is without sludge or stone. Common bile duct measures 2 mm. The pancreas, aorta and cava are grossly unremarkable to the extent visualized appear The kidneys are normal in size, shape and axis. No ascites noted. okay or diet will monitor with exam trend labs thank you DAILY ESTIMATED NEEDS: Needs based on Pulmonary 58kg 25-35 kcals/kg 0754-7100 total kcals 1-1.5 g protein/kg 58-87 g total protein 25-30 mL/kg 3256-6942 total fluid mLs NUTRITION DIAGNOSIS: Increased kcal needs r/t Low BMI as evidenced by BMI 18.4, underweight per guidelines 77% of [place] Body Weight. CURRENT DIET: Regular ms chopped PO DIET RECOMMENDATIONS: With good po intake >75%, rec Low Na diet/ texture as tolerated ADDITIONAL RECOMMENDATIONS: 1) Monitor po intake, rec STRATEGY EXECUTION CONSULTANT eval 2) Obtain a standing weight as able or calibrated bed scale 3) Check lytes daily, replete as needed 4) Add Ensure Enlive BID (2) Encephalopathy (3) Weakness (4) UTI (urinary tract infection) (5) Altered mental status (6) Falls frequently (7) Cerebellar atrophy (8) Hip fracture, intertrochanteric (9) Seizure disorder, complex partial (10) Pulmonary embolism (11) ACS (acute coronary syndrome) (12) Multiple injuries due to trauma Rom Tan Aug 26, 2020 12:23
--- NOTE | 2020-08-26 13:12 | Internal Med Progress Note ---
Subjective Date of Service: Aug 26, 2020 Physician Name Hayes Rothman Attending Physician Jose Sosa MD Current Medications Medications (Trade) Dose Ordered Sig/Ashley Route PRN Reason Start Time Stop Time Status Last Admin Dose Admin Acetaminophen (Tylenol) 325 mg Q4H PRN ORAL For Pain 08/24/20 00:30 09/23/20 00:29 08/26/20 10:19 Ceftriaxone Sodium 1 gm/ Dextrose 55 ml @ 110 mls/hr Q24H IVPB 08/24/20 18:00 08/31/20 17:59 08/25/20 17:13 Dextrose/ Electrolytes 1,000 ml @ 75 mls/hr [id number] IV 08/24/20 02:00 09/23/20 01:59 08/26/20 06:30 Latanoprost (Xalatan) 1 drop BEDTIME BOTH EYES 08/24/20 21:00 09/23/20 20:59 08/25/20 21:14 Pantoprazole (Protonix) 40 mg DAILY ORAL 08/24/20 09:00 09/23/20 08:59 08/26/20 08:20 Phenytoin (Dilantin) 300 mg BEDTIME ORAL 08/24/20 21:00 09/23/20 20:59 08/25/20 21:14 Primidone (Mysoline) 250 mg TID ORAL 08/24/20 09:00 09/23/20 08:59 08/26/20 12:58 Sumatriptan Succinate (Imitrex) 100 mg TWICE A DAY PRN ORAL For Headache 08/24/20 00:15 09/23/20 00:14 08/26/20 05:54 Tamsulosin HCl (Flomax) 0.4 mg BEDTIME ORAL 08/24/20 01:00 09/23/20 00:59 08/25/20 21:14 Allergies: Coded Allergies: SHELLFISH DERIVED (Unverified Allergy, Intermediate, ITCHING/HIVES, 02/17/14) IODINE (Unverified Allergy, Unknown, 02/17/14) Uncoded Allergies: SPINACH (Allergy, Intermediate, SEVERE ITCHING/HIVES, 02/17/14) ROS Limited/Unobtainable: Yes Subjective 69 YO M admitted with altered mental status. Now UTI and sepsis. Cover for Int Med - Dr Sosa Objective Last Vital Signs Date Time Temp Pulse Resp B/P (MAP) Pulse Ox O2 Delivery O2 Flow Rate FiO2 08/26/20 10:49 96.2 08/26/20 09:00 Room Air 08/26/20 08:00 81 18 134/80 (98) 95 08/23/20 21:56 100 Microbiology Date/Time Source Procedure Growth Status 08/23/20 17:20 Urine,Clean Catch Urine Culture - Final Aerococcus Urinae Complete 08/23/20 16:35 Nasopharynx Coronavirus COVID-19 PCR ([facility]) - Final Complete 08/23/20 15:20 Blood Blood Culture - Preliminary NO GROWTH AFTER 48 HOURS Resulted Intake and Output 08/25/20 08/26/20 19:00 07:00 Intake Total 1295 ml 200 ml Output Total 400 ml Balance 1295 ml -200 ml Intake Oral 360 ml 200 ml IV Total 935 ml Output Urine Total 400 ml # Voids 4 Objective Objective General: No acute distress, awake and alert HEENT: NCAT, sclera anicteric, PERRL, EOMI. Neck: Supple, no significant jugular venous distention, Lungs: fair inspiratory effort, decreased air in the bases, no Wheeze or Rales. Heart: Regular rate and rhythm, normal S1/S2, no murmurs. Abdomen: soft, nontender, nondistended. Normoactive bowel sounds. / Rectal: Refused and deferred. Extremities: No Cyanosis , clubbing or edema. Neuro: A&O x 3, Able to move all extremities, bilateral lower extremity weakness Skin: warm, no rash. Psych: Normal mood and affect Assessment/Plan Assessment/Plan Assessment/Plan Assessment/Plan altered mental status toxic metabolic encephalopathy urinary tract infection=Aerococcus urinae dehydration. Sepsis secondary to urinary tract infection. Dehydration. Acute kidney injury. Seizure disorder. COPD. History of hepatitis B+ BPH Plan: Follow-up with laboratory as well as culture in the morning Antibiotics: Rocephin IV CODE STATUS full code. DVT prophylaxis heparin subcu. Follow-up with infection disease recommendation. PT mobility consultation. Inf Dis=Dr. Della Child Pulmonary=Hayes Borja MD Aug 26, 2020 13:12
[2020-08-26 16:00] VITALS: BP 139/81
[2020-08-26] MEDS: cefTRIAXone 1 GM in D5W 55 ML IVPB SCH (17:53)
--- NOTE | 2020-08-26 19:37 | NUR ---
NURSE HAND-OFF: Important Events on Shift:[] Patient Status: [] Diet: [reg mech soft chopped] Pending Orders: [cbc, bmp] Pending Results/Labs:[] Pending MD notification:[] Latest Vital Signs: Temperature 97.2 , Pulse 90 , B/P 139 /81 , Respiratory Rate 18 , O2 SAT 93 , Room Air, O2 Flow Rate . Vital Sign Comment: [] Latest Roche Fall Score: 95 Fall Risk: High Risk Safety Measures: Call light Within Reach, Bed Alarm Zone 1, Side Rails Side Rails x3, Bed position Low and Locked. Fall Precautions: Yellow Socks Yellow Gown Door Sign Report given to [ANASTASIA Juarez].
[2020-08-26 20:00] VITALS: BP 133/87
[2020-08-26] MEDS: Latanoprost 0.005% Opth 2.5ml Soln BOTH EYES SCH (20:10)
[2020-08-26] MEDS: Tamsulosin 0.4mg cap ORAL SCH (20:10)
[2020-08-26] MEDS: Phenytoin 100mg cap ORAL SCH (22:12)
[2020-08-27] VITALS: BP 122/81
[2020-08-27 04:00] VITALS: BP 132/75
[2020-08-27 05:43] LABS: BASOPHILS % (AUTO) 0.5 % (0.0-2.0); EOSINOPHILS % (AUTO) 0.4 % (0.0-3.0); HEMATOCRIT 38.7 % (42.0-52.0); HEMOGLOBIN 13.2 G/DL (14.2-18.0); LYMPHOCYTES % (AUTO) 21.7 % (20.0-45.0); MEAN CORPUSCULAR VOLUME 95 FL (80-99); MONOCYTES % (AUTO) 9.3 % (1.0-10.0); NEUTROPHILS % (AUTO) 68.1 % (45.0-75.0); PLATELET COUNT 253 K/UL (150-450); RED BLOOD COUNT 4.07 M/UL (4.70-6.10); RED CELL DISTRIBUTION WIDTH 15.9 % (11.6-14.8); WHITE BLOOD COUNT 7.6 K/UL (4.8-10.8)
[2020-08-27 05:57] LABS: ANION GAP 7 mmol/L (5-15); BLOOD UREA NITROGEN 12 mg/dL (7-18); CALCIUM 9.3 MG/DL (8.5-10.1); CARBON DIOXIDE 27 MMOL/L (21-32); CHLORIDE 103 MMOL/L (98-107); CREATININE 0.7 MG/DL (0.55-1.30); SODIUM 137 MMOL/L (136-145)
--- NOTE | 2020-08-27 06:59 | History and Physical Report ---
DATE OF ADMISSION: 08/23/2020 CHIEF COMPLAINT: Generalized weakness. HISTORY OF PRESENT ILLNESS: This is a 69-year-old very delightful gentleman with past medical history significant for COPD, history of stroke, seizure disorder, on Dilantin, and history of BPH as well as migraine headache, who presented to the emergency department from home after he was noted to have generalized weakness and difficulty ambulating. I was called by the physical therapist at home that the patient has become very weak and unable to ambulate freely, and subsequently I advised Physical Therapy to call EMS and subsequently transferred the patient to [facility]. Shortly after initial evaluation in the emergency department, the patient was admitted to the hospital with dehydration as well as sepsis secondary to urinary tract infection. PAST MEDICAL HISTORY/PAST SURGICAL HISTORY: As above, history of hepatitis B positive with liver cirrhosis, COPD, stroke, seizure disorder, BPH, migraine headache. The patient has a history of basal cell carcinoma of the skin in the past as well as epilepsy in the past, seizure for 35 years, prior history of syncope, and neuropathy of the lower extremities. MEDICATIONS AT HOME: Please refer to medication reconciliation. ALLERGIES: To iodine, shellfish, and spinach. SOCIAL HISTORY: Denies any smoking, alcohol, or drugs at this time. FAMILY HISTORY: Noncontributory. REVIEW OF SYSTEMS: Mostly as above. Denies any dysuria, frequency, or hematuria. Complained of weakness, fatigue, inability to ambulate. Denies any fever, chills, nausea, vomiting, abdominal pain, chest pain, or slurred speech. Denies any fall or head trauma. Denies any bowel or urinary incontinence. Denies any recent seizure activity. PHYSICAL EXAMINATION: VITAL SIGNS: On admission, temperature 98.1, pulse of 88, respiratory rate 20, and blood pressure 125/66. GENERAL: The patient is awake, slow response, which is abnormal for the patient. Usually, he is very sharp and responsive. HEAD AND NECK: Pupils are equal and reactive to light. Extraocular movements intact. Neck was supple. No JVD. LUNGS: Good air entry with no wheezing or rales. Decreased in bases. HEART: S1, S2. Regular rhythm. No gallops. ABDOMEN: Soft, nondistended and nontender, mildly obese. No rebound tenderness. No fluid shift. EXTREMITIES: No cyanosis, clubbing, or edema. NEUROLOGIC: Cranial nerves II through XII are grossly intact. The patient is moving all the extremities. Lower extremities are weaker than upper extremities. No focal weakness was identified. PSYCHIATRIC: Mood and affect is intact. RECTAL/GENITOURINARY: Refused and deferred. LABORATORY AND DIAGNOSTIC DATA: Laboratory on admission from the emergency department, WBC of 5.1, hemoglobin 14, hematocrit 40, and platelets 216. Sodium 146, potassium 3.8, chloride 109, bicarb 32, BUN 20, creatinine 0.9, glucose is 95, GFR greater than 60, calcium 9.8, alkaline phosphatase 206, total protein is 7.0, albumin is 3.0. PT of 11, INR 1.1, PTT of 28. Urinalysis +4 protein, negative glucose, +2 ketone, negative nitrite, +3 leukocytes, many bacteria, WBC. Chest x-ray, no acute cardiopulmonary disease. CT of the head, age-related changes, a small area of asymptomatic volume loss in the right temporal lobe, likely an old infarction. No acute intracranial abnormality. ASSESSMENT: 1. Sepsis secondary to acute urinary tract infection. 2. Dehydration. 3. Acute kidney injury. 4. Altered mental status, most likely secondary to toxic metabolic encephalopathy as a result of dehydration and infection. 5. Seizure disorder. 6. COPD. 7. BPH. 8. Migrainous headaches. PLAN: Admit the patient to medical floor. Start the patient on broad-spectrum antibiotic, Rocephin. Code status is Full Code. DVT prophylaxis with heparin subcutaneous. Follow up with Dr. Can Pepper, consultation from Pulmonary, Dr. Della Child from Infectious Disease. Start the patient on IV hydration. Follow up with cultures and laboratory in the morning. Code status is Full Code. DVT prophylaxis, heparin subcutaneous. Jose Sosa M.D. DR: Priya JOB#: [id number] CC:
--- NOTE | 2020-08-27 07:21 | NUR ---
NURSE HAND-OFF: Important Events on Shift: No events Patient Status: Stable Diet: Reg mech soft chopped Pending Orders: N/A Pending Results/Labs: AM labs Pending MD notification:N/A Latest Vital Signs: Temperature 97.6 , Pulse 94 , B/P 132 /75 , Respiratory Rate 24 , O2 SAT 94 , Room Air, O2 Flow Rate . Vital Sign Comment: N/A Latest Roche Fall Score: 95 Fall Risk: High Risk Safety Measures: Call light Within Reach, Bed Alarm Zone 1, Side Rails Side Rails x3, Bed position Low and Locked. Fall Precautions: Yellow Socks Yellow Gown Door Sign Report given to ANASTASIA Collier.
--- NOTE | 2020-08-27 07:42 | NUR ---
NURSE NOTES: Received patient in bed, seated and having breakfast. Patient is in room air, no signs of respiratory distress or SOB. No complaint of pain or discomfort. Right AC and right hand PIV intact and patent, receives D5 1/2NS + 20 mEq KCl at 75cc/hr. Bed locked and in lowest position. Call light within easy reach. Will continue monitoring patient and follow up with the plan of care.
[2020-08-27 08:00] VITALS: BP 110/74
--- NOTE | 2020-08-27 09:34 | Pulmonology Progress Note ---
Subjective ROS Limited/Unobtainable: Yes Interval Events: none major reported per nursing Constitutional: Reports: no symptoms HEENT: Repors: no symptoms Respiratory: Reports: no symptoms Cardiovascular: Reports: no symptoms Gastrointestinal/Abdominal: Reports: no symptoms Allergies: Coded Allergies: SHELLFISH DERIVED (Unverified Allergy, Intermediate, ITCHING/HIVES, 02/17/14) IODINE (Unverified Allergy, Unknown, 02/17/14) Uncoded Allergies: SPINACH (Allergy, Intermediate, SEVERE ITCHING/HIVES, 02/17/14) Objective Last 24 Hour Vital Signs Date Time Temp Pulse Resp B/P (MAP) Pulse Ox O2 Delivery O2 Flow Rate FiO2 08/27/20 08:00 97.8 89 20 110/74 (86) 95 08/27/20 04:00 97.6 94 24 132/75 (94) 94 08/27/20 00:00 99.3 90 20 122/81 (95) 94 08/26/20 20:29 Room Air 08/26/20 20:00 99.5 95 24 133/87 (102) 93 08/26/20 16:00 97.2 90 18 139/81 (100) 93 08/26/20 12:00 97.5 72 18 130/81 (97) 93 08/26/20 10:49 96.2 Intake and Output 08/26/20 08/27/20 19:00 07:00 Intake Total 805 ml 240 ml Output Total 400 ml Balance 405 ml 240 ml Intake Oral 240 ml IV Total 805 ml Output Urine Total 400 ml # Voids 4 3 General Appearance: no acute distress HEENT: atraumatic Respiratory: lungs clear Abdomen: soft, non tender Laboratory Tests 08/27/20 05:10: White Blood Count 7.6, Red Blood Count 4.07L, Hemoglobin 13.2L, Hematocrit 38.7L , Mean Corpuscular Volume 95, Mean Corpuscular Hemoglobin 32.5H, Mean Corpuscular Hemoglobin Concent 34.2, Red Cell Distribution Width 15.9H, Platelet Count 253, Mean Platelet Volume 7.3, Neutrophils (%) (Auto) 68.1, Lymphocytes (%) (Auto) 21.7, Monocytes (%) (Auto) 9.3, Eosinophils (%) (Auto) 0.4, Basophils (%) (Auto) 0.5, Sodium Level 137, Potassium Level 4.0, Chloride Level 103, Carbon Dioxide Level 27, Anion Gap 7, Blood Urea Nitrogen 12, Creatinine 0.7, Estimat Glomerular Filtration Rate > 60, Glucose Level 106, Calcium Level 9.3 Current Medications Medications (Trade) Dose Ordered Sig/Ashley Route PRN Reason Start Time Stop Time Status Last Admin Dose Admin Acetaminophen (Tylenol) 325 mg Q4H PRN ORAL For Pain 08/24/20 00:30 09/23/20 00:29 08/27/20 01:32 Ceftriaxone Sodium 1 gm/ Dextrose 55 ml @ 110 mls/hr Q24H IVPB 08/24/20 18:00 08/31/20 17:59 08/26/20 17:53 Dextrose/ Electrolytes 1,000 ml @ 75 mls/hr [id number] IV 08/24/20 02:00 09/23/20 01:59 08/26/20 06:30 Latanoprost (Xalatan) 1 drop BEDTIME BOTH EYES 08/24/20 21:00 09/23/20 20:59 08/26/20 20:10 Pantoprazole (Protonix) 40 mg DAILY ORAL 08/24/20 09:00 09/23/20 08:59 08/27/20 08:01 Phenytoin (Dilantin) 300 mg BEDTIME ORAL 08/24/20 21:00 09/23/20 20:59 08/26/20 22:12 Primidone (Mysoline) 250 mg TID ORAL 08/24/20 09:00 09/23/20 08:59 08/26/20 17:52 Sumatriptan Succinate (Imitrex) 100 mg TWICE A DAY PRN ORAL For Headache 08/24/20 00:15 09/23/20 00:14 08/26/20 20:11 Tamsulosin HCl (Flomax) 0.4 mg BEDTIME ORAL 08/24/20 01:00 09/23/20 00:59 08/26/20 20:10 Assessment/Plan Assessment/Plan 1. History of COPD -Patient denies using home oxygen -Currently saturating well on room air -Monitor for hypoxia and provide supplemental oxygen as needed 2. COVID-19 PCR negative - off isolation 3. History of hepatitis B -Per patient, he does not have it anymore -Abdominal US shows coarse hepatic echotexture. No cirrhosis or space- occupying lesion seen. - ID following - hep panel pending 4. Aerococcus UTI -On Rocephin for possible UTI per ID - ID following 5. DVT ppx - on Heparin subcu PT recommends placement to SNF due to weakness The care for this patient was discussed with my supervising physician. Time spent for this case was approximately 31 minutes. Alfredo Rapp Aug 27, 2020 09:34
[2020-08-27] MEDS: D5 1/2NS w/KCl 20mEq 1,000 ML IV SCH ×2 (10:03→23:39)
--- NOTE | 2020-08-27 10:38 | Infectious Diseases Prog Note ---
Assessment/Plan 69yo M with: Afebrile Normal WBC Satting well on RA UTI, although asymptomatic R/o infection Weakness, failure to thrive 08/23 BCx NTD COVID PCR neg UA+, UCx >100k Aerococcus urinae CXR: No acute process CTH: Neg for acute process H/o HBV - per pt doesn't have it anymore Cirrhosis Elevated alk phos to 200s Abd US: COARSE HEPATIC ECHOTEXTURE WHICH MAY BE RELATED THE PATIENT'S HISTORY OF HEPATITIS B. NO IZZY CIRRHOSIS OR SPACE-OCCUPYING LESION SEEN PRESENTLY. HIV screen neg PMH: COPD CVA Seizure d/o HBV c/b cirrhosis Plan: Cont CTX 1g IV daily #11/28 for UTI F/u HBV Viral load, HBV serologies F/u HCV Ab screen Monitor CBC/CMP Monitor temp curve, hemodynamics Monitor resp status D/w RN Thank you for this consult. [facility] will continue to follow. Subjective Allergies: Coded Allergies: SHELLFISH DERIVED (Unverified Allergy, Intermediate, ITCHING/HIVES, 01/25 12/07) IODINE (Unverified Allergy, Unknown, 02/17/14) Uncoded Allergies: SPINACH (Allergy, Intermediate, SEVERE ITCHING/HIVES, 02/17/14) AF NAD on RA WBC 7.6 Issues w/ intermittent confusion per RN Objective Last 24 Hour Vital Signs Date Time Temp Pulse Resp B/P (MAP) Pulse Ox O2 Delivery O2 Flow Rate FiO2 08/27/20 09:00 Room Air 08/27/20 08:00 97.8 89 20 110/74 (86) 95 08/27/20 04:00 97.6 94 24 132/75 (94) 94 08/27/20 00:00 99.3 90 20 122/81 (95) 94 08/26/20 20:29 Room Air 08/26/20 20:00 99.5 95 24 133/87 (102) 93 08/26/20 16:00 97.2 90 18 139/81 (100) 93 08/26/20 12:00 97.5 72 18 130/81 (97) 93 08/26/20 10:49 96.2 Height (Feet): 5 Height (Inches): 10.00 Weight (Pounds): 128 Gen: NAD HEENT: NCAT Pulm: BL chest rise Abd: Non-distended Ext: No c/c/e Skin: No visible rashes Neuro: Awake Laboratory Tests Test 08/27/20 05:10 White Blood Count 7.6 K/UL (4.8-10.8) Red Blood Count 4.07 M/UL (4.70-6.10) L Hemoglobin 13.2 G/DL (14.2-18.0) L Hematocrit 38.7 % (42.0-52.0) L Mean Corpuscular Volume 95 FL (80-99) Mean Corpuscular Hemoglobin 32.5 PG (27.0-31.0) H Mean Corpuscular Hemoglobin Concent 34.2 G/DL (32.0-36.0) Red Cell Distribution Width 15.9 % (11.6-14.8) H Platelet Count 253 K/UL (150-450) Mean Platelet Volume 7.3 FL (6.5-10.1) Neutrophils (%) (Auto) 68.1 % (45.0-75.0) Lymphocytes (%) (Auto) 21.7 % (20.0-45.0) Monocytes (%) (Auto) 9.3 % (1.0-10.0) Eosinophils (%) (Auto) 0.4 % (0.0-3.0) Basophils (%) (Auto) 0.5 % (0.0-2.0) Sodium Level 137 MMOL/L (136-145) Potassium Level 4.0 MMOL/L (3.5-5.1) Chloride Level 103 MMOL/L (98-107) Carbon Dioxide Level 27 MMOL/L (21-32) Anion Gap 7 mmol/L (5-15) Blood Urea Nitrogen 12 mg/dL (7-18) Creatinine 0.7 MG/DL (0.55-1.30) Estimat Glomerular Filtration Rate > 60 mL/min (>60) Glucose Level 106 MG/DL (74-106) Calcium Level 9.3 MG/DL (8.5-10.1) Current Medications Medications (Trade) Dose Ordered Sig/Ashley Route PRN Reason Start Time Stop Time Status Last Admin Dose Admin Acetaminophen (Tylenol) 325 mg Q4H PRN ORAL For Pain 08/24/20 00:30 09/23/20 00:29 08/27/20 01:32 Ceftriaxone Sodium 1 gm/ Dextrose 55 ml @ 110 mls/hr Q24H IVPB 08/24/20 18:00 08/31/20 17:59 08/26/20 17:53 Dextrose/ Electrolytes 1,000 ml @ 75 mls/hr [id number] IV 08/24/20 02:00 09/23/20 01:59 08/27/20 10:03 Latanoprost (Xalatan) 1 drop BEDTIME BOTH EYES 08/24/20 21:00 09/23/20 20:59 08/26/20 20:10 Pantoprazole (Protonix) 40 mg DAILY ORAL 08/24/20 09:00 09/23/20 08:59 08/27/20 08:01 Phenytoin (Dilantin) 300 mg BEDTIME ORAL 08/24/20 21:00 09/23/20 20:59 08/26/20 22:12 Primidone (Mysoline) 250 mg TID ORAL 08/24/20 09:00 09/23/20 08:59 08/27/20 10:00 Sumatriptan Succinate (Imitrex) 100 mg TWICE A DAY PRN ORAL For Headache 08/24/20 00:15 09/23/20 00:14 08/26/20 20:11 Tamsulosin HCl (Flomax) 0.4 mg BEDTIME ORAL 08/24/20 01:00 09/23/20 00:59 08/26/20 20:10 Della Child M.D. Aug 27, 2020 10:38
--- NOTE | 2020-08-27 11:35 | NUR ---
RD ASSESSMENT & RECOMMENDATIONS SEE CARE ACTIVITY FOR COMPLETE ASSESSMENT DAILY ESTIMATED NEEDS: Needs based on Pulmonary 58kg 25-35 kcals/kg 8006-0816 total kcals 1-1.5 g protein/kg 58-87 g total protein 25-30 mL/kg 0552-5182 total fluid mLs NUTRITION DIAGNOSIS: Increased kcal needs r/t Low BMI as evidenced by BMI 18.4, underweight per guidelines 77% of [place] Body Weight. CURRENT DIET: Regular ms chopped PO DIET RECOMMENDATIONS: Maintain regular/ texture as tolerated ADDITIONAL RECOMMENDATIONS: 1) Monitor po intake, rec JUICE SCALEMAN eval- possible upgrade? 2) Obtain a standing weight as able or calibrated bed scale 3) Check lytes daily, replete as needed 4) Add Ensure Enlive BID 5) MVI x 1 .
[2020-08-27 12:00] VITALS: BP 123/76
--- NOTE | 2020-08-27 13:44 | Surgery Progress Note ---
Surgery Progress Note Subjective Additional Comments tolerating diet labs improved comfortable no n/v no abd pain on abx uti Objective Last 24 Hour Vital Signs Date Time Temp Pulse Resp B/P (MAP) Pulse Ox O2 Delivery O2 Flow Rate FiO2 08/27/20 12:00 98.0 74 18 123/76 (92) 93 08/27/20 09:00 Room Air 08/27/20 08:00 97.8 89 20 110/74 (86) 95 08/27/20 04:00 97.6 94 24 132/75 (94) 94 08/27/20 00:00 99.3 90 20 122/81 (95) 94 08/26/20 20:29 Room Air 08/26/20 20:00 99.5 95 24 133/87 (102) 93 08/26/20 16:00 97.2 90 18 139/81 (100) 93 I&O Intake and Output 08/26/20 08/27/20 18:59 06:59 Intake Total 805 ml 240 ml Output Total 400 ml Balance 405 ml 240 ml Intake Oral 240 ml IV Total 805 ml Output Urine Total 400 ml # Voids 4 3 Cardiovascular: RSR Respiratory: clear Abdomen: soft, flat, non-tender, present bowel sounds, non-distended Extremities: no edema, no tenderness, no cyanosis Laboratory Tests Test 08/27/20 05:10 White Blood Count 7.6 K/UL (4.8-10.8) Red Blood Count 4.07 M/UL (4.70-6.10) L Hemoglobin 13.2 G/DL (14.2-18.0) L Hematocrit 38.7 % (42.0-52.0) L Mean Corpuscular Volume 95 FL (80-99) Mean Corpuscular Hemoglobin 32.5 PG (27.0-31.0) H Mean Corpuscular Hemoglobin Concent 34.2 G/DL (32.0-36.0) Red Cell Distribution Width 15.9 % (11.6-14.8) H Platelet Count 253 K/UL (150-450) Mean Platelet Volume 7.3 FL (6.5-10.1) Neutrophils (%) (Auto) 68.1 % (45.0-75.0) Lymphocytes (%) (Auto) 21.7 % (20.0-45.0) Monocytes (%) (Auto) 9.3 % (1.0-10.0) Eosinophils (%) (Auto) 0.4 % (0.0-3.0) Basophils (%) (Auto) 0.5 % (0.0-2.0) Sodium Level 137 MMOL/L (136-145) Potassium Level 4.0 MMOL/L (3.5-5.1) Chloride Level 103 MMOL/L (98-107) Carbon Dioxide Level 27 MMOL/L (21-32) Anion Gap 7 mmol/L (5-15) Blood Urea Nitrogen 12 mg/dL (7-18) Creatinine 0.7 MG/DL (0.55-1.30) Estimat Glomerular Filtration Rate > 60 mL/min (>60) Glucose Level 106 MG/DL (74-106) Calcium Level 9.3 MG/DL (8.5-10.1) Plan Problems: (1) Abnormal LFTs Assessment & Plan: 69 year old male with history of hepatitis comes in for weakness noted to have abnormal lft's. hx hepatitis alk phos elevated US noted The liver demonstrates diffuse coarse hepatic echotexture. No ductal dilatation noted. Spleen is unremarkable. The gallbladder is without sludge or stone. Common bile duct measures 2 mm. The pancreas, aorta and cava are grossly unremarkable to the extent visualized appear The kidneys are normal in size, shape and axis. No ascites noted. okay or diet will monitor with exam trend labs thank you DAILY ESTIMATED NEEDS: Needs based on Pulmonary 58kg 25-35 kcals/kg 6686-0205 total kcals 1-1.5 g protein/kg 58-87 g total protein 25-30 mL/kg 1104-6576 total fluid mLs NUTRITION DIAGNOSIS: Increased kcal needs r/t Low BMI as evidenced by BMI 18.4, underweight per guidelines 77% of [place] Body Weight. 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 2) Obtain a standing weight as able or calibrated bed scale 3) Check lytes daily, replete as needed 4) Add Ensure Enlive BID 5) MVI x 1 (2) Encephalopathy (3) Weakness (4) UTI (urinary tract infection) (5) Altered mental status (6) Falls frequently (7) Cerebellar atrophy (8) Hip fracture, intertrochanteric (9) Seizure disorder, complex partial (10) Pulmonary embolism (11) ACS (acute coronary syndrome) (12) Multiple injuries due to trauma Rom Tan Aug 27, 2020 13:44
[2020-08-27] MEDS: Miralax 17gm pkt ORAL PRN (13:59)
--- NOTE | 2020-08-27 14:17 | NUR ---
CASE MANAGEMENT:REVIEW 08/27/20 SI: ENCEPHALOPATHY. SEPSIS D/T UTI 98.0 74 18 123/76 93% ON RA H/H-13.2/38.7 IS: IV ROCEPHIN Q24 IVF@75/HR COLACE PO BID DILANTIN PO QHS PROTONIX PO QD MYSOLINE PO TID FLOMAX PO QHS MED/SURG STATUS DCP: FROM HOME
--- NOTE | 2020-08-27 15:21 | NUR ---
INSURANCE CLINICALS/REVIEW FAXED TO [facility] FAX [phone] TELE [phone] [facility] FAX [phone] and [phone] TELE [phone]
[2020-08-27 16:00] VITALS: BP 114/75
[2020-08-27] MEDS: Docusate 100mg cap ORAL SCH ×2 (17:48→18:00)
[2020-08-27] MEDS: cefTRIAXone 1 GM in D5W 55 ML IVPB SCH (17:48)
--- NOTE | 2020-08-27 18:00 | NUR ---
NURSE NOTES: patient refused docusate, saying the medication "doesn't agree with my body".
--- NOTE | 2020-08-27 19:01 | Internal Med Progress Note ---
Subjective Date of Service: Aug 27, 2020 Physician Name Hayes Rothman Attending Physician Jose Sosa MD Current Medications Medications (Trade) Dose Ordered Sig/Ashley Route PRN Reason Start Time Stop Time Status Last Admin Dose Admin Acetaminophen (Tylenol) 325 mg Q4H PRN ORAL For Pain 08/24/20 00:30 09/23/20 00:29 08/27/20 01:32 Ceftriaxone Sodium 1 gm/ Dextrose 55 ml @ 110 mls/hr Q24H IVPB 08/24/20 18:00 08/31/20 17:59 08/27/20 17:48 Dextrose/ Electrolytes 1,000 ml @ 75 mls/hr [id number] IV 08/24/20 02:00 09/23/20 01:59 08/27/20 10:03 Docusate Sodium (Colace) 100 mg TWICE A DAY ORAL 08/27/20 18:00 09/26/20 17:59 08/27/20 17:48 Latanoprost (Xalatan) 1 drop BEDTIME BOTH EYES 08/24/20 21:00 09/23/20 20:59 08/26/20 20:10 Pantoprazole (Protonix) 40 mg DAILY ORAL 08/24/20 09:00 09/23/20 08:59 08/27/20 08:01 Phenytoin (Dilantin) 300 mg BEDTIME ORAL 08/24/20 21:00 09/23/20 20:59 08/26/20 22:12 Polyethylene Glycol (Miralax) 17 gm DAILYPRN PRN ORAL Constipation 08/27/20 12:00 09/26/20 11:59 08/27/20 13:59 Primidone (Mysoline) 250 mg TID ORAL 08/24/20 09:00 09/23/20 08:59 08/27/20 17:49 Sumatriptan Succinate (Imitrex) 100 mg TWICE A DAY PRN ORAL For Headache 08/24/20 00:15 09/23/20 00:14 08/26/20 20:11 Tamsulosin HCl (Flomax) 0.4 mg BEDTIME ORAL 08/24/20 01:00 09/23/20 00:59 08/26/20 20:10 Allergies: Coded Allergies: SHELLFISH DERIVED (Unverified Allergy, Intermediate, ITCHING/HIVES, 02/17/14) IODINE (Unverified Allergy, Unknown, 02/17/14) Uncoded Allergies: SPINACH (Allergy, Intermediate, SEVERE ITCHING/HIVES, 02/17/14) ROS Limited/Unobtainable: Yes Subjective 69 YO M admitted with altered mental status. Now UTI and sepsis. Cover for Int [facility] - Dr Sosa Objective Last Vital Signs Date Time Temp Pulse Resp B/P (MAP) Pulse Ox O2 Delivery O2 Flow Rate FiO2 08/27/20 16:00 98.1 76 20 114/75 (88) 99 08/27/20 09:00 Room Air 08/23/20 21:56 100 Laboratory Tests Test 08/27/20 05:10 White Blood Count 7.6 K/UL (4.8-10.8) Red Blood Count 4.07 M/UL (4.70-6.10) L Hemoglobin 13.2 G/DL (14.2-18.0) L Hematocrit 38.7 % (42.0-52.0) L Mean Corpuscular Volume 95 FL (80-99) Mean Corpuscular Hemoglobin 32.5 PG (27.0-31.0) H Mean Corpuscular Hemoglobin Concent 34.2 G/DL (32.0-36.0) Red Cell Distribution Width 15.9 % (11.6-14.8) H Platelet Count 253 K/UL (150-450) Mean Platelet Volume 7.3 FL (6.5-10.1) Neutrophils (%) (Auto) 68.1 % (45.0-75.0) Lymphocytes (%) (Auto) 21.7 % (20.0-45.0) Monocytes (%) (Auto) 9.3 % (1.0-10.0) Eosinophils (%) (Auto) 0.4 % (0.0-3.0) Basophils (%) (Auto) 0.5 % (0.0-2.0) Sodium Level 137 MMOL/L (136-145) Potassium Level 4.0 MMOL/L (3.5-5.1) Chloride Level 103 MMOL/L (98-107) Carbon Dioxide Level 27 MMOL/L (21-32) Anion Gap 7 mmol/L (5-15) Blood Urea Nitrogen 12 mg/dL (7-18) Creatinine 0.7 MG/DL (0.55-1.30) Estimat Glomerular Filtration Rate > 60 mL/min (>60) Glucose Level 106 MG/DL (74-106) Calcium Level 9.3 MG/DL (8.5-10.1) Intake and Output 08/26/20 08/27/20 19:00 07:00 Intake Total 805 ml 240 ml Output Total 400 ml Balance 405 ml 240 ml Intake Oral 240 ml IV Total 805 ml Output Urine Total 400 ml # Voids 4 3 Objective Objective General: No acute distress, awake and alert HEENT: NCAT, sclera anicteric, PERRL, EOMI. Neck: Supple, no significant jugular venous distention, Lungs: fair inspiratory effort, decreased air in the bases, no Wheeze or Rales. Heart: Regular rate and rhythm, normal S1/S2, no murmurs. Abdomen: soft, nontender, nondistended. Normoactive bowel sounds. / Rectal: Refused and deferred. Extremities: No Cyanosis , clubbing or edema. Neuro: A&O x 3, Able to move all extremities, bilateral lower extremity weakness Skin: warm, no rash. Psych: Normal mood and affect Assessment/Plan Assessment/Plan Assessment/Plan Assessment/Plan altered mental status toxic metabolic encephalopathy urinary tract infection=Aerococcus urinae dehydration. Sepsis secondary to urinary tract infection. Dehydration. Acute kidney injury. Seizure disorder. COPD. History of hepatitis B+ BPH Plan: Antibiotics: Rocephin CODE STATUS full code. DVT prophylaxis heparin subcu. Follow-up with infection disease recommendation. PT mobility consultation. Inf Dis=Dr. Della Child Pulmonary=Hayes Borja MD Aug 27, 2020 19:01
--- NOTE | 2020-08-27 19:27 | NUR ---
NURSE HAND-OFF: Important Events on Shift:[] Patient Status: [] Diet: [reg mech soft chopped] Pending Orders: [CBC, CMP] Pending Results/Labs:[] Pending MD notification:[] Latest Vital Signs: Temperature 98.1 , Pulse 76 , B/P 114 /75 , Respiratory Rate 20 , O2 SAT 99 , Room Air, O2 Flow Rate . Vital Sign Comment: [] Latest Roche Fall Score: 95 Fall Risk: High Risk Safety Measures: Call light Within Reach, Bed Alarm Zone 1, Side Rails Side Rails x3, Bed position Low and Locked. Fall Precautions: Yellow Socks Yellow Gown Door Sign Report given to [ANASTASIA Moncada].
--- NOTE | 2020-08-27 19:45 | NUR ---
NURSE NOTES: Received report from Luba OCONNOR. Patient is awake, alert and oriented to self and location. On room air, breathing is even and unlabored. No complains of pain or distress noted. Side rails are padded. IV right AC and right hand intact and patent with no bleeding noted. IVF running as ordered. Bed low and locked. Call light within reach.
[2020-08-27 20:00] VITALS: BP 116/66
[2020-08-27] MEDS: Phenytoin 100mg cap ORAL SCH (20:26)
[2020-08-27] MEDS: Tamsulosin 0.4mg cap ORAL SCH (20:26)
[2020-08-27] MEDS: Latanoprost 0.005% Opth 2.5ml Soln BOTH EYES SCH (20:27)
[2020-08-28] VITALS: BP 113/60
[2020-08-28 04:00] VITALS: BP 115/71
[2020-08-28 07:17] LABS: BASOPHILS % (AUTO) 0.5 % (0.0-2.0); EOSINOPHILS % (AUTO) 1.3 % (0.0-3.0); HEMOGLOBIN 13.2 G/DL (14.2-18.0); LYMPHOCYTES % (AUTO) 22.9 % (20.0-45.0); MEAN CORPUSCULAR VOLUME 96 FL (80-99); MONOCYTES % (AUTO) 9.4 % (1.0-10.0); NEUTROPHILS % (AUTO) 65.9 % (45.0-75.0); PLATELET COUNT 241 K/UL (150-450); RED BLOOD COUNT 4.07 M/UL (4.70-6.10); RED CELL DISTRIBUTION WIDTH 15.8 % (11.6-14.8); WHITE BLOOD COUNT 5.8 K/UL (4.8-10.8)
--- NOTE | 2020-08-28 07:30 | NUR ---
NURSE HAND-OFF: Important Events on Shift: IV hydration Patient Status: Stable Diet: Regular mechanical chopped Pending Orders: [] Pending Results/Labs:[] Pending MD notification:[] Latest Vital Signs: Temperature 97.5 , Pulse 77 , B/P 115 /71 , Respiratory Rate 16 , O2 SAT 94 , Room Air, O2 Flow Rate . Vital Sign Comment: VS stable Latest Roche Fall Score: 95 Fall Risk: High Risk Safety Measures: Call light Within Reach, Bed Alarm Zone 1, Side Rails Side Rails x3, Bed position Low and Locked. Fall Precautions: Yellow Socks Yellow Gown Door Sign Report given to Janette OCONNOR.
[2020-08-28 07:49] LABS: ANION GAP 9 mmol/L (5-15); BLOOD UREA NITROGEN 8 mg/dL (7-18); CARBON DIOXIDE 26 MMOL/L (21-32); CHLORIDE 103 MMOL/L (98-107); CREATININE 0.6 MG/DL (0.55-1.30); POTASSIUM 3.8 MMOL/L (3.5-5.1); SODIUM 138 MMOL/L (136-145)
--- NOTE | 2020-08-28 07:57 | NUR ---
NURSE NOTES: Received report from Alan RN, patient laying in bed with no signs of distress or other issues at this time. IV on the right AC gauge#22 HL, and right Hand gauge#22 running D5 1/2 NS +20mEq@75ml/hr. call light within reach, bed in lowest position, side rales up x2.I will f/u as needed.
[2020-08-28 08:00] VITALS: BP 135/80
[2020-08-28] MEDS: Docusate 100mg cap ORAL SCH ×2 (08:30→17:08)
--- NOTE | 2020-08-28 09:09 | Infectious Diseases Prog Note ---
Assessment/Plan 69yo M with: Afebrile Normal WBC Satting well on RA UTI, although asymptomatic R/o infection Weakness, failure to thrive 08/23 BCx NTD COVID PCR neg UA+, UCx >100k Aerococcus urinae CXR: No acute process CTH: Neg for acute process H/o HBV - per pt doesn't have it anymore Cirrhosis Elevated alk phos to 200s Abd US: COARSE HEPATIC ECHOTEXTURE WHICH MAY BE RELATED THE PATIENT'S HISTORY OF HEPATITIS B. NO IZZY CIRRHOSIS OR SPACE-OCCUPYING LESION SEEN PRESENTLY. HIV screen neg PMH: COPD CVA Seizure d/o HBV c/b cirrhosis Plan: Stop CTX 1g IV daily #5/ for UTI OK to d/c from ID standpoint F/u HBV Viral load, HBV serologies F/u HCV Ab screen Monitor CBC/CMP Monitor temp curve, hemodynamics Monitor resp status D/w RN Thank you for this consult. [facility] will continue to follow. Subjective Allergies: Coded Allergies: SHELLFISH DERIVED (Unverified Allergy, Intermediate, ITCHING/HIVES, 02/17/14) IODINE (Unverified Allergy, Unknown, 02/17/14) Uncoded Allergies: SPINACH (Allergy, Intermediate, SEVERE ITCHING/HIVES, 02/17/14) AF NAD on RA WBC 5.8 Objective Last 24 Hour Vital Signs Date Time Temp Pulse Resp B/P (MAP) Pulse Ox O2 Delivery O2 Flow Rate FiO2 08/28/20 09:00 Room Air 08/28/20 08:00 97.4 81 20 135/80 (98) 96 08/28/20 04:00 97.5 77 16 115/71 (86) 94 08/28/20 00:00 97.2 77 16 113/60 (77) 93 08/27/20 21:00 Room Air 08/27/20 20:00 97.1 86 18 116/66 (83) 94 08/27/20 16:00 98.1 76 20 114/75 (88) 99 08/27/20 12:00 98.0 74 18 123/76 (92) 93 Height (Feet): 5 Height (Inches): 10.00 Weight (Pounds): 128 Gen: NAD HEENT: NCAT Pulm: BL chest rise Abd: Non-distended Ext: No c/c/e Skin: No visible rashes Neuro: Awake Laboratory Tests Test 08/28/20 05:50 White Blood Count 5.8 K/UL (4.8-10.8) Red Blood Count 4.07 M/UL (4.70-6.10) L Hemoglobin 13.2 G/DL (14.2-18.0) L Hematocrit 39.0 % (42.0-52.0) L Mean Corpuscular Volume 96 FL (80-99) Mean Corpuscular Hemoglobin 32.5 PG (27.0-31.0) H Mean Corpuscular Hemoglobin Concent 33.8 G/DL (32.0-36.0) Red Cell Distribution Width 15.8 % (11.6-14.8) H Platelet Count 241 K/UL (150-450) Mean Platelet Volume 6.8 FL (6.5-10.1) Neutrophils (%) (Auto) 65.9 % (45.0-75.0) Lymphocytes (%) (Auto) 22.9 % (20.0-45.0) Monocytes (%) (Auto) 9.4 % (1.0-10.0) Eosinophils (%) (Auto) 1.3 % (0.0-3.0) Basophils (%) (Auto) 0.5 % (0.0-2.0) Sodium Level 138 MMOL/L (136-145) Potassium Level 3.8 MMOL/L (3.5-5.1) Chloride Level 103 MMOL/L (98-107) Carbon Dioxide Level 26 MMOL/L (21-32) Anion Gap 9 mmol/L (5-15) Blood Urea Nitrogen 8 mg/dL (7-18) Creatinine 0.6 MG/DL (0.55-1.30) Estimat Glomerular Filtration Rate > 60 mL/min (>60) Glucose Level 116 MG/DL (74-106) H Calcium Level 9.0 MG/DL (8.5-10.1) Current Medications Medications (Trade) Dose Ordered Sig/Ashley Route PRN Reason Start Time Stop Time Status Last Admin Dose Admin Acetaminophen (Tylenol) 325 mg Q4H PRN ORAL For Pain 08/24/20 00:30 09/23/20 00:29 08/27/20 01:32 Ceftriaxone Sodium 1 gm/ Dextrose 55 ml @ 110 mls/hr Q24H IVPB 08/24/20 18:00 08/31/20 17:59 08/27/20 17:48 Dextrose/ Electrolytes 1,000 ml @ 75 mls/hr [id number] IV 08/24/20 02:00 09/23/20 01:59 08/27/20 23:39 Docusate Sodium (Colace) 100 mg TWICE A DAY ORAL 08/27/20 18:00 09/26/20 17:59 08/28/20 08:30 Latanoprost (Xalatan) 1 drop BEDTIME BOTH EYES 08/24/20 21:00 09/23/20 20:59 08/27/20 20:27 Pantoprazole (Protonix) 40 mg DAILY ORAL 08/24/20 09:00 09/23/20 08:59 08/28/20 08:30 Phenytoin (Dilantin) 300 mg BEDTIME ORAL 08/24/20 21:00 09/23/20 20:59 08/27/20 20:26 Polyethylene Glycol (Miralax) 17 gm DAILYPRN PRN ORAL Constipation 08/27/20 12:00 09/26/20 11:59 08/27/20 13:59 Primidone (Mysoline) 250 mg TID ORAL 08/24/20 09:00 09/23/20 08:59 08/28/20 08:30 Sumatriptan Succinate (Imitrex) 100 mg TWICE A DAY PRN ORAL For Headache 08/24/20 00:15 09/23/20 00:14 08/26/20 20:11 Tamsulosin HCl (Flomax) 0.4 mg BEDTIME ORAL 08/24/20 01:00 09/23/20 00:59 08/27/20 20:26 Della Child M.D. Aug 28, 2020 09:09
--- NOTE | 2020-08-28 10:20 | Pulmonology Progress Note ---
Subjective ROS Limited/Unobtainable: Yes Interval Events: none major reported per nursing Constitutional: Reports: no symptoms HEENT: Repors: no symptoms Respiratory: Reports: no symptoms Cardiovascular: Reports: no symptoms Gastrointestinal/Abdominal: Reports: no symptoms Allergies: Coded Allergies: SHELLFISH DERIVED (Unverified Allergy, Intermediate, ITCHING/HIVES, 02/17/14) IODINE (Unverified Allergy, Unknown, 02/17/14) Uncoded Allergies: SPINACH (Allergy, Intermediate, SEVERE ITCHING/HIVES, 02/17/14) Objective Last 24 Hour Vital Signs Date Time Temp Pulse Resp B/P (MAP) Pulse Ox O2 Delivery O2 Flow Rate FiO2 08/28/20 09:00 Room Air 08/28/20 08:00 97.4 81 20 135/80 (98) 96 08/28/20 04:00 97.5 77 16 115/71 (86) 94 08/28/20 00:00 97.2 77 16 113/60 (77) 93 08/27/20 21:00 Room Air 08/27/20 20:00 97.1 86 18 116/66 (83) 94 08/27/20 16:00 98.1 76 20 114/75 (88) 99 08/27/20 12:00 98.0 74 18 123/76 (92) 93 Intake and Output 08/27/20 08/28/20 19:00 07:00 Intake Total 820 ml 1065 ml Output Total 400 ml Balance 420 ml 1065 ml Intake Oral 240 ml 240 ml IV Total 580 ml 825 ml Output Urine Total 400 ml # Voids 3 3 General Appearance: no acute distress HEENT: atraumatic Respiratory: lungs clear Abdomen: soft, non tender Laboratory Tests 08/28/20 05:50: White Blood Count 5.8, Red Blood Count 4.07L, Hemoglobin 13.2L, Hematocrit 39.0L , Mean Corpuscular Volume 96, Mean Corpuscular Hemoglobin 32.5H, Mean Corpuscular Hemoglobin Concent 33.8, Red Cell Distribution Width 15.8H, Platelet Count 241, Mean Platelet Volume 6.8, Neutrophils (%) (Auto) 65.9, Lymphocytes (%) (Auto) 22.9, Monocytes (%) (Auto) 9.4, Eosinophils (%) (Auto) 1.3, Basophils (%) (Auto) 0.5, Sodium Level 138, Potassium Level 3.8, Chloride Level 103, Carbon Dioxide Level 26, Anion Gap 9, Blood Urea Nitrogen 8, Creatinine 0.6, Estimat Glomerular Filtration Rate > 60, Glucose Level 116H, Calcium Level 9.0 Current Medications Medications (Trade) Dose Ordered Sig/Ashley Route PRN Reason Start Time Stop Time Status Last Admin Dose Admin Acetaminophen (Tylenol) 325 mg Q4H PRN ORAL For Pain 08/24/20 00:30 09/23/20 00:29 08/27/20 01:32 Dextrose/ Electrolytes 1,000 ml @ 75 mls/hr [id number] IV 08/24/20 02:00 09/23/20 01:59 08/27/20 23:39 Docusate Sodium (Colace) 100 mg TWICE A DAY ORAL 08/27/20 18:00 09/26/20 17:59 08/28/20 08:30 Latanoprost (Xalatan) 1 drop BEDTIME BOTH EYES 08/24/20 21:00 09/23/20 20:59 08/27/20 20:27 Pantoprazole (Protonix) 40 mg DAILY ORAL 08/24/20 09:00 09/23/20 08:59 08/28/20 08:30 Phenytoin (Dilantin) 300 mg BEDTIME ORAL 08/24/20 21:00 09/23/20 20:59 08/27/20 20:26 Polyethylene Glycol (Miralax) 17 gm DAILYPRN PRN ORAL Constipation 08/27/20 12:00 09/26/20 11:59 08/27/20 13:59 Primidone (Mysoline) 250 mg TID ORAL 08/24/20 09:00 09/23/20 08:59 08/28/20 08:30 Sumatriptan Succinate (Imitrex) 100 mg TWICE A DAY PRN ORAL For Headache 08/24/20 00:15 09/23/20 00:14 08/26/20 20:11 Tamsulosin HCl (Flomax) 0.4 mg BEDTIME ORAL 08/24/20 01:00 09/23/20 00:59 08/27/20 20:26 Assessment/Plan Assessment/Plan 1. History of COPD -Patient denies using home oxygen -Currently saturating well on room air -Monitor for hypoxia and provide supplemental oxygen as needed 2. COVID-19 PCR negative - off isolation 3. History of hepatitis B -Per patient, he does not have it anymore -Abdominal US shows coarse hepatic echotexture. No cirrhosis or space- occupying lesion seen. - ID following - hep panel pending 4. Aerococcus UTI -s/p Rocephin for possible UTI per ID - ID following 5. DVT ppx - on Heparin subcu PT recommends placement to SNF due to weakness Medically stable from pulmonary standpoint Recommend dc to SNF, pt very unsteady The care for this patient was discussed with my supervising physician. Time spent for this case was approximately 31 minutes. Alfredo Rapp Aug 28, 2020 10:20
[2020-08-28 12:00] VITALS: BP 129/75
[2020-08-28] MEDS: D5 1/2NS w/KCl 20mEq 1,000 ML IV SCH (12:18)
--- NOTE | 2020-08-28 12:44 | NUR ---
CASE MANAGEMENT:REVIEW 08/28/20 SI: ENCEPHALOPATHY. SEPSIS D/T UTI 97.3 80 20 129/75 94% ON RA H/H-13.2/39.0 IS: IVF@75/HR COLACE PO BID DILANTIN PO QHS PROTONIX PO QD MYSOLINE PO TID FLOMAX PO QHS MED/SURG STATUS DCP: FROM HOME PLAN: IS RECOMMENDING SNF
--- NOTE | 2020-08-28 14:25 | Surgery Progress Note ---
Surgery Progress Note Subjective Additional Comments states he is well wants to go home consider placement snf Objective Last 24 Hour Vital Signs Date Time Temp Pulse Resp B/P (MAP) Pulse Ox O2 Delivery O2 Flow Rate FiO2 08/28/20 12:57 97.4 08/28/20 12:00 97.3 80 20 129/75 (93) 94 08/28/20 09:00 Room Air 08/28/20 08:00 97.4 81 20 135/80 (98) 96 08/28/20 04:00 97.5 77 16 115/71 (86) 94 08/28/20 00:00 97.2 77 16 113/60 (77) 93 08/27/20 21:00 Room Air 08/27/20 20:00 97.1 86 18 116/66 (83) 94 08/27/20 16:00 98.1 76 20 114/75 (88) 99 I&O Intake and Output 08/27/20 08/28/20 19:00 07:00 Intake Total 820 ml 1065 ml Output Total 400 ml Balance 420 ml 1065 ml Intake Oral 240 ml 240 ml IV Total 580 ml 825 ml Output Urine Total 400 ml # Voids 3 3 Dressing: saturated Cardiovascular: RSR Respiratory: decreased breath sounds Abdomen: non-tender, present bowel sounds Extremities: no edema, no tenderness, no cyanosis Laboratory Tests Test 08/28/20 05:50 White Blood Count 5.8 K/UL (4.8-10.8) Red Blood Count 4.07 M/UL (4.70-6.10) L Hemoglobin 13.2 G/DL (14.2-18.0) L Hematocrit 39.0 % (42.0-52.0) L Mean Corpuscular Volume 96 FL (80-99) Mean Corpuscular Hemoglobin 32.5 PG (27.0-31.0) H Mean Corpuscular Hemoglobin Concent 33.8 G/DL (32.0-36.0) Red Cell Distribution Width 15.8 % (11.6-14.8) H Platelet Count 241 K/UL (150-450) Mean Platelet Volume 6.8 FL (6.5-10.1) Neutrophils (%) (Auto) 65.9 % (45.0-75.0) Lymphocytes (%) (Auto) 22.9 % (20.0-45.0) Monocytes (%) (Auto) 9.4 % (1.0-10.0) Eosinophils (%) (Auto) 1.3 % (0.0-3.0) Basophils (%) (Auto) 0.5 % (0.0-2.0) Sodium Level 138 MMOL/L (136-145) Potassium Level 3.8 MMOL/L (3.5-5.1) Chloride Level 103 MMOL/L (98-107) Carbon Dioxide Level 26 MMOL/L (21-32) Anion Gap 9 mmol/L (5-15) Blood Urea Nitrogen 8 mg/dL (7-18) Creatinine 0.6 MG/DL (0.55-1.30) Estimat Glomerular Filtration Rate > 60 mL/min (>60) Glucose Level 116 MG/DL (74-106) H Calcium Level 9.0 MG/DL (8.5-10.1) Plan Problems: (1) Abnormal LFTs Assessment & Plan: 69 year old male with history of hepatitis comes in for weakness noted to have abnormal lft's. hx hepatitis alk phos elevated US noted The liver demonstrates diffuse coarse hepatic echotexture. No ductal dilatation noted. Spleen is unremarkable. The gallbladder is without sludge or stone. Common bile duct measures 2 mm. The pancreas, aorta and cava are grossly unremarkable to the extent visualized appear The kidneys are normal in size, shape and axis. No ascites noted. okay or diet will monitor with exam trend labs thank you DAILY ESTIMATED NEEDS: Needs based on Pulmonary 58kg 25-35 kcals/kg 5854-6197 total kcals 1-1.5 g protein/kg 58-87 g total protein 25-30 mL/kg 8022-4982 total fluid mLs NUTRITION DIAGNOSIS: Increased kcal needs r/t Low BMI as evidenced by BMI 18.4, underweight per guidelines 77% of [place] Body Weight. 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 2) Obtain a standing weight as able or calibrated bed scale 3) Check lytes daily, replete as needed 4) Add Ensure Enlive BID 5) MVI x 1 (2) Encephalopathy (3) Weakness (4) UTI (urinary tract infection) (5) Altered mental status (6) Falls frequently (7) Cerebellar atrophy (8) Hip fracture, intertrochanteric (9) Seizure disorder, complex partial (10) Pulmonary embolism (11) ACS (acute coronary syndrome) (12) Multiple injuries due to trauma Rom Tan Aug 28, 2020 14:25
--- NOTE | 2020-08-28 15:38 | NUR ---
insurance CLINICALS/REVIEW FAXED TO [facility] FAX [phone] TELE [phone] [facility] FAX [phone] and [phone] TELE [phone]
[2020-08-28 16:00] VITALS: BP 117/70
--- NOTE | 2020-08-28 18:24 | Internal Med Progress Note ---
Subjective Date of Service: Aug 28, 2020 Physician Name Hayes Rothman Attending Physician Jose Sosa MD Current Medications Medications (Trade) Dose Ordered Sig/Ashley Route PRN Reason Start Time Stop Time Status Last Admin Dose Admin Acetaminophen (Tylenol) 325 mg Q4H PRN ORAL For Pain 08/24/20 00:30 09/23/20 00:29 08/28/20 12:27 Dextrose/ Electrolytes 1,000 ml @ 75 mls/hr [id number] IV 08/24/20 02:00 09/23/20 01:59 08/28/20 12:18 Docusate Sodium (Colace) 100 mg TWICE A DAY ORAL 08/27/20 18:00 09/26/20 17:59 08/28/20 17:08 Latanoprost (Xalatan) 1 drop BEDTIME BOTH EYES 08/24/20 21:00 09/23/20 20:59 08/27/20 20:27 Pantoprazole (Protonix) 40 mg DAILY ORAL 08/24/20 09:00 09/23/20 08:59 08/28/20 08:30 Phenytoin (Dilantin) 300 mg BEDTIME ORAL 08/24/20 21:00 09/23/20 20:59 08/27/20 20:26 Polyethylene Glycol (Miralax) 17 gm DAILYPRN PRN ORAL Constipation 08/27/20 12:00 09/26/20 11:59 08/27/20 13:59 Primidone (Mysoline) 250 mg TID ORAL 08/24/20 09:00 09/23/20 08:59 08/28/20 17:08 Sumatriptan Succinate (Imitrex) 100 mg TWICE A DAY PRN ORAL For Headache 08/24/20 00:15 09/23/20 00:14 08/26/20 20:11 Tamsulosin HCl (Flomax) 0.4 mg BEDTIME ORAL 08/24/20 01:00 09/23/20 00:59 08/27/20 20:26 Allergies: Coded Allergies: SHELLFISH DERIVED (Unverified Allergy, Intermediate, ITCHING/HIVES, 02/17/14) IODINE (Unverified Allergy, Unknown, 02/17/14) Uncoded Allergies: SPINACH (Allergy, Intermediate, SEVERE ITCHING/HIVES, 02/17/14) ROS Limited/Unobtainable: Yes Subjective 69 YO M admitted with altered mental status. Now UTI and sepsis. Cover for Int Ananth - Dr Sosa Objective Last Vital Signs Date Time Temp Pulse Resp B/P (MAP) Pulse Ox O2 Delivery O2 Flow Rate FiO2 08/28/20 16:00 97.7 86 20 117/70 (86) 94 08/28/20 09:00 Room Air 08/23/20 21:56 100 Laboratory Tests Test 08/28/20 05:50 White Blood Count 5.8 K/UL (4.8-10.8) Red Blood Count 4.07 M/UL (4.70-6.10) L Hemoglobin 13.2 G/DL (14.2-18.0) L Hematocrit 39.0 % (42.0-52.0) L Mean Corpuscular Volume 96 FL (80-99) Mean Corpuscular Hemoglobin 32.5 PG (27.0-31.0) H Mean Corpuscular Hemoglobin Concent 33.8 G/DL (32.0-36.0) Red Cell Distribution Width 15.8 % (11.6-14.8) H Platelet Count 241 K/UL (150-450) Mean Platelet Volume 6.8 FL (6.5-10.1) Neutrophils (%) (Auto) 65.9 % (45.0-75.0) Lymphocytes (%) (Auto) 22.9 % (20.0-45.0) Monocytes (%) (Auto) 9.4 % (1.0-10.0) Eosinophils (%) (Auto) 1.3 % (0.0-3.0) Basophils (%) (Auto) 0.5 % (0.0-2.0) Sodium Level 138 MMOL/L (136-145) Potassium Level 3.8 MMOL/L (3.5-5.1) Chloride Level 103 MMOL/L (98-107) Carbon Dioxide Level 26 MMOL/L (21-32) Anion Gap 9 mmol/L (5-15) Blood Urea Nitrogen 8 mg/dL (7-18) Creatinine 0.6 MG/DL (0.55-1.30) Estimat Glomerular Filtration Rate > 60 mL/min (>60) Glucose Level 116 MG/DL (74-106) H Calcium Level 9.0 MG/DL (8.5-10.1) Intake and Output 08/27/20 08/28/20 19:00 07:00 Intake Total 820 ml 1065 ml Output Total 400 ml Balance 420 ml 1065 ml Intake Oral 240 ml 240 ml IV Total 580 ml 825 ml Output Urine Total 400 ml # Voids 3 3 Objective Objective General: No acute distress, awake and alert HEENT: NCAT, sclera anicteric, PERRL, EOMI. Neck: Supple, no significant jugular venous distention, Lungs: fair inspiratory effort, decreased air in the bases, no Wheeze or Rales. Heart: Regular rate and rhythm, normal S1/S2, no murmurs. Abdomen: soft, nontender, nondistended. Normoactive bowel sounds. / Rectal: Refused and deferred. Extremities: No Cyanosis , clubbing or edema. Neuro: A&O x 3, Able to move all extremities, bilateral lower extremity weakness Skin: warm, no rash. Psych: Normal mood and affect Assessment/Plan Assessment/Plan Assessment/Plan Assessment/Plan altered mental status toxic metabolic encephalopathy urinary tract infection=Aerococcus urinae dehydration. Sepsis secondary to urinary tract infection. Dehydration. Acute kidney injury. Seizure disorder. COPD. History of hepatitis B+ BPH Plan: Antibiotics: Rocephin CODE STATUS full code. DVT prophylaxis heparin subcu. Follow-up with infection disease recommendation. PT mobility consultation. Inf Dis=Dr. Della Child Pulmonary=Dr. Pepper Discharge planning: [facility] Hayes Rothman MD Aug 28, 2020 18:24
--- NOTE | 2020-08-28 19:00 | NUR ---
NURSE NOTES: Received report from ANASTASIA Savage. AAO x 2-3, resting in bed, on RA. Denies pain or discomfort. IV sites intact and patent. Condom cath running well. No acute distress noted. Bed locked, lowest position, alarm on, side rails up, call light within reach. Will continue to monitor.
--- NOTE | 2020-08-28 19:23 | NUR ---
NURSE NOTES: Given report to Crys OCONNOR, patient in stable condition. - plan to d/c to SNF once bed becomes available. DPOA: Pantera Bray: [phone] - per DPOA patient lives alone in an apartment, prior to this admission pt had a caregiver 16/02 but per DPOA they wont be able to pay for another caregiver upon d/c. pt needs placement per PT rec. - pt is confused and unable to ambulate.
[2020-08-28 20:00] VITALS: BP 135/72
[2020-08-28] MEDS: Tamsulosin 0.4mg cap ORAL SCH (20:08)
[2020-08-28] MEDS: Phenytoin 100mg cap ORAL SCH (20:08)
[2020-08-28] MEDS: Latanoprost 0.005% Opth 2.5ml Soln BOTH EYES SCH (20:08)
[2020-08-29] VITALS: BP 138/72
[2020-08-29] MEDS: D5 1/2NS w/KCl 20mEq 1,000 ML IV SCH ×2 (01:02→15:00)
[2020-08-29 04:00] VITALS: BP 132/70
--- NOTE | 2020-08-29 04:18 | NUR ---
NURSE NOTES: Report given to Malissa
--- NOTE | 2020-08-29 06:39 | NUR ---
NURSE HAND-OFF: Important Events on Shift:[] Patient Status: [STABLE] Diet: [REG MECH SOFT CHOPPED] Pending Orders: [N/A] Pending Results/Labs:[N/A] Pending MD notification:[N/A] Latest Vital Signs: Temperature 98.8 , Pulse 70 , B/P 132 /70 , Respiratory Rate 20 , O2 SAT 92 , Room Air, O2 Flow Rate . Vital Sign Comment: [WNL] Latest Roche Fall Score: 95 Fall Risk: High Risk Safety Measures: Call light Within Reach, Bed Alarm Zone 1, Side Rails Side Rails x3, Bed position Low and Locked. Fall Precautions: Yellow Socks Yellow Gown Door Sign Report given to [].
[2020-08-29 07:28] LABS: BASOPHILS % (AUTO) 0.3 % (0.0-2.0); EOSINOPHILS % (AUTO) 0.1 % (0.0-3.0); HEMATOCRIT 38.7 % (42.0-52.0); HEMOGLOBIN 13.1 G/DL (14.2-18.0); LYMPHOCYTES % (AUTO) 12.3 % (20.0-45.0); MEAN CORPUSCULAR VOLUME 96 FL (80-99); MONOCYTES % (AUTO) 7.1 % (1.0-10.0); NEUTROPHILS % (AUTO) 80.2 % (45.0-75.0); PLATELET COUNT 258 K/UL (150-450); RED BLOOD COUNT 4.02 M/UL (4.70-6.10); RED CELL DISTRIBUTION WIDTH 15.5 % (11.6-14.8); WHITE BLOOD COUNT 10.5 K/UL (4.8-10.8)
--- NOTE | 2020-08-29 07:37 | NUR ---
CASE MANAGEMENT:REVIEW 08/29/20 SI: ENCEPHALOPATHY. SEPSIS D/T UTI 98.8 70 20 132/70 92% ON RA IS: IVF@75/HR COLACE PO BID DILANTIN PO QHS PROTONIX PO QD MYSOLINE PO TID FLOMAX PO QHS MED/SURG STATUS DCP: FROM HOME PLAN: IS RECOMMENDING SNF
[2020-08-29 07:45] LABS: ANION GAP 8 mmol/L (5-15); BLOOD UREA NITROGEN 11 mg/dL (7-18); CALCIUM 9.1 MG/DL (8.5-10.1); CARBON DIOXIDE 27 MMOL/L (21-32); CHLORIDE 102 MMOL/L (98-107); CREATININE 0.6 MG/DL (0.55-1.30); SODIUM 137 MMOL/L (136-145)
--- NOTE | 2020-08-29 07:45 | NUR ---
NURSE NOTES: Received report from ANASTASIA Velásquez. Pt in bed, AAO x 2, breathing even and unlabored on RA. Denies pain or discomfort. IV sites intact and patent. Condom cath in place. Bed locked, lowest position, alarm on, side rails up, call light within reach. Will continue to monitor.
--- NOTE | 2020-08-29 07:59 | NUR ---
HAND OFF: Report given to ANASTASIA BLAKE.
[2020-08-29 08:00] VITALS: BP 101/66
[2020-08-29] MEDS: Docusate 100mg cap ORAL SCH ×2 (08:31→18:22)
--- NOTE | 2020-08-29 08:57 | Infectious Diseases Prog Note ---
Assessment/Plan 69yo M with: Afebrile Normal WBC Satting well on RA UTI, although asymptomatic R/o infection Weakness, failure to thrive 08/23 BCx NTD COVID PCR neg UA+, UCx >100k Aerococcus urinae CXR: No acute process CTH: Neg for acute process H/o HBV - per pt doesn't have it anymore Cirrhosis Elevated alk phos to 200s Abd US: COARSE HEPATIC ECHOTEXTURE WHICH MAY BE RELATED THE PATIENT'S HISTORY OF HEPATITIS B. NO IZZY CIRRHOSIS OR SPACE-OCCUPYING LESION SEEN PRESENTLY. HIV screen neg PMH: COPD CVA Seizure d/o HBV c/b cirrhosis Plan: Cont to monitor off abx OK to d/c from ID standpoint F/u HBV Viral load, HBV serologies F/u HCV Ab screen Monitor CBC/CMP Monitor temp curve, hemodynamics Monitor resp status D/w RN Thank you for this consult. [facility] will continue to follow. Subjective Allergies: Coded Allergies: SHELLFISH DERIVED (Unverified Allergy, Intermediate, ITCHING/HIVES, 02/17/14) IODINE (Unverified Allergy, Unknown, 02/17/14) Uncoded Allergies: SPINACH (Allergy, Intermediate, SEVERE ITCHING/HIVES, 02/17/14) AF NAD on RA WBC 10.5 Off abx now Feeling fine, just weak Objective Last 24 Hour Vital Signs Date Time Temp Pulse Resp B/P (MAP) Pulse Ox O2 Delivery O2 Flow Rate FiO2 08/29/20 04:00 98.8 70 20 132/70 (90) 92 08/29/20 00:00 98.2 98 20 138/72 (94) 92 08/28/20 21:00 Room Air 08/28/20 20:00 98.4 95 20 135/72 (93) 95 08/28/20 16:00 97.7 86 20 117/70 (86) 94 08/28/20 12:57 97.4 08/28/20 12:00 97.3 80 20 129/75 (93) 94 08/28/20 09:00 Room Air Height (Feet): 5 Height (Inches): 10.00 Weight (Pounds): 128 Gen: NAD HEENT: NCAT Pulm: BL chest rise Abd: Non-distended Ext: No c/c/e Skin: No visible rashes Neuro: Awake Laboratory Tests Test 08/29/20 05:22 White Blood Count 10.5 K/UL (4.8-10.8) # Red Blood Count 4.02 M/UL (4.70-6.10) L Hemoglobin 13.1 G/DL (14.2-18.0) L Hematocrit 38.7 % (42.0-52.0) L Mean Corpuscular Volume 96 FL (80-99) Mean Corpuscular Hemoglobin 32.7 PG (27.0-31.0) H Mean Corpuscular Hemoglobin Concent 33.9 G/DL (32.0-36.0) Red Cell Distribution Width 15.5 % (11.6-14.8) H Platelet Count 258 K/UL (150-450) Mean Platelet Volume 7.5 FL (6.5-10.1) Neutrophils (%) (Auto) 80.2 % (45.0-75.0) H Lymphocytes (%) (Auto) 12.3 % (20.0-45.0) L Monocytes (%) (Auto) 7.1 % (1.0-10.0) Eosinophils (%) (Auto) 0.1 % (0.0-3.0) Basophils (%) (Auto) 0.3 % (0.0-2.0) Sodium Level 137 MMOL/L (136-145) Potassium Level 4.0 MMOL/L (3.5-5.1) Chloride Level 102 MMOL/L (98-107) Carbon Dioxide Level 27 MMOL/L (21-32) Anion Gap 8 mmol/L (5-15) Blood Urea Nitrogen 11 mg/dL (7-18) Creatinine 0.6 MG/DL (0.55-1.30) Estimat Glomerular Filtration Rate > 60 mL/min (>60) Glucose Level 118 MG/DL (74-106) H Calcium Level 9.1 MG/DL (8.5-10.1) Current Medications Medications (Trade) Dose Ordered Sig/Ashley Route PRN Reason Start Time Stop Time Status Last Admin Dose Admin Acetaminophen (Tylenol) 325 mg Q4H PRN ORAL For Pain 08/24/20 00:30 09/23/20 00:29 08/29/20 03:14 Dextrose/ Electrolytes 1,000 ml @ 75 mls/hr [id number] IV 08/24/20 02:00 09/23/20 01:59 08/29/20 01:02 Docusate Sodium (Colace) 100 mg TWICE A DAY ORAL 08/27/20 18:00 09/26/20 17:59 08/29/20 08:31 Latanoprost (Xalatan) 1 drop BEDTIME BOTH EYES 08/24/20 21:00 09/23/20 20:59 08/28/20 20:08 Pantoprazole (Protonix) 40 mg DAILY ORAL 08/24/20 09:00 09/23/20 08:59 08/29/20 08:31 Phenytoin (Dilantin) 300 mg BEDTIME ORAL 08/24/20 21:00 09/23/20 20:59 08/28/20 20:08 Polyethylene Glycol (Miralax) 17 gm DAILYPRN PRN ORAL Constipation 08/27/20 12:00 09/26/20 11:59 08/27/20 13:59 Primidone (Mysoline) 250 mg TID ORAL 08/24/20 09:00 09/23/20 08:59 08/29/20 08:32 Sumatriptan Succinate (Imitrex) 100 mg TWICE A DAY PRN ORAL For Headache 08/24/20 00:15 09/23/20 00:14 08/26/20 20:11 Tamsulosin HCl (Flomax) 0.4 mg BEDTIME ORAL 08/24/20 01:00 09/23/20 00:59 08/28/20 20:08 Della Child M.D. Aug 29, 2020 08:57
--- NOTE | 2020-08-29 10:48 | NUR ---
INSURANCE CLINICALS/REVIEW FAXED TO [facility] FAX [phone] TELE [phone] [facility] FAX [phone] and [phone] TELE [phone]
--- NOTE | 2020-08-29 11:27 | Internal Med Progress Note ---
Subjective Date of Service: Aug 29, 2020 Physician Name Hayes Rothman Attending Physician Jose Sosa MD Current Medications Medications (Trade) Dose Ordered Sig/Ashley Route PRN Reason Start Time Stop Time Status Last Admin Dose Admin Acetaminophen (Tylenol) 325 mg Q4H PRN ORAL For Pain 08/24/20 00:30 09/23/20 00:29 08/29/20 03:14 Dextrose/ Electrolytes 1,000 ml @ 75 mls/hr [id number] IV 08/24/20 02:00 09/23/20 01:59 08/29/20 01:02 Docusate Sodium (Colace) 100 mg TWICE A DAY ORAL 08/27/20 18:00 09/26/20 17:59 08/29/20 08:31 Latanoprost (Xalatan) 1 drop BEDTIME BOTH EYES 08/24/20 21:00 09/23/20 20:59 08/28/20 20:08 Pantoprazole (Protonix) 40 mg DAILY ORAL 08/24/20 09:00 09/23/20 08:59 08/29/20 08:31 Phenytoin (Dilantin) 300 mg BEDTIME ORAL 08/24/20 21:00 09/23/20 20:59 08/28/20 20:08 Polyethylene Glycol (Miralax) 17 gm DAILYPRN PRN ORAL Constipation 08/27/20 12:00 09/26/20 11:59 08/27/20 13:59 Primidone (Mysoline) 250 mg TID ORAL 08/24/20 09:00 09/23/20 08:59 08/29/20 08:32 Sumatriptan Succinate (Imitrex) 100 mg TWICE A DAY PRN ORAL For Headache 08/24/20 00:15 09/23/20 00:14 08/26/20 20:11 Tamsulosin HCl (Flomax) 0.4 mg BEDTIME ORAL 08/24/20 01:00 09/23/20 00:59 08/28/20 20:08 Allergies: Coded Allergies: SHELLFISH DERIVED (Unverified Allergy, Intermediate, ITCHING/HIVES, 02/17/14) IODINE (Unverified Allergy, Unknown, 02/17/14) Uncoded Allergies: SPINACH (Allergy, Intermediate, SEVERE ITCHING/HIVES, 02/17/14) ROS Limited/Unobtainable: Yes Subjective 69 YO M admitted with altered mental status. Now UTI and sepsis. Cover for Int Ananth - Dr Sosa Objective Last Vital Signs Date Time Temp Pulse Resp B/P (MAP) Pulse Ox O2 Delivery O2 Flow Rate FiO2 08/29/20 09:00 Room Air 08/29/20 08:00 97.4 77 18 101/66 (78) 94 08/23/20 21:56 100 Laboratory Tests Test 08/29/20 05:22 White Blood Count 10.5 K/UL (4.8-10.8) # Red Blood Count 4.02 M/UL (4.70-6.10) L Hemoglobin 13.1 G/DL (14.2-18.0) L Hematocrit 38.7 % (42.0-52.0) L Mean Corpuscular Volume 96 FL (80-99) Mean Corpuscular Hemoglobin 32.7 PG (27.0-31.0) H Mean Corpuscular Hemoglobin Concent 33.9 G/DL (32.0-36.0) Red Cell Distribution Width 15.5 % (11.6-14.8) H Platelet Count 258 K/UL (150-450) Mean Platelet Volume 7.5 FL (6.5-10.1) Neutrophils (%) (Auto) 80.2 % (45.0-75.0) H Lymphocytes (%) (Auto) 12.3 % (20.0-45.0) L Monocytes (%) (Auto) 7.1 % (1.0-10.0) Eosinophils (%) (Auto) 0.1 % (0.0-3.0) Basophils (%) (Auto) 0.3 % (0.0-2.0) Sodium Level 137 MMOL/L (136-145) Potassium Level 4.0 MMOL/L (3.5-5.1) Chloride Level 102 MMOL/L (98-107) Carbon Dioxide Level 27 MMOL/L (21-32) Anion Gap 8 mmol/L (5-15) Blood Urea Nitrogen 11 mg/dL (7-18) Creatinine 0.6 MG/DL (0.55-1.30) Estimat Glomerular Filtration Rate > 60 mL/min (>60) Glucose Level 118 MG/DL (74-106) H Calcium Level 9.1 MG/DL (8.5-10.1) Intake and Output 08/28/20 08/29/20 19:00 07:00 Intake Total 240 ml Output Total 750 ml 900 ml Balance -750 ml -660 ml Intake Oral 240 ml Output Urine Total 750 ml 900 ml # Voids 1 Objective Objective General: No acute distress, awake and alert HEENT: NCAT, sclera anicteric, PERRL, EOMI. Neck: Supple, no significant jugular venous distention, Lungs: fair inspiratory effort, decreased air in the bases, no Wheeze or Rales. Heart: Regular rate and rhythm, normal S1/S2, no murmurs. Abdomen: soft, nontender, nondistended. Normoactive bowel sounds. / Rectal: Refused and deferred. Extremities: No Cyanosis , clubbing or edema. Neuro: A&O x 3, Able to move all extremities, bilateral lower extremity weakness Skin: warm, no rash. Psych: Normal mood and affect Assessment/Plan Assessment/Plan Assessment/Plan Assessment/Plan altered mental status toxic metabolic encephalopathy urinary tract infection=Aerococcus urinae dehydration. Sepsis secondary to urinary tract infection. Dehydration. Acute kidney injury. Seizure disorder. COPD. History of hepatitis B+ BPH Plan: Antibiotics: S/P Rocephin CODE STATUS full code. DVT prophylaxis heparin subcu. Follow-up with infection disease recommendation. PT mobility consultation. Inf Dis=Dr. Della Child Pulmonary=Dr. Pepper Discharge planning: [facility] Hayes Rothman MD Aug 29, 2020 11:27
[2020-08-29 12:00] VITALS: BP 119/68
--- NOTE | 2020-08-29 12:31 | Pulmonology Progress Note ---
Subjective ROS Limited/Unobtainable: Yes Interval Events: none major reported per nursing Constitutional: Reports: no symptoms HEENT: Repors: no symptoms Respiratory: Reports: no symptoms Cardiovascular: Reports: no symptoms Gastrointestinal/Abdominal: Reports: no symptoms Allergies: Coded Allergies: SHELLFISH DERIVED (Unverified Allergy, Intermediate, ITCHING/HIVES, 02/17/14) IODINE (Unverified Allergy, Unknown, 02/17/14) Uncoded Allergies: SPINACH (Allergy, Intermediate, SEVERE ITCHING/HIVES, 02/17/14) Objective Last 24 Hour Vital Signs Date Time Temp Pulse Resp B/P (MAP) Pulse Ox O2 Delivery O2 Flow Rate FiO2 08/29/20 09:00 Room Air 08/29/20 08:00 97.4 77 18 101/66 (78) 94 08/29/20 04:00 98.8 70 20 132/70 (90) 92 08/29/20 00:00 98.2 98 20 138/72 (94) 92 08/28/20 21:00 Room Air 08/28/20 20:00 98.4 95 20 135/72 (93) 95 08/28/20 16:00 97.7 86 20 117/70 (86) 94 08/28/20 12:57 97.4 Intake and Output 08/28/20 08/29/20 19:00 07:00 Intake Total 240 ml Output Total 750 ml 900 ml Balance -750 ml -660 ml Intake Oral 240 ml Output Urine Total 750 ml 900 ml # Voids 1 General Appearance: no acute distress HEENT: atraumatic Respiratory: lungs clear Abdomen: soft, non tender Laboratory Tests 08/29/20 05:22: White Blood Count 10.5#, Red Blood Count 4.02L, Hemoglobin 13.1L, Hematocrit 38.7L, Mean Corpuscular Volume 96, Mean Corpuscular Hemoglobin 32.7H, Mean Corpuscular Hemoglobin Concent 33.9, Red Cell Distribution Width 15.5H, Platelet Count 258, Mean Platelet Volume 7.5, Neutrophils (%) (Auto) 80.2H, Lymphocytes (%) (Auto) 12.3L, Monocytes (%) (Auto) 7.1, Eosinophils (%) (Auto) 0.1, Basophils (%) (Auto) 0.3, Sodium Level 137, Potassium Level 4.0, Chloride Level 102, Carbon Dioxide Level 27, Anion Gap 8, Blood Urea Nitrogen 11, Creatinine 0.6, Estimat Glomerular Filtration Rate > 60, Glucose Level 118H, Calcium Level 9.1 Current Medications Medications (Trade) Dose Ordered Sig/Ashley Route PRN Reason Start Time Stop Time Status Last Admin Dose Admin Acetaminophen (Tylenol) 325 mg Q4H PRN ORAL For Pain 08/24/20 00:30 09/23/20 00:29 08/29/20 03:14 Dextrose/ Electrolytes 1,000 ml @ 75 mls/hr [id number] IV 08/24/20 02:00 09/23/20 01:59 08/29/20 01:02 Docusate Sodium (Colace) 100 mg TWICE A DAY ORAL 08/27/20 18:00 09/26/20 17:59 08/29/20 08:31 Latanoprost (Xalatan) 1 drop BEDTIME BOTH EYES 08/24/20 21:00 09/23/20 20:59 08/28/20 20:08 Pantoprazole (Protonix) 40 mg DAILY ORAL 08/24/20 09:00 09/23/20 08:59 08/29/20 08:31 Phenytoin (Dilantin) 300 mg BEDTIME ORAL 08/24/20 21:00 09/23/20 20:59 08/28/20 20:08 Polyethylene Glycol (Miralax) 17 gm DAILYPRN PRN ORAL Constipation 08/27/20 12:00 09/26/20 11:59 08/27/20 13:59 Primidone (Mysoline) 250 mg TID ORAL 08/24/20 09:00 09/23/20 08:59 08/29/20 08:32 Sumatriptan Succinate (Imitrex) 100 mg TWICE A DAY PRN ORAL For Headache 08/24/20 00:15 09/23/20 00:14 08/26/20 20:11 Tamsulosin HCl (Flomax) 0.4 mg BEDTIME ORAL 08/24/20 01:00 09/23/20 00:59 08/28/20 20:08 Assessment/Plan Assessment/Plan 1. History of COPD -Patient denies using home oxygen -Currently saturating well on room air -Monitor for hypoxia and provide supplemental oxygen as needed 2. COVID-19 PCR negative - off isolation 3. History of hepatitis B -Per patient, he does not have it anymore -Abdominal US shows coarse hepatic echotexture. No cirrhosis or space- occupying lesion seen. - ID following - hep panel pending 4. Aerococcus UTI -s/p Rocephin for possible UTI per ID - ID following 5. DVT ppx - on Heparin subcu PT recommends placement to SNF due to weakness Medically stable from pulmonary standpoint Recommend dc to SNF, pt very unsteady The care for this patient was discussed with my supervising physician. Time spent for this case was approximately 31 minutes. Alfredo Rapp Aug 29, 2020 12:31
--- NOTE | 2020-08-29 13:32 | Surgery Progress Note ---
Surgery Progress Note Subjective Symptoms: improved, tolerating diet, passing flatus Objective Last 24 Hour Vital Signs Date Time Temp Pulse Resp B/P (MAP) Pulse Ox O2 Delivery O2 Flow Rate FiO2 08/29/20 12:00 97.8 82 18 119/68 (85) 93 08/29/20 09:00 Room Air 08/29/20 08:00 97.4 77 18 101/66 (78) 94 08/29/20 04:00 98.8 70 20 132/70 (90) 92 08/29/20 00:00 98.2 98 20 138/72 (94) 92 08/28/20 21:00 Room Air 08/28/20 20:00 98.4 95 20 135/72 (93) 95 08/28/20 16:00 97.7 86 20 117/70 (86) 94 I&O Intake and Output 08/28/20 08/29/20 19:00 07:00 Intake Total 240 ml Output Total 750 ml 900 ml Balance -750 ml -660 ml Intake Oral 240 ml Output Urine Total 750 ml 900 ml # Voids 1 Cardiovascular: RSR Respiratory: clear, decreased breath sounds Abdomen: soft, non-tender, present bowel sounds Extremities: no edema, no tenderness, no cyanosis Laboratory Tests Test 08/29/20 05:22 White Blood Count 10.5 K/UL (4.8-10.8) # Red Blood Count 4.02 M/UL (4.70-6.10) L Hemoglobin 13.1 G/DL (14.2-18.0) L Hematocrit 38.7 % (42.0-52.0) L Mean Corpuscular Volume 96 FL (80-99) Mean Corpuscular Hemoglobin 32.7 PG (27.0-31.0) H Mean Corpuscular Hemoglobin Concent 33.9 G/DL (32.0-36.0) Red Cell Distribution Width 15.5 % (11.6-14.8) H Platelet Count 258 K/UL (150-450) Mean Platelet Volume 7.5 FL (6.5-10.1) Neutrophils (%) (Auto) 80.2 % (45.0-75.0) H Lymphocytes (%) (Auto) 12.3 % (20.0-45.0) L Monocytes (%) (Auto) 7.1 % (1.0-10.0) Eosinophils (%) (Auto) 0.1 % (0.0-3.0) Basophils (%) (Auto) 0.3 % (0.0-2.0) Sodium Level 137 MMOL/L (136-145) Potassium Level 4.0 MMOL/L (3.5-5.1) Chloride Level 102 MMOL/L (98-107) Carbon Dioxide Level 27 MMOL/L (21-32) Anion Gap 8 mmol/L (5-15) Blood Urea Nitrogen 11 mg/dL (7-18) Creatinine 0.6 MG/DL (0.55-1.30) Estimat Glomerular Filtration Rate > 60 mL/min (>60) Glucose Level 118 MG/DL (74-106) H Calcium Level 9.1 MG/DL (8.5-10.1) Plan Problems: (1) Abnormal LFTs Assessment & Plan: 69 year old male with history of hepatitis comes in for weakness noted to have abnormal lft's. hx hepatitis alk phos elevated US noted The liver demonstrates diffuse coarse hepatic echotexture. No ductal dilatation noted. Spleen is unremarkable. The gallbladder is without sludge or stone. Common bile duct measures 2 mm. The pancreas, aorta and cava are grossly unremarkable to the extent visualized appear The kidneys are normal in size, shape and axis. No ascites noted. okay or diet will monitor with exam trend labs thank you DAILY ESTIMATED NEEDS: Needs based on Pulmonary 58kg 25-35 kcals/kg 4741-7003 total kcals 1-1.5 g protein/kg 58-87 g total protein 25-30 mL/kg 4350-7788 total fluid mLs NUTRITION DIAGNOSIS: Increased kcal needs r/t Low BMI as evidenced by BMI 18.4, underweight per guidelines 77% of [place] Body Weight. CURRENT DIET: Regular ms chopped PO DIET RECOMMENDATIONS: Maintain regular/ texture as tolerated ADDITIONAL RECOMMENDATIONS: 1) Monitor po intake, rec [employer]PER[employer] eval- possible upgrade? 2) Obtain a standing weight as able or calibrated bed scale 3) Check lytes daily, replete as needed 4) Add Ensure Enlive BID 5) MVI x 1 (2) Encephalopathy (3) Weakness (4) UTI (urinary tract infection) (5) Altered mental status (6) Falls frequently (7) Cerebellar atrophy (8) Hip fracture, intertrochanteric (9) Seizure disorder, complex partial (10) Pulmonary embolism (11) ACS (acute coronary syndrome) (12) Multiple injuries due to trauma Rom Tan Aug 29, 2020 13:32
[2020-08-29 16:00] VITALS: BP 107/68
--- NOTE | 2020-08-29 17:23 | NUR ---
*-*DISCHARGE PLANNING*-* PATIENT HAS BEEN REFERRED TO: [facility] FAX: [phone] [facility] FAX: [phone] [facility] FAX: [phone] [facility] FAX: [phone] [facility] FAX: [phone] [facility] FAX: [phone] [facility] FAX: [phone] [facility] FAX: [phone] [facility] FAX: [phone] [facility] FAX: [phone] [facility] FAX: [phone]
--- NOTE | 2020-08-29 18:05 | NUR ---
NURSE NOTES: Spoke to Pantera ROYAL over the phone, received permission from GENNY to give pt's medical information and plans to pt's daughter and discuss with her regarding pt. Daughter's name Angelika Aviles [phone]
--- NOTE | 2020-08-29 19:26 | NUR ---
NURSE HAND-OFF: Important Events on Shift:[PT done, Permission from POA to give pt's information to daughter and discuss with her regarding important issue] Patient Status: [stable] Diet: [reg MS] Pending Orders: [] Pending Results/Labs:[] Pending MD notification:[] Latest Vital Signs: Temperature 97.9 , Pulse 78 , B/P 107 /68 , Respiratory Rate 18 , O2 SAT 95 , Room Air, O2 Flow Rate . Vital Sign Comment: [stable] Latest Roche Fall Score: 95 Fall Risk: High Risk Safety Measures: Call light Within Reach, Bed Alarm Zone 1, Side Rails Side Rails x3, Bed position Low and Locked. Fall Precautions: Yellow Socks Yellow Gown Door Sign Report given to [ANASTASIA Swain].
--- NOTE | 2020-08-29 19:30 | NUR ---
NURSE NOTES: Received patient in no apparent distress. A&OX2, confused. IV site patent and intact. Bed in lowest position, bed alarm on. Call light within reach. Will continue to monitor.
[2020-08-29 20:00] VITALS: BP 131/80
[2020-08-29] MEDS: Tamsulosin 0.4mg cap ORAL SCH (20:46)
[2020-08-29] MEDS: Latanoprost 0.005% Opth 2.5ml Soln BOTH EYES SCH (20:46)
[2020-08-29] MEDS: Phenytoin 100mg cap ORAL SCH (20:47)
[2020-08-30] VITALS: BP 124/82
[2020-08-30 04:00] VITALS: BP 107/59
[2020-08-30] MEDS: D5 1/2NS w/KCl 20mEq 1,000 ML IV SCH ×2 (04:01→17:22)
[2020-08-30 07:05] LABS: ANION GAP 7 mmol/L (5-15); BLOOD UREA NITROGEN 12 mg/dL (7-18); CALCIUM 9.3 MG/DL (8.5-10.1); CARBON DIOXIDE 27 MMOL/L (21-32); CHLORIDE 101 MMOL/L (98-107); CREATININE 0.5 MG/DL (0.55-1.30); SODIUM 135 MMOL/L (136-145)
[2020-08-30 07:15] LABS: BASOPHILS % (AUTO) 0.5 % (0.0-2.0); EOSINOPHILS % (AUTO) 0.1 % (0.0-3.0); HEMATOCRIT 37.8 % (42.0-52.0); HEMOGLOBIN 12.9 G/DL (14.2-18.0); LYMPHOCYTES % (AUTO) 11.9 % (20.0-45.0); MEAN CORPUSCULAR VOLUME 96 FL (80-99); MONOCYTES % (AUTO) 7.9 % (1.0-10.0); NEUTROPHILS % (AUTO) 79.7 % (45.0-75.0); PLATELET COUNT 251 K/UL (150-450); RED BLOOD COUNT 3.94 M/UL (4.70-6.10); RED CELL DISTRIBUTION WIDTH 15.8 % (11.6-14.8); WHITE BLOOD COUNT 11.9 K/UL (4.8-10.8)
--- NOTE | 2020-08-30 07:35 | NUR ---
NURSE NOTES: Received report from AANSTASIA Vann. Rounding done with outgoing nurse. Pt is asleep. No SOB noted. Rt FA IV access is patent. D51/2NS + KCl 20meq running @75ml/hr. Bed in lowest position, call light within reach. Will continue to monitor.
--- NOTE | 2020-08-30 07:50 | NUR ---
NURSE HAND-OFF: Important Events on Shift: Patient Status: Diet: regular Pending Orders: Pending Results/Labs: Pending MD notification: Latest Vital Signs: Temperature 97.9 , Pulse 89 , B/P 107 /59 , Respiratory Rate 20 , O2 SAT 93 , Room Air, O2 Flow Rate . Vital Sign Comment: Latest Roche Fall Score: 95 Fall Risk: High Risk Safety Measures: Call light Within Reach, Bed Alarm Zone 1, Side Rails Side Rails x3, Bed position Low and Locked. Fall Precautions: Yellow Socks Yellow Gown Door Sign Report given to Galo OCONNOR.
[2020-08-30 08:00] VITALS: BP 124/81
--- NOTE | 2020-08-30 08:14 | Surgery Progress Note ---
Surgery Progress Note Subjective Additional Comments afebrile, HD stable labs noted micro reviewed comfortable appearing no n/v Objective Last 24 Hour Vital Signs Date Time Temp Pulse Resp B/P (MAP) Pulse Ox O2 Delivery O2 Flow Rate FiO2 08/30/20 04:00 97.9 89 20 107/59 (75) 93 08/30/20 00:00 97.9 101 20 124/82 (96) 93 08/29/20 21:00 Room Air 08/29/20 20:00 97.8 98 18 131/80 (97) 93 08/29/20 16:00 97.9 78 18 107/68 (81) 95 08/29/20 12:00 97.8 82 18 119/68 (85) 93 08/29/20 09:00 Room Air I&O Intake and Output 08/29/20 08/30/20 19:00 07:00 Intake Total 75 ml 1065 ml Output Total 500 ml 1900 ml Balance -425 ml -835 ml Intake Oral 240 ml IV Total 75 ml 825 ml Output Urine Total 500 ml 1900 ml Dressing: other Wound: other Cardiovascular: RSR Respiratory: decreased breath sounds Abdomen: soft, non-tender, present bowel sounds, non-distended Extremities: no tenderness, no cyanosis Laboratory Tests Test 08/30/20 05:10 White Blood Count 11.9 K/UL (4.8-10.8) H Red Blood Count 3.94 M/UL (4.70-6.10) L Hemoglobin 12.9 G/DL (14.2-18.0) L Hematocrit 37.8 % (42.0-52.0) L Mean Corpuscular Volume 96 FL (80-99) Mean Corpuscular Hemoglobin 32.8 PG (27.0-31.0) H Mean Corpuscular Hemoglobin Concent 34.3 G/DL (32.0-36.0) Red Cell Distribution Width 15.8 % (11.6-14.8) H Platelet Count 251 K/UL (150-450) Mean Platelet Volume 7.0 FL (6.5-10.1) Neutrophils (%) (Auto) 79.7 % (45.0-75.0) H Lymphocytes (%) (Auto) 11.9 % (20.0-45.0) L Monocytes (%) (Auto) 7.9 % (1.0-10.0) Eosinophils (%) (Auto) 0.1 % (0.0-3.0) Basophils (%) (Auto) 0.5 % (0.0-2.0) Sodium Level 135 MMOL/L (136-145) L Potassium Level 4.0 MMOL/L (3.5-5.1) Chloride Level 101 MMOL/L (98-107) Carbon Dioxide Level 27 MMOL/L (21-32) Anion Gap 7 mmol/L (5-15) Blood Urea Nitrogen 12 mg/dL (7-18) Creatinine 0.5 MG/DL (0.55-1.30) L Estimat Glomerular Filtration Rate > 60 mL/min (>60) Glucose Level 105 MG/DL (74-106) Calcium Level 9.3 MG/DL (8.5-10.1) Plan Problems: (1) Abnormal LFTs Assessment & Plan: 69 year old male with history of hepatitis comes in for weakness noted to have abnormal lft's. hx hepatitis alk phos elevated US noted The liver demonstrates diffuse coarse hepatic echotexture. No ductal dilatation noted. Spleen is unremarkable. The gallbladder is without sludge or stone. Common bile duct measures 2 mm. The pancreas, aorta and cava are grossly unremarkable to the extent visualized appear The kidneys are normal in size, shape and axis. No ascites noted. okay or diet will monitor with exam trend labs thank you DAILY ESTIMATED NEEDS: Needs based on Pulmonary 58kg 25-35 kcals/kg [id number] total kcals 1-1.5 g protein/kg 58-87 g total protein 25-30 mL/kg 4861-8909 total fluid mLs NUTRITION DIAGNOSIS: Increased kcal needs r/t Low BMI as evidenced by BMI 18.4, underweight per guidelines 77% of [place] Body Weight. CURRENT DIET: Regular ms chopped PO DIET RECOMMENDATIONS: Maintain regular/ texture as tolerated ADDITIONAL RECOMMENDATIONS: 1) Monitor po intake, rec TEST DESK OPERATOR eval- possible upgrade? 2) Obtain a standing weight as able or calibrated bed scale 3) Check lytes daily, replete as needed 4) Add Ensure Enlive BID 5) MVI x 1 (2) Encephalopathy (3) Weakness (4) UTI (urinary tract infection) (5) Altered mental status (6) Falls frequently (7) Cerebellar atrophy (8) Hip fracture, intertrochanteric (9) Seizure disorder, complex partial (10) Pulmonary embolism (11) ACS (acute coronary syndrome) (12) Multiple injuries due to trauma Rom Tan Aug 30, 2020 08:14
--- NOTE | 2020-08-30 08:54 | Infectious Diseases Prog Note ---
Assessment/Plan 69yo M with: Afebrile Normal WBC Satting well on RA UTI, although asymptomatic R/o infection Weakness, failure to thrive 08/23 BCx NTD COVID PCR neg UA+, UCx >100k Aerococcus urinae CXR: No acute process CTH: Neg for acute process H/o HBV - per pt doesn't have it anymore HBV sAg neg, cAb pos, sAb pos --> cleared infection, immune HCV neg Cirrhosis Elevated alk phos to 200s Abd US: COARSE HEPATIC ECHOTEXTURE WHICH MAY BE RELATED THE PATIENT'S HISTORY OF HEPATITIS B. NO IZZY CIRRHOSIS OR SPACE-OCCUPYING LESION SEEN PRESENTLY. HIV screen neg PMH: COPD CVA Seizure d/o HBV c/b cirrhosis Plan: Cont to monitor off abx OK to d/c from ID standpoint Monitor CBC/CMP Monitor temp curve, hemodynamics Monitor resp status D/w RN Thank you for this consult. [facility] will continue to follow. Subjective Allergies: Coded Allergies: SHELLFISH DERIVED (Unverified Allergy, Intermediate, ITCHING/HIVES, 02/17/14) IODINE (Unverified Allergy, Unknown, 02/17/14) Uncoded Allergies: SPINACH (Allergy, Intermediate, SEVERE ITCHING/HIVES, 02/17/14) AF NAD on RA WBC 11 Doing well, wants to go home Cohen in place Objective Last 24 Hour Vital Signs Date Time Temp Pulse Resp B/P (MAP) Pulse Ox O2 Delivery O2 Flow Rate FiO2 08/30/20 04:00 97.9 89 20 107/59 (75) 93 08/30/20 00:00 97.9 101 20 124/82 (96) 93 08/29/20 21:00 Room Air 08/29/20 20:00 97.8 98 18 131/80 (97) 93 08/29/20 16:00 97.9 78 18 107/68 (81) 95 08/29/20 12:00 97.8 82 18 119/68 (85) 93 08/29/20 09:00 Room Air Height (Feet): 5 Height (Inches): 10.00 Weight (Pounds): 128 Gen: NAD HEENT: NCAT Pulm: BL chest rise Abd: Non-distended Ext: No c/c/e Skin: No visible rashes Neuro: Awake Laboratory Tests Test 08/30/20 05:10 White Blood Count 11.9 K/UL (4.8-10.8) H Red Blood Count 3.94 M/UL (4.70-6.10) L Hemoglobin 12.9 G/DL (14.2-18.0) L Hematocrit 37.8 % (42.0-52.0) L Mean Corpuscular Volume 96 FL (80-99) Mean Corpuscular Hemoglobin 32.8 PG (27.0-31.0) H Mean Corpuscular Hemoglobin Concent 34.3 G/DL (32.0-36.0) Red Cell Distribution Width 15.8 % (11.6-14.8) H Platelet Count 251 K/UL (150-450) Mean Platelet Volume 7.0 FL (6.5-10.1) Neutrophils (%) (Auto) 79.7 % (45.0-75.0) H Lymphocytes (%) (Auto) 11.9 % (20.0-45.0) L Monocytes (%) (Auto) 7.9 % (1.0-10.0) Eosinophils (%) (Auto) 0.1 % (0.0-3.0) Basophils (%) (Auto) 0.5 % (0.0-2.0) Sodium Level 135 MMOL/L (136-145) L Potassium Level 4.0 MMOL/L (3.5-5.1) Chloride Level 101 MMOL/L (98-107) Carbon Dioxide Level 27 MMOL/L (21-32) Anion Gap 7 mmol/L (5-15) Blood Urea Nitrogen 12 mg/dL (7-18) Creatinine 0.5 MG/DL (0.55-1.30) L Estimat Glomerular Filtration Rate > 60 mL/min (>60) Glucose Level 105 MG/DL (74-106) Calcium Level 9.3 MG/DL (8.5-10.1) Current Medications Medications (Trade) Dose Ordered Sig/Ashley Route PRN Reason Start Time Stop Time Status Last Admin Dose Admin Acetaminophen (Tylenol) 325 mg Q4H PRN ORAL For Pain 08/24/20 00:30 09/23/20 00:29 08/29/20 03:14 Dextrose/ Electrolytes 1,000 ml @ 75 mls/hr [id number] IV 08/24/20 02:00 09/23/20 01:59 08/30/20 04:01 Docusate Sodium (Colace) 100 mg TWICE A DAY ORAL 08/27/20 18:00 09/26/20 17:59 08/29/20 18:22 Latanoprost (Xalatan) 1 drop BEDTIME BOTH EYES 08/24/20 21:00 09/23/20 20:59 08/29/20 20:46 Pantoprazole (Protonix) 40 mg DAILY ORAL 08/24/20 09:00 09/23/20 08:59 08/29/20 08:31 Phenytoin (Dilantin) 300 mg BEDTIME ORAL 08/24/20 21:00 09/23/20 20:59 08/29/20 20:47 Polyethylene Glycol (Miralax) 17 gm DAILYPRN PRN ORAL Constipation 08/27/20 12:00 09/26/20 11:59 08/27/20 13:59 Primidone (Mysoline) 250 mg TID ORAL 08/24/20 09:00 09/23/20 08:59 08/29/20 18:22 Sumatriptan Succinate (Imitrex) 100 mg TWICE A DAY PRN ORAL For Headache 08/24/20 00:15 09/23/20 00:14 08/26/20 20:11 Tamsulosin HCl (Flomax) 0.4 mg BEDTIME ORAL 08/24/20 01:00 09/23/20 00:59 08/29/20 20:46 Della Child M.D. Aug 30, 2020 08:54
[2020-08-30] MEDS: Docusate 100mg cap ORAL SCH ×2 (09:08→17:22)
--- NOTE | 2020-08-30 10:29 | Pulmonology Progress Note ---
Subjective ROS Limited/Unobtainable: Yes Interval Events: none major reported per nursing Constitutional: Reports: no symptoms HEENT: Repors: no symptoms Respiratory: Reports: no symptoms Cardiovascular: Reports: no symptoms Gastrointestinal/Abdominal: Reports: no symptoms Allergies: Coded Allergies: SHELLFISH DERIVED (Unverified Allergy, Intermediate, ITCHING/HIVES, 02/17/14) IODINE (Unverified Allergy, Unknown, 02/17/14) Uncoded Allergies: SPINACH (Allergy, Intermediate, SEVERE ITCHING/HIVES, 02/17/14) Objective Last 24 Hour Vital Signs Date Time Temp Pulse Resp B/P (MAP) Pulse Ox O2 Delivery O2 Flow Rate FiO2 08/30/20 08:00 98.0 81 19 124/81 (95) 92 08/30/20 04:00 97.9 89 20 107/59 (75) 93 08/30/20 00:00 97.9 101 20 124/82 (96) 93 08/29/20 21:00 Room Air 08/29/20 20:00 97.8 98 18 131/80 (97) 93 08/29/20 16:00 97.9 78 18 107/68 (81) 95 08/29/20 12:00 97.8 82 18 119/68 (85) 93 Intake and Output 08/29/20 08/30/20 19:00 07:00 Intake Total 75 ml 1065 ml Output Total 500 ml 1900 ml Balance -425 ml -835 ml Intake Oral 240 ml IV Total 75 ml 825 ml Output Urine Total 500 ml 1900 ml General Appearance: no acute distress HEENT: atraumatic Respiratory: lungs clear Abdomen: soft, non tender Laboratory Tests 08/30/20 05:10: White Blood Count 11.9H, Red Blood Count 3.94L, Hemoglobin 12.9L, Hematocrit 37.8L, Mean Corpuscular Volume 96, Mean Corpuscular Hemoglobin 32.8H, Mean Corpuscular Hemoglobin Concent 34.3, Red Cell Distribution Width 15.8H, Platelet Count 251, Mean Platelet Volume 7.0, Neutrophils (%) (Auto) 79.7H, Lymphocytes (%) (Auto) 11.9L, Monocytes (%) (Auto) 7.9, Eosinophils (%) (Auto) 0.1, Basophils (%) (Auto) 0.5, Sodium Level 135L, Potassium Level 4.0, Chloride Level 101, Carbon Dioxide Level 27, Anion Gap 7, Blood Urea Nitrogen 12, Creatinine 0.5L, Estimat Glomerular Filtration Rate > 60, Glucose Level 105, Calcium Level 9.3 Current Medications Medications (Trade) Dose Ordered Sig/Ashley Route PRN Reason Start Time Stop Time Status Last Admin Dose Admin Acetaminophen (Tylenol) 325 mg Q4H PRN ORAL For Pain 08/24/20 00:30 09/23/20 00:29 08/29/20 03:14 Dextrose/ Electrolytes 1,000 ml @ 75 mls/hr [id number] IV 08/24/20 02:00 09/23/20 01:59 08/30/20 04:01 Docusate Sodium (Colace) 100 mg TWICE A DAY ORAL 08/27/20 18:00 09/26/20 17:59 08/30/20 09:08 Latanoprost (Xalatan) 1 drop BEDTIME BOTH EYES 08/24/20 21:00 09/23/20 20:59 08/29/20 20:46 Pantoprazole (Protonix) 40 mg DAILY ORAL 08/24/20 09:00 09/23/20 08:59 08/30/20 09:08 Phenytoin (Dilantin) 300 mg BEDTIME ORAL 08/24/20 21:00 09/23/20 20:59 08/29/20 20:47 Polyethylene Glycol (Miralax) 17 gm DAILYPRN PRN ORAL Constipation 08/27/20 12:00 09/26/20 11:59 08/27/20 13:59 Primidone (Mysoline) 250 mg TID ORAL 08/24/20 09:00 09/23/20 08:59 08/30/20 09:08 Sumatriptan Succinate (Imitrex) 100 mg TWICE A DAY PRN ORAL For Headache 08/24/20 00:15 09/23/20 00:14 08/26/20 20:11 Tamsulosin HCl (Flomax) 0.4 mg BEDTIME ORAL 08/24/20 01:00 09/23/20 00:59 08/29/20 20:46 Assessment/Plan Assessment/Plan 1. History of COPD -Patient denies using home oxygen -Currently saturating well on room air -Monitor for hypoxia and provide supplemental oxygen as needed 2. COVID-19 PCR negative - off isolation 3. History of hepatitis B -Per patient, he does not have it anymore -Abdominal US shows coarse hepatic echotexture. No cirrhosis or space- occupying lesion seen. - ID following - hep B core Ab positive 4. Aerococcus UTI -s/p Rocephin for possible UTI per ID - ID following 5. DVT ppx - on Heparin subcu PT recommends placement to SNF due to weakness Medically stable from pulmonary standpoint Recommend dc to SNF, pt very unsteady The care for this patient was discussed with my supervising physician. Time spent for this case was approximately 31 minutes. Alfredo Rapp Aug 30, 2020 10:29
--- NOTE | 2020-08-30 10:45 | NUR ---
*-*DISCHARGE PLANNING*-* PATIENT HAS BEEN ACCEPTED TO: [facility] P: [phone] S/W LORA, PENDING ANA LUISA, WILL CALL BACK.
--- NOTE | 2020-08-30 10:53 | NUR ---
CASE MANAGEMENT:REVIEW 08/30/20 SI: ENCEPHALOPATHY. SEPSIS D/T UTI 98.0 81 19 124/81 92% ON RA WBC+11.9 H/H-12.9/37.8 IS: IVF@75/HR COLACE PO BID DILANTIN PO QHS PROTONIX PO QD MYSOLINE PO TID FLOMAX PO QHS MED/SURG STATUS DCP: FROM HOME PLAN: IS RECOMMENDING SN[facility] WILLING TO ACCEPT IF THEY RECEIVE A LETTER OF AGREEMENT
[2020-08-30] MEDS: Miralax 17gm pkt ORAL PRN (11:52)
[2020-08-30 12:00] VITALS: BP 127/86
--- NOTE | 2020-08-30 12:44 | NUR ---
*-*DISCHARGE PLANNED*-* PATIENT HAS BEEN ACCEPTED AND WILL BE DISCHARGED BACK TO: [facility] P: [phone] FOR NURSE TO NURSE REPORT ROOM# 220 [facility] SET FOR 3PM S/W NIHARIK[facility] [id number].
--- NOTE | 2020-08-30 12:55 | NUR ---
NURSE NOTES: Dr. Sosa ordered tap water enema and resume home meds.
--- NOTE | 2020-08-30 13:15 | NUR ---
NURSE NOTES: Tap water enema was given. Large amount of BM noted.
--- NOTE | 2020-08-30 13:58 | NUR ---
NURSE NOTES: Report was given to Maryanne labor gang supervisor @ [facility].
--- NOTE | 2020-08-30 14:24 | NUR ---
DRAFTER TOPOGRAPHICAL NOTES SPOKE WITH NIXON TOSCANO, MADE AWARE OF DCP. PROVIDED NIXON WITH THE FACILITY CONTACT INFORMATION. OK TO DC. NIXON TOSCANO [phone]
[2020-08-30 16:00] VITALS: BP 127/80
--- NOTE | 2020-08-30 17:11 | NUR ---
INSURANCE CLINICALS/REVIEW FAXED TO [facility] FAX [phone] TELE [phone] [facility] FAX [phone] and [phone] TELE [phone]
--- NOTE | 2020-08-30 17:32 | Internal Med Progress Note ---
Subjective Physician Name Jose Sosa Attending Physician Jose Sosa MD Current Medications Medications (Trade) Dose Ordered Sig/Ashley Route PRN Reason Start Time Stop Time Status Last Admin Dose Admin Acetaminophen (Tylenol) 325 mg Q4H PRN ORAL For Pain 08/24/20 00:30 09/23/20 00:29 08/29/20 03:14 Dextrose/ Electrolytes 1,000 ml @ 75 mls/hr [id number] IV 08/24/20 02:00 09/23/20 01:59 08/30/20 04:01 Docusate Sodium (Colace) 100 mg TWICE A DAY ORAL 08/27/20 18:00 09/26/20 17:59 08/30/20 17:22 Latanoprost (Xalatan) 1 drop BEDTIME BOTH EYES 08/24/20 21:00 09/23/20 20:59 08/29/20 20:46 Pantoprazole (Protonix) 40 mg DAILY ORAL 08/24/20 09:00 09/23/20 08:59 08/30/20 09:08 Phenytoin (Dilantin) 300 mg BEDTIME ORAL 08/24/20 21:00 09/23/20 20:59 08/29/20 20:47 Polyethylene Glycol (Miralax) 17 gm DAILYPRN PRN ORAL Constipation 08/27/20 12:00 09/26/20 11:59 08/30/20 11:52 Primidone (Mysoline) 250 mg TID ORAL 08/24/20 09:00 09/23/20 08:59 08/30/20 17:22 Sumatriptan Succinate (Imitrex) 100 mg TWICE A DAY PRN ORAL For Headache 08/24/20 00:15 09/23/20 00:14 08/26/20 20:11 Tamsulosin HCl (Flomax) 0.4 mg BEDTIME ORAL 08/24/20 01:00 09/23/20 00:59 08/29/20 20:46 Allergies: Coded Allergies: SHELLFISH DERIVED (Unverified Allergy, Intermediate, ITCHING/HIVES, 02/17/14) IODINE (Unverified Allergy, Unknown, 02/17/14) Uncoded Allergies: SPINACH (Allergy, Intermediate, SEVERE ITCHING/HIVES, 02/17/14) Subjective Awake, alert, responsive, denies any chest pain or shortness of breath. Objective Last Vital Signs Date Time Temp Pulse Resp B/P (MAP) Pulse Ox O2 Delivery O2 Flow Rate FiO2 08/30/20 16:00 97.6 83 18 127/80 (96) 93 08/30/20 09:00 Room Air 08/23/20 21:56 100 Laboratory Tests Test 08/30/20 05:10 White Blood Count 11.9 K/UL (4.8-10.8) H Red Blood Count 3.94 M/UL (4.70-6.10) L Hemoglobin 12.9 G/DL (14.2-18.0) L Hematocrit 37.8 % (42.0-52.0) L Mean Corpuscular Volume 96 FL (80-99) Mean Corpuscular Hemoglobin 32.8 PG (27.0-31.0) H Mean Corpuscular Hemoglobin Concent 34.3 G/DL (32.0-36.0) Red Cell Distribution Width 15.8 % (11.6-14.8) H Platelet Count 251 K/UL (150-450) Mean Platelet Volume 7.0 FL (6.5-10.1) Neutrophils (%) (Auto) 79.7 % (45.0-75.0) H Lymphocytes (%) (Auto) 11.9 % (20.0-45.0) L Monocytes (%) (Auto) 7.9 % (1.0-10.0) Eosinophils (%) (Auto) 0.1 % (0.0-3.0) Basophils (%) (Auto) 0.5 % (0.0-2.0) Sodium Level 135 MMOL/L (136-145) L Potassium Level 4.0 MMOL/L (3.5-5.1) Chloride Level 101 MMOL/L (98-107) Carbon Dioxide Level 27 MMOL/L (21-32) Anion Gap 7 mmol/L (5-15) Blood Urea Nitrogen 12 mg/dL (7-18) Creatinine 0.5 MG/DL (0.55-1.30) L Estimat Glomerular Filtration Rate > 60 mL/min (>60) Glucose Level 105 MG/DL (74-106) Calcium Level 9.3 MG/DL (8.5-10.1) Intake and Output 08/29/20 08/30/20 19:00 07:00 Intake Total 75 ml 1065 ml Output Total 500 ml 1900 ml Balance -425 ml -835 ml Intake Oral 240 ml IV Total 75 ml 825 ml Output Urine Total 500 ml 1900 ml Objective General: No acute distress, awake and alert HEENT: NCAT, sclera anicteric, PERRL, EOMI. Neck: Supple, no significant jugular venous distention, Lungs: fair inspiratory effort, decreased air in the bases, no Wheeze or Rales. Heart: Regular rate and rhythm, normal S1/S2, no murmurs. Abdomen: soft, nontender, nondistended. Normoactive bowel sounds. / Rectal: Refused and deferred. Extremities: No Cyanosis , clubbing or edema. Neuro: A&O x 3, Able to move all extremities, bilateral lower extremity weakness Skin: warm, no rash. Psych: Normal mood and affect Assessment/Plan Assessment/Plan altered mental status most likely secondary to toxic metabolic encephalopathy as a result of urine tract infection and dehydration. Sepsis secondary to urinary tract infection. Dehydration. Acute kidney injury. Seizure disorder. COPD. History of hepatitis B+ BPH Plan: Follow-up with laboratory as well as culture in the morning Antibiotics: Rocephin IV CODE STATUS full code. DVT prophylaxis heparin subcu. Follow-up with infection disease recommendation. DC to SNF. Jose Sosa MD Aug 30, 2020 17:32
--- NOTE | 2020-08-30 17:55 | NUR ---
NURSE NOTES: Belongings checked with JOSIE Sargent. ID/IV removed. Pt discharged in stable condition with ambulance personnel.
--- NOTE | 2020-09-03 14:28 | Discharge Summary ---
Discharge Summary Discharge Summary _ Date of admission: 08/15/2020 Date of discharge: 08/30/[address] Pepper History of Present Illness and Brief Hospital Course Mr. Pickett is a 70-year-old male with past medical history of hepatitis B, liver cirrhosis, COPD, CVA, and seizure disorder on Dilantin, who was brought in by EMS from home for generalized weakness. Apparently, EMS was called by the patient's physical therapist who had been helping him with rehabilitation after an injury last spring. The physical therapist felt that patient was more confused than usual and had increased generalized weakness. Patient reported mid right upper quadrant and flank pain over a few days. CT of brain demonstr ated no acute intracranial pathology. Patient's labs were consistent with UTI. Patient was started on Rocephin. Patient was admitted to the hospital for further treatment and evaluation. Abdominal ultrasound showed coarsened hepatic echotexture. No cirrhosis or space-occupying lesion was seen. Hepatitis B panel was consistent with cleared infection, and immune status. He tested negative for hepatitis C virus. HIV test was negative. Urine culture was positive for Aerococcus urinae. Throughout his hospitalization, patient was treated for UTI. Patient was also evaluated by a physical therapist who found him very weak and unsteady. Patient was recommended to be placed at long term facility. Patient was medically stable for discharge and was discharged to SNF on 08/30/2020. Consultants: Infectious disease Dr. Child Pulmonology Dr. Pepper Surgery Dr. Tan Discharge Condition Improved and stable Final diagnoses Aerococcus urinae UTI History of cirrhosis Elevated alk phos History of COPD History of CVA History of seizure disorder History of hepatitis B Toxic metabolic encephalopathy Dehydration Sepsis Acute kidney injury History of BPH Abnormal LFTs I have been assigned to dictate discharge summary for this account. Alfredo Rapp Sep 03, 2020 14:28
== END 2020-08-30 18:00 | DRG 871 ==
LOC: EDBD 14:21 → EMR 15:03 → 4E 19:15 → EDBEDREQ 20:45 → 4E 22:03
DX: A41.9 Sepsis, unspecified organism (principal); G92 Toxic encephalopathy; N39.0 Urinary tract infection, site not specified; N17.9 Acute kidney failure, unspecified; R65.20 Severe sepsis without septic shock; R62.7 Adult failure to thrive; K74.60 Unspecified cirrhosis of liver; J44.9 Chronic obstructive pulmonary disease, unspecified; E86.0 Dehydration; N40.0 Benign prostatic hyperplasia without lower urinary tract symptoms; Z86.73 Personal history of transient ischemic attack (TIA), and cerebral infarction without residual deficits; G40.909 Epilepsy, unspecified, not intractable, without status epilepticus; B96.89 Other specified bacterial agents as the cause of diseases classified elsewhere; Z86.19 Personal history of other infectious and parasitic diseases; Z79.01 Long term (current) use of anticoagulants; R29.6 Repeated falls; Z86.711 Personal history of pulmonary embolism
CPT/HCPCS: 36415; 70450; 71045; 76700; 80048; 80053; 81003; 82140; 82150; 82550; 83605; 83690; 83735; 83880; 84100; 84134; 84484; 85025; 85610; 85651; 85730; 86140; 86703; 86704; 86803; 87040; 87086; 87340; 87516; 87517; 93005; 96365; 99285